=== PATIENT | female | born 1940 | race Caucasian/White ===

== ENCOUNTER 2023-05-01 18:32 | Emergency (ER) | payer MEDICARE, SELFPAY ==
--- NOTE | ~2023-05-01 | CT_ITS ---
EXAMINATION: CT ABDOMEN AND PELVIS WITHOUT CONTRAST CLINICAL INFORMATION: Abdominal fullness/nausea. COMPARISON: None available. TECHNIQUE: Multidetector volumetric imaging was performed from the superior aspect of the liver through the pubic symphysis. Sagittal and coronal reformatted images were obtained on the technologist's workstation. This CT examination was performed using dose optimization techniques as appropriate, variously including the following: *Automated exposure control *Adjustment of mA and/or kV according to patient size (this includes techniques or standardized protocols for targeted exams where dose is matched to indication/reason for exam; i.e. extremities or head) *Use of iterative reconstruction technique DLP: 813 mGy-cm FINDINGS: The lack of intravenous contrast limits evaluation of the solid visceral organs including the liver, spleen, pancreas, and kidneys. LUNG BASES: No focal consolidation or pleural effusion. LIVER, GALLBLADDER, AND BILIARY TREE: The liver is normal in size, shape, and attenuation. No focal hepatic lesion or biliary ductal dilatation is present. Cholecystectomy. PANCREAS: Limited noncontrast examination. Fatty infiltration predominantly in the region of the pancreatic head/uncinate process. Minimal fatty haziness around the proximal pancreas and celiac trunk. SPLEEN: Normal size. ADRENAL GLANDS: No adrenal mass. KIDNEYS AND URETERS: Right extrarenal pelvis. No nephrolithiasis. No hydronephrosis. No perinephric fat stranding. BLADDER: Unremarkable. GASTROINTESTINAL TRACT: The stomach and the small bowel are nondilated. Radiopaque material at the cecal base as well a scattered s in the ascending colon, likely related with ingested debris. Colonic diverticulosis without significant pericolonic fat stranding/free fluid. No evidence of bowel obstruction. ABDOMINAL WALL: Small fat-containing umbilical and infraumbilical abdominal wall hernias. LYMPH NODES: No lymphadenopathy. VASCULAR: Atherosclerotic disease. Abdominal aorta is normal in caliber. PELVIC VISCERA: Hysterectomy. OSSEOUS STRUCTURES: Pronounced thoracolumbar scoliosis with advanced degenerative changes in the spine. Complex postoperative changes in the lower lumbar spine with interdisc spacer and spinous process hardware at L4-L5. CT/CT abdomen pelvis wo IV con IMPRESSION: 1. Minimal fatty haziness around the proximal pancreas and celiac trunk. Correlate clinically for acute pancreatitis. 2. Colonic diverticulosis but no evidence of acute diverticulitis. 3. Small fat-containing umbilical and infraumbilical abdominal wall hernias. 4. Complex postoperative appearance of the lower lumbar spine within a background of advanced degenerative changes. If an acute spinal pathology or hardware complication is suspected, further evaluation with MRI and IV contrast is recommended.
--- NOTE | ~2023-05-01 | XR_ITS ---
EXAMINATION: XR CHEST CLINICAL INFORMATION: Chest pain COMPARISON: None available. TECHNIQUE: 2 views of the chest were obtained. FINDINGS: Coarsened interstitial lung markings. Biapical pleural parenchymal scarring. No pneumothorax. Trachea is midline. Cardiomediastinal silhouette is not enlarged. Aorta demonstrates tortuosity with atherosclerotic calcifications. No large pleural effusion. Degenerative changes of the thoracolumbar spine. Soft tissues are unremarkable. XR/XR chest 2V IMPRESSION: 1. Coarsened interstitial lung markings. 2. Biapical pleural parenchymal scarring.
--- NOTE | 2023-05-01 19:52 | ED.GENADULT ---
HPI - General Adult General Chief complaint: Weakness Stated complaint: dizziness,nausea Time Seen by Provider: 05/01/23 21:28 Source: patient Mode of arrival: ambulatory Limitations: no limitations History of Present Illness HPI narrative: Patient With history of arthritis and high cholesterol and hypertension been complaining of nausea and weakness for last 4 days did not eat much especiall for last 24 hours no urinary symptoms , no fever/ chills no new medication Related Data Previous Rx's Medication Instructions Recorded ondansetron 4 mg disintegrating 4 mg PO Q6-8H PRN nausea and 05/02/23 tablet vomiting #10 tabs Allergies Allergy/AdvReac Type Severity Reaction Status Date / Time celecoxib [From Celebrex] Allergy Mild PALPITATION Unverified 06/08/20 16:56 S levofloxacin [From Levaquin] Allergy Mild VOMITNG/GRACE Unverified 06/08/20 16:56 KELL zolpidem [From Ambien] Allergy Mild HIVES/RASH/ Unverified 06/08/20 16:56 ITCH acetaminophen [From Vicodin] Allergy Abdominal Verified 05/01/23 19:59 Pain adhesive tape Allergy Rash Verified 05/01/23 19:59 cholestyramine Allergy Unknown Verified 05/01/23 19:59 [From Questran] diclofenac [From Cataflam] Allergy Anaphylaxis Verified 05/01/23 19:59 gemfibrozil [From Lopid] Allergy Nausea Verified 05/01/23 19:59 hydrocodone [From Vicodin] Allergy Abdominal Verified 05/01/23 19:59 Pain indomethacin Allergy Nausea Verified 05/01/23 19:59 ketoprofen Allergy Chest Pain Verified 05/01/23 19:59 lisinopril Allergy Nausea Verified 05/01/23 19:59 lorazepam [From Ativan] Allergy Anxiety Verified 05/01/23 19:59 naproxen Allergy Abdominal Verified 05/01/23 19:59 Pain NSAIDS (Non-Steroidal Allergy Abdominal Verified 05/01/23 19:59 Anti-Inflamma Pain sucrose [From Questran] Allergy Unknown Verified 05/01/23 19:59 diazepam [From Valium] AdvReac Mild HYPERACTIVE Unverified 06/08/20 16:56 pravastatin [Pravastatin] AdvReac Mild MUSCLE AND Unverified 06/08/20 16:56 LEG PAIN zinc AdvReac Vomiting Verified 05/01/23 19:59 Review of Systems Review of Systems: Yes all other systems are reviewed and are negative [facility] Social History Social History Alcohol intake: former Smoked in Last 30 Days: No Use of substances other than those prescribed or required for medical reasons: No Advance Directives: No Advance Directives Information Provided: Yes Physical Exam ED Vital Signs: Vital Signs - 24 hr 05/01/23 19:59 05/01/23 22:20 Temperature 98.2 F Pulse Rate 88 81 Respiratory Rate 18 20 Blood Pressure 185/70 H 172/73 H Pulse Oximetry 100 99 Oxygen Delivery Method Room Air Room Air BMI result Body Mass Index 38.7 Appearance: Alert. Oriented X3. No acute distress. Eyes: PERRLA, No Nystagmus ENT: Pharynx normal. Oral Mucosa moist Neck: Normal inspection. Neck supple. CVS: Normal heart rate and rhythm. Pulses normal. Respiratory: No respiratory distress. Equal air entry bilateral, no wheezing/rales/rhonchi Abdomen: Soft and nontender. Bowel sounds are present, no mass palpable, no CVA tenderness Skin: Skin warm and dry. Normal skin color. Normal skin turgor. Extremities: No lower extremity edema. No calf tenderness Neuro: Oriented X 3. No motor deficit. No sensory deficit.No cerebellar signs , cranial nerves II-XII intact Course Course Course Narrative: This is an RME: Additional HPI, ROS, PE not included below will be deferred to primary provider. This is a [id number], with a past medical history of hypertension, HLD, GERD, psoriasis, psoriatic arthritis, osteoarthritis, hiatal hernia, spinal stenosis, scoliosis, spondylitis, tinnitus, versus leg syndrome chronic, neuroma your pain of toes intact feet, incontinence, colitis presenting to the ER with complaints of nausea x 4 days and weakness. wheezing x 10 days. Faint expiratory wheeze heard at right lower lung base. Patient mildly hypertensive at 185/70. Plan: Labs, EKG, chest x-ray, UA Medications Administered Discontinued Medications Generic Name Dose Route Start Last Admin Trade Name Freq PRN Reason Stop Dose Admin Sodium Chloride 1,000 mls @ 999 mls/hr 05/01/23 21:42 05/01/23 23:49 Ns IV 05/01/23 22:42 Infused .Q1H1M ONE Infusion Morphine Sulfate 4 mg 05/01/23 23:51 05/01/23 23:57 Morphine Sulfate 4 Mg/Ml Cartridge IVPUSH 05/01/23 23:52 4 mg ONCE ONE Administration Protocol Ondansetron HCl 4 mg 05/01/23 21:44 05/01/23 22:34 Ondansetron Hcl 4 Mg/2 Ml Vial IVPUSH 05/01/23 21:45 4 mg ONCE ONE Administration Medical Decision Making Medical Decision Making [facility] Narrative: Patient nonspecific weakness/nausea do not very clear labs are stable with abdominal CT scan to rule out any pathology CT scan of the abdomen showed slight inflammation around the pancreas patient's lipase was normal. Advised to follow with block stacker Differential Diagnosis Differential Diagnoses: The differential diagnosis associated with the presentation includes Gastritis/pancreatitis/pancreatic mass Lab Data [facility] Lab Attestation statement: I reviewed the patient's lab results. 05/01/23 20:31 05/01/23 20:31 Labs: Lab Results 05/01/23 05/01/23 05/01/23 Range/Units 20:31 20:31 20:31 WBC 6.4 (4.8-10.8) X10*3/uL RBC 4.31 (4.20-5.50) X10*6/uL Hgb 12.6 (12.0-16.0) g/dl Hct 37.5 (37.0-47.0) % MCV 87.0 (80.0-98.0) fL MCH 29.2 (27.0-33.0) pg MCHC 33.6 (31.0-35.0) g/dl RDW 12.3 (11.0-16.0) % Plt Count 310 (160-400) X10*3/uL MPV 9.7 (9.4-12.3) fL Immature Gran % (Auto) 0.5 H (0.0-0.4) % Neut % (Auto) 59.7 (45-73) % Lymph % (Auto) 29.5 (20-40) % Collier % (Auto) 8.1 (2-11) % Eos % (Auto) 1.4 (0-4) % Baso % (Auto) 0.8 (0-2) % Lymph # (Auto) 1.9 (1.2-4.9) X10*3/uL Collier # (Auto) 0.5 (0.1-1.2) X10*3/uL Eos # (Auto) 0.1 (0.0-0.4) X10*3/uL Baso # (Auto) 0.1 (0.0-0.2) X10*3/uL Abs Immat Gran (auto) 0.03 (0.00-0.03) X10*3/uL Absolute Neuts (auto) 3.8 (2.0-8.3) x10*3/uL Absolute Nucleated RBC 0.000 (0.0-0.012) X10*3/uL Nucleated RBC % (auto) 0.0 (0.0-0.2) /100WBC Sodium 134 L (135-145) mmol/L Potassium 4.1 (3.3-5.1) mmol/L Chloride 99 (96-108) mmol/L Carbon Dioxide 23 (22-29) mmol/L Anion Gap 16 (12-20) BUN 13 (9-16) mg/dL Creatinine 0.87 (0.5-1.4) mg/dL Estim Creat Clear Calc 48.0 Estimated GFR > 60 Random Glucose 108 (60-115) mg/dL Calcium 10.4 H (8.4-10.2) mg/dL Magnesium 2.1 (1.6-2.6) mg/dL Total Bilirubin 0.4 (0.0-1.0) mg/dL Direct Bilirubin 0.2 (0.0-0.5) mg/dL AST 22 (5-31) U/L ALT 14 (0-31) U/L Alkaline Phosphatase 69 (39-117) U/L Troponin I High Sens (<3.5-17.0) ng/L B-Natriuretic Peptide 103 H (<100) pg/mL Total Protein 7.4 (6.5-8.0) g/dL Albumin 4.2 (3.5-5.0) g/dL Lipase 16 (8-78) U/L Urine Color Urine Appearance Urine pH (5.0-9.0) Ur Specific Stan[place] (1.005-1.025) Urine Protein (Neg-Trace) mg/dL Urine Glucose (UA) (Negative) mg/dL Urine Ketones (Negative) mg/dL Urine Blood (Negative) Urine Nitrite (Negative) Ur Leukocyte Esterase (Negative) Urine RBC (0-2) /HPF Urine WBC (0-5) /HPF Ur Squamous Epith Cells (0-2) /HPF Urine Bacteria (None Seen) Hyaline Casts (0-2) /LPF Influenza Type A (PCR) (Negative) Influenza Type B (PCR) (Negative) RSV RNA Qual (PCR) (Negative) SARS-CoV-2 RNA (RT-PCR) (Negative) 05/01/23 05/01/23 05/01/23 Range/Units 20:31 20:32 20:33 WBC (4.8-10.8) X10*3/uL RBC (4.20-5.50) X10*6/uL Hgb (12.0-16.0) g/dl Hct (37.0-47.0) % MCV (80.0-98.0) fL MCH (27.0-33.0) pg MCHC (31.0-35.0) g/dl RDW (11.0-16.0) % Plt Count (160-400) X10*3/uL MPV (9.4-12.3) fL Immature Gran % (Auto) (0.0-0.4) % Neut % (Auto) (45-73) % Lymph % (Auto) (20-40) % Collier % (Auto) (2-11) % Eos % (Auto) (0-4) % Baso % (Auto) (0-2) % Lymph # (Auto) (1.2-4.9) X10*3/uL Collier # (Auto) (0.1-1.2) X10*3/uL Eos # (Auto) (0.0-0.4) X10*3/uL Baso # (Auto) (0.0-0.2) X10*3/uL Abs Immat Gran (auto) (0.00-0.03) X10*3/uL Absolute Neuts (auto) (2.0-8.3) x10*3/uL Absolute Nucleated RBC (0.0-0.012) X10*3/uL Nucleated RBC % (auto) (0.0-0.2) /100WBC Sodium (135-145) mmol/L Potassium (3.3-5.1) mmol/L Chloride (96-108) mmol/L Carbon Dioxide (22-29) mmol/L Anion Gap (12-20) BUN (9-16) mg/dL Creatinine (0.5-1.4) mg/dL Estim Creat Clear Calc Estimated GFR Random Glucose (60-115) mg/dL Calcium (8.4-10.2) mg/dL Magnesium (1.6-2.6) mg/dL Total Bilirubin (0.0-1.0) mg/dL Direct Bilirubin (0.0-0.5) mg/dL AST (5-31) U/L ALT (0-31) U/L Alkaline Phosphatase (39-117) U/L Troponin I High Sens 9.9 (<3.5-17.0) ng/L B-Natriuretic Peptide (<100) pg/mL Total Protein (6.5-8.0) g/dL Albumin (3.5-5.0) g/dL Lipase (8-78) U/L Urine Color Yellow Urine Appearance Clear Urine pH 7.5 (5.0-9.0) Ur Specific [place] 1.015 (1.005-1.025) Urine Protein Negative (Neg-Trace) mg/dL Urine Glucose (UA) Negative (Negative) mg/dL Urine Ketones Trace (Negative) mg/dL Urine Blood Negative (Negative) Urine Nitrite Negative (Negative) Ur Leukocyte Esterase Trace H (Negative) Urine RBC 0-2 (0-2) /HPF Urine WBC 0-5 (0-5) /HPF Ur Squamous Epith Cells 0-2 (0-2) /HPF Urine Bacteria Trace (None Seen) Hyaline Casts 0-2 (0-2) /LPF Influenza Type A (PCR) NEGATIVE (Negative) Influenza Type B (PCR) NEGATIVE (Negative) RSV RNA Qual (PCR) NEGATIVE (Negative) SARS-CoV-2 RNA (RT-PCR) NEGATIVE (Negative) Discharge Plan Discharge Clinical Impression: Acute inflammation of the pancreas Patient Disposition: Home, Self-Care Instructions: Pancreatitis (ED) Additional Instructions: Drink plenty of fluids Avoid fried food Continue pain and acid medication Zofran for nausea Report to the ER if increased epigastric pain Prescriptions: New ondansetron 4 mg tablet,disintegrating 4 mg PO Q6-8H PRN (Reason: nausea and vomiting) Qty: 10 0RF Interventions: ED Discharge Assessment Last Done: 05/02/23 01:15 Discharge Date/Time: 05/02/23 01:16
[2023-05-01 19:59] VITALS: BP 185/70; PULSE 88; RESP 18; TEMP 36.8; O2SAT 100; BMI 38.7
--- NOTE | 2023-05-01 20:05 | ECG_ITS ---
Test Reason : CP Blood Pressure : / mmHG Vent. Rate : 090 BPM Atrial Rate : 090 BPM P-R Int : 246 ms QRS Dur : 086 ms QT Int : 376 ms P-R-T Axes : 053 032 005 degrees QTc Int : 459 ms Sinus rhythm with 1st degree A-V block with Premature atrial complexes Nonspecific ST and T wave abnormality Abnormal ECG When compared to the previous EKG of First degree AV block present Referred By: Marnie Chavez Electronically Signed By:Baudilio Del Toro
--- NOTE | 2023-05-01 20:18 | MHC.EDTECH ---
pt called for EKG 2015. pt currently in bathroom. awaiting pt availability for EKG and labs
[2023-05-01 20:43] LABS: MANUAL DIFF FLAG NO
[2023-05-01 20:54] LABS: Basophils Absolute Auto 0.1 X10*3/uL (0.0-0.2); Basophils Percent Auto 0.8 % (0-2); Eosinophils Absolute Auto 0.1 X10*3/uL (0.0-0.4); Eosinophils Percent Auto 1.4 % (0-4); Hematocrit 37.5 % (37.0-47.0); Hemoglobin 12.6 g/dl (12.0-16.0); Imm Gran Abs Auto 0.03 X10*3/uL (0.00-0.03); Imm Gran Pct Auto 0.5 % (0.0-0.4); Lymphocytes Absolute Auto 1.9 X10*3/uL (1.2-4.9); Lymphocytes Percent Auto 29.5 % (20-40); Mean Corpuscular HGB Conc 33.6 g/dl (31.0-35.0); Mean Corpuscular Hemoglobin 29.2 pg (27.0-33.0); Mean Platelet Volume 9.7 fL (9.4-12.3); Monocytes Absolute Auto 0.5 X10*3/uL (0.1-1.2); Monocytes Percent Auto 8.1 % (2-11); Neutrophils Absolute Auto 3.8 x10*3/uL (2.0-8.3); Neutrophils Percent Auto 59.7 % (45-73); Platelet Count 310 X10*3/uL (160-400); Red Blood Count 4.31 X10*6/uL (4.20-5.50); Red Cell Distribution Width 12.3 % (11.0-16.0); White Blood Count 6.4 X10*3/uL (4.8-10.8)
[2023-05-01 20:55] LABS: Appearance Urine Clear; Color Urine Yellow; Glucose Urine UA Negative (Negative); Leukocyte Esterase Urine Trace (Negative); Nitrite Urine Negative (Negative); PH 7.5 (5.0-9.0); Specific Gravity - Urine 1.015 (1.005-1.025); UMIC TRIGGER UACC YES; Urine Blood Negative (Negative); Urine Ketones Trace mg/dL (Negative); Urine Protein Negative (Neg-Trace)
[2023-05-01 21:03] LABS: Alanine Aminotransferase 14 U/L (0-31); Albumin Level 4.2 g/dL (3.5-5.0); Alkaline Phosphatase 69 U/L (39-117); Anion Gap 16 (12-20); Aspartate Amino Transferase 22 U/L (5-31); Bilirubin Direct 0.2 mg/dL (0.0-0.5); Bilirubin Total 0.4 mg/dL (0.0-1.0); Blood Urea Nitrogen 13 mg/dL (9-16); Calcium 10.4 mg/dL (8.4-10.2); Carbon Dioxide 23 mmol/L (22-29); Chloride 99 mmol/L (96-108); Estimated Glomerular Filt Rate > 60; Glucose Random 108 mg/dL (60-115); Lipase 16 U/L (8-78); Magnesium 2.1 mg/dL (1.6-2.6); Potassium 4.1 mmol/L (3.3-5.1); Sodium 134 mmol/L (135-145); Total Protein 7.4 g/dL (6.5-8.0)
[2023-05-01 21:06] LABS: B Type Natriuretic Peptide 103 pg/mL (<100)
[2023-05-01 21:09] LABS: Troponin-I High Sensitivity 9.9 ng/L (<3.5-17.0)
--- OUTSIDE RECORDS SUMMARY | 2023-05-01 21:21 | XMS_ITS ---
Author Name EMERSON SURYA Address [address] [place], [place] [id number] Organization [facility] Address [address] [place], [place] [id number] Care Team Providers Care Nurse Supervisor Name Role Phone EMERSON SURYA Unavailable [phone] PROBLEMS Type Condition ICD9-CM Code SGF63-QG Code Onset Dates Condition Status SNOMED Code Problem Hyperlipidemia 272.4 Oct, Resolved Problem Osteoarthritis, site unspecified 715.00 Oct, Resolved Problem GERD 530.81 Oct, Resolved Problem Rash and other nonspecific skin eruption R21 14 Oct, 2017 Resolved Problem Essential hypertension, unspecified 401.9 Oct, Resolved Problem Hypertension, unspecified type I10 Active Problem Zoster without complications B02.9 Oct, Resolved Problem Postlaminectomy syndrome, not elsewhere classified M96.1 Active Problem 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 Active Problem URI 465.8 Sep, Resolved Problem Essential (primary) hypertension I10 Active Problem History of diverticulitis Z87.19 Active Problem Urge incontinence N39.41 Active Problem RLS (restless legs syndrome) G25.81 Active Problem History of cataract Z86.69 Active Problem Depression with anxiety F41.8 Active Problem Psoriatic arthritis L40.50 Active Problem Other chronic pain G89.29 Active Problem Severe scoliosis M41.9 Active Problem Chronic pain syndrome G89.4 Active Problem Lumbar facet arthropathy M47.816 Active Problem Sedative, 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, 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 Active Problem Spondylosis of lumba r region without myelopathy or radiculopathy M47.816 Active Problem Hyperlipidemia, unspecified hyperlipidemia type E78.5 Active Problem BMI 36.0-36.9,adult Z68.36 Active Problem Gastroesophageal reflux disease without esophagitis K21.9 Active Problem Paresthesia of skin R20.2 Active Problem Recurrent major depressive disorder, in partial remission F33.41 Active Problem BMI 35.0-35.9,adult Z68.35 Active Problem Spondylosis without myelopathy or radiculopathy, lumbar region M47.816 Active Problem Bilateral sacroiliitis M46.1 Active ALLERGIES Substance Reaction Event Type Date Status Duloxetine Unknown Drug Allergy Nov, Active Vicodin Unknown Drug Allergy Nov, Active NSAIDs Unknown Non Drug Allergy Nov, Active Ativan Unknown Drug Allergy Nov, Active Celebrex Unknown Drug Allergy Nov, Active Ambien CR Unknown Drug Allergy Nov, Active Lopid Unknown Drug Allergy Nov, Active Meloxicam Unknown Drug Allergy Nov, Active Lisinopril Unknown Drug Allergy Nov, Active Cataflam Unknown Drug Allergy Nov, Active Vytorin Unknown Drug Allergy Nov, Active Levaquin Unknown Drug Allergy Nov, Active Ketoprofen stomach upset Drug Allergy Nov, Active Valium Unknown Drug Allergy Nov, Active Indomethacin Unknown Drug Allergy Nov, Active Adhesive Unknown Drug Allergy Nov, Active Questran Unknown Drug Allergy Nov, Active Pravastatin Unknown Non Drug Allergy Nov, Activ e Naproxen stomach upset Drug Allergy Nov, Active Fragrance Unknown Drug Allergy Nov, Active ENCOUNTERS Encounter Location Date Diagnosis [facility] [address] [place], [place] [id number] Mar, Recurrent major depressive disorder, in partial remission F33.41 and Bilateral sacroiliitis M46.1 [facility] [address] [place], [place] [id number] Feb, Bilateral sacroiliitis M46.1 and Recurrent major depressive disorder, in partial remission F33.41 [facility] [address] [place], [place] [id number] 17 Jan, 2023 Bilateral sacroiliitis M46.1 [facility] [address] [place] [address], [place] [id number] 24 Dec, 2022 Bilateral sacroiliitis M46.1 [facility] [address] [place] [address], [place] [id number] 31 Nov, 2022 Recurrent major depressive disorder, in partial remission F33.41 [facility] [address] [facility] [id number] 29 Nov, 2022 Recurrent major depressive disorder, in partial remission F33.[address] [facility] [address] [place] [address] [facility] [place] [id number] 29 Nov, 2022 Essential (primary) hypertension I10 and BMI 36.0-36.9,adult Z68.36 [facility] [address] [place] [address], [place] [id number] 15 Nov, 2022 Essential (primary) hypertension I10 ; Bilateral sacroiliitis M46.1 and BMI 35.0-35.9,adult Z68.35 [facility] [address] [place] [id number] 10 Nov, 2022 [facility] [address] [place] [address], [place] [id number] 09 Nov, [address], [address] [place], [place] [id number] 07 Nov, 2022 Radiculopathy, lumbar region M54.16 [place] [address] [place] [address], [place] [id number] 23 Oct, [address] [address] [place] [address], [place] [id number] 23 Oct, 2022 Recurrent major depressive disorder, in partial remission F33.41 ; Sedative, hypnotic or anxiolytic abuse with withdrawal, 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 ; Hyperlipidemia, unspecified hyperlipidemia type E78.5 ; Essential (primary) hypertension I10 ; 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 ; Other prison (current) drug therapy Z79.899 ; Impaired fasting blood sugar R73.01 ; BMI 35.0-35.9,adult Z68.35 and Encounter for screening for other disorder Z13.89 [facility] [address], [facility] [address] [place], [place] [id number] 15 Oct, 2022 Radiculopathy, thoracic lashae on M54.14 ; Bilateral sacroiliitis M46.1 ; Neuralgia and neuritis, unspecified M79.2 ; Radiculopathy, lumbar region M54.16 ; Spondylosis without myelopathy or radiculopathy, lumbar region M47.816 and terminal makeup operator (current) use of opiate analgesic Z79.891 [facility] [address] [place] [address] 14 Oct, 2022 Essential (primary) hypertension I10 ; Hyperlipidemia, unspecified hyperlipidemia type E78.5 and Other prison (current) drug therapy Z79.899 [facility], [place], [place] [id number] Sep, Spondylosis of lumbar region without myelopathy or radiculopathy M47.816 [facility] [address] [place] [id number] Sep, Recurrent major depressive disorder, in partial remission F33.41 [facility] [address] [place] [id number] Sep, [facility] [address] [place] [id number] Aug, [facility], [place], [place] [id number] Aug, Bilateral sacroiliitis M46.1 ; Neuralgia and neuritis, unspecified M79.2 ; Radiculopathy, lumbar region M54.16 ; Spondylosis without myelopathy or radiculopathy, lumbar region M47.816 and snf (current) use of opiate analgesic Z79.891 [facility], [place], [place] [id number] Aug, Spondylosis of lumbar region without myelopathy or radiculopathy M47.816 [facility] [address] [place], [place] [id number] Aug, Recurrent major depressive disorder, in partial remission F33.41 [facility] [address] [facility], [address] [place] [id number] Jul, Spondylosis of lumbar region without myelopathy or radiculopathy M47.[address] [id number] Jun, Essential (primary) hypertension I10 ; Encounter for general adult medical examination with abnormal findings Z00.01 ; Hyperlipidemia, unspecified hyperlipidemia type E78.5 ; Gastroesophageal reflux disease without esophagitis K21.9 ; Psoriatic arthritis L40.50 ; Other prison (current) drug therapy Z79.899 ; Recurrent major depressive disorder, in partial remission F33.41 ; Vaccine counseling Z71.89 ; Influenza vaccine administered Z23 ; Encounter for immunization Z23 ; BMI 35.0-35.9,adult Z68.35 ; Sedative, hypnotic or anxiolytic abuse with withdrawal, 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 and 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 [id number] Jun, Essential (primary) hypertension I10 [facility] [address] [place] [address] 20 Jun, 2022 Hyperlipidemia, unspecified hyperlipidemia type E78.5 ; Annual visit for general adult medical examination with abnormal findings Z00.01 ; Depression with anxiety F41.8 and Essential (primary) hypertension I10 [facility] [address] [facility], [facility] [address] [place], [place] [id number] 17 Jun, 2022 Neuralgia and neuritis, unspecified M79.2 ; Bilateral sacroiliitis M46.1 ; Radiculopathy, lumbar region M54.16 ; Spondylosis without myelopathy or radiculopathy, lumbar region M47.816 and terminal makeup operator (current) use of opiate analgesic Z79.[address] [id number] May, [address] [id number] May, [address] [id number] Mar, [address] [id number] Feb, [facility] [address] [place] [id number] Feb, [facility] [address] [place] [id number] January, [facility] [address] [place] [id number] January, [facility] [address] [place] [id number] January, Encounter for screening for other disorder Z13.89 ; Bronchitis J40 and BMI 34.0-34.9,adult Z68.34 [facility] [address] [place] [id number] January, Bronchitis J40 and BMI 35.0-35.9,adult Z68.35 [facility] [address] [place] [address] 12 Jan, [address] [facility] [address] [place] [id number] January, Acute upper respiratory infection, unspecified J06.9 [facility] [address] [place] [id number] January, [facility] [address] [place] [address] January, 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 ; Lumbar facet arthropathy M47.816 ; Postlaminectomy syndrome, not elsewhere classified M96.1 and Chronic pain syndrome G89.[address] [address] [id number] Dec, Hyperlipidemia, unspecified hyperlipidemia type E78.5 ; Annual visit for general adult medical examination with abnormal findings Z00.01 ; Depression with anxiety F41.8 ; Essential (primary) hypertension I10 ; Encounter for screening for other disorder Z13.89 ; Encounter for general adult medical examination with abnormal findings Z00.01 ; Cervicalgia M54.2 ; Other chronic pain G89.29 ; Severe scoliosis M41.9 and BMI 36.0-36.9,adult Z68.36 [facility] [address] [place] [address] Nov, Hyperlipidemia, unspecified hyperlipidemia type E78.5 ; Psoriatic arthritis L40.50 ; Essential (primary) hypertension I10 ; Encounter for screening for other disorder Z13.89 ; Hypertension, unspecified type I10 and RLS (restless legs syndrome) G25.81 [facility] [address] [place] [id number] Nov, Rheumatoid arthritis, involving unspecified site, unspecified whether rheumatoid factor present M06.[address] [id number] Nov, [address] [id number] Nov, Encounter for screening for other disorder Z13.89 ; Hyperlipidemia, unspecified hyperlipidemia type E78.5 ; Hypertension, unspecified type I10 ; Encounter for screening mammogram for malignant neoplasm of breast Z12.31 ; Screen for colon cancer Z12.11 ; Anesthesia of skin R20.0 ; Paresthesia of skin R20.2 ; Depression with anxiety F41.8 ; Gastroesophageal reflux disease without esophagitis K21.9 ; History of diverticulitis Z87.19 ; History of cataract Z86.69 ; Urge incontinence N39.41 ; Neck pain M54.2 ; Other chronic pain G89.29 ; Low back pain, unspecified M54.50 ; History of tinnitus Z86.69 ; Psoriatic arthritis L40.50 ; RLS (restless legs syndrome) G25.81 and BMI 34.0-34.9,adult Z68.34 [facility] [address] [place], [place] [id number] 07 Nov, 2021 [facility] [address] [id number] May, [facility] [address] [place] [id number] Apr, [facility] [address] [place] [id number] 14 Oct, 2017 [facility] [address] [id number] 07 Sep, 2014 IMMUNIZATIONS Vaccine Route Administration Date Status Bupivacaine OTH Other/Miscellaneous November 26, 2022 Ad ministered Bupivacaine OTH Other/Miscellaneous Oct 08, 2022 Admi nistered Bupivacaine OTH Other/Miscellaneous Aug 27, 2022 Admi nistered Bupivacaine Unknown Jul 30, 2022 Administered Lidocaine OTH Other/Miscellaneous November 26, 2022 Ad ministered Lidocaine OTH Other/Miscellaneous Oct 08, 2022 Admi nistered Omnipaque OTH Other/Miscellaneous November 26, 2022 Ad ministered Lidocaine OTH Other/Miscellaneous Aug 27, 2022 Admi nistered FLUAD 2021 HIGH DOSE IM Intramuscular Jul 18, 2022 Adm inistered Lidocaine OTH Other/Miscellaneous Jul 30, 2022 Admi nistered KENALOG Unknown November 26, 2022 Administered SOCIAL HISTORY Qualifiers Date Smoker, current status unknown REASON FOR REFERRAL FUNCTIONAL STATUS PLAN OF CARE Activity Details VITAL SIGNS Temperature 98.7 degrees Fahrenheit Temperature 98 degrees Fahrenheit 2014-09-28 Heart Rate 78 /min 2022-12-18 Heart Rate 75 /min 2022-12-04 Heart Rate 80 /min 2022-11-26 Heart Rate 83 /min 2022-11-14 Heart Rate 77 /min 2022-11-06 Heart Rate 77 /min 2022-10-08 Heart Rate 78 /min 2022-09-09 Heart Rate 79 /min 2022-08-27 Heart Rate 73 /min 2022-07-30 Heart Rate 69 /min 2022-07-18 Heart Rate 94 /min 2022-07-08 Heart Rate 83 /min 2022-02-12 Heart Rate 80 /min 2022-02-05 Heart Rate 74 /min 2022-01-31 Heart Rate 96 /min 2022-01-23 Heart Rate 94 /min 2022-01-10 Heart Rate 84 /min 2021-12-11 Heart Rate 91 /min 2017-11-05 Heart Rate 87 /min 2014-09-28 Weight 197 lbs 2022-12-18 Weight 196 lbs 2022-12-04 Weight 197 lbs 2022-11-26 Weight 196.8 lbs 2022-11-14 Weight 203 lbs 2022-11-06 Weight 188 lbs 2022-09-09 Weight 188 lbs 2022-08-27 Weight 188 lbs 2022-07-30 Weight 193 lbs 2022-07-18 Weight 191 lbs 2022-07-08 Weight 191 lbs 2022-02-12 Weight 192 lbs 2022-02-05 Weight 196 lbs 2022-01-31 Weight 196.2 lbs 2022-01-23 Weight 197 lbs 2022-01-10 Weight 191 lbs 2021-12-11 Weight 193 lbs 2017-11-05 Weight 174 lbs 2014-09-28 BMI 36.03 kg/m2 2022-12-18 BMI 35.84 kg/m2 2022-12-04 BMI 36.03 kg/m2 2022-11-26 BMI 35.99 kg/m2 2022-11-14 BMI 37.13 kg/m2 2022-11-06 BMI 34.38 kg/m2 2022-09-09 BMI 34.38 kg/m2 2022-08-27 BMI 34.38 kg/m2 2022-07-30 BMI 35.3 kg/m2 2022-07-18 BMI 34.93 kg/m2 2022-07-08 BMI 34.93 kg/m2 2022-02-12 BMI 35.11 kg/m2 2022-02-05 BMI 35.84 kg/m2 2022-01-31 BMI 35.88 kg/m2 2022-01-23 BMI 36.03 kg/m2 2022-01-10 BMI 34.93 kg/m2 2021-12-11 Height 62 in 2022-12-18 Height 62 in 2022-12-04 Height 62 in 2022-11-26 Height 62 in 2022-11-14 Height 62 in 2022-11-06 Height 62 in 2022-10-08 Height 62 in 2022-09-09 Height 62 in 2022-08-27 Height 62 in 2022-07-30 Height 62 in 2022-07-18 Height 62 in 2022-07-08 Height 62 in 2022-02-12 Height 62 in 2022-02-05 Height 62 in 2022-01-31 Height 62 in 2022-01-23 Height 62 in 2022-01-10 Height 62 in 2021-12-11 Height 62 in 2017-11-05 Height 62 in 2014-09-28 Respiratory Rate 17 /min 2021-12-11 Oximetry 99 % 2022-12-18 Oximetry 100 % 2022-12-04 Oximetry 99 % 2022-11-26 Oximetry 99 % 2022-11-14 Oximetry 99 % 2022-11-06 Oximetry 99 % 2022-10-08 Oximetry 98 % 2022-09-09 Oximetry 98 % 2022-08-27 Oximetry 98 % 2022-07-30 Oximetry 97 % 2022-07-18 Oximetry 97 % 2022-07-08 Oximetry 97 % 2022-02-12 Oximetry 98 % 2022-02-05 Oximetry 98 % 2022-01-31 Oximetry 96 % 2022-01-23 Oximetry 98 % 2022-01-10 Oximetry 99 % 2021-12-11 Oximetry 98 % 2017-11-05 Oximetry 95 % 2014-09-28 Blood pressure systolic 148 mm Hg Blood pressure diastolic 70 mm Hg 2022-11 MEDICATIONS Medication Instructions Dosage Frequency Start Date End Date Duration Status Famotidine 20 MG TAKE 2 TABLETS BY MOUTH ONCE DAILY 90 Active Valsartan 320 MG Orally Once a day 1 tablet 24h 90 days Active hydroCHLOROthiazide 25 MG TAKE 1 TABLET BY MOUTH ONCE DAILY 90 Active Tazorac 0.1 % 1-2 daily as needed for psoriasis Sep, 30 Active Calcium Carbonate-Vitamin D 600-200 MG-UNIT Orally Three times a day 1 capsule 8h Active Systane 0.4-0.3 % Ophthalmic Once a day 1-2 drops in affected eye 24h Active Voltaren Gel * Apply QD PRN PAIN Sep, 30 Active Metamucil 28.3 % Orally Twice a day 1 packet with 8 ounces of liquid as needed 12h Active Super B-50 B Complex - as directed Active Nizatidine 150 mg 1-2 daily Sep, 30 Active Simvastatin 40 MG Oral Once a day 1 tab po qd 24h 90 days Active LORazepam 1 MG Oral Once a day 1 tab qd prn 24h Feb, 30 days Active traMADol HCl 50 MG Orally three times a day 1 tablet as needed for chronic back pain 8h Mar, 30 days Active PreviDent 5000 Booster Plus 1.1 % Apply small amount daily to toothbrush and brush thoroughly for 2 minutes, expectorate after use. Sep, 30 Active Vitamin C 1000 MG Orally Once a day 1 tablet 24h 30 day(s) Active Clobetasol Propionate 0.05 % Externally Twice a day as needed 1 application Active Glucosamine Chond MSM Formula - as directed Active Centrum Silver - as directed Active PROCEDURES Procedure Date Ordered Result Body Site ASSAY OF FERRITIN December 19, 2021 ASSAY OF VITAMIN D December 19, 2021 RVW MEDS BY RX/DR IN [facility] Nov 14, 2022 TOBACCO NON-USER December 11, 2021 RVW MEDS BY RX/DR IN [facility] January 31, 2022 INJ PARAVERT F JNT L/S 2 LEV Aug 27, 2022 INJ PARAVERT F JNT L/S 2 LEV Jul 30, 2022 RVW MEDS BY RX/DR IN [facility] Jul 18, 2022 FXNL STATUS ASSESSED December 18, 2022 FXNL STATUS ASSESSED February 12, 2022 RVW MEDS BY RX/DR IN [facility] January 23, 2022 DESTROY L/S FACET JNT ADDL Oct 08, 2022 BMI >=30 CALCUATE W/FOLLOWUP Jul 18, 2022 BMI >=30 CALCUATE W/FOLLOWUP January 10, 2022 ADVNC CARE PLAN TLK DOCD Nov 14, 2022 FXNL STATUS ASSESSED December 11, 2021 AMNT PAIN NOTED PAIN PRSNT January 10, 2022 BODY MASS INDEX DOCD Nov 14, 2022 FOOT EXAM PERFORMED December 11, 2021 VITAL SIGNS RECORDED December 11, 2021 COMPREHEN METABOLIC PANEL December 19, 2021 FLUAD 2021 HIGH DOSE Jul 18, 2022 COMPREHEN METABOLIC PANEL Jul 11, 2022 ASSAY THYROID STIM HORMONE Nov 05, 2022 LIPID PANEL December 19, 2021 LIPID PANEL Nov 05, 2022 LIPID PANEL Jul 11, 2022 FLUAD 2021 HIGH DOSE Jul 18, 2022 BMI >=30 CALCUATE W/FOLLOWUP Nov 14, 2022 ADVNC CARE PLAN TLK DOCD December 11, 2021 UNCLASSIFIED DRUGS November 26, 2022 BLOOD PRESSURE, MEASURED December 11, 2021 SYST BP = 140 MM HG6 IT Nov 14, 2022 DIAST BP = 90 MM HG Nov 14, 2022 AMNT PAIN NOTED NONE PRSNT December 11, 2021 ANNUAL ALCOHOL MISUSE SCREEN 15 MIN December 11, 2021 SYST BP LT 130 MM HG Jul 18, 2022 PRES/ABSN URINE INCON ASSESS Nov 14, 2022 DIAST BP 80-89 MM HG December 04, 2022 DIAST BP 80-89 MM HG February 12, 2022 VITAMIN B-12 December 19, 2021 VITAL SIGNS RECORDED February 12, 2022 VITAL SIGNS RECORDED December 18, 2022 BLOOD PRESSURE, MEASURED January 31, 2022 BLOOD PRESSURE, MEASURED January 10, 2022 ASSAY THYROID STIM HORMONE Jul 11, 2022 UNCLASSIFIED DRUGS Oct 08, 2022 VITAL SIGNS RECORDED December 04, 2022 VITAL SIGNS RECORDED February 05, 2022 COMPREHEN METABOLIC PANEL Nov 05, 2022 ASSAY THYROID STIM HORMONE December 19, 2021 ASSAY OF TRANSFERRIN December 19, 2021 DIAST BP 80-89 MM HG February 05, 2022 O2 SATURATION DOC REV Nov 14, 2022 THER/PROPH/DIAG INJ, IV PUSH November 26, 2022 ANNUAL DEPRESSION SCREENING 15 MIN December 11, 2021 DIAST BP < 80 MM HG Jul 18, 2022 SYST BP GE 130 - 139MM HG January 10, 2022 BMI >=30 CALCUATE W/FOLLOWUP February 12, 2022 BMI<30 AND >=22 CALC & DOCU December 04, 2022 FXNL STATUS ASSESSED December 04, 2022 FXNL STATUS ASSESSED February 05, 2022 FXNL STATUS ASSESSED January 10, 2022 INJ PARAVERT F JNT L/S 3 LEV Jul 30, 2022 INJ PARAVERT F JNT L/S 3 LEV Aug 27, 2022 FXNL STATUS ASSESSED Jul 18, 2022 FXNL STATUS ASSESSED January 23, 2022 INJ TRIAMCINOLONE ACETONIDE 10 MG November 26, 2022 FALL RISK ASSESSMENT DOCD Nov 14, 2022 FALL RISK ASSESSMENT DOCD December 11, 2021 BMI >=30 CALCUATE W/FOLLOWUP February 05, 2022 ANNUAL ALCOHOL MISUSE SCREEN 15 MIN Nov 14, 2022 AMNT PAIN NOTED PAIN PRSNT Jul 18, 2022 PAIN ASSESS DOC NEG NO F/U PLAN RQR December 11, 2021 BMI >=30 CALCUATE W/FOLLOWUP December 18, 2022 DIAST BP 80-89 MM HG January 10, 2022 O2 SATURATION DOC REV January 10, 2022 SYST BP = 140 MM HG6 IT December 18, 2022 O2 SATURATION DOC REV Jul 18, 2022 Lidocaine injection Aug 27, 2022 Lidocaine injection Jul 30, 2022 Lidocaine injection November 26, 2022 ASSAY OF IRON December 19, 2021 O2 SATURATION DOC REV December 04, 2022 O2 SATURATION DOC REV February 12, 2022 SYST BP LT 130 MM HG January 23, 2022 RVW MEDS BY RX/DR IN [facility] December 11, 2021 THER/PROPH/DIAG INJ, SC/IM November 26, 2022 O2 SATURATION DOC REV February 05, 2022 AMNT PAIN NOTED PAIN PRSNT Oct 08, 2022 FXNL STATUS ASSESSED Nov 14, 2022 O2 SATURATION DOC REV January 31, 2022 FALL RISK ASSESSMENT DOCD December 11, 2021 BODY MASS INDEX DOCD February 12, 2022 TOBACCO NON-USER Nov 14, 2022 BODY MASS INDEX DOCD February 05, 2022 IMMUNIZATION ADMIN Jul 18, 2022 DIAST BP < 80 MM HG January 23, 2022 IMMUNIZATION ADMIN Jul 18, [address] [facility] December 18, 2022 COMPLETE CBC W/AUTO DIFF WBC December 19, 2021 AMNT PAIN NOTED PAIN PRSNT Sep 09, 2022 COMPLETE CBC W/AUTO DIFF WBC Jul 11, 2022 AMNT PAIN NOTED PAIN PRSNT Jul 30, 2022 URINALYSIS, AUTO, W/O SCOPE Nov 05, 2022 AMNT PAIN NOTED PAIN PRSNT Aug 27, [address] IN RD February 05, [address] [facility] Jul 18, [address] [facility] January 10, [address] [facility] February 12, 2022 BLOOD FOLIC ACID SERUM December 19, 2021 VITAL SIGNS RECORDED Nov 14, 2022 SYST BP = 140 MM HG6 IT December 04, 2022 PRES/ABSN URINE INCON ASSESS December 11, 2021 AMNT PAIN NOTED NONE PRSNT February 05, 2022 BODY MASS INDEX DOCD January 10, 2022 BODY MASS INDEX DOCD Jul 18, 2022 DIAST BP < 80 MM HG December 18, 2022 Omnipaque November 26, 2022 COMPLETE CBC W/AUTO DIFF WBC Nov 05, 2022 VITAL SIGNS RECORDED Jul 18, 2022 URINALYSIS, AUTO, W/O SCOPE December 19, 2021 UNCLASSIFIED DRUGS Aug 27, 2022 UNCLASSIFIED DRUGS Jul 30, 2022 FOOT EXAM PERFORMED Nov 14, 2022 Lidocaine injection Oct 08, 2022 VITAL SIGNS RECORDED January 10, 2022 VITAL SIGNS RECORDED January 31, 2022 O2 SATURATION DOC REV December 18, 2022 SYST BP GE 130 - 139MM HG February 12, 2022 SYST BP GE 130 - 139MM HG February 05, 2022 AMNT PAIN NOTED NONE PRSNT December 18, 2022 PT FALLS ASSESS-DOC'D LE1/YR December 11, 2021 O2 SATURATION DOC REV December 11, 2021 FXNL STATUS ASSESSED December 11, 2021 RVW MEDS BY RX/DR IN [facility] February 05, 2022 RVW MEDS BY RX/DR IN [facility] December 04, 2022 INJ PARAVERT F JNT L/S 1 LEV Jul 30, 2022 INJ PARAVERT F JNT L/S 1 LEV Aug 27, [address] [facility] January 31, [address] [facility] December 11, 2021 RVW MEDS BY RX/DR IN [facility] December 18, 2022 RVW MEDS BY RX/DR IN [facility] February 12, 2022 BODY MASS INDEX DOCD December 11, 2021 BMI<30 AND >=22 CALC & DOCU December 11, 2021 DIAST BP < 80 MM HG December 11, 2021 LOCM 200-299MG/ML IODINE,1ML November 26, [address] [facility] Nov 14, 2022 MOST RECENT SYSTOLIC BP < 140MM HG December 11, 2021 TTE, W/DOPPLER, COMPLETE/TECHNICAL Jul 16, 2022 NJX INTERLAMINAR LMBR/SAC November 26, 20[address]D [address] [facility] December 04, 2022 TTE W/DOPPLER, COMPLETE, INTREPRETATION Jul 16, [address] [facility] January 23, 2022 AMNT PAIN NOTED PAIN PRSNT Jul 08, 2022 AMNT PAIN NOTED PAIN PRSNT January 23, 2022 RVW MEDS BY RX/DR IN [facility] January 10, 2022 DESTROY LUMB/SAC FACET JNT Oct 08, 2022 ANNUAL WELLNESS VST; PPS SUBSQT VST Jul 18, 2022 AMNT PAIN NOTED PAIN PRSNT December 04, 2022 CLIN DEPRESSION SCREEN DOC December 11, 2021 RESULTS Name Result Date Reference Range CMP (Comprehensive Metabolic panel) 11-05 A/G RATIO 1.4 1.0-2.5 ALBUMIN 4.0 3.5-5.5 ALK PHOSPHATASE 75 35-105 ALT 12 0-33 ANION GAP (Calc) 15 4-17 AST (SGOT) 18.0 0-32 BILIRUBIN, TOTAL 0.30 0.20-1.20 BUN/CREA RATIO 16 9-28 CALCIUM 9.7 8.6-10.4 CHLORIDE 99.7 98.0-110.0 CO2 31 20-31 CREATININE, JAFF 0.80 0.50-0.90 eGFR(Calc)AA 83 >60 eGFR(Calc)NON-AA 68 >60 GLOBULIN (Calc) 2.8 1.9-3.7 GLUCOSE 101 70-100 POTASSIUM 4.58 3.50-5.30 SODIUM 141 135-145 TOTAL PROTEIN 6.8 6.1-8.1 UREA NITROGEN 12.5 7.0-25.0 Urinalysis, Random w/Reflex to C & S 2022 BILIRUBIN Negative Negative Blood Negative Negative CLARITY Clear Clear COLOR Yellow Yellow GLUCOSE Negative Negative KETONES Negative Negative LEUKOCYTES Small Negative NITRITES Negative Negative Ph 7.5 5.0-7.5 PROTEIN Negative Negative SPECIFIC GRAVITY 1.015 1.005-1.029 UROBILINOGEN 0.2 0.2-1.0 CBC With Differential/Platelet 2022-11-05 HCT 35.9 34.0-46.6 HGB 11.9 11.1-15.9 LYMPHOCYTES # 1.90 0.50-5.00 LYMPHOCYTES % 36.2 MCH 29.2 25.0-35.0 MCHC 33.2 31.0-38.0 MCV 88.0 75.0-100.0 MONOCYTES # 0.50 0.10-1.50 MONOCYTES % 7.7 MPV 8.7 7.5-11.5 NEUTROPHILS # 3.0 1.20-8.00 NEUTROPHILS % 56.1 PLATELETS 324 140-400 RBC 4.08 3.80-5.40 RDWcv 12.7 11.0-16.0 WBC 5.40 3.80-10.80 Culture, Urine Comprehensive 2022-11-05 CULTURE, URINE, SPECIAL SEE NOTE Lipid Panel 2022-11-05 Chol, Total 185 <200 HDL, Cholesterol 75 >50 LDL,Chol Jeremy NIH 99 <100 Triglycerides 129 <150 VLDL, Chol Calc 26 0-40 TSH - Reflex to Free T4 2022-11-05 TSH Reflex FRT4 3.13 0.27-4.20 ECHO 2022-07-16 CMP (Comprehensive Metabolic panel) 07-11 A/G RATIO 1.6 1.0-2.5 ALBUMIN 4.1 3.5-5.5 ALK PHOSPHATASE 75 35-105 ALT 14 0-33 ANION GAP (Calc) 13 4-17 AST (SGOT) 20.0 0-32 BILIRUBIN, TOTAL 0.40 0.20-1.20 BUN/CREA RATIO 15 9-28 CALCIUM 9.4 8.6-10.4 CHLORIDE 104.7 98.0-110.0 CO2 28 20-31 CREATININE, JAFF 0.80 0.50-0.90 eGFR(Calc)AA 83 >60 eGFR(Calc)NON-AA 68 >60 GLOBULIN (Calc) 2.5 1.9-3.7 GLUCOSE 100 70-100 POTASSIUM 3.78 3.50-5.30 SODIUM 142 135-145 TOTAL PROTEIN 6.6 6.1-8.1 UREA NITROGEN 11.8 7.0-25.0 CBC With Differential/Platelet 2022-07-11 HCT 36.7 34.0-46.6 HGB 12.7 11.1-15.9 LYMPHOCYTES # 1.90 0.50-5.00 LYMPHOCYTES % 38.2 MCH 30.3 25.0-35.0 MCHC 34.6 31.0-38.0 MCV 87.4 75.0-100.0 MONOCYTES # 0.50 0.10-1.50 MONOCYTES % 7.7 MPV 8.9 7.5-11.5 NEUTROPHILS # 2.8 1.20-8.00 NEUTROPHILS % 54.1 PLATELETS 334 140-400 RBC 4.19 3.80-5.40 RDWcv 12.9 11.0-16.0 WBC 5.20 3.80-10.80 Lipid Panel 2022-07-11 Chol, Total 193 <200 HDL, Cholesterol 71 >50 LDL,Chol Jeremy NIH 110 <100 Triglycerides 161 <150 VLDL, Chol Calc 32 0-40 TSH - Reflex to Free T4 2022-07-11 TSH Reflex FRT4 1.20 0.27-4.20 SARS-CoV-2 RNA (COVID-19), Qualitative NAAT 2022-01-31 COVID-19 Negative Negative Procedural QC Valid Valid SARS-CoV Antigen 2022-01-31 Internal QC Present Present SARS-CoV Ag Negative Negative Influenza A and B Rapid molecular (RNA) 2 Influenza A Negative Negative Influenza B Negative Negative Procedural QC Valid Valid testcode 2021-12-27 CMP (Comprehensive Metabolic panel) 12-19 A/G RATIO 1.8 1.0-2.5 ALBUMIN 4.2 3.5-5.5 ALK PHOSPHATASE 74 35-105 ALT 14 0-33 ANION GAP (Calc) 17 4-17 AST (SGOT) 19.0 0-32 BILIRUBIN, TOTAL 0.40 0.20-1.20 BUN/CREA RATIO 24 9-28 CALCIUM 9.6 8.6-10.4 CHLORIDE 102.6 98.0-110.0 CO2 27 20-31 CREATININE, JAFF 0.70 0.50-0.90 eGFR(Calc)AA 97 >60 eGFR(Calc)NON-AA 80 >60 GLOBULIN (Calc) 2.4 1.9-3.7 GLUCOSE 95 70-100 POTASSIUM 4.42 3.50-5.30 SODIUM 142 135-145 TOTAL PROTEIN 6.6 6.1-8.1 UREA NITROGEN 17.1 7.0-25.0 Vitamin D (25-OH Vitamin D) 2021-12-19 VIT. D (25-OH) 48 >30 Anemia panel (Iron, Transfer rin, Vit B12, Folate, Ferritin) 2021-12-19 % SAT(Calc) 34.6 20-55 FERRITIN 90 13-150 Folate, Serum 20.0 4.8-37.3 IRON, SERUM 100 37-145 TIBC (Calc) 289 250-450 TRANSFERRIN 245 200-360 UIBC (Calc) 189 111-343 VITAMIN B-12 723 200-1,100 Urinalysis, Random w/Reflex to C & S 2021 BILIRUBIN Negative Negative Blood Negative Negative CLARITY Clear Clear COLOR Yellow Yellow GLUCOSE Negative Negative KETONES Negative Negative LEUKOCYTES Trace Negative NITRITES Negative Negative Ph 7.5 5.0-7.5 PROTEIN Negative Negative SPECIFIC GRAVITY 1.015 1.005-1.029 UROBILINOGEN 0.2 0.2-1.0 CBC With Differential/Platelet 2021-12-19 HCT 37.7 34.0-46.6 HGB 12.3 11.1-15.9 LYMPHOCYTES # 2.00 0.50-5.00 LYMPHOCYTES % 43.1 MCH 28.9 25.0-35.0 MCHC 32.5 31.0-38.0 MCV 88.7 75.0-100.0 MONOCYTES # 0.40 0.10-1.50 MONOCYTES % 7.7 MPV 9.1 7.5-11.5 NEUTROPHILS # 2.2 1.20-8.00 NEUTROPHILS % 49.2 PLATELETS 285 140-400 RBC 4.25 3.80-5.40 RDWcv 12.5 11.0-16.0 WBC 4.60 3.80-10.80 Vitamin B1 (Thiamine), Blood 2021-12-19 Vit. B1, Whole Blood 192.1 66.5-20 0.0 Lipid Panel 2021-12-19 Chol, Total 186 <200 HDL, Cholesterol 76 >50 LDL,Chol Jeremy NIH 99 <100 Triglycerides 132 <150 VLDL, Chol Calc 26 0-40 TSH - Reflex to Free T4 2021-12-19 TSH Reflex FRT4 1.68 0.27-4.20 MRI LUMBAR WO CONTRAST 2021-12-27 REASON FOR VISIT PER [facility] A[facility] APPT GIVEN, CONTROLLED, controlled, d jelly, Controlled Rx, injection, Controlled Rx, CONTROLLED, Patient is here for 2 week bp check follow up, Patient presents in the office for N.V. follow up (BP CHECK), Resend Rx, low back pain, Patient presents in the office for 4 month follow up on chronic condition, Low back pain, 10.27.22, low back pain, controlled, CXL-1ST ATTEMPT, covid positive discuss rx, DOXY [phone] discuss about medication pt is covid positive, REQUESTED ACALL BACK, Low back pain, low back pain, Controlled Rx, low back pain, Patient presents in office for annual wellness exam and 6 months follow up on chronic condition, ECHO, 4.21.22, Neck and Low Back Pain, PER [facility] PORTAL AWE IS GIVEN, Rx Refill, refill, RX REFILL, medication SE, MED NOT WORKING, Patient presents in the office for 1 week follow up, follow up, angela mercado bridget, shaky, fatigue, cough, dizzy - neg covid test, CONTROLLED RX, neck pain, awe/lab review/ekg and MRI cervical/spinefu, CONTROLLED, Patient is here to establish care, REQUEST TO MAIL NEW PT PAPERWORK, EMR-Reza, EMR-Reza, SHINGLES, PAIN, RASH, 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 [place] COUGH WHEEZING Insurance Providers Health Insurance Type Health Plan Insurance Address Health Plan Insurance Phone Health Plan Insurance Name Health Plan Coverage Dates Member ID Patient Relationship to Subscriber Patient Address Patient Phone Patient Name Patient Date of Subscriber ID Subscriber Name Subscriber Date of Group No [employer] Supplement al [address] [facility] [id number] [employer] Supplement al self [place] [id number] PLAN C MEDICARE [place] B [address] [address] [place] [address] MEDICARE PART B self [place] [id number] MEDICARE PART B [address] [address] [facility] [address] MEDICARE PART B self [place] [id number]
[2023-05-01 21:27] LABS: Influenza A PCR NEGATIVE (Negative); Influenza B PCR NEGATIVE (Negative); Resp Syncy Virus RNA Qual PCR NEGATIVE (Negative); SARS COV2 PCR INHOUSE NEGATIVE (Negative)
[2023-05-01 21:58] LABS: Bacteria Urine Trace (None Seen); Hyaline Casts Urine 0-2 /LPF (0-2); RBC Urine 0-2 /HPF (0-2); Squamous Epithelial Cell Urine 0-2 /HPF (0-2); WBC Urine 0-5 /HPF (0-5)
[2023-05-01 22:20] VITALS: BP 172/73; PULSE 81; RESP 20; O2SAT 99
[2023-05-01] MEDS: 0.9 % Sodium Chloride 1,000 ML 999 ML IV (22:33)
[2023-05-01] MEDS: ondansetron HCL 4 MG/2 ML VIAL IVPUSH (22:34)
--- NOTE | 2023-05-01 22:35 | PC.NURSE ---
Pt presents to ED for nausea x4 days, denies vomiting. Pt is A&Ox4, GCS 15, resting quietly in bed at this time. I placed a 22g IV in the left hand, medicated per NOV, and started fluids. Pt is complaining of 9/10 chronic pain in her backl. Will inform provider.
[2023-05-01] MEDS: Morphine Sulfate 4 MG/ML CARTRIDGE IVPUSH (23:57)
== END 2023-05-02 01:16 | disposition home or self-care (01) ==
PROVIDERS: Physician Assistant Medical; Emergency Provider Internal Medicine
DX: K85.90 Acute pancreatitis without necrosis or infection, unspecified (principal); R42 Dizziness and giddiness; I10 Essential (primary) hypertension; E78.00 Pure hypercholesterolemia, unspecified; R11.2 Nausea with vomiting, unspecified; R06.02 Shortness of breath; Z79.899 Other long term (current) drug therapy; Z20.822 Contact with and (suspected) exposure to COVID-19; Z20.828 Contact with and (suspected) exposure to other viral communicable diseases
CPT/HCPCS: 0241U; 36415; 71046; 74176; 80048; 80076; 81001; 81003; 83690; 83735; 83880; 84484; 85025; 93005; 96361; 96374; 96375; 99285; J2270; J2405

== ENCOUNTER → 2023-05-01 20:05 | Outpatient (BNV) | payer MEDICARE, SELFPAY | PROVIDERS: Emergency Provider Internal Medicine; Visit Provider Internal Medicine Cardiovascular Disease | DX: I44.0 Atrioventricular block, first degree (principal); R94.31 Abnormal electrocardiogram [ECG] [EKG] | CPT/HCPCS: 93010 ==

== ENCOUNTER 2023-09-11 09:53 | Outpatient (AMB) | payer MEDICARE, SELFPAY ==
--- NOTE | 2023-09-11 09:56 | A.OFFPC_ITS ---
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 Intake Note: Pt is here today as New Patient to est care/ c/o elevated b/p Allergies celecoxib [From Celebrex] Allergy (Mild, Unverified 09/11/23 10:23) PALPITATIONS levofloxacin [From Levaquin] Allergy (Mild, Unverified 09/11/23 10:23) VOMITNG/JITTERY zolpidem [From Ambien] Allergy (Mild, Unverified 09/11/23 10:23) HIVES/RASH/ITCH acetaminophen [From Vicodin] Allergy (Verified 09/11/23 10:23) Abdominal Pain adhesive tape Allergy (Verified 09/11/23 10:23) Rash cholestyramine [From Questran] Allergy (Verified 09/11/23 10:23) Unknown gemfibrozil [From Lopid] Allergy (Verified 09/11/23 10:23) Nausea hydrocodone [From Vicodin] Allergy (Verified 09/11/23 10:23) Abdominal Pain indomethacin Allergy (Verified 09/11/23 10:23) Nausea ketoprofen Allergy (Verified 09/11/23 10:23) Chest Pain lisinopril Allergy (Verified 09/11/23 10:23) Nausea naproxen Allergy (Verified 09/11/23 10:23) Abdominal Pain NSAIDS (Non-Steroidal Anti-Inflamma Allergy (Verified 09/11/23 10:23) Abdominal Pain sucrose [From Questran] Allergy (Verified 09/11/23 10:23) Unknown diazepam [From Valium] Adverse Reaction (Mild, Unverified 09/11/23 10:23) HYPERACTIVE pravastatin [Pravastatin] Adverse Reaction (Mild, Unverified 09/11/23 10:23) MUSCLE AND LEG PAIN zinc Adverse Reaction (Verified 09/11/23 10:23) Vomiting Medication List - Last Reconciled 09/11/23 by BUDDY Ventura acetaminophen (Tylenol) 325 mg PO QID PRN amoxicillin 500 mg PO BID ascorbic acid (vitamin C) 2 grams PO DAILY B-complex with vitamin C 1 cap PO DAILY calcium carbonate-vitamin D3 600 mg-20 mcg (800 unit) (Caltrate 600 plus D) 1 tab PO DAILY clobetasol 0.05% 1 appl topical BID diclofenac sodium 1% 2 grams topical QID fluoride (sodium) 1.1% 1 appl dental BEDTIME [id number] 500-500-66.7 mg (Bapkciweggj-Zukrwherpea-YLS (with antiox)) tabs PO hydrochlorothiazide 25 mg PO QAM lorazepam 1 mg PO DAILY PRN miconazole nitrate 2% 1 appl topical DAILY hcnlmhsx-lzk-vpup-FA-vit K-lut 8 mg iron-400 mcg-50 mcg (Centrum Silver Women) 1 tab PO DAILY ondansetron 4 mg PO Q6-8H PRN propylene glycol 0.6% (Systane Balance) 1 drp ophthalmic (eye) DAILY PRN psyllium husk (Metamucil) 0.4 grams PO QDAY simvastatin 40 mg PO DAILY tramadol 50 mg PO Q8H PRN valsartan 320 mg PO DAILY Tobacco use date assessed: 09/11/23 Fall risk assessment: No Falls in past year Last assessed Fall Risk: 09/11/23 Dental Screening Dental Screen Date: 09/11/23 Did you have a dental visit in the last 12 months?: No Was dental information given to patient?: Patient has dentist HPI HPI Comments History of Present Illness Details Patient is an 82-year-old female here to establish care. She recently moved to the area from [place]. She has a chief complaint of hypertension, however, she was started on volsartan by her provider in [place] before she moved and her blood pressure readings have been significantly improved since then. She denies any headache, dizziness, chest pain, shortness a breath, or edema. She has chronic lower back and bilateral foot pain. She has a significant history for her lower back which includes laminectomy. She has chronic bilateral foot pain due to osteoarthritis, she usually treats this with aqua therapy and is interested in pursuing that and also with meeting a director translation. She needs a refill on most of her medications. Needs to send information from past medical provider. [facility] Medical History (Updated 09/11/23 @ 14:50 by BUDDY Ventura) Psoriatic arthritis Hiatal hernia Osteoarthritis Psoriasis Hyperlipidemia Surgical History (Updated 09/09/23 @ 10:44 by BUDDY Ventura) Hx of cataract removal with insertion of prosthetic lens History of laminectomy History of colon surgery History of hysterectomy History of cholecystectomy Hx of cataract surgery History of knee replacement Family History Father Dementia Raynauds disease Substance use disorder Mother Rheumatoid arthritis Maternal Grandfather Type 2 diabetes mellitus Sister Mary Carmen's disease Breast cancer Brother Pancreatic cancer Myocardial infarction Sister Lung cancer Paternal Uncle Substance use disorder Paternal Uncle Substance use disorder Paternal Uncle Substance use disorder Son Mental health disorder Social History Housing: House Alcohol intake: former Patient Tobacco Use Status: Never used Tobacco e-Cigarette/Vaping Use: Never Used service: No Current occupational status: retired Cognitive needs: No Hearing needs: No Vision needs: Yes Questionnaire PHQ-9 Over the last 2 weeks, how often have you been bothered by any of the following problems? 1. Little interest or pleasure in doing things: several days 2. Feeling down, depressed, or hopeless: several days 3. Trouble falling or staying asleep, or sleeping too much: more than half the days 4. Feeling tired or having little energy: more than half the days 5. Poor appetite or overeating: not at all 6. Feeling bad about yourself - or that you are a failure or have let yourself or your family down: not at all 7. Trouble concentrating on things, such as reading the newspaper or watching television: not at all 8. Moving or speaking so slowly that other people could have noticed. Or the opposite - being so fidgety or restless that you have been moving around a lot more than usual: several days 9. Thoughts that you would be better off or of hurting yourself in some way: not at all Total score: 7 Depression Screening Interpretation: Negative Depression Screening Done: Yes 97794 - PHQ-9 Billing: Yes Source: Developed by Drs. Tc Ferrer, Ryann Sanchez, Berto Barron and colleagues, with an educational rosemarie from [employer] Thrive Questionnaire Date Thrive assessed: 09/11/23 I am a: Patient What is your living situation today?: I have a steady place to live Within the past 12 months, did the food you bought not last and you didn't have the money to get more?: Never true Within the past 12 months, did you worry whether your food would run out before you got money to buy more?: Never true Do you have trouble paying for medicines?: No Do you have trouble getting transportation to medical appointments?: No Do you have trouble paying your heating and electricity bill?: No Do you have trouble taking care of your child, family member or friend?: No Do you have trouble with day-to-day activities such as bathing, preparing meals, shopping, managing finances, etc.?: No Are you currently unemployed and looking for a job?: No Are you interested in more education?: No AUDIT C Alcohol Use Questionnaire (AUDIT-C) 1. How often do you have a drink containing alcohol?: Never Total Score: 0 CASI-7 AMB Questionnaire CASI-7 Date CASI - 7 assessed: 09/11/23 Feeling nervous, anxious, or on edge: 0 = Not at all Not being able to stop or control worryin = Not at all Worrying too much about different things: 1 = Several days Trouble relaxin = Several days Being so restless that it is hard to sit still: 1 = Several days Becoming easily annoyed or irritable: 0 = Not at all Feeling afraid as if something awful might happen: 0 = Not at all Total CASI-7 score (0-4 normal; 5-9 mild; 10-14 moderate; 15-21 severe): 3 Source: Developed by Drs. Tc Ferrer, Ryann Sanchez, Berto Barron and colleagues, with an educational rosemarie from [employer] CASI-7 Assessment Billing CASI-7 Assessment Tool: CASI-7 Assessment 88896 Review of Systems Const Details: Constitutional : No Weight loss, No Fever, No Chills, No Fatigue, No Malaise Cardiovascular : No Chest Pain, No SOB, No Dyspnea on Exertion, No Orthopnea, No Edema, No Palpitations Respiratory : No Cough, No Sputum, No Wheezing Gastrointestinal : No Nausea, No Vomiting, No Diarrhea, No Constipation, No abdominal Pain, No Hematochezia, No Melena Musculoskeletal : Admits lower back pain, rediculopathy down right side. Admits Bilateral foot pain. Neuro : No Weakness, No Numbness, No Dizziness, No Headache Psych : No Anxiety/Panic, No Depression All other systems reviewed and are negative Physical exam (Primary Care) Vital Signs: Last Vital Signs Pulse 80 09/11/23 09:57 BP 138/60 09/11/23 09:57 Pulse Ox 98 09/11/23 09:57 Oxygen Delivery Method Room Air 09/11/23 09:57 Care Plan Goal for BP management: Patient will take blood pressure measurements at home for the next 2 weeks. Will get back to the office with results Next steps: Will titrate medication based on blood pressure readings over the next 2 weeks. BMI result Body Mass Index 38.5 Tobacco/Smoking Status: Tobacco use Status Tobacco use date assessed 09/11/23 09/11/23 10:05 Patient Tobacco Use Status Never used Tobacco 09/11/23 10:05 e-Cigarette/Vaping Use Never Used 09/11/23 10:05 Depression Screening Interpretation: Negative Const Other: Appearance: Alert.? Oriented X3.? No acute distress.? CVS: Normal heart rate and rhythm.? Pulses normal.? Respiratory: No respiratory distress.? Breath sounds normal.? Abdomen: Soft and nontender.? Skin: Skin warm and dry.? Normal skin color.? Normal skin turgor.? Extremities: No lower extremity edema. No point tenderness. Back: Straight leg test positive on right side. no CVA tenderness bilaterally Neuro: Oriented X 3.? No motor deficit.? No sensory deficit. CN 2-12 intact Psych Thought process: Normal thought process present Thought content: Normal thought content present Insight: Good insight present (Psych) Judgement: Good judgement present (Psych) Assessment and Plan Assessment & Plan (1) Hypertension: Comment: Patient will take blood pressure measurements at home for the next 2 weeks and reports values back to the office. If values are elevated and patient is agreeable to adjust her medication Code(s): I10 - Essential (primary) hypertension Qualifiers: Hypertension type: primary hypertension Qualified Code(s): I10 - Essential (primary) hypertension (2) Chronic pain: Comment: Patient has chronic pain lower back. Will refer to the pain management center. Patient takes Tylenol as needed p.r.n. patient states in [place] she utilized tramadol for pain management, has not taken tramadol in several months. She should be re-evaluated by pain clinic. Code(s): G89.29 - Other chronic pain Qualifiers: Chronic pain type: other chronic pain Qualified Code(s): G89.29 - Other chronic pain (3) Osteoarthritis: Comment: Patient currently uses diclofenac topical gel as needed for osteoarthritis of bilateral feet. Will also refer to physical therapy and Podiatry. Code(s): M19.90 - Unspecified osteoarthritis, unspecified site Qualifiers: Osteoarthritis location: foot Osteoarthritis type: primary Laterality: bilateral Qualified Code(s): M19.071 - Primary osteoarthritis, right ankle and foot; M19.072 - Primary osteoarthritis, left ankle and foot Plan Take your medications as prescribed. If you were prescribed antibiotics today, it is important that you take your medication to their entirety, do not skip any doses, do not finish them early. Follow-up with your primary care provider this week. Return to the emergency department with new or worsening symptoms. Such as fevers, chills, chest pain, shortness of breath, nausea, vomiting, dizziness, headache, vision changes, lethargy In case of emergency call 911 Orders: Orders Comprehensive Met. Panel Today I10 - Essential (primary) hypertension Complete Blood Count Auto Diff Today Z13.0 - Encounter for screening for diseases of the blood and blood-forming organs and certain disorders involving the immune mechanism Lipid Panel Today Z13.220 - Encounter for screening for lipoid disorders Vitamin D 25-OH (D2 and D3) Today Z13.21 - Encounter for screening for nutritional disorder UA CC w/rflx Micro + Cult Today I10 - Essential (primary) hypertension PT Evaluation and Treatment Today M1.90 - Unspecified osteoarthritis, unspecified site Vitamin B6 Today Z13.21 - Encounter for screening for nutritional disorder Vitamin B12 Today Z13.21 - Encounter for screening for nutritional disorder TSH reflex Free T4 Today Z13.29 - Encounter for screening for other suspected endocrine disorder Rheumatoid Factor Today Z13.828 - Encounter for screening for other musculoskeletal disorder Referrals Pain Management Referral G89.29 - Other chronic pain Podiatry Referral - Unspecified osteoarthritis, unspecified site Coding Level of Care Code New Pt Level 4 (23342) Diagnoses Primary hypertension I10 Hypertension type: primary hypertension Other chronic pain G89.29 Chronic pain type: other chronic pain Primary osteoarthritis of both feet M19.071; M19.072 Osteoarthritis location: foot Osteoarthritis type: primary Laterality: bilateral Additional Codes CASI-7 Assessment Billing - CASI-7 Assessment Tool: CASI-7 Assessment 50703 ([id number]) Time Spent (min) 30
[2023-09-11 09:57] VITALS: BP 138/60; PULSE 80; O2SAT 98; BMI 38.5
== END 2023-09-11 11:07 | disposition home or self-care (01) ==
PROVIDERS: Visit Provider Nurse Practitioner Primary Care
DX: I10 Essential (primary) hypertension (principal); G89.29 Other chronic pain; M19.071 Primary osteoarthritis, right ankle and foot; M19.072 Primary osteoarthritis, left ankle and foot
CPT/HCPCS: 99204

== ENCOUNTER 2023-09-19 13:40 | Outpatient (AMB) | payer MEDICARE, SELFPAY ==
--- NOTE | 2023-09-19 13:47 | A.OFFVIS_ITS ---
Intake Vital Signs 3 09/19/23 13:48 Height 5 ft Weight 197 lb BMI 38.5 BP 160/78 H Blood Pressure Location Lt brachial Position Sitting Intake Visit Reasons: Other Chronic Pain/lvm Intake Note: pt is here as a new patient for overall body pain, she was on tramadol that gave her relief (from [facility]) now up in [place] pcp wanted her to come to pain management. [employer] [facility]yer Required: No Allergies celecoxib [From Celebrex] Allergy (Mild, Unverified 09/19/23 13:54) PALPITATIONS levofloxacin [From Levaquin] Allergy (Mild, Unverified 09/19/23 13:54) VOMITNG/JITTERY zolpidem [From Ambien] Allergy (Mild, Unverified 09/19/23 13:54) HIVES/RASH/ITCH acetaminophen [From Vicodin] Allergy (Verified 09/19/23 13:54) Abdominal Pain adhesive tape Allergy (Verified 09/19/23 13:54) Rash cholestyramine [From Questran] Allergy (Verified 09/19/23 13:54) Unknown gemfibrozil [From Lopid] Allergy (Verified 09/19/23 13:54) Nausea hydrocodone [From Vicodin] Allergy (Verified 09/19/23 13:54) Abdominal Pain indomethacin Allergy (Verified 09/19/23 13:54) Nausea ketoprofen Allergy (Verified 09/19/23 13:54) Chest Pain lisinopril Allergy (Verified 09/19/23 13:54) Nausea naproxen Allergy (Verified 09/19/23 13:54) Abdominal Pain NSAIDS (Non-Steroidal Anti-Inflamma Allergy (Verified 09/19/23 13:54) Abdominal Pain sucrose [From Questran] Allergy (Verified 09/19/23 13:54) Unknown diazepam [From Valium] Adverse Reaction (Mild, Unverified 09/19/23 13:54) HYPERACTIVE pravastatin [Pravastatin] Adverse Reaction (Mild, Unverified 09/19/23 13:54) MUSCLE AND LEG PAIN zinc Adverse Reaction (Verified 09/19/23 13:54) Vomiting HPI HPI Comments 2 History of Present Illness0 Details Fallon is a very pleasant 82 year old male who presented to the office today for evaluation and management of her chronic neck, back, bilateral leg and all over veronica. Patient recently moved here from [place] where she was under care of pain management and had undergone treatment for her lumbar spine including 2 sets of diagnostic medial branch blocks followed by lumbar radiofrequency ablation. She reports that her lower back pain has been under control since then. The RFA was completed September of 2022. Patient reports her mom main complaint today is her cervical neck pain. She states that she has tried physical therapy and Tylenol without relief. She applies topical diclofenac gel which is also not relieve her pain. Patient states that she was on chronic tramadol use while in [place] and that was the only thing that made her pain manageable. She recently established care with new PCP in the area, he would not refill her tramadol and referred her here for pain management strategies. In terms of muscle damage condition is described as aching, shooting, dull, hot, burning, tiring, exhausting, throbbing, tingling. Pain today is rated as a 7/10, pain is 10/10 at its worst. Pain is constant throughout the day, worse in the morning in the evenings. Pain is negatively impacting patient's enjoyment of life, general activity, mood, normal work, recreational activities, relationship, sleep and walking. Patient states ?it is ruining my life, I have no quality of life ?. [facility] Medical History (Updated 09/19/23 @ 14:42 by Courtney Ernst APRN, [employer]) Psoriatic arthritis Hiatal hernia Osteoarthritis Psoriasis Hyperlipidemia Surgical History (Updated 09/09/23 @ 10:44 by BUDDY Ventura) Hx of cataract removal with insertion of prosthetic lens History of laminectomy History of colon surgery History of hysterectomy History of cholecystectomy Hx of cataract surgery History of knee replacement Family History Father Dementia Raynauds disease Substance use disorder Mother Rheumatoid arthritis Maternal Grandfather Type 2 diabetes mellitus Sister Mary Carmen's disease Breast cancer Brother Pancreatic cancer Myocardial infarction Sister Lung cancer Paternal Uncle Substance use disorder Paternal Uncle Substance use disorder Paternal Uncle Substance use disorder Son Mental health disorder Social History Housing: House Alcohol intake: former Patient Tobacco Use Status: Never used Tobacco e-Cigarette/Vaping Use: Never Used service: No Current occupational status: retired Cognitive needs: No Hearing needs: No Vision needs: Yes Review of Systems Const All systems reviewed & are unremarkable except as noted in HPI and below Physical Exam Vital Signs: Last Vital Signs BP 160/78 H 09/19/23 13:48 BMI result Body Mass Index 38.5 General: awake, alert, oriented. Answers questions appropriately. Fully engaged in examination. Skin: warm, dry, intact HEENT: Normocephalic. Hearing intact. Cardiac: External chest normal in appearance. Respiratory: No cough, audible wheezing or stridor. Abdomen: without gross distension. MS: No obvious swelling or deformities. Tender to palpation over midline cervical vertebrae and paraspinal muscles ROM limited in all planes with notable pain increase with left lateral flexion and rotation Spurling positive Neurological: Oriented to person, place, time and situation. Thought process intact. Psychiatric: Appropriate mood and affect. Good judgment and insight. Results Reviewed Results Reviewed: 12/28/2021 Assessment & Plan Assessment & Plan (1) Psoriatic arthritis: Code(s): L40.50 - Arthropathic psoriasis, unspecified (2) Osteoarthritis: Comment: Patient currently uses diclofenac topical gel as needed for osteoarthritis of bilateral feet. Will also refer to physical therapy and Podiatry. Code(s): M19.90 - Unspecified osteoarthritis, unspecified site Qualifiers: Laterality: bilateral Osteoarthritis location: foot Osteoarthritis type: primary Qualified Code(s): M19.071 - Primary osteoarthritis, right ankle and foot; M19.072 - Primary osteoarthritis, left ankle and foot (3) Cervical spondylosis: Code(s): M47.812 - Spondylosis without myelopathy or radiculopathy, cervical region (4) Polyarthralgia: Code(s): M25.50 - Pain in unspecified joint Plan Patient presented to the office today for evaluation management of her chronic all of her pain. Referral placed to rheumatology, patient with polyarthralgia and psoriatic arthritis. Continue with Tylenol and topical diclofenac as needed. Patient was advised our chronic opioid program is currently closed. We do not prescribe chronic opiates, she was referred to her primary care doctor to discuss continuation of her previously tolerated and beneficial tramadol 50 mg p.o. t.i.d.. She is aware that this is up to the primary care doctor, he may not assume opioid prescribing for her either. Discussed options for treatment including diagnostic interventional testing, epidural steroid injections, peripheral nerve stimulation with Sprint, RFA and more permanent neuromodulation. Patient has exhausted conservative therapy including PT, nonsteroidal anti- inflammatory, muscle relaxers and zvrm-ahe-ugpilho medications without relief of her pain. Will schedule for bilateral diagnostic C4-C5 C6 medial branch blocks with local anesthetic. All questions and concerns have been answered and patient agrees with the plan. Follow up after injections and sooner if needed. Orders: Referrals 2 Rheumatology Referral L40.50 - Arthropathic psoriasis, unspecified, M25.50 - Pain in unspecified joint Coding Level of Care Code New Pt Level 4 (59347) Diagnoses Psoriatic arthritis L40.50 Primary osteoarthritis of both feet M19.071; M19.072 Laterality: bilateral Osteoarthritis location: foot Osteoarthritis type: primary Cervical spondylosis M47.812 Polyarthralgia M25.50
[2023-09-19 13:48] VITALS: BP 160/78; BMI 38.5
== END 2023-09-19 14:25 | disposition home or self-care (01) ==
PROVIDERS: PCP Nurse Practitioner Primary Care; Visit Provider Registered Nurse Emergency
DX: L40.50 Arthropathic psoriasis, unspecified (principal); M19.071 Primary osteoarthritis, right ankle and foot; M19.072 Primary osteoarthritis, left ankle and foot; M47.812 Spondylosis without myelopathy or radiculopathy, cervical region; M25.50 Pain in unspecified joint
CPT/HCPCS: 99204

== ENCOUNTER → 2023-09-19 13:40 | Outpatient (BNVA) | payer MEDICARE, SELFPAY | PROVIDERS: PCP Nurse Practitioner Primary Care; Visit Provider Registered Nurse Emergency | DX: M47.812 Spondylosis without myelopathy or radiculopathy, cervical region (principal); L40.50 Arthropathic psoriasis, unspecified; M19.071 Primary osteoarthritis, right ankle and foot; M19.072 Primary osteoarthritis, left ankle and foot; M25.50 Pain in unspecified joint | CPT/HCPCS: 99202 ==

== ENCOUNTER 2023-10-25 09:20 | Outpatient (REF) | payer MEDICARE, SELFPAY ==
[2023-10-25 11:54] LABS: MANUAL DIFF FLAG NO
[2023-10-25 11:56] LABS: Basophils Percent Auto 0.5 % (0-2); Eosinophils Absolute Auto 0.4 X10*3/uL (0.0-0.4); Eosinophils Percent Auto 7.1 % (0-4); Hematocrit 35.7 % (37.0-47.0); Hemoglobin 11.9 g/dl (12.0-16.0); Imm Gran Abs Auto 0.01 X10*3/uL (0.00-0.03); Imm Gran Pct Auto 0.2 % (0.0-0.4); Lymphocytes Absolute Auto 1.8 X10*3/uL (1.2-4.9); Lymphocytes Percent Auto 32.3 % (20-40); Mean Corpuscular HGB Conc 33.3 g/dl (31.0-35.0); Mean Corpuscular Hemoglobin 29.7 pg (27.0-33.0); Mean Platelet Volume 10.1 fL (9.4-12.3); Monocytes Absolute Auto 0.4 X10*3/uL (0.1-1.2); Monocytes Percent Auto 7.6 % (2-11); Neutrophils Percent Auto 52.3 % (45-73); Platelet Count 307 X10*3/uL (160-400); Red Blood Count 4.01 X10*6/uL (4.20-5.50); Red Cell Distribution Width 13.2 % (11.0-16.0); White Blood Count 5.7 X10*3/uL (4.8-10.8)
[2023-10-25 12:03] LABS: Appearance Urine Clear; Color Urine Yellow; Glucose Urine UA Negative (Negative); Leukocyte Esterase Urine Small (1+) (Negative); Nitrite Urine Negative (Negative); PH 7.5 (5.0-9.0); Specific Gravity - Urine 1.015 (1.005-1.025); UMIC TRIGGER UACC YES; Urine Blood Negative (Negative); Urine Ketones Negative (Negative); Urine Protein Negative (Neg-Trace)
[2023-10-25 12:16] LABS: Bacteria Urine None Seen (None Seen); Hyaline Casts Urine 0-2 /LPF (0-2); RBC Urine 0-2 /HPF (0-2); Squamous Epithelial Cell Urine 0-2 /HPF (0-2); UACC Culture Trigger YES; WBC Urine 0-5 /HPF (0-5)
[2023-10-25 12:27] LABS: Alanine Aminotransferase 13 U/L (0-31); Albumin Level 3.9 g/dL (3.5-5.0); Alkaline Phosphatase 64 U/L (39-117); Anion Gap 13 (12-20); Aspartate Amino Transferase 19 U/L (5-31); Bilirubin Total 0.3 mg/dL (0.0-1.0); Blood Urea Nitrogen 28 mg/dL (9-16); Calcium 9.6 mg/dL (8.4-10.2); Carbon Dioxide 27 mmol/L (22-29); Chloride 102 mmol/L (96-108); Cholesterol 194 mg/dL (<200); Estimated Glomerular Filt Rate 56; Glucose Random 94 mg/dL (60-115); HDL Cholesterol 79 mg/dL (>40); LDL Cholesterol Calculated 92 mg/dL (<100); Potassium 4.3 mmol/L (3.3-5.1); Sodium 138 mmol/L (135-145); Total Protein 6.9 g/dL (6.5-8.0); Triglycerides 116 mg/dL (<150)
[2023-10-25 12:29] LABS: Rheumatoid Factor < 13.0 IU/mL (<15.0)
[2023-10-25 12:44] LABS: TSH reflex Free T4 2.82 uIU/mL (0.32-4.0)
[2023-10-25 12:51] LABS: Vitamin B12 814 pg/mL (200-900)
[2023-10-29 12:29] LABS: Vitamin D 25-OH, D2 <4 ng/mL; Vitamin D 25-OH, D3 46 ng/mL; Vitamin D 25-OH, Total 46 ng/mL (30-100)
[2023-10-30 15:04] LABS: Vitamin B6 19.6 ng/mL (2.1-21.7)
== END 2023-10-25 09:21 | disposition home or self-care (01) ==
LOC: HO.HMGCLDS 09:20
PROVIDERS: PCP Nurse Practitioner Primary Care; Visit Provider Nurse Practitioner Primary Care
DX: I10 Essential (primary) hypertension (principal); Z13.21 Encounter for screening for nutritional disorder; Z13.29 Encounter for screening for other suspected endocrine disorder; Z13.220 Encounter for screening for lipoid disorders; Z13.0 Encounter for screening for diseases of the blood and blood-forming organs and certain disorders involving the immune mechanism; Z13.828 Encounter for screening for other musculoskeletal disorder
CPT/HCPCS: 36415; 80053; 80061; 81001; 81003; 82306; 82607; 84207; 84443; 85025; 86431; 87086

== ENCOUNTER 2023-10-31 10:48 | Outpatient (AMB) | payer MEDICARE, SELFPAY ==
--- NOTE | 2023-10-31 10:56 | MHC.PC.OV ---
Vital Signs 10/31/23 10:57 Height 5 ft Weight 201 lb 4 oz BMI 39.3 BP 140/68 H Blood Pressure Location Rt brachial Position Sitting Pulse 82 Pulse Source Pulse Oximeter Pulse Oximetry (%) 98 Oxygen Delivery Method Room Air Intake Visit Reasons: Annual PE Intake Note: Pt is here for her Annual PE Allergies celecoxib [From Celebrex] Allergy (Mild, Unverified 10/31/23 11:49) PALPITATIONS levofloxacin [From Levaquin] Allergy (Mild, Unverified 10/31/23 11:49) VOMITNG/JITTERY zolpidem [From Ambien] Allergy (Mild, Unverified 10/31/23 11:49) HIVES/RASH/ITCH acetaminophen [From Vicodin] Allergy (Verified 10/31/23 11:49) Abdominal Pain adhesive tape Allergy (Verified 10/31/23 11:49) Rash cholestyramine [From Questran] Allergy (Verified 10/31/23 11:49) Unknown gemfibrozil [From Lopid] Allergy (Verified 10/31/23 11:49) Nausea hydrocodone [From Vicodin] Allergy (Verified 10/31/23 11:49) Abdominal Pain indomethacin Allergy (Verified 10/31/23 11:49) Nausea ketoprofen Allergy (Verified 10/31/23 11:49) Chest Pain lisinopril Allergy (Verified 10/31/23 11:49) Nausea naproxen Allergy (Verified 10/31/23 11:49) Abdominal Pain NSAIDS (Non-Steroidal Anti-Inflamma Allergy (Verified 10/31/23 11:49) Abdominal Pain sucrose [From Questran] Allergy (Verified 10/31/23 11:49) Unknown diazepam [From Valium] Adverse Reaction (Mild, Unverified 10/31/23 11:49) HYPERACTIVE pravastatin [Pravastatin] Adverse Reaction (Mild, Unverified 10/31/23 11:49) MUSCLE AND LEG PAIN zinc Adverse Reaction (Verified 10/31/23 11:49) Vomiting Medication List - Last Reconciled 10/31/23 by BUDDY Ventura acetaminophen (Tylenol) 325 mg PO QID PRN amoxicillin-pot clavulanate 875-125 mg 1 tab PO Q12H ascorbic acid (vitamin C) 2 grams PO DAILY B-complex with vitamin C 1 cap PO DAILY benzonatate 100 mg PO BID-TID PRN calcium carbonate-vitamin D3 600 mg-20 mcg (800 unit) (Caltrate 600 plus D) 1 tab PO DAILY clobetasol 0.05% 1 appl topical BID diclofenac sodium 1% 2 grams topical QID fluoride (sodium) 1.1% 1 appl dental BEDTIME olcvwgci-zut-[id number] 500-500-66.7 mg (Iwkigizqatx-Rjowylbbhnv-CRG (with antiox)) tabs PO hydrochlorothiazide 25 mg PO QAM miconazole nitrate 2% 1 appl topical DAILY sbzigqnw-haw-hwah-FA-vit K-lut 8 mg iron-400 mcg-50 mcg (Centrum Silver Women) 1 tab PO DAILY ondansetron 4 mg PO Q6-8H PRN prednisone 20 mg (2 x 10 mg) PO DAILY propylene glycol 0.6% (Systane Balance) 1 drp ophthalmic (eye) DAILY PRN psyllium husk (Metamucil) 0.4 grams PO QDAY simvastatin 40 mg PO DAILY valsartan 320 mg PO DAILY Tobacco use date assessed: 10/31/23 Fall risk assessment: No Falls in past year Last assessed Fall Risk: 10/31/23 Dental Screening Dental Screen Date: 10/31/23 Did you have a dental visit in the last 12 months?: No Did you have a dental problem in the last 6 months where you did not have access to dental care?: No Was dental information given to patient?: No HPI HPI Comments History of Present Illness Details Patient is an 83-year-old female here today for follow-up on blood pressure. She is currently taking valsartan 320 mg p.o. daily and hydrochlorothiazide 25 mg. Patient states that blood pressures at home have been averaging 160/90. Her blood pressure in office today is 140/68. The patient denies any issues of dizziness, chest pain, numbness, headache. The patient's blood pressure was taken several times in office today, on both arms, readings were 170/88 on left arm, and 172/84 on right arm. Will add blood pressure medication amlodipine 5 mg p.o. at night. Patient will continue to take blood pressure measurements at home [facility] Medical History Psoriatic arthritis Hiatal hernia Osteoarthritis Psoriasis Hyperlipidemia Surgical History Hx of cataract removal with insertion of prosthetic lens History of laminectomy History of colon surgery History of hysterectomy History of cholecystectomy Hx of cataract surgery History of knee replacement Family History Father Dementia Raynauds disease Substance use disorder Mother Rheumatoid arthritis Maternal Grandfather Type 2 diabetes mellitus Sister Mary Carmen's disease Breast cancer Brother Pancreatic cancer Myocardial infarction Sister Lung cancer Paternal Uncle Substance use disorder Paternal Uncle Substance use disorder Paternal Uncle Substance use disorder Son Mental health disorder Social History Housing: House Alcohol intake: former Patient Tobacco Use Status: Never used Tobacco e-Cigarette/Vaping Use: Never Used service: No Current occupational status: retired Cognitive needs: No Hearing needs: No Vision needs: Yes Questionnaire Thrive Questionnaire Date Thrive assessed: 09/11/23 AUDIT C Alcohol Use Questionnaire (AUDIT-C) 1. How often do you have a drink containing alcohol?: Never Total Score: 0 CASI-7 AMB Questionnaire CASI-7 Date CASI - 7 assessed: 09/11/23 Source: Developed by Drs. Tc Ferrer, Ryann Sanchez, Berto Barron and colleagues, with an educational rosemarie from [employer]. Review of Systems Const Details: Constitutional : No Weight loss, No Fever, No Chills, No Fatigue, No Malaise ENT/Mouth : Admits sore throat, No Rhinorrhea, Admits ear fullness. Eyes: No Eye Pain, No Swelling, No Redness Cardiovascular : No Chest Pain, No SOB, No Dyspnea on Exertion, No Orthopnea, No Edema, No Palpitations Respiratory : No Cough, Admits green Sputum, Admits Wheezing Gastrointestinal : No Nausea, No Vomiting, No Diarrhea, No Constipation, No abdominal Pain, No Hematochezia, No Melena Genitourinary : No Dysuria, No Urinary Frequency, No Hematuria, Musculoskeletal : Admits pain all over. Admits pain to spine, legs, upper back, bilateral hips. Skin : No Skin Lesions, No rash Neuro : No Weakness, No Numbness, No Dizziness, No Headache Psych : No Anxiety/Panic, No Depression Heme/Lymph: No Bruising, No Bleeding,No Lymphadenopathy Endocrine : No Polyuria, No Polydipsia All other systems reviewed and are negative Physical exam (Primary Care) Care Plan Goal for BP management: Will prescribe amlodipine 5 mg. Patient will take blood pressure measurements at night. Patient states she understands signs of worsening symptoms and when to present to the ED. BMI result Body Mass Index 39.3 Tobacco/Smoking Status: Tobacco use Status Tobacco use date assessed 09/11/23 10/31/23 10:57 Patient Tobacco Use Status Never used Tobacco 10/31/23 10:57 e-Cigarette/Vaping Use Never Used 10/31/23 10:57 Thrive Assessment: Date of Thrive Assessment Date Thrive assessed 09/11/23 10/31/23 10:57 Const Other: Appearance: Alert.? Oriented X3.? No acute distress.? Head: Normocephalic, atraumatic, no step-offs or deformities Eyes: Pupils equal, round and reactive to light.? ENT: Pharynx cobblestoned. TM intact and pearly vizcaino. Neck: Normal inspection.? Neck supple.?Full ROM CVS: Normal heart rate and rhythm.? Pulses normal.? Respiratory: No respiratory distress.? Upper wheeze bilaterally. Skin: Skin warm and dry.? Normal skin color.? Normal skin turgor.? Extremities: No lower extremity edema.? No calf ttp. 5/5 strength to bilateral upper and lower extremities Back: Limited range of motion. Spondylosis. +cracking. Neuro: Oriented X 3.? No motor deficit.? No sensory deficit. CN 2-12 intact Assessment and Plan Assessment & Plan (1) Upper respiratory infection: Comment: Patient has wheeze of upper lobes bilaterally, has been expect a rating green phlegm, feels like she has the chills. Will prescribe prednisone, benzonatate, xoponex, and augmentin. Patient has been educated on signs of worsening symptoms and when to present back to the office or when to present to the ED. Code(s): J06.9 - Acute upper respiratory infection, unspecified Qualifiers: URI type: unspecified URI Qualified Code(s): J06.9 - Acute upper respiratory infection, unspecified Plan: Take your medications as prescribed. If you were prescribed antibiotics today, it is important that you take your medication to their entirety, do not skip any doses, do not finish them early. Follow-up with your primary care provider this week. Return to the emergency department with new or worsening symptoms. Such as fevers, chills, chest pain, shortness of breath, nausea, vomiting, dizziness, headache, vision changes, lethargy In case of emergency call 911 (2) Insomnia: Comment: Patient states that she has insomnia. States she sleeps only couple hours each night. States that her mind is racing, she feels worse due to her increased pain. Will have in office liaison contact patient to set up psychiatrist. Patient has history of using lorazepam at night for sleep, will prescribe small amount for patient to utilize since she has not been able to sleep much the past month. Code(s): G47.00 - Insomnia, unspecified Qualifiers: Insomnia type: unspecified Qualified Code(s): G47.00 - Insomnia, unspecified Plan: Establish care with a psychiatrist (3) Chronic pain: Comment: Patient has seen pain management. Long standing history of osteoarthritis, arthritis and spinal issues. Patient has appointment with rheumatology upcoming next week. Patient has history of tramadol use for pain management with good effect. Patient has been educated on side effects of these medications. Patient has been educated on signs of worsening symptoms and when to report to the emergency room. Code(s): G89.29 - Other chronic pain Qualifiers: Chronic pain type: other chronic pain Qualified Code(s): G89.29 - Other chronic pain Plan: Patient has follow-up physical in 1 month Medications: New benzonatate 100 mg PO BID-TID PRN 30 caps 0RF cough amoxicillin-pot clavulanate 875-125 mg 1 tab PO Q12H 14 tabs 0RF prednisone 20 mg (2 x 10 mg) PO DAILY 10 tabs 0RF Coding Level of Care Code Est Pt Level 3 (18549) Diagnoses Upper respiratory tract infection, unspecified type J06.9 URI type: unspecified URI Insomnia, unspecified type G47.00 Insomnia type: unspecified Other chronic pain G89.29 Chronic pain type: other chronic pain Time Spent (min) 30
[2023-10-31 10:57] VITALS: BP 140/68; PULSE 82; O2SAT 98; BMI 39.3
== END 2023-10-31 12:55 | disposition home or self-care (01) ==
PROVIDERS: PCP Nurse Practitioner Primary Care; Visit Provider Nurse Practitioner Primary Care
DX: J06.9 Acute upper respiratory infection, unspecified (principal); G47.00 Insomnia, unspecified; G89.29 Other chronic pain
CPT/HCPCS: 99214

== ENCOUNTER 2023-11-14 15:16 | Outpatient (AMB) | payer MEDICARE, SELFPAY ==
--- NOTE | 2023-11-14 15:34 | MHC.OFFVIS ---
Intake Vital Signs 11/14/23 15:36 Height 5 ft Weight 198 lb 3.129 oz BMI 38.7 BP 150/60 H Blood Pressure Location Rt brachial Position Sitting Pulse 64 Pulse Source Pulse Oximeter Temp 97 F Temp Source Skin Pulse Oximetry (%) 94 Oxygen Delivery Method Room Air Intake Visit Reasons: Joint Pain Intake Note: New patient presents today for consult, internally referred by pain mgmt. Patient c/o joint pain in multiple sites and has a history of PsA. She has tried PT, NSAIDS, muscle relaxers and zkwv-ofy-lupyqau medications without relief of her pain. Only thing that helped her pain was Tramadol. Patient was on tramadol when she used to live in [place]. PCP was unable to refill Tramadol, referred to pain mgmt. Pain mgmt unable to prescribe tramadol. Currently being filled by PCP. 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 Required: No Accompanied by: Self / Same As Patient Allergies celecoxib [From Celebrex] Allergy (Mild, Unverified 11/14/23 15:35) PALPITATIONS levofloxacin [From Levaquin] Allergy (Mild, Unverified 11/14/23 15:35) VOMITNG/JITTERY zolpidem [From Ambien] Allergy (Mild, Unverified 11/14/23 15:35) HIVES/RASH/ITCH acetaminophen [From Vicodin] Allergy (Verified 11/14/23 15:35) Abdominal Pain adhesive tape Allergy (Verified 11/14/23 15:35) Rash cholestyramine [From Questran] Allergy (Verified 11/14/23 15:35) Unknown gemfibrozil [From Lopid] Allergy (Verified 11/14/23 15:35) Nausea hydrocodone [From Vicodin] Allergy (Verified 11/14/23 15:35) Abdominal Pain indomethacin Allergy (Verified 11/14/23 15:35) Nausea ketoprofen Allergy (Verified 11/14/23 15:35) Chest Pain lisinopril Allergy (Verified 11/14/23 15:35) Nausea naproxen Allergy (Verified 11/14/23 15:35) Abdominal Pain NSAIDS (Non-Steroidal Anti-Inflamma Allergy (Verified 11/14/23 15:35) Abdominal Pain sucrose [From Questran] Allergy (Verified 11/14/23 15:35) Unknown diazepam [From Valium] Adverse Reaction (Mild, Unverified 11/14/23 15:35) HYPERACTIVE pravastatin [Pravastatin] Adverse Reaction (Mild, Unverified 11/14/23 15:35) MUSCLE AND LEG PAIN zinc Adverse Reaction (Verified 11/14/23 15:35) Vomiting HPI HPI Comments History of Present Illness Details Ms. Lehman 83-year-old female presents today for initial visit. The patient recently relocated from [place]. In [place] she was seeing pain management for lower back pain and generalized OA. She received corticosteroid injections to the back and tramadol for pain management. She also takes Tylenol. The patient reports that she has a hx of psoriasis and uses. This was monitored by her primary care physician in [place]. The patient has not been to a Sales Representative [employer]. The patient denies uveitis, plantar fasciitis, Achilles tendinitis. She reports her hands and feet do ache sometimes but are not swollen. 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 Spinal stenosis of cervical region with radiculopathy Bilateral hand pain Psoriatic arthritis Hiatal hernia Osteoarthritis Psoriasis Hyperlipidemia Surgical History Hx of cataract removal with insertion of prosthetic lens History of laminectomy History of colon surgery History of hysterectomy History of cholecystectomy Hx of cataract surgery History of knee replacement Family History Father Dementia Raynauds disease Substance use disorder Mother Rheumatoid arthritis Maternal Grandfather Type 2 diabetes mellitus Sister Mary Carmen's disease Breast cancer Brother Pancreatic cancer Myocardial infarction Sister Lung cancer Paternal Uncle Substance use disorder Paternal Uncle Substance use disorder Paternal Uncle Substance use disorder Son Mental health disorder Social History (Updated 11/14/23 @ 15:39 by MULU Varner) Household Members: Spouse Housing: House Alcohol intake: former Patient Tobacco Use Status: Never used Tobacco e-Cigarette/Vaping Use: Never Used service: No Current occupational status: retired Cognitive needs: No Hearing needs: No Vision needs: Yes Female Reproductive History Menstrual Total pregnancies: 3 Review of Systems Const All systems reviewed & are unremarkable except as noted in HPI and below Physical Exam Vital Signs: Last Vital Signs Temp 97 F 02/23/24 15:36 Pulse 64 11/14/23 15:36 BP 150/60 H 11/14/23 15:36 Pulse Ox 94 11/14/23 15:36 Oxygen Delivery Method Room Air 11/14/23 15:36 BMI result Body Mass Index 38.7 General: awake, alert, oriented. Answers questions appropriately. Fully engaged in examination. Skin: warm, dry, intact HEENT: Normocephalic. Hearing intact. Cardiac: External chest normal in appearance. Respiratory: No cough, audible wheezing or stridor. Abdomen: without gross distension. Neurological: Oriented to person, place, time and situation. Thought process intact. Psychiatric: Appropriate mood and affect. Good judgment and insight. MS: No obvious swelling or deformities. JOINT EXAM: Cervical Spine:.? Tender to palpation over midline cervical vertebrae and paraspinal muscles . ROM limited in all planes with notable pain increase with left lateral flexion and rotation; Spurling positive Thoracic Spine:.? No scoliosis.? Mild tenderness on palpation. Lumbar Spine:.? Alignment normal.?Limited range of motion with mild pain, some tenderness. Chest Wall:.? No tenderness, swelling, increased warmth or erythema. Hands:.? Normal pain-free range of motion with mild tenderness, but no swelling, increased warmth or erythema. Able to make a full fist and has a adequate sales advisor strength. Wrists:.? Normal pain-free range of motion without tenderness, swelling, increased warmth or erythema. Elbows:. Normal pain-free range of motion without tenderness, swelling, increased warmth or erythema. Shoulders:.?? limited range of motion with some discomfort. Mild tenderness at joint lines, but no weakness, swelling, increased warmth or erythema. Hip bursa:.? Mild tenderness. Knees:.?? Normal pain-free range of motion with mild tenderness but no swelling, increased warmth or erythema.? There is no effusion but mild crepitation Ankles:.? Normal pain-free range of motion without tenderness, swelling, increased warmth or erythema. Feet:.? Normal pain-free range of motion without tenderness, swelling, increased warmth or erythema. Tender points:? No tenderness to digital palpation at the occiput, trapezius, second rib, lateral epicondyle, knees, greater trochanter and gluteal area bilaterally. Results Reviewed Results Reviewed: 12/2021 MRI report: Severe spinal stenosis in cervical and lumbar spine; severe rotoscoliosis lumbar spine, moderate to severe DDD in cervical and lumbar spine Laboratory Tests 10/25/23 09:33 WBC 5.7 RBC 4.01 L Hgb 11.9 L Hct 35.7 L 25-Hydroxy Vitamin D3 46 Rheumatoid Factor < 13.0 Assessment & Plan Assessment & Plan (1) Bilateral hand pain: Code(s): M79.641 - Pain in right hand; M79.642 - Pain in left hand (2) Psoriasis: Code(s): L40.9 - Psoriasis, unspecified (3) Spinal stenosis of cervical region with radiculopathy: Code(s): M48.02 - Spinal stenosis, cervical region; M54.12 - Radiculopathy, cervical region (4) Spinal stenosis of lumbosacral region with radiculopathy: Code(s): M48.07 - Spinal stenosis, lumbosacral region; M54.17 - Radiculopathy, lumbosacral region (5) Generalized osteoarthritis of multiple sites: Code(s): M15.9 - Polyosteoarthritis, unspecified Plan #Spinal Stenosis/Hand Pain/Foot Pain: The patient presents for initial evaluation of lower back pain, cervical pain, and hand pain and foot pain. It appears this is longstanding for the patient. MRI shows spinal stenosis and severe DDD of both cervical and lumbar spine. While in [place] she has received corticosteroid injection, and more recently to her neck since relocating. Her pain is also managed with tramadol and Tylenol and Diclofenac 1% gel. I will obtain some rheumatologic labs and hand x-ray for further evaluation. I think that her pain is mechanical in nature, OA, and there is no underlying inflammatory conditions. Patient can continue with her current regimen, continue to follow with pain management and primary care. She has been referred for PT which I highly recommended that she follows through. If there are any results that I am concerned about, I will give the patient a call. #Psoriasis: No rash seen on PE. She uses clobetasol when patches erupt. Last occurrence was one month ago per patient. She has never seen DERM and was managed by PCP. She appears to have no problems with management. Follow-up in one month I spent 45 minutes reviewing chart, evaluating patient and documenting. Orders: Orders Creatine Kinase Total 11/14/23 G89.29 - Other chronic pain, M79.641 - Pain in right hand, M79.642 - Pain in left hand C Reactive Protein 11/14/23 G89.29 - Other chronic pain, M79.641 - Pain in right hand, M79.642 - Pain in left hand Erythrocyte Sedimentation Rate 11/14/23 G89.29 - Other chronic pain, M79.641 - Pain in right hand, M79.642 - Pain in left hand Immunoglobulins,IgG IgA IgM 11/14/23 G89.29 - Other chronic pain, M79.641 - Pain in right hand, M79.642 - Pain in left hand HLA B27 11/14/23 L40.9 - Psoriasis, unspecified, M79.641 - Pain in right hand, M79.642 - Pain in left hand XR hand LT min 3V 11/14/23 M79.641 - Pain in right hand, M79.642 - Pain in left hand XR hand RT min 3V 11/14/23 M79.641 - Pain in right hand, M79.642 - Pain in left hand Cyclic Citrullinated Peptide 11/14/23 G89.29 - Other chronic pain, M79.641 - Pain in right hand, M79.642 - Pain in left hand FAVIO Reflex Titer and Pattern 11/14/23 G89.29 - Other chronic pain, M79.641 - Pain in right hand, M79.642 - Pain in left hand Aldolase 11/14/23 G89.29 - Other chronic pain, M79.641 - Pain in right hand, M79.642 - Pain in left hand Uric Acid 11/14/23 G89.29 - Other chronic pain, M79.641 - Pain in right hand, M79.642 - Pain in left hand Protein Electrophoresis, Serum 11/14/23 G89.29 - Other chronic pain, M79.641 - Pain in right hand, M79.642 - Pain in left hand Coding Level of Care Code New Pt Level 4 (25891) Diagnoses Bilateral hand pain M79.641; M79.642 Psoriasis L40.9 Spinal stenosis of cervical region with radiculopathy M48.02; M54.12 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
[2023-11-14 15:36] VITALS: BP 150/60; PULSE 64; TEMP 36.1; O2SAT 94; BMI 38.7
== END 2023-11-14 16:24 | disposition home or self-care (01) ==
PROVIDERS: PCP Nurse Practitioner Primary Care; Visit Provider Nurse Practitioner Family
DX: M79.641 Pain in right hand (principal); M79.642 Pain in left hand; L40.9 Psoriasis, unspecified; M48.02 Spinal stenosis, cervical region; M54.12 Radiculopathy, cervical region; M48.07 Spinal stenosis, lumbosacral region; M54.17 Radiculopathy, lumbosacral region; M15.9 Polyosteoarthritis, unspecified
CPT/HCPCS: 99204; 99214

== ENCOUNTER → 2023-11-14 15:16 | Outpatient (BNVA) | payer MEDICARE, SELFPAY | PROVIDERS: PCP Nurse Practitioner Primary Care; Visit Provider Nurse Practitioner Family | DX: M79.641 Pain in right hand (principal); M79.642 Pain in left hand; M48.02 Spinal stenosis, cervical region; M48.07 Spinal stenosis, lumbosacral region; M54.12 Radiculopathy, cervical region; M54.17 Radiculopathy, lumbosacral region; M15.9 Polyosteoarthritis, unspecified; L40.9 Psoriasis, unspecified | CPT/HCPCS: 99202 ==

== ENCOUNTER 2023-11-19 11:27 | Outpatient (AMB) | payer MEDICARE, SELFPAY ==
--- NOTE | 2023-11-19 11:28 | A.OFFVIS_ITS ---
Intake Intake Visit Reasons: New Pt - Neck & Back Pain Intake Note: Fallon is a 83 year old female who presents to the office today for a new patient visit for neck and back pain that started years ago. She denies any injury to her neck or back. She states it is hard for her to move her neck left to right. She states she is getting a nerve block injection in her neck on December [address] Mcclellan. She denies any numbness or tingling in her neck but states she does have numbness and tingling in both of her hands. She states she has been using the diclofenac cream with some relief. Allergies lidocaine [From Aspercreme (lidocaine HCl)] Allergy (Intermediate, Verified 11/19/23 11:29) Rash celecoxib [From Celebrex] Allergy (Mild, Unverified 11/19/23 11:29) PALPITATIONS levofloxacin [From Levaquin] Allergy (Mild, Unverified 11/19/23 11:29) VOMITNG/JITTERY zolpidem [From Ambien] Allergy (Mild, Unverified 11/19/23 11:29) HIVES/RASH/ITCH acetaminophen [From Vicodin] Allergy (Verified 11/19/23 11:29) Abdominal Pain adhesive tape Allergy (Verified 11/19/23 11:29) Rash cholestyramine [From Questran] Allergy (Verified 11/19/23 11:29) Unknown gemfibrozil [From Lopid] Allergy (Verified 11/19/23 11:29) Nausea hydrocodone [From Vicodin] Allergy (Verified 11/19/23 11:29) Abdominal Pain indomethacin Allergy (Verified 11/19/23 11:29) Nausea ketoprofen Allergy (Verified 11/19/23 11:29) Chest Pain lisinopril Allergy (Verified 11/19/23 11:29) Nausea naproxen Allergy (Verified 11/19/23 11:29) Abdominal Pain NSAIDS (Non-Steroidal Anti-Inflamma Allergy (Verified 11/19/23 11:29) Abdominal Pain sucrose [From Questran] Allergy (Verified 11/19/23 11:29) Unknown diazepam [From Valium] Adverse Reaction (Mild, Unverified 11/19/23 11:29) HYPERACTIVE pravastatin [Pravastatin] Adverse Reaction (Mild, Unverified 11/19/23 11:29) MUSCLE AND LEG PAIN zinc Adverse Reaction (Verified 11/19/23 11:29) Vomiting Medication List - Last Reconciled 11/19/23 by Shauna Dickey MD acetaminophen (Tylenol) 325 mg PO QID PRN amlodipine 5 mg PO DAILY ascorbic acid (vitamin C) 2 grams PO DAILY B-complex with vitamin C 1 cap PO DAILY benzonatate 100 mg PO BID-TID PRN calcium carbonate-vitamin D3 600 mg-20 mcg (800 unit) (Caltrate 600 plus D) 1 tab PO DAILY clobetasol 0.05% 1 appl topical BID diclofenac sodium 1% 2 grams topical QID fluoride (sodium) 1.1% 1 appl dental BEDTIME ledscgih-mee-hohkz-ivk653-qzqu 500-500-66.7 mg (Owoiftirjfo-Qvyvyxchxrd-ADZ (with antiox)) tabs PO hydrochlorothiazide 25 mg PO QAM lorazepam 1 mg PO BEDTIME PRN miconazole nitrate 2% 1 appl topical DAILY kplrybqy-jgn-sgca-FA-vit K-lut 8 mg iron-400 mcg-50 mcg (Centrum Silver Women) 1 tab PO DAILY ondansetron 4 mg PO Q6-8H PRN propylene glycol 0.6% (Systane Balance) 1 drp ophthalmic (eye) DAILY PRN psyllium husk (Metamucil) 0.4 grams PO QDAY simvastatin 40 mg PO DAILY tramadol 50 mg PO DAILY PRN valsartan 320 mg PO DAILY HPI HPI Comments History of Present Illness Details Chronic pain history, coming from [place]. Already seen by pain management and Rheumatology. Referred by PCP. Planning for MBB cervical with Pain Management. Blood work ordered by Rheumatology, pending results. RF negative. Hand xrays ordered. Lives in a house, with who is healthy and helpful. Drives. Independent. Uses a cane outside, walker inside the house. Manages own medications. Sister and two daughters nearby, [place] and [place]. Been referred to PT, by Pain Management, started last week. Also going to commercial diver, referred by PCP for high arch soles. Seeing cardiology for HTN in December. History of lumbar surgery L4-5 10 years ago. RF S1 2 years ago. Which helped a lot, still working well. New PCP has her now down one tramadol per day, which so far has enough for her to be functional. Denies drinking alcohol and illicit drugs history. 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 Spinal stenosis of cervical region with radiculopathy Bilateral hand pain Psoriatic arthritis Hiatal hernia Osteoarthritis Psoriasis Hyperlipidemia Surgical History Hx of cataract removal with insertion of prosthetic lens History of laminectomy History of colon surgery History of hysterectomy History of cholecystectomy Hx of cataract surgery History of knee replacement Family History Father Dementia Raynauds disease Substance use disorder Mother Rheumatoid arthritis Maternal Grandfather Type 2 diabetes mellitus Sister Mary Carmen's disease Breast cancer Brother Pancreatic cancer Myocardial infarction Sister Lung cancer Paternal Uncle Substance use disorder Paternal Uncle Substance use disorder Paternal Uncle Substance use disorder Son Mental health disorder Social History Household Members: Spouse Housing: House Alcohol intake: former Patient Tobacco Use Status: Never used Tobacco e-Cigarette/Vaping Use: Never Used service: No Current occupational status: retired Cognitive needs: No Hearing needs: No Vision needs: Yes Review of Systems Const All systems reviewed & are unremarkable except as noted in HPI and below Physical Exam Constitutional: Patient appears to be in no acute distress, well nourished and well developed. Patient was appropriately conversant and oriented. Good historian. MSK: Inspection reveals appropriate head and neck positioning. Cervical ROM was full. Spurling's sign negative. Strength is 5/5 in all muscle groups tested. No increased tone noted. Neurological: Neurologic examination of the upper and lower extremities was nonfocal with intact sensation, muscle stretch reflexes and without focal motor deficits . Miles?s negative bilaterally. Babinski was down going bilaterally. Clonus was negative. Gait is non-antalgic, slow, without loss of balance. Results Reviewed Results Reviewed: Previous MRI of cervical spine and lumbar spine reviewed on EMR. I reviewed records from the following: Pain management Rheumatology Assessment & Plan Assessment & Plan (1) Chronic back pain: Code(s): M54.9 - Dorsalgia, unspecified; G89.29 - Other chronic pain Qualifiers: Back pain location: low back pain Back pain laterality: midline Sciatica presence: without sciatica Qualified Code(s): M54.50 - Low back pain, unspecified; G89.29 - Other chronic pain (2) Chronic neck pain: Code(s): M54.2 - Cervicalgia; G89.29 - Other chronic pain Plan 83-year-old with chronic neck and back pain. History of lumbar surgery. Lumbar RFA done in [place] has helped with the lower back pain. No previous procedures for neck pain. Seeing pain management with plans for MBB. Might consider RFA. Defer procedures to pain management. Rheumatology ordered several tests and patient will follow-up. PCP managing oral medications. Patient remains functional and independent despite chronic pain. Has started PT. Assessment and plan discussed with patient, and patient was agreeable. All questions were answered thoroughly. Follow-up as needed. Shauna Dickey MD, DOMO Board Certified, [place] [employer] and Rehabilitation (ABPMR) Board Certified, [place] [employer] Electrodiagnostic [employer] (ABEM) Coding Level of Care Code New Pt Level 3 (56652) Diagnoses Chronic midline low back pain without sciatica M54.50; G89.29 Back pain location: low back pain Back pain laterality: midline Sciatica presence: without sciatica Chronic neck pain M54.2; G89.29
== END 2023-11-19 11:56 | disposition home or self-care (01) ==
PROVIDERS: PCP Nurse Practitioner Primary Care; Visit Provider Physical Medicine & Rehabilitation
DX: M54.50 Low back pain, unspecified (principal); G89.29 Other chronic pain; M54.2 Cervicalgia
CPT/HCPCS: 99203

== ENCOUNTER → 2023-11-19 11:27 | Outpatient (BNVA) | payer MEDICARE, SELFPAY | PROVIDERS: PCP Nurse Practitioner Primary Care; Visit Provider Physical Medicine & Rehabilitation | DX: M54.50 Low back pain, unspecified (principal); M54.2 Cervicalgia; G89.29 Other chronic pain | CPT/HCPCS: 99202 ==

== ENCOUNTER 2023-11-24 14:05 | Outpatient (REF) | payer MEDICARE, SELFPAY ==
--- NOTE | ~2023-11-24 | XR_ITS ---
EXAM: X-RAYS BILATERAL HANDS CLINICAL INFORMATION: Pain in bilateral hands. COMPARISON: None. TECHNIQUE: 3 views of each hand. FINDINGS: RIGHT HAND: The bones are diffusely demineralized. Severe degenerative changes with subluxation at the first carpometacarpal joint. Advanced degenerative changes in the first metacarpophalangeal joint. Moderate degenerative changes in the scattered IP joints of the hand. LEFT HAND: The bones are diffusely demineralized. Severe degenerative changes with subluxation at the first carpometacarpal joint. Advanced degenerative changes in the first metacarpophalangeal joint. Moderate degenerative changes in the scattered IP joints of the hand. Faint calcification in the region of the triangular fibrocartilage. Ulceration along the radial distal aspect of the scaphoid. XR/XR hand RT min 3V IMPRESSION: 1. Severe degenerative changes with subluxation at the first carpometacarpal joints bilaterally. 2. Advanced degenerative changes in the first metacarpophalangeal joint bilaterally. 3. Moderate degenerative changes in the scattered IP joints of the hands bilaterally. 4. Possible faint chondrocalcinosis. 5. The bones are diffusely demineralized. No displaced fracture. Recommend follow up imaging in 10-14 days if fracture is suspected.
--- NOTE | ~2023-11-24 | XR_ITS ---
EXAM: X-RAYS BILATERAL HANDS CLINICAL INFORMATION: Pain in bilateral hands. COMPARISON: None. TECHNIQUE: 3 views of each hand. FINDINGS: RIGHT HAND: The bones are diffusely demineralized. Severe degenerative changes with subluxation at the first carpometacarpal joint. Advanced degenerative changes in the first metacarpophalangeal joint. Moderate degenerative changes in the scattered IP joints of the hand. LEFT HAND: The bones are diffusely demineralized. Severe degenerative changes with subluxation at the first carpometacarpal joint. Advanced degenerative changes in the first metacarpophalangeal joint. Moderate degenerative changes in the scattered IP joints of the hand. Faint calcification in the region of the triangular fibrocartilage. Ulceration along the radial distal aspect of the scaphoid. XR/XR hand LT min 3V IMPRESSION: 1. Severe degenerative changes with subluxation at the first carpometacarpal joints bilaterally. 2. Advanced degenerative changes in the first metacarpophalangeal joint bilaterally. 3. Moderate degenerative changes in the scattered IP joints of the hands bilaterally. 4. Possible faint chondrocalcinosis. 5. The bones are diffusely demineralized. No displaced fracture. Recommend follow up imaging in 10-14 days if fracture is suspected.
[2023-11-24 16:31] LABS: Uric Acid 7.3 mg/dL (2.4-5.7)
[2023-11-26 10:59] LABS: Cyclic Citrullinated Peptide <16 UNITS
[2023-11-27 19:03] LABS: IgA 215 mg/dL (70-320); IgG 978 mg/dL (600-1540); IgM 57 mg/dL (50-300)
[2023-11-28 01:23] LABS: HLA B27 Negative (Negative)
[2023-11-28 12:43] LABS: Prot Elec - Albumin 3.8 g/dL (3.8-4.8); Prot Elec - Alpha1 0.3 g/dL (0.2-0.3); Prot Elec - Alpha2 0.9 g/dL (0.5-0.9); Prot Elec - Beta 1 0.5 g/dL (0.4-0.6); Prot Elec - Beta 2 0.5 g/dL (0.2-0.5); Prot Elec - Gamma 0.9 g/dL (0.8-1.7); Prot Elec - Total Protein 6.9 g/dL (6.1-8.1)
[2023-11-28 14:58] LABS: ANA Pattern 2 Nuclear, Homogeneous; ANA Titer 2 1:40 titer; Anti Nuclear Antibody Pattern Nuclear, Centromere; Anti Nuclear Antibody Screen POSITIVE (NEGATIVE)
== END 2023-11-24 14:06 | disposition home or self-care (01) ==
LOC: HO.HMGCX 14:05
PROVIDERS: PCP Nurse Practitioner Primary Care; Visit Provider Nurse Practitioner Family
DX: M79.641 Pain in right hand (principal); M79.642 Pain in left hand; G89.29 Other chronic pain; L40.9 Psoriasis, unspecified
CPT/HCPCS: 36415; 73130; 82085; 82550; 82784; 84165; 84550; 86038; 86039; 86140; 86200; 86812

== ENCOUNTER 2023-11-26 10:42 | Outpatient (REF) | payer MEDICARE, SELFPAY ==
[2023-11-26 14:07] LABS: Erythrocyte Sedimentation Rate 25 MM/HR (0-20)
== END 2023-11-26 10:43 | disposition home or self-care (01) ==
LOC: HO.HMGCLDS 10:42
PROVIDERS: PCP Nurse Practitioner Primary Care; Visit Provider Nurse Practitioner Family
DX: M79.641 Pain in right hand (principal); M79.642 Pain in left hand; G89.29 Other chronic pain
CPT/HCPCS: 36415; 85652

== ENCOUNTER 2023-12-02 06:19 | Outpatient (REF) | payer MEDICARE, SELFPAY | END 2023-12-02 06:20 | disposition home or self-care (01) | LOC: CF 06:19 | PROVIDERS: Visit Provider Anesthesiology | DX: Z13.89 Encounter for screening for other disorder (principal) ==

== ENCOUNTER → 2023-12-15 12:46 | Outpatient (AMB) | payer MEDICARE, SELFPAY ==
[2023-12-15 12:55] VITALS: BP 166/62; PULSE 81; O2SAT 99; BMI 38.9
--- NOTE | 2023-12-15 12:55 | MHC.PC.OV ---
Vital Signs 12/15/23 12:55 Height 5 ft Weight 199 lb 4 oz BMI 38.9 BP 166/62 H Blood Pressure Location Lt brachial Position Sitting Pulse 81 Pulse Source Pulse Oximeter Pulse Oximetry (%) 99 Oxygen Delivery Method Room Air Intake Visit Reasons: Annual PE Intake Note: Pt is here today for an Annual Physical Bone Denisty and colonoscopy done years ago Mammogram was done at [facility] last year. Allergies lidocaine [From Aspercreme (lidocaine HCl)] Allergy (Intermediate, Verified 12/15/23 13:23) Rash celecoxib [From Celebrex] Allergy (Mild, Verified 12/15/23 13:23) PALPITATIONS levofloxacin [From Levaquin] Allergy (Mild, Verified 12/15/23 13:23) VOMITNG/JITTERY zolpidem [From Ambien] Allergy (Mild, Verified 12/15/23 13:23) HIVES/RASH/ITCH acetaminophen [From Vicodin] Allergy (Verified 12/15/23 13:23) Abdominal Pain adhesive tape Allergy (Verified 12/15/23 13:23) Rash cholestyramine [From Questran] Allergy (Verified 12/15/23 13:23) Unknown gemfibrozil [From Lopid] Allergy (Verified 12/15/23 13:23) Nausea hydrocodone [From Vicodin] Allergy (Verified 12/15/23 13:23) Abdominal Pain indomethacin Allergy (Verified 12/15/23 13:23) Nausea ketoprofen Allergy (Verified 12/15/23 13:23) Chest Pain lisinopril Allergy (Verified 12/15/23 13:23) Nausea naproxen Allergy (Verified 12/15/23 13:23) Abdominal Pain NSAIDS (Non-Steroidal Anti-Inflamma Allergy (Verified 12/15/23 13:23) Abdominal Pain sucrose [From Questran] Allergy (Verified 12/15/23 13:23) Unknown diazepam [From Valium] Adverse Reaction (Mild, Verified 12/15/23 13:23) HYPERACTIVE pravastatin [Pravastatin] Adverse Reaction (Mild, Verified 12/15/23 13:23) MUSCLE AND LEG PAIN zinc Adverse Reaction (Verified 12/15/23 13:23) Vomiting Tobacco use date assessed: 12/15/23 Fall risk assessment: No Falls in past year Last assessed Fall Risk: 12/15/23 Dental Screening Dental Screen Date: 12/15/23 Did you have a dental visit in the last 12 months?: No Did you have a dental problem in the last 6 months where you did not have access to dental care?: No Was dental information given to patient?: Patient has dentist HPI HPI Comments History of Present Illness Details Patient is an 83-year-old female in today for follow-up. Patient has a past medical history significant for cervical neck pain, lower back pain, bilateral knee pain, bilateral foot pain, GERD, insomnia, difficulty swallowing, restless leg syndrome, hypertension, hyperlipidemia. Patient has established providers with pain management, Rheumatology. Patient has primary concern of difficulty swallowing which has gotten worse over the past 6 months. She states she has to cut her pills in half in order to swallow them. She does have history of GERD, history of difficulty swallowing. Will refer to GI. This does not affect her ability to eat or drink at the moment. Will refer to GI. Patient also states she is having left TMJ pain. Patient has history of crepitus left TMJ, states that is gotten worse over the past several weeks. 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 Spinal stenosis of cervical region with radiculopathy Bilateral hand pain Psoriatic arthritis Hiatal hernia Osteoarthritis Psoriasis Hyperlipidemia Surgical History Hx of cataract removal with insertion of prosthetic lens History of laminectomy History of colon surgery History of hysterectomy History of cholecystectomy Hx of cataract surgery History of knee replacement Family History Father Dementia Raynauds disease Substance use disorder Mother Rheumatoid arthritis Maternal Grandfather Type 2 diabetes mellitus Sister Mary Carmen's disease Breast cancer Brother Pancreatic cancer Myocardial infarction Sister Lung cancer Paternal Uncle Substance use disorder Paternal Uncle Substance use disorder Paternal Uncle Substance use disorder Son Mental health disorder Social History Household Members: Spouse Housing: House Alcohol intake: former Patient Tobacco Use Status: Never used Tobacco e-Cigarette/Vaping Use: Never Used service: No Current occupational status: retired Cognitive needs: No Hearing needs: No Vision needs: Yes Questionnaire Thrive Questionnaire Date Thrive assessed: 09/11/23 AUDIT C Alcohol Use Questionnaire (AUDIT-C) 1. How often do you have a drink containing alcohol?: Never 3. How often do you have six or more drinks on one occasion?: Never Total Score: 0 Score Reviewed/Action Taken: Yes CASI-7 AMB Questionnaire CASI-7 Date CASI - 7 assessed: 09/11/23 Source: Developed by Drs. Tc Ferrer, Ryann Sanchez, Berto Barron and colleagues, with an educational rosemarie from [employer]. Review of Systems Const Details: Constitutional : No Weight loss, No Fever, No Chills, No Fatigue, No Malaise ENT/Mouth : No sore throat, No Rhinorrhea Eyes: No Eye Pain, No Swelling, No Redness Cardiovascular : No Chest Pain, No SOB, No Dyspnea on Exertion, No Orthopnea, No Edema, No Palpitations Respiratory : No Cough, No Sputum, No Wheezing Gastrointestinal : No Nausea, No Vomiting, No Diarrhea, No Constipation, No abdominal Pain, No Hematochezia, No Melena. + difficulty swallowing. Genitourinary : No Dysuria, No Urinary Frequency, No Hematuria, Musculoskeletal : Admits cervical neck pain, Lumbar pain, TMJ pain, Bilateral knee pain, and bilateral foot pain. Skin : No Skin Lesions, No rash Neuro : No Weakness, No Numbness, No Dizziness, No Headache. Admits insomnia. Psych : No Anxiety/Panic, No Depression Heme/Lymph: No Bruising, No Bleeding,No Lymphadenopathy Endocrine : No Polyuria, No Polydipsia All other systems reviewed and are negative Physical exam (Primary Care) Vital Signs: Last Vital Signs Pulse 81 12/15/23 12:55 BP 166/62 H 12/15/23 12:55 Pulse Ox 99 12/15/23 12:55 Oxygen Delivery Method Room Air 12/15/23 12:55 Care Plan Goal for BP management: Patient states she did not take her blood pressure medication today. States that her measurements at home are 130 over 70. Patient instructed to continue taking blood pressure measurements at home Next steps: Has upcoming cardiology appointment BMI result Body Mass Index 38.9 Tobacco/Smoking Status: Tobacco use Status Tobacco use date assessed 12/15/23 12/15/23 13:02 Patient Tobacco Use Status Never used Tobacco 12/15/23 13:02 e-Cigarette/Vaping Use Never Used 12/15/23 13:02 Thrive Assessment: Date of Thrive Assessment Date Thrive assessed 09/11/23 12/15/23 13:02 Const Other: Appearance: Alert.? Oriented X3.? No acute distress.? Head: Normocephalic, atraumatic, + TMJ crepitus. Eyes: Pupils equal, round and reactive to light.? ENT: Pharynx normal.?TM intact and pearly vizcaino. Neck: Normal inspection.? Neck supple.?Full ROM. CVS: Normal heart rate and rhythm.? Pulses normal.?+ systolic murmur. Respiratory: No respiratory distress.? Breath sounds normal.? Skin: Skin warm and dry.? Normal skin color.? Normal skin turgor.? Extremities: +small amount of lower extremity edema bialterally. .? No calf ttp. 4/5 strength to bilateral upper and lower extremities. Back: No midline tenderness, no C-spine tenderness, Limited range of motion, no CVA tenderness bilaterally Neuro: Oriented X 3.? No motor deficit.? No sensory deficit. CN 2-12 intact Results Reviewed Results Reviewed: Sodium 138 135-145 mmol/L Potassium 4.3 3.3-5.1 mmol/L CL 102 96-108 mmol/L CO2 27 22-29 mmol/L Gap 13 12-20 BUN 28 H 9-16 mg/dL Creat 0.95 0.5-1.4 mg/dL EGFR 56 NOTE: For -Danish individuals, multiply the result by 1.210. Chronic Kidney Disease: Estimated GFR < 60 mL/min/1.73m2 Severe Kidney Disease: Estimated GFR < 15 mL/min/1.73m2 Glucose, Random 94 60-115 mg/dL CA 9.6 # 8.4-10.2 mg/dL Total Bili 0.3 0.0-1.0 mg/dL AST (GOT) 19 5-31 U/L ALT (GPT) 13 0-31 U/L Protein, Total 6.9 6.5-8.0 g/dL Alb 3.9 3.5-5.0 g/dL Triglyceride 116 <150 mg/dL Desirable Triglyceride: less than 150 mg/dL Borderline High Triglyceride 150-199 mg/dL High Triglyceride: 200-499 mg/dL Very High Triglyceride: greater than or equal to 5OO mg/dL Cholesterol 194 <200 mg/dL Desirable Cholesterol: less than 200 mg/dL Borderline High Cholesterol: 200-239 mg/dL High Cholesterol: greater than 239 mg/dL LDL Calculated 92 <100 mg/dL Desirable LDL: less than 100 mg/dL Near Optimal/Above Optimal LDL: 110-129 mg/dL Borderline High LDL: 130-159 mg/dL High LDL: 160-189 mg/dL Very High LDL: greater than or equal to 190 mg/dL HDL 79 >40 mg/dL Desirable HDL: greater than 40 mg/dL Note: This HDL assay may give artificially low results in patients with liver disease. Alk Phos 64 39-117 U/L TSH 2.82 0.32-4.0 uIU/mL Assessment and Plan Assessment & Plan (1) Difficulty swallowing: Comment: Will refer patient to GI. Patient has history of chronic GERD. Code(s): R13.10 - Dysphagia, unspecified Qualifiers: Dysphagia type: unspecified Qualified Code(s): R13.10 - Dysphagia, unspecified (2) TMJ arthritis: Comment: Patient will find TMJ point massage for trigger therapy Code(s): M26.649 - Arthritis of unspecified temporomandibular joint Qualifiers: Laterality: left Qualified Code(s): M26.642 - Arthritis of left temporomandibular joint Plan: Take your medications as prescribed. If you were prescribed antibiotics today, it is important that you take your medication to their entirety, do not skip any doses, do not finish them early. Follow-up with your primary care provider this week. Return to the emergency department with new or worsening symptoms. Such as fevers, chills, chest pain, shortness of breath, nausea, vomiting, dizziness, headache, vision changes, lethargy In case of emergency call 911 Plan Follow-up in 4 months. Orders: Orders CA echo transthoracic complete 12/15/23 XR DEXA axial skeleton 12/15/23 Z13.820 - Encounter for screening for osteoporosis, Z78.0 - Asymptomatic menopausal state MM tomosynthesis screening BI 12/15/23 Z12.31 - Encounter for screening mammogram for malignant neoplasm of breast Referrals Gastroenterology Referral R13.10 - Dysphagia, unspecified Medications: New hydrochlorothiazide 25 mg PO QAM 90 tabs 0RF fluoride (sodium) 1.1% 1 appl dental BEDTIME 100 mL 0RF famotidine 20 mg PO DAILY 90 tabs 0RF Refilled valsartan 320 mg PO DAILY 90 tabs 0RF simvastatin 40 mg PO DAILY 90 tabs 0RF Coding Level of Care Code Est Pt Level 4 (01802) Diagnoses Dysphagia, unspecified type R13.10 Dysphagia type: unspecified Arthritis of left temporomandibular joint M26.642 Laterality: left Time Spent (min) 36
== END ==
PROVIDERS: PCP Nurse Practitioner Primary Care; Visit Provider Nurse Practitioner Primary Care
DX: R13.10 Dysphagia, unspecified (principal); M26.642 Arthritis of left temporomandibular joint
CPT/HCPCS: 99214

== ENCOUNTER 2023-12-16 14:26 | Outpatient (AMB) | payer MEDICARE, SELFPAY ==
--- NOTE | 2023-12-16 14:32 | MHC.OFFVIS ---
Intake Vital Signs 12/16/23 14:38 Height 5 ft Weight 200 lb BMI 39.1 BP 160/60 H Blood Pressure Location Rt brachial Position Sitting Pulse 80 Pulse Source Pulse Oximeter Pulse Oximetry (%) 99 Oxygen Delivery Method Room Air Intake Visit Reasons: Hand Pain/Psoriasis/Low back pain/CM Intake Note: Patient last seen 11/14/23 by Leonor, presents today for follow up and test results. Dry Wall Applicator Required: No Accompanied by: Self / Same As Patient Allergies lidocaine [From Aspercreme (lidocaine HCl)] Allergy (Intermediate, Verified 12/16/23 14:32) Rash celecoxib [From Celebrex] Allergy (Mild, Verified 12/16/23 14:32) PALPITATIONS levofloxacin [From Levaquin] Allergy (Mild, Verified 12/16/23 14:32) VOMITNG/JITTERY zolpidem [From Ambien] Allergy (Mild, Verified 12/16/23 14:32) HIVES/RASH/ITCH acetaminophen [From Vicodin] Allergy (Verified 12/16/23 14:32) Abdominal Pain adhesive tape Allergy (Verified 12/16/23 14:32) Rash cholestyramine [From Questran] Allergy (Verified 12/16/23 14:32) Unknown gemfibrozil [From Lopid] Allergy (Verified 12/16/23 14:32) Nausea hydrocodone [From Vicodin] Allergy (Verified 12/16/23 14:32) Abdominal Pain indomethacin Allergy (Verified 12/16/23 14:32) Nausea ketoprofen Allergy (Verified 12/16/23 14:32) Chest Pain lisinopril Allergy (Verified 12/16/23 14:32) Nausea naproxen Allergy (Verified 12/16/23 14:32) Abdominal Pain NSAIDS (Non-Steroidal Anti-Inflamma Allergy (Verified 12/16/23 14:32) Abdominal Pain sucrose [From Questran] Allergy (Verified 12/16/23 14:32) Unknown diazepam [From Valium] Adverse Reaction (Mild, Verified 12/16/23 14:32) HYPERACTIVE pravastatin [Pravastatin] Adverse Reaction (Mild, Verified 12/16/23 14:32) MUSCLE AND LEG PAIN zinc Adverse Reaction (Verified 12/16/23 14:32) Vomiting HPI HPI Comments History of Present Illness Details Ms. Fox returns today to review lab results and determine any necessary treatment course. Since last visit she has continued with pain management and takes her tramadol. Her dosage was increased to 2 per day. This is still less than 4 to 6 per day when she was in [place]. She is learning to manage on this amount. She tried Aspercreme with lidocaine and had a resulting rash that has since resolved with the help of Benadryl. She also had injection to C4-5 and 6 since last visit Initial history 11/14/2023 Ms. Lehman 83-year-old female presents today for initial visit. The patient recently relocated from [place]. In [place] she was seeing pain management for lower back pain and generalized OA. She received corticosteroid injections to the back and tramadol for pain management. She also takes Tylenol. The patient reports that she has a hx of psoriasis and uses. This was monitored by her primary care physician in [place]. 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 The patient denies uveitis, plantar fasciitis, Achilles tendinitis. She reports her hands and feet do ache sometimes but are not swollen. 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 Spinal stenosis of cervical region with radiculopathy Bilateral hand pain Psoriatic arthritis Hiatal hernia Osteoarthritis Psoriasis Hyperlipidemia Surgical History Hx of cataract removal with insertion of prosthetic lens History of laminectomy History of colon surgery History of hysterectomy History of cholecystectomy Hx of cataract surgery History of knee replacement Family History Father Dementia Raynauds disease Substance use disorder Mother Rheumatoid arthritis Maternal Grandfather Type 2 diabetes mellitus Sister Mary Carmen's disease Breast cancer Brother Pancreatic cancer Myocardial infarction Sister Lung cancer Paternal Uncle Substance use disorder Paternal Uncle Substance use disorder Paternal Uncle Substance use disorder Son Mental health disorder Social History Household Members: Spouse Housing: House Alcohol intake: former Patient Tobacco Use Status: Never used Tobacco e-Cigarette/Vaping Use: Never Used service: No Current occupational status: retired Cognitive needs: No Hearing needs: No Vision needs: Yes Review of Systems Const All systems reviewed & are unremarkable except as noted in HPI and below Physical Exam Vital Signs: Last Vital Signs Pulse 80 12/16/23 14:38 BP 160/60 H 12/16/23 14:38 Pulse Ox 99 12/16/23 14:38 Oxygen Delivery Method Room Air 12/16/23 14:38 BMI result Body Mass Index 39.1 Vital signs reviewed. Constitutional: Non-toxic appearing. No acute distress. Well-developed and well-nourished. HEENT: Normocephalic and atraumatic. External auditory canals without erythema or edema bilaterally. Cardio: Regular rate and rhythm. No murmurs, gallops, or rubs. No lower extremity edema. No JVD. Pulmonary: No respiratory distress. No accessory muscle usage. Musculoskeletal: Normal range of motion in joints throughout the body. Walks with a cane Neuro: Alert and oriented x4. Cranial nerves 2-12 grossly intact. No focal deficits appreciated. Results Reviewed Results Reviewed: Laboratory Tests 10/25/23 11/24/23 11/24/23 09:33 14:10 14:13 WBC 5.7 RBC 4.01 L Hgb 11.9 L Hct 35.7 L Eos % (Auto) 7.1 H ESR Uric Acid 7.3 H Total Creatine Kinase 55 C-Reactive Protein 0.10 IgG Total IgA Total IgM 57 Cycl Citrul Peptide IgG <16 FAVIO Titer FAVIO Titer 2 FAVIO Pattern HLA-B27 11/24/23 11/26/23 14:13 10:49 WBC RBC Hgb Hct Eos % (Auto) ESR 25 H Uric Acid Total Creatine Kinase C-Reactive Protein IgG Total 978 IgA Total 215 IgM Cycl Citrul Peptide IgG FAVIO Titer 1:320 H FAVIO Titer 2 1:40 H FAVIO Pattern Nuclear, Centromere A HLA-B27 Negative Assessment & Plan Assessment & Plan (1) Bilateral hand pain: Code(s): M79.641 - Pain in right hand; M79.642 - Pain in left hand (2) Psoriasis: Code(s): L40.9 - Psoriasis, unspecified (3) Spinal stenosis of cervical region with radiculopathy: Code(s): M48.02 - Spinal stenosis, cervical region; M54.12 - Radiculopathy, cervical region (4) 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 She does have an elevated uric acid level but seems asymptomatic for gout. She remembers a gout episode many many many years ago and can not attest to any recently. We discussed that if she encounters a gout flare then we would consider at that point potential treatment for hyperuricemia. #Spinal Stenosis/Hand Pain/Foot Pain: It appears this is longstanding for the patient. MRI shows spinal stenosis and severe DDD of both cervical and lumbar spine. While in [place] she has received corticosteroid injection, and more recently to her neck since relocating. Her pain is also managed with tramadol and Tylenol and Diclofenac 1% gel. This appears more mechanical in nature, OA, and there is no underlying inflammatory conditions. Patient can continue with her current regimen, continue to follow with pain management and primary care. She has been referred for PT which I highly recommended that she follows through. #Psoriasis: No rash seen on PE. She uses clobetasol when patches erupt. Last occurrence was one month ago per patient. She has never seen DERM and was managed by PCP. She appears to have no problems with management. Follow-up in 6 months I spent 20 minutes reviewing chart, discussing with and documenting. Orders: Orders Erythrocyte Sedimentation Rate 12/16/23 E79.0 - Hyperuricemia without signs of inflammatory arthritis and tophaceous disease Comprehensive Met. Panel 12/16/23 E79.0 - Hyperuricemia without signs of inflammatory arthritis and tophaceous disease Complete Blood Count Auto Diff 12/16/23 E79.0 - Hyperuricemia without signs of inflammatory arthritis and tophaceous disease C Reactive Protein 12/16/23 E79.0 - Hyperuricemia without signs of inflammatory arthritis and tophaceous disease Uric Acid 12/16/23 E79.0 - Hyperuricemia without signs of inflammatory arthritis and tophaceous disease Coding Level of Care Code Tele New Pt Level 3 (46682) Diagnoses Bilateral hand pain M79.641; M79.642 Psoriasis L40.9 Spinal stenosis of cervical region with radiculopathy M48.02; M54.12 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
[2023-12-16 14:38] VITALS: BP 160/60; PULSE 80; O2SAT 99; BMI 39.1
== END 2023-12-16 15:04 | disposition home or self-care (01) ==
PROVIDERS: PCP Nurse Practitioner Primary Care; Visit Provider Nurse Practitioner Family
DX: M79.641 Pain in right hand (principal); M79.642 Pain in left hand; L40.9 Psoriasis, unspecified; M48.02 Spinal stenosis, cervical region; M54.12 Radiculopathy, cervical region; M48.07 Spinal stenosis, lumbosacral region; M54.17 Radiculopathy, lumbosacral region; M15.9 Polyosteoarthritis, unspecified
CPT/HCPCS: 99213

== ENCOUNTER → 2023-12-16 14:26 | Outpatient (BNVA) | payer MEDICARE, SELFPAY | PROVIDERS: PCP Nurse Practitioner Primary Care; Visit Provider Nurse Practitioner Family | DX: M79.641 Pain in right hand (principal); M79.642 Pain in left hand; M48.02 Spinal stenosis, cervical region; M54.12 Radiculopathy, cervical region; M48.07 Spinal stenosis, lumbosacral region; M54.17 Radiculopathy, lumbosacral region; M15.9 Polyosteoarthritis, unspecified; L40.9 Psoriasis, unspecified | CPT/HCPCS: 99212 ==

== ENCOUNTER 2023-12-23 06:59 | Outpatient (REF) | payer MEDICARE, SELFPAY ==
--- NOTE | ~2023-12-23 | FL_ITS ---
EXAMINATION: XR FLUOROSCOPY WITH IMAGES CLINICAL INFORMATION: Spondylosis without myelopathy or radiculopathy, cervical region. COMPARISON: None available. TECHNIQUE: Fluoroscopy Supervised By: Dr. Courtney Ernst. Fluoroscopy Time: 0.8 minutes. Cumulative Dose: 4.23 mGy. DAP: 1.15 Gycm2. Images: 6. FINDINGS: Imaging demonstrates multiple needle positions in the cervical spine with contrast injections presumably in the epidural space around the foramen. Please see Dr. Courtney Ernst's procedure report for full details. FL/FL guidance in treatment room IMPRESSION: Fluoroscopy and spot films provided during cervical procedure.
== END 2023-12-23 07:00 | disposition home or self-care (01) ==
LOC: CF 06:59
PROVIDERS: Visit Provider Anesthesiology
DX: M47.812 Spondylosis without myelopathy or radiculopathy, cervical region (principal); M96.1 Postlaminectomy syndrome, not elsewhere classified; M19.071 Primary osteoarthritis, right ankle and foot; M19.072 Primary osteoarthritis, left ankle and foot; L40.50 Arthropathic psoriasis, unspecified
CPT/HCPCS: 64490; 64491; J2401; Q9967

== ENCOUNTER 2023-12-23 10:29 | Outpatient (AMB) | payer MEDICARE, SELFPAY ==
--- NOTE | 2023-12-23 13:12 | A.OFFVIS_ITS ---
Intake Vital Signs 12/23/23 13:13 12/23/23 13:14 Height 5 ft Weight 200 lb BMI 39.1 BP 160/82 H 138/74 Blood Pressure Location Lt brachial Lt brachial Position Sitting Sitting Respiration 18 Pulse 81 Pulse Source Pulse Oximeter Pulse Oximetry (%) 100 Oxygen Delivery Method Room Air Comment Pre-Op Intake Visit Reasons: BILATERAL DX C4,C5,C6 MBB/LIDOCAINE ALLERGY Allergies lidocaine [From Aspercreme (lidocaine HCl)] Allergy (Intermediate, Verified 12/16/23 14:32) Rash celecoxib [From Celebrex] Allergy (Mild, Verified 12/16/23 14:32) PALPITATIONS levofloxacin [From Levaquin] Allergy (Mild, Verified 12/16/23 14:32) VOMITNG/JITTERY zolpidem [From Ambien] Allergy (Mild, Verified 12/16/23 14:32) HIVES/RASH/ITCH acetaminophen [From Vicodin] Allergy (Verified 12/16/23 14:32) Abdominal Pain adhesive tape Allergy (Verified 12/16/23 14:32) Rash cholestyramine [From Questran] Allergy (Verified 12/16/23 14:32) Unknown gemfibrozil [From Lopid] Allergy (Verified 12/16/23 14:32) Nausea hydrocodone [From Vicodin] Allergy (Verified 12/16/23 14:32) Abdominal Pain indomethacin Allergy (Verified 12/16/23 14:32) Nausea ketoprofen Allergy (Verified 12/16/23 14:32) Chest Pain lisinopril Allergy (Verified 12/16/23 14:32) Nausea naproxen Allergy (Verified 12/16/23 14:32) Abdominal Pain NSAIDS (Non-Steroidal Anti-Inflamma Allergy (Verified 12/16/23 14:32) Abdominal Pain sucrose [From Questran] Allergy (Verified 12/16/23 14:32) Unknown diazepam [From Valium] Adverse Reaction (Mild, Verified 12/16/23 14:32) HYPERACTIVE pravastatin [Pravastatin] Adverse Reaction (Mild, Verified 12/16/23 14:32) MUSCLE AND LEG PAIN zinc Adverse Reaction (Verified 12/16/23 14:32) Vomiting [facility] Medical History (Updated 12/23/23 @ 14:55 by Tab Mcclellan MD) Elevated uric acid in blood 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 Spinal stenosis of cervical region with radiculopathy Bilateral hand pain Psoriatic arthritis Hiatal hernia Osteoarthritis Psoriasis Hyperlipidemia Surgical History Hx of cataract removal with insertion of prosthetic lens History of laminectomy History of colon surgery History of hysterectomy History of cholecystectomy Hx of cataract surgery History of knee replacement Family History Father Dementia Raynauds disease Substance use disorder Mother Rheumatoid arthritis Maternal Grandfather Type 2 diabetes mellitus Sister Mary Carmen's disease Breast cancer Brother Pancreatic cancer Myocardial infarction Sister Lung cancer Paternal Uncle Substance use disorder Paternal Uncle Substance use disorder Paternal Uncle Substance use disorder Son Mental health disorder Social History Household Members: Spouse Housing: House Alcohol intake: former Patient Tobacco Use Status: Never used Tobacco e-Cigarette/Vaping Use: Never Used service: No Current occupational status: retired Cognitive needs: No Hearing needs: No Vision needs: Yes Physical Exam Vital Signs: Last Vital Signs Pulse 81 12/23/23 13:13 Resp 18 12/23/23 13:13 BP 138/74 12/23/23 13:14 Pulse Ox 100 12/23/23 13:13 Oxygen Delivery Method Room Air 12/23/23 13:13 BMI result Body Mass Index 39.1 Assessment & Plan Assessment & Plan (1) Psoriatic arthritis: Code(s): L40.50 - Arthropathic psoriasis, unspecified (2) Osteoarthritis: Code(s): M19.90 - Unspecified osteoarthritis, unspecified site Qualifiers: Osteoarthritis location: foot Osteoarthritis type: primary Laterality: bilateral Qualified Code(s): M19.071 - Primary osteoarthritis, right ankle and foot; M19.072 - Primary osteoarthritis, left ankle and foot (3) Cervical spondylosis: Code(s): M47.812 - Spondylosis without myelopathy or radiculopathy, cervical region Plan: Bilateral C4-C4- C6 diagnostic medial branch block. ?Informed consent was explained to the patient. All questions were explained and answered.? The patient was taken inside the operating room where she was po sitioned prone on the operating table. Time-out was performed delineating correct site, side, the nature of the procedure, patient's allergy, preoperative antibiotic if needed.? All operating room staff was participating in OR time-out procedure. The back of the neck and upper back were prepped with ChloraPrep and draped with sterile towels.? Sterilely draped C-arm was brought over the operating field and sq picture of? C4-C5-C6 vertebrae were delineated on the screen.? Points of interest were delineated as lateral masses bilaterally of the vertebrae as above. The waste of each lateral mass was chosen as the target of the tip of the needles on AP view and lateral view was used as a safety view for the tips of the needles position.?? The projections of the point of interest to the skin we re injected with the small amount of local anesthetic chloroprocaine 2% 1-1.5 cc.? After that 22 gauge 3 and 1/2 inch? spinal needles were driven to the point of interest in tunnel vision fashion. After needles gently contacted the bone at the point of interests the needle was injected with small amount of the contrast. The injections did not demonstrate intravascular or intrathecal spread.. After that tetracaine 0.75 %-1cc. was injected into each location of the needles. Upon completion of the injections the needles were removed and sterile dressings were applied, the patient was a taken? outside of the operating room to recovery room where she recovered uneventfully. (4) Polyarthralgia: Code(s): M25.50 - Pain in unspecified joint Plan Patient presented to the office today for evaluation management of her chronic all of her pain. Referral placed to rheumatology, patient with polyarthralgia and psoriatic arthritis. Continue with Tylenol and topical diclofenac as needed. Patient was advised our chronic opioid program is currently closed. We do not prescribe chronic opiates, she was referred to her primary care doctor to discuss continuation of her previously tolerated and beneficial tramadol 50 mg p.o. t.i.d.. She is aware that this is up to the primary care doctor, he may not assume opioid prescribing for her either. Discussed options for treatment including diagnostic interventional testing, epidural steroid injections, peripheral nerve stimulation with Sprint, RFA and more permanent neuromodulation. Patient has exhausted conservative therapy including PT, nonsteroidal anti- inflammatory, muscle relaxers and beox-iqp-aveymzo medications without relief of her pain. Will schedule for bilateral diagnostic C4-C5 C6 medial branch blocks with local anesthetic. All questions and concerns have been answered and patient agrees with the plan. Follow up after injections and sooner if needed. Orders: Orders FL guidance in treatment room Today M47.812 - Spondylosis without myelopathy or radiculopathy, cervical region Coding Level of Care Code Procedure Only Diagnoses Psoriatic arthritis L40.50 Primary osteoarthritis of both feet M19.071; M19.072 Osteoarthritis location: foot Osteoarthritis type: primary Laterality: bilateral Cervical spondylosis M47.812 Polyarthralgia M25.50
[2023-12-23 13:13] VITALS: BP 160/82; PULSE 81; RESP 18; O2SAT 100; BMI 39.1
[2023-12-23 13:14] VITALS: BP 138/74
== END 2023-12-23 13:14 | disposition home or self-care (01) ==
LOC: HO.PMCPRC 10:29
PROVIDERS: PCP Nurse Practitioner Primary Care; Visit Provider Anesthesiology
DX: M47.812 Spondylosis without myelopathy or radiculopathy, cervical region (principal)
CPT/HCPCS: 64490; 64491

== ENCOUNTER 2023-12-29 10:34 | Outpatient (AMB) | payer MEDICARE, SELFPAY ==
--- NOTE | 2023-12-29 11:23 | A.OFFVIS_ITS ---
Intake Vital Signs 12/29/23 11:24 Height 5 ft Weight 197 lb 4 oz BMI 38.5 BP 130/82 Blood Pressure Location Lt brachial Position Sitting Respiration 14 Pulse 69 Pulse Source Pulse Oximeter Pulse Oximetry (%) 97 Oxygen Delivery Method Room Air Intake Visit Reasons: BILATERAL DIAGNOSTIC C4, C5, C6 MBB Intake Note: Patient comes in for post-op appointment. Reports pain 10/01. Allergies lidocaine [From Aspercreme (lidocaine HCl)] Allergy (Intermediate, Verified 12/16/23 14:32) Rash celecoxib [From Celebrex] Allergy (Mild, Verified 12/16/23 14:32) PALPITATIONS levofloxacin [From Levaquin] Allergy (Mild, Verified 12/16/23 14:32) VOMITNG/JITTERY zolpidem [From Ambien] Allergy (Mild, Verified 12/16/23 14:32) HIVES/RASH/ITCH acetaminophen [From Vicodin] Allergy (Verified 12/16/23 14:32) Abdominal Pain adhesive tape Allergy (Verified 12/16/23 14:32) Rash cholestyramine [From Questran] Allergy (Verified 12/16/23 14:32) Unknown gemfibrozil [From Lopid] Allergy (Verified 12/16/23 14:32) Nausea hydrocodone [From Vicodin] Allergy (Verified 12/16/23 14:32) Abdominal Pain indomethacin Allergy (Verified 12/16/23 14:32) Nausea ketoprofen Allergy (Verified 12/16/23 14:32) Chest Pain lisinopril Allergy (Verified 12/16/23 14:32) Nausea naproxen Allergy (Verified 12/16/23 14:32) Abdominal Pain NSAIDS (Non-Steroidal Anti-Inflamma Allergy (Verified 12/16/23 14:32) Abdominal Pain sucrose [From Questran] Allergy (Verified 12/16/23 14:32) Unknown diazepam [From Valium] Adverse Reaction (Mild, Verified 12/16/23 14:32) HYPERACTIVE pravastatin [Pravastatin] Adverse Reaction (Mild, Verified 12/16/23 14:32) MUSCLE AND LEG PAIN zinc Adverse Reaction (Verified 12/16/23 14:32) Vomiting HPI HPI Comments History of Present Illness Details Fallon is a very pleasant 82 year old female who is here in my office for evaluation of diagnostic C4-C5 C6 medial branch block which was performed on her on 12/23/2023. She reported immediately after the procedure pain relief about 60%. 3-4 hours after the procedure she reported pain relief 80%. She reported 90% pain relief at 06:00 hours after the procedure. She reports that she has no pain in her neck up until now 6 days after the procedure. Her pain is 1/10 today and only when she tries to perform most exuberant movements of her head and neck. I explained to the patient that I would like to do PNS sprint when her pain will come back. The nature of the procedure was explained to the patient. When she needs to perform the procedure she will give us a call and we will schedule her as soon as possible 4 1st sprint PNS on the right and following 14 days 2nd sprint PNS on the left. Prior: Patient recently moved here from [place] where she was under care of pain management and had undergone treatment for her lumbar spine including 2 sets of diagnostic medial branch blocks followed by lumbar radiofrequency ablation. She reports that her lower back pain has been under control since then. The RFA was completed September of 2022. Patient reports her mom main complaint today is her cervical neck pain. She states that she has tried physical therapy and Tylenol without relief. She applies topical diclofenac gel which is also not relieve her pain. Patient states that she was on chronic tramadol use while in [place] and that was the only thing that made her pain manageable. She recently established care with new PCP in the area, he would not refill her tramadol and referred her here for pain management strategies. [facility] Medical History (Updated 12/23/23 @ 14:55 by Tab Mcclellan MD) Elevated uric acid in blood 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 Spinal stenosis of cervical region with radiculopathy Bilateral hand pain Psoriatic arthritis Hiatal hernia Osteoarthritis Psoriasis Hyperlipidemia Surgical History Hx of cataract removal with insertion of prosthetic lens History of laminectomy History of colon surgery History of hysterectomy History of cholecystectomy Hx of cataract surgery History of knee replacement Family History Father Dementia Raynauds disease Substance use disorder Mother Rheumatoid arthritis Maternal Grandfather Type 2 diabetes mellitus Sister Mary Carmen's disease Breast cancer Brother Pancreatic cancer Myocardial infarction Sister Lung cancer Paternal Uncle Substance use disorder Paternal Uncle Substance use disorder Paternal Uncle Substance use disorder Son Mental health disorder Social History Household Members: Spouse Housing: House Alcohol intake: former Patient Tobacco Use Status: Never used Tobacco e-Cigarette/Vaping Use: Never Used service: No Current occupational status: retired Cognitive needs: No Hearing needs: No Vision needs: Yes Review of Systems Const All systems reviewed & are unremarkable except as noted in HPI and below Physical Exam Vital Signs: Last Vital Signs Pulse 69 12/29/23 11:24 Resp 14 12/29/23 11:24 BP 130/82 12/29/23 11:24 Pulse Ox 97 12/29/23 11:24 Oxygen Delivery Method Room Air 12/29/23 11:24 BMI result Body Mass Index 38.5 General: awake, alert, oriented. Answers questions appropriately. Fully engaged in examination. Skin: warm, dry, intact HEENT: Normocephalic. Hearing intact. Cardiac: External chest normal in appearance. Respiratory: No cough, audible wheezing or stridor. Abdomen: without gross distension. MS: No obvious swelling or deformities. Tender to palpation over midline cervical vertebrae and paraspinal muscles ROM limited in all planes with notable pain increase with left lateral flexion and rotation Spurling positive Neurological: Oriented to person, place, time and situation. Thought process intact. Psychiatric: Appropriate mood and affect. Good judgment and insight. Assessment & Plan Assessment & Plan (1) Chronic back pain: Code(s): M54.9 - Dorsalgia, unspecified; G89.29 - Other chronic pain Qualifiers: Back pain location: low back pain Back pain laterality: midline Sciatica presence: without sciatica Qualified Code(s): M54.50 - Low back pain, unspecified; G89.29 - Other chronic pain (2) Chronic neck pain: Code(s): M54.2 - Cervicalgia; G89.29 - Other chronic pain Plan 83-year-old with chronic neck and back pain. History of lumbar surgery. Lumbar RFA done in [place] has helped with the lower back pain. No previous procedures for neck pain. Diagnostic MBB C4-C5 C6 bilateral: Excellent pain relief for past 6 days, patient enjoys excellent activities of daily living and absence of pain. We agreed that when the pain will come back I will schedule h er for bilateral right 1st and left 2nd sprint PNS trial C5 possible C4 possible C6. She will give us a call to schedule a procedure when her pain will become slightly more severe than it is now. Patient Instructions: I here by testify that I spent 34 minutes in counseling this patient, explaining her nature of the procedure, evaluating her prior records, planning her care and organizing this note. Coding Level of Care Code Est Pt Level 4 (48526) Diagnoses Chronic midline low back pain without sciatica M54.50; G89.29 Back pain location: low back pain Back pain laterality: midline Sciatica presence: without sciatica Chronic neck pain M54.2; G89.29
[2023-12-29 11:24] VITALS: BP 130/82; PULSE 69; RESP 14; O2SAT 97; BMI 38.5
== END 2023-12-29 11:40 | disposition home or self-care (01) ==
PROVIDERS: PCP Nurse Practitioner Primary Care; Visit Provider Anesthesiology
DX: M54.50 Low back pain, unspecified (principal); G89.29 Other chronic pain; M54.2 Cervicalgia
CPT/HCPCS: 99214

== ENCOUNTER → 2023-12-29 10:34 | Outpatient (BNVA) | payer MEDICARE, SELFPAY | PROVIDERS: PCP Nurse Practitioner Primary Care; Visit Provider Anesthesiology | DX: M54.50 Low back pain, unspecified (principal); M54.2 Cervicalgia; G89.29 Other chronic pain | CPT/HCPCS: 99212 ==

== ENCOUNTER → 2024-01-12 14:38 | Outpatient (BNVA) | payer MEDICARE, SELFPAY | PROVIDERS: PCP Nurse Practitioner Primary Care; Visit Provider Internal Medicine Cardiovascular Disease | DX: I44.0 Atrioventricular block, first degree (principal); I10 Essential (primary) hypertension; I49.8 Other specified cardiac arrhythmias | CPT/HCPCS: 93005; 99202 ==

== ENCOUNTER 2024-01-12 14:39 | Outpatient (AMB) | payer MEDICARE, SELFPAY ==
[2024-01-12 14:59] VITALS: BP 150/64; PULSE 76; BMI 39.3
--- NOTE | 2024-01-12 14:59 | MHC.OFFVIS ---
Vital Signs 01/12/24 14:59 Height 5 ft Weight 201 lb 0.985 oz BMI 39.3 BP 150/64 H Blood Pressure Location Lt brachial Position Sitting Pulse 76 Intake Visit Reasons: [employer]/Jesus Brand/?hypertension [employer] Required: No Accompanied by: Significant Other Allergies lidocaine [From Aspercreme (lidocaine HCl)] Allergy (Intermediate, Verified 12/16/23 14:32) Rash celecoxib [From Celebrex] Allergy (Mild, Verified 12/16/23 14:32) PALPITATIONS levofloxacin [From Levaquin] Allergy (Mild, Verified 12/16/23 14:32) VOMITNG/JITTERY zolpidem [From Ambien] Allergy (Mild, Verified 12/16/23 14:32) HIVES/RASH/ITCH acetaminophen [From Vicodin] Allergy (Verified 12/16/23 14:32) Abdominal Pain adhesive tape Allergy (Verified 12/16/23 14:32) Rash cholestyramine [From Questran] Allergy (Verified 12/16/23 14:32) Unknown gemfibrozil [From Lopid] Allergy (Verified 12/16/23 14:32) Nausea hydrocodone [From Vicodin] Allergy (Verified 12/16/23 14:32) Abdominal Pain indomethacin Allergy (Verified 12/16/23 14:32) Nausea ketoprofen Allergy (Verified 12/16/23 14:32) Chest Pain lisinopril Allergy (Verified 12/16/23 14:32) Nausea naproxen Allergy (Verified 12/16/23 14:32) Abdominal Pain NSAIDS (Non-Steroidal Anti-Inflamma Allergy (Verified 12/16/23 14:32) Abdominal Pain sucrose [From Questran] Allergy (Verified 12/16/23 14:32) Unknown diazepam [From Valium] Adverse Reaction (Mild, Verified 12/16/23 14:32) HYPERACTIVE pravastatin [Pravastatin] Adverse Reaction (Mild, Verified 12/16/23 14:32) MUSCLE AND LEG PAIN zinc Adverse Reaction (Verified 12/16/23 14:32) Vomiting Medication List - Last Reconciled 01/12/24 by Antoine Gotti MD amlodipine 5 mg PO DAILY ascorbic acid (vitamin C) 2 grams PO DAILY B-complex with vitamin C 1 cap PO DAILY benzonatate 100 mg PO BID-TID PRN calcium carbonate-vitamin D3 600 mg-20 mcg (800 unit) (Caltrate 600 plus D) 1 tab PO DAILY clobetasol 0.05% 1 appl topical BID diclofenac sodium 1% 2 grams topical QID famotidine 20 mg PO DAILY fluoride (sodium) 1.1% 1 appl PO DAILY ahigzewe-wzi-guoet-ajw282-wjxi 500-500-66.7 mg (Qnmzvfgpczn-Tjuthvwvxii-KJK (with antiox)) tabs PO hydrochlorothiazide 25 mg PO QAM lorazepam 1 mg PO DAILY PRN miconazole nitrate 2% 1 appl topical DAILY mvmuevdz-bcj-kpak-FA-vit K-lut 8 mg iron-400 mcg-50 mcg (Centrum Silver Women) 1 tab PO DAILY ondansetron 4 mg PO Q6-8H PRN propylene glycol 0.6% (Systane Balance) 1 drp ophthalmic (eye) DAILY PRN psyllium husk (Metamucil) 0.4 grams PO QDAY simvastatin 40 mg PO DAILY tramadol 50 mg PO BID PRN valsartan 320 mg PO DAILY HPI Comments Details: Lowering was referred here for management of hypertension. She says she is longstanding history of hypertension which was managed with single agent hydrochlorothiazide for many years up to last year. She said in the last year blood pressures been not well controlled. She says she has significant chronic back pain including neck pain and lower back pain due to spine issues. She used to be on 6 tramadol and for about a year or more her tramadol has been reduced and she has been suffering from a lot of pain. She also has lot of sleep issues and was doing well on lorazepam therapy used to able to get 6-7 hours of sleep. But now she is on lorazepam therapy and she says she sleeps only couple of hours a night. Since then her blood pressure has been difficult control. She is bothered by her pain and recently saw pain specialty and had injection performed in her neck and said her neck pain is better but continues to have back pain. She was initially started on losartan with minimal response and subsequently switch to valsartan with improvement in her blood pressure control. Recently amlodipine was added to 5 mg daily. She comes in for follow-up and a blood pressures still elevated. She has no associated symptoms. Denies any exertional chest pain or shortness of breath. No orthopnea, PND, leg edema. She denies any lightheadedness, syncope. She is stopped measuring a blood pressures few weeks ago blood pressures to run 130 to 140 systolic. She denies any prolonged palpitation irregular heartbeat. Echocardiogram is pending [facility] Medical History Elevated uric acid in blood 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 Spinal stenosis of cervical region with radiculopathy Bilateral hand pain Psoriatic arthritis Hiatal hernia Osteoarthritis Psoriasis Hyperlipidemia Surgical History Hx of cataract removal with insertion of prosthetic lens History of laminectomy History of colon surgery History of hysterectomy History of cholecystectomy Hx of cataract surgery History of knee replacement Family History Father Dementia Raynauds disease Substance use disorder Mother Rheumatoid arthritis Maternal Grandfather Type 2 diabetes mellitus Sister Mary Carmen's disease Breast cancer Brother Pancreatic cancer Myocardial infarction Sister Lung cancer Paternal Uncle Substance use disorder Paternal Uncle Substance use disorder Paternal Uncle Substance use disorder Son Mental health disorder Social History Household Members: Spouse Housing: House Alcohol intake: former Patient Tobacco Use Status: Never used Tobacco e-Cigarette/Vaping Use: Never Used service: No Current occupational status: retired Cognitive needs: No Hearing needs: No Vision needs: Yes Review of Systems Const Denies chills, Denies fatigue, Denies fever(s), Denies frequent falls, Denies weakness, Denies weight gain and Denies weight loss ENT Denies dizziness Card Denies chest pain, Denies leg edema, Denies lightheadedness, Denies palpitations, Denies dyspnea, Denies dyspnea on exertion and Denies orthopnea Resp Denies cough, Denies dyspnea and Denies dyspnea on exertion GI Denies bloating and Denies change in bowel habits Musc Denies muscle weakness, Denies numbness and Denies tingling Neuro Denies dizziness, Denies frequent falls, Denies numbness, Denies tingling and Denies weakness Endo Denies fatigue and Denies palpitations Physical Exam Vital Signs: Last Vital Signs Pulse 76 01/12/24 14:59 BP 150/64 H 01/12/24 14:59 BMI result Body Mass Index 39.3 Const General: cooperative, comfortable, alert and awake Nutritional Appearance: obese Orientation/consciousness: patient oriented x3 Limitations: no limitations HEENT Head: Yes normocephalic and Yes atraumatic Neck Neck: Yes trachea midline, Yes supple and Yes no JVD Chest Chest palpation & inspection: abnormal inspection of the chest kyphotic and scoliotic Resp Effort & Inspection: normal respiratory effort Auscultation: clear to auscultation bilaterally Cardio Jugular venous distension: no JVD Palpation: normal PMI Rate: regular rate Rhythm: regular rhythm Heart sounds: S1 normal heart sound present, S2 normal heart sound present, no click, no gallops, no murmurs and no rubs GI Auscultation: normal bowel sounds Skin General skin exam: no rashes or lesions noted Neuro General: patient oriented x3 and no focal motor deficits Extrem General: Yes no clubbing, cyanosis or edema Psych Appearance: grossly normal Office Procedures EKG Details: EKG shows normal sinus rhythm with sinus arrhythmia with first-degree AV block [id number], Complete Assessment & Plan Assessment & Plan (1) Hypertension: Comment: Patient will take blood pressure measurements at home for the next 2 weeks and reports values back to the office. If values are elevated and patient is agreeable to adjust her medication Code(s): I10 - Essential (primary) hypertension Category: Medical Qualifiers: Hypertension type: primary hypertension Qualified Code(s): I10 - Essential (primary) hypertension Plan: Uncontrolled blood pressure in this elderly woman for the last year since she says her pain control for her back pain has been poor. She says due to back pain and now lack of sleep she is in constant distress. I think this could contribute significantly to her uncontrolled blood pressure. This needs to be addressed and treated. She is currently following with pain clinic. Also advise possible consideration of sleep aid to help her sleep more hours. All of these would lead to much better blood pressure control. For now advised low-salt diet. Have also taken the liberty to increase amlodipine to 10 mg daily. Advised to monitor blood pressure at home and maintain a log. Goal blood pressure less than systolic 130 if possible. If she continues to have difficult control blood pressure consider adding spironolactone to her regimen but I think secondary factors need to be addressed. Will follow through with echocardiogram. Due to interaction between amlodipine and simvastatin therapy will switch her to atorvastatin 10 mg daily. Will follow up in the clinic if need be. Medications: New atorvastatin 10 mg PO DAILY 30 tabs 5RF Changed From amlodipine 5 mg PO DAILY 90 tabs 1RF To amlodipine 10 mg (2 x 5 mg) PO DAILY 90 tabs 1RF Discontinued simvastatin Discontinued Reason: Doctor's Order 40 mg PO DAILY 90 tabs 0RF
== END 2024-01-12 15:39 | disposition home or self-care (01) ==
PROVIDERS: PCP Nurse Practitioner Primary Care; Visit Provider Internal Medicine Cardiovascular Disease
DX: I10 Essential (primary) hypertension (principal)
CPT/HCPCS: 93010; 99204

== ENCOUNTER 2024-01-16 14:00 | Outpatient (RCR) | payer MEDICARE, SELFPAY ==
--- NOTE | 2023-11-03 15:01 | MHC.PT.EP ---
[facility] [place] Office [place] [facility] [place] [facility] [address] Joey Welch [address] [phone] F: [phone] F: [phone] F: [phone] F: [phone] Physical Therapy Plan of Care Date of Evaluation: 11/03/23 Date of Surgery: none Diagnosis: OA R and L foot, ankle Assessment: Patient is a 83 year old R handed female who presents with s/s consistent with b/l ankle and foot OA, pain. She does not work and has become increasingly more sedentary as her pain has increased. Patient past medical history includes lumbar fusion, significant MRI pathology, and lumbar ablation. Current impairments include pain, posture, balance, safety, independence, ROM, strength, activity tolerance and functional mobility. 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 Patient is motivated with good rehab potential. Skilled PT will address impairments and functional limitations in order to achieve goals. 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 Manual therapy to restore motion and function. Therapeutic exercise to improve strength and flexibility. Neuromuscular re-education for posture and balance. Therapeutic activities to return to functional activities of daily living. Electronically signed by: Nestor Gomez, PT Please sign and return to therapist. Thank you for your referral.
--- NOTE | 2024-06-02 11:49 | MHC.PT.DC ---
[facility] [place] Office [place] Office [place] Office [address] Joey Welch [address] [phone] F: [phone] F: [phone] F: [phone] F: [phone] Physical Therapy Discharge Report Diagnosis: OA R and L foot, ankle Date of Surgery: none Date of Evaluation: 11/03/23 Date of Discharge: 01/25/24 Treatments to Date: 11 Cancellations to Date: No Shows to Date: Discharge Status: Independent with HEP Discharge Summary: 01/16/24: pt progressing well wtih skilled PT. balance improving as is strength and activity tolerance. pt will return to MD and call after about continuing. 01/13; Pt only reported fatigue with exs. Pt c/o L/S pain today with balance exs. Pt performing exs at home. Pt has 1 remaining vist 01/09/24: progressed to 4#. encouraged with progress. balance improving. more comfortable manuevering home setting per pt report. 01/06; Pt needed a few rest period due to fatigue. Pt marce exs well. 01/02/24: held progression due to fatigue but will continue next visit. 12/26/23: min pain and discomfort. min fatigue. progressed with weight today and stepper. no adverse reactins. 12/24/23: pt progressing with program. increased reps and resistance with less time needed for rest. 12/17/23: pt progressing with balance ex. reduced need for rest. improved performance on wobble board and airex. continue to progress as tolerated. 11/28/23: pt progressing well with skilled PT. improved activity tolerance and balance. more confidence with ambulating in community. 11/26/23: improved strength and balance. pt happy with progress thus far. we have been able to progress reps and weights without adverse reactions. 11/13/23: pt progressing well with skilled PT. limited in standing ex by back and neck pain. we will progress as tolerated while managing this. 11/07/23: changed interventions due to cramping episodes after eval. updated HEP. assess response. progress as tolerated. Patient is a 83 year old R handed female who presents with s/s consistent with b/l ankle and foot OA, pain. She does not work and has become increasingly more sedentary as her pain has increased. Patient past medical history includes lumbar fusion, significant MRI pathology, and lumbar ablation. Current impairments include pain, posture, balance, safety, independence, ROM, strength, activity tolerance and functional mobility. 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 Patient is motivated with good rehab potential. Skilled PT will address impairments and functional limitations in order to achieve goals. Electronically signed by: Nestor Gomez, PT Please sign and return to therapist. Thank you for your referral.
== END 2024-06-02 11:50 | disposition home or self-care (01) ==
LOC: HO.PTCHIC 14:00
PROVIDERS: PCP Nurse Practitioner Primary Care; Visit Provider Nurse Practitioner Primary Care
DX: M19.071 Primary osteoarthritis, right ankle and foot (principal); M19.072 Primary osteoarthritis, left ankle and foot
CPT/HCPCS: 97110; 97112; 97163

== ENCOUNTER → 2024-02-04 13:41 | Outpatient (REF) | payer MEDICARE, SELFPAY ==
--- NOTE | 2024-02-04 13:45 | CA_ITS ---
Transthoracic Echocardiogram Patient (Last, First, Middle): Fallon Gabriel, Gender: Female Date of : 1940 Age: 83 Procedure Date: 02/04/2024 Procedure Type: Transthoracic Echocardiogram Location: OP Height: 152.4 cm Weight: 88.45 kg BSA: 1.85 m2 Heart Rate: bpm BP: 160 / 66 mmHg Stunt Woman: TO Referring MD: Jesus GOODWIN Traffic Inspector: Antoine Gotti MD Symptoms: R01.1 - Cardiac murmur, unspecified Study Quality: Fair ECG Rhythm: Sinus Conclusions: - 1. Normal LV systolic function with LVEF of 65-70% with impaired relaxation filling pattern and elevated filling pressures 2. Mild early aortic stenosis 3. Normal RV systolic pressure 4. No gross pericardial effusion Findings Left Ventricle Normal left ventricular size, thickness, and systolic function. The visually estimated ejection fraction is between 65-70%. Spectral Doppler is indicative of an impaired relaxation filling pattern. Elevated filling pressures. E/E prime ratio is >15, consistent with elevated filling pressures. Peak GLS i -22.1%, within normal limits. Right Ventricle Normal right ventricular cavity size and systolic function. Atria The left atrium is mildly dilated. There is no evidence of interatrial shunt. The right atrium is likely dilated. Aortic Valve There is mild calcification of the aortic valve. There is no aortic valve stenosis. There is trace (trivial) aortic valve regurgitation. Mitral Valve There is mild anterior mitral leaflet thickening. There is mild mitral annular calcification. There is trace mitral valve regurgitation. There is no mitral valve stenosis. Pulmonic Valve The pulmonic valve is likely normal. Tricuspid Valve Normal tricuspid valve structure. There is mild tricuspid valve regurgitation. The right ventricular systolic pressure is normal. The right ventricular systolic pressure is 29 mmHg. Normal right atrial pressure. There is no evidence of pulmonary hypertension. Great Vessels The pulmonary artery was not well visualized. There is no dilatation of the ascending aorta measuring 3.10 cm. Small plaque is seen in the sino tubular ridge. Venous The inferior vena cava is normal in size and collapses greater than 50% with inspiration. Pericardium/Pleural There is no evidence of pericardial effusion. Prior Study Comparison No prior study available for comparison. Measurements 2D Linear Measurements IVSd: 0.97 0.6-0.9/0.6-1.0 cm LVIDd: 4.51 3.9-5.3/4.2-5.9 cm LVIDd Index: 2.44 2.4-3.2/2.2-3.1 cm/m2 LVIDs: 2.91 2.0-3.6 cm LVPWd: 0.79 0.7-1.1 cm LA Diam: 3.60 2.7-3.8/3.0-4.0 cm LAIDs Index: 1.95 1.5-2.3 cm/m2 LV Mass: 161.07 67-162/88-224 g LV Mass Index: 87.07 43-95/49-115 g/m2 LVOT Diam: 2.00 3.0+(-)1.3 cm 2D Systolic Function EF 4C: 68.20 >55% EF 2C: 66.90 >55% EF BiP: 67.90 >55% Mitral Valve MV VTI: 0.43 MV Pk Dave: 1.32 MV Mn Dave: 0.95 MV Pk Grad: 7.00 MV Mn Grad: 4.00 MV Pk E: 1.21 MV PK A: 1.19 MV Decel Time: 241.00 E/A: 1.00 E'Lateral: 7.72 E'Medial: 6.64 E/E' Med: 18.20 E/E' Lat: 15.70 PHT: 71.00 MVA PHT: 3.10 MVA Continuity: 2.05 Decel Mcdonough: 5.03 Aortic Valve AoV Pk Dave: 1.76 AoV Mn Dave: 1.23 AoV VTI: 0.42 AoV Pk Grad: 12.00 Aov Mn Grad: 7.00 TR Cont.VTI: 2.10 LVOT LVOT Pk Dave: 1.18 LVOT Mn Dave: 0.84 LVOT VTI: 0.28 LVOT Pk Grad: 6.00 LVOT Mn Grad: 3.00 LVOT Diam: 2.00 LVOT Area: 3.14 Diastolic Function MV Pk E: 1.21 MV Pk A: 1.19 E/A: 1.00 E'Medial: 6.64 E/E' Med: 18.20 E' Laterial: 7.72 E/E' Lat: 15.70 Right Ventricle TAPSE (mm): 21.30 TVS' Dave: 11.40 Tricuspid Valve TR Pk Dave: 2.55 TR Pk Grad: 26.00 RA Press: 3.00 RVSP: 29.00 Great Vessels Aorta Sinus of Valsalva: 3.22 2.0-3.5 cm Ao Asc: 3.10 2.1-3.4 cm Updated in Other Vendor System with Status of Final Antoine Gotti MD electronically signed on 02/05/2024 5:32:37 PM with status of Final
== END ==
LOC: HO.CARD 13:41
PROVIDERS: PCP Nurse Practitioner Primary Care; Visit Provider Nurse Practitioner Primary Care
DX: R01.1 Cardiac murmur, unspecified (principal)
CPT/HCPCS: 93306; 93356

== ENCOUNTER → 2024-02-04 13:45 | Outpatient (BNV) | payer MEDICARE, SELFPAY | PROVIDERS: PCP Nurse Practitioner Primary Care; Visit Provider Internal Medicine Cardiovascular Disease | DX: I35.0 Nonrheumatic aortic (valve) stenosis (principal); R93.1 Abnormal findings on diagnostic imaging of heart and coronary circulation | CPT/HCPCS: 93306; 93356 ==

== ENCOUNTER 2024-02-20 12:23 | Outpatient (REF) | payer MEDICARE, SELFPAY ==
--- NOTE | ~2024-02-20 | MM_ITS ---
EXAMINATION: BONE DENSITOMETRY CLINICAL INDICATION: Encounter for screening for osteoporosis. COMPARISON: This is the patient's baseline examination. TECHNIQUE: Using a [employer] DXA System (software version: 13.1) manufactured by [employer], dual-energy x-ray absorptiometry was performed of the lumbar spine, left hip and left forearm radius 33%. The images are of good technical quality. Summary results are attached. FINDINGS: LEFT FEMUR, NECK: BMD 0.809 g/cm2, Z-score 0.2, T-score -1.6, osteopenia. LEFT FEMUR, TOTAL: BMD 0.888 g/cm2, Z-score 0.8, T-score -0.9, normal. AP SPINE L1-L3 (excluding L4): The data of L1-L4 has been changed to exclude the L4 vertebral body, because metallic artifact at this level may cause overestimation of lumbar spine density. BMD 1.390 g/cm2, Z-score 2.9, T-score 1.8, normal. LEFT FOREARM RADIUS 33%: BMD 0.685 g/cm2, Z-score 1.0, T-score -2.2, osteopenia. IDENTIFIED RISK FACTORS: Early menopause, secondary osteoporosis, hysterectomy, bilateral oophorectomy, height loss, thiazide, secondary osteoporosis (intestinal or bowel disease, not IBS). HISTORY OF FRACTURE: None listed. MEDICATIONS: Calcium supplements or multivitamin, vitamin D. MM/XR DEXA axial skeleton IMPRESSION: 1. DIAGNOSIS: Osteopenia based on the lowest T-score value of -2.2 in the forearm radius 33% applying World Health Organization criteria. 2. 10-YEAR FRACTURE RISK PREDICTION, FRAX: Major osteoporotic fracture (clinical spine, forearm, hip or shoulder) 12.7%. Hip fracture 3.4%. 3. Treatment Recommendations: NOF guidelines recommend consideration for treatment in postmenopausal women and men age 50 and older presenting with the following: -A hip or vertebral (clinical or morphometric) fracture. -T-score less than or equal to -2.5 at the femoral neck or spine after appropriate evaluation to exclude secondary causes. -Low bone mass at the hip or spine and a 10-year fracture probability by FRAX of greater than or equal to 3% for hip fracture or greater than or equal to 20% for major osteoporotic fracture based on the [place] adapted WHO algorithm. 4. Other Recommendations: All treatment decisions require clinical judgment and consideration of individual patient factors, including patient preferences, comorbidities, previous drug use, risk factors not captured in the FRAX model (e.g. frailty, falls, vitamin D deficiency, increased bone turnover, interval significant decline in bone density) and possible under or overestimation of fracture risk by FRAX. Additional medical evaluation for secondary cause of low bone mineral density may be appropriate. FUTURE SCAN RECOMMENDATION: People with diagnosed cases of osteoporosis or at high risk for fracture should have regular bone mineral density tests. For patients eligible for Medicare, routine testing is allowed once every 2 years. The testing frequency can be increased to one year for patients who have rapidly progressing disease, those who are receiving or discontinuing medical therapy to restore bone mass, or have additional risk factors.
== END 2024-02-20 12:24 | disposition home or self-care (01) ==
LOC: HO.MAMMO 12:23
PROVIDERS: PCP Nurse Practitioner Primary Care; Visit Provider Nurse Practitioner Primary Care
DX: Z13.820 Encounter for screening for osteoporosis (principal); M85.839 Other specified disorders of bone density and structure, unspecified forearm; Z12.31 Encounter for screening mammogram for malignant neoplasm of breast; M15.9 Polyosteoarthritis, unspecified; Z78.0 Asymptomatic menopausal state
CPT/HCPCS: 77063; 77067; 77080

== ENCOUNTER → 2024-02-20 13:00 | Outpatient (BNV) | payer MEDICARE, SELFPAY | PROVIDERS: PCP Nurse Practitioner Primary Care; Visit Provider Radiology Diagnostic Radiology | DX: Z12.31 Encounter for screening mammogram for malignant neoplasm of breast (principal) | CPT/HCPCS: 77063; 77067 ==

== ENCOUNTER 2024-02-27 13:41 | Outpatient (AMB) | payer MEDICARE, SELFPAY ==
--- NOTE | 2024-02-27 13:43 | MHC.OFFVIS ---
Vital Signs 02/27/24 13:48 Height 5 ft Weight 194 lb 0.108 oz BMI 37.9 BP 167/58 H Blood Pressure Location Lt brachial Position Sitting Pulse 80 Intake Visit Reasons: Dysphagia Intake Note: Fallon presents in the office as a new patient for Dysphagia. CC: She states she has issues with taking her pills. She gets a lot of phlegm and her voice has changed she states. Desktop Publishing Operator Required: No Allergies lidocaine [From Aspercreme (lidocaine HCl)] Allergy (Intermediate, Verified 02/27/24 13:48) Rash celecoxib [From Celebrex] Allergy (Mild, Verified 02/27/24 13:48) PALPITATIONS levofloxacin [From Levaquin] Allergy (Mild, Verified 02/27/24 13:48) VOMITNG/JITTERY zolpidem [From Ambien] Allergy (Mild, Verified 02/27/24 13:48) HIVES/RASH/ITCH acetaminophen [From Vicodin] Allergy (Verified 02/27/24 13:48) Abdominal Pain adhesive tape Allergy (Verified 02/27/24 13:48) Rash cholestyramine [From Questran] Allergy (Verified 02/27/24 13:48) Unknown gemfibrozil [From Lopid] Allergy (Verified 02/27/24 13:48) Nausea hydrocodone [From Vicodin] Allergy (Verified 02/27/24 13:48) Abdominal Pain indomethacin Allergy (Verified 02/27/24 13:48) Nausea ketoprofen Allergy (Verified 02/27/24 13:48) Chest Pain lisinopril Allergy (Verified 02/27/24 13:48) Nausea naproxen Allergy (Verified 02/27/24 13:48) Abdominal Pain NSAIDS (Non-Steroidal Anti-Inflamma Allergy (Verified 02/27/24 13:48) Abdominal Pain sucrose [From Questran] Allergy (Verified 02/27/24 13:48) Unknown diazepam [From Valium] Adverse Reaction (Mild, Verified 02/27/24 13:48) HYPERACTIVE pravastatin [Pravastatin] Adverse Reaction (Mild, Verified 02/27/24 13:48) MUSCLE AND LEG PAIN zinc Adverse Reaction (Verified 02/27/24 13:48) Vomiting HPI HPI Dysphagia: Details: 83-year-old female here for initial evaluation of dysphagia. She is referred by Jesus Brand Hypertension High cholesterol Tinnitus Psoriasis Chronic neck and back pain/cervical and lumbar spinal stenosis TMJ Systolic cardiac murmur Generalized osteoarthritis of multiple sites Insomnia Psoriatic arthritis Chronic pain syndrome Restless legs syndrome GERD * SURGICAL HISTORY Cholecystectomy Hysterectomy Cataract surgery Bilateral total knee replacements Lumbar laminectomy Colon surgery - partial sigmoidectomy for TICS * ALLERGIES Lidocaine Celebrex Levaquin Zolpidem Tylenol Adhesive tape Cholestyramine Gemfibrozil Hydrocodone Indomethacin Ketoprofen Lisinopril Naproxen Sucrose Diazepam Pravastatin Zinc * [employer] LABS: none applicaable CT ABD AND PELVIS 05/01/23 FINDINGS: The lack of intravenous contrast limits evaluation of the solid visceral organs including the liver, spleen, pancreas, and kidneys. LUNG BASES: No focal consolidation or pleural effusion. LIVER, GALLBLADDER, AND BILIARY TREE: The liver is normal in size, shape, and attenuation. No focal hepatic lesion or biliary ductal dilatation is present. Cholecystectomy. PANCREAS: Limited noncontrast examination. Fatty infiltration predominantly in the region of the pancreatic head/uncinate process. Minimal fatty haziness around the proximal pancreas and celiac trunk. SPLEEN: Normal size. ADRENAL GLANDS: No adrenal mass. KIDNEYS AND URETERS: Right extrarenal pelvis. No nephrolithiasis. No hydronephrosis. No perinephric fat stranding. BLADDER: Unremarkable. GASTROINTESTINAL TRACT: The stomach and the small bowel are nondilated. Radiopaque material at the cecal base as well a scattered s in the ascending colon, likely related with ingested debris. Colonic diverticulosis without significant pericolonic fat stranding/free fluid. No evidence of bowel obstruction. ABDOMINAL WALL: Small fat-containing umbilical and infraumbilical abdominal wall hernias. LYMPH NODES: No lymphadenopathy. VASCULAR: Atherosclerotic disease. Abdominal aorta is normal in caliber. PELVIC VISCERA: Hysterectomy. OSSEOUS STRUCTURES: Pronounced thoracolumbar scoliosis with advanced degenerative changes in the spine. Complex postoperative changes in the lower lumbar spine with interdisc spacer and spinous process hardware at L4-L5. CT/CT abdomen pelvis wo IV con IMPRESSION: 1. Minimal fatty haziness around the proximal pancreas and celiac trunk. Correlate clinically for acute pancreatitis. 2. Colonic diverticulosis but no evidence of acute diverticulitis. 3. Small fat-containing umbilical and infraumbilical abdominal wall hernias. 4. Complex postoperative appearance of the lower lumbar spine within a background of advanced degenerative changes. If an acute spinal pathology or hardware complication is suspected, further evaluation with MRI and IV contrast is recommended. TODAY'S VISIT Onset 11 years ago she was in hospital for SBO and she had an NG tube. She has had problems with swallowing her larger pills and a voice change since this. She also has a lot of phlegm and bad GERD. She denies any trouble swallowing foods or liquids. Her sister of esophageal cancer. She has colitis a lot and diarrhea frequently. This has been since her early 30's. This has worsened this past year. She also had a partial sigmoidectomy and is s/p blossom. 1994. She has had some more frequent episodes of nausea. She had a CT and they saw something between the pancreas and the stomach. I look at it looks like there was some mild stranding that could have been early pancreatitis. Of note, she is on hydrochlorothiazide and she does not drink alcohol. ? allergy to Qestran, will try cholestyramine but if not progress to carafate. I am also going to move her to PPI coverage since it sure sounds like she has under controlled GERD that could be causing either esophageal spasm or stricture. We are going to get a modified barium swallow and an EGD. 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 Spinal stenosis of cervical region with radiculopathy Bilateral hand pain Psoriatic arthritis Hiatal hernia Psoriasis Hyperlipidemia Surgical History Hx of cataract removal with insertion of prosthetic lens History of laminectomy History of colon surgery History of hysterectomy History of cholecystectomy Hx of cataract surgery History of knee replacement Family History Father Dementia Raynauds disease Substance use disorder Mother Rheumatoid arthritis Maternal Grandfather Type 2 diabetes mellitus Sister Mary Carmen's disease Breast cancer Brother Pancreatic cancer Myocardial infarction Sister Lung cancer Paternal Uncle Substance use disorder Paternal Uncle Substance use disorder Paternal Uncle Substance use disorder Son Mental health disorder Social History Household Members: Spouse Housing: House Alcohol intake: former Patient Tobacco Use Status: Never used Tobacco e-Cigarette/Vaping Use: Never Used service: No Current occupational status: retired Cognitive needs: No Hearing needs: No Vision needs: Yes Review of Systems Const Denies fatigue, Denies fever(s), Denies night sweats, Denies poor appetite and Denies weight loss ENT Reports Normal hearing present, Denies dental pain, Reports dysphagia, Denies hearing loss, Denies mouth pain, Denies odynophagia, Denies throat swelling, Denies tongue swelling and Reports other (Dentition adequate) Card Reports no additional complaints Resp Reports no additional complaints GI Details: Denies abdominal pain, Denies melena, Denies bloating, Denies hematochezia, Denies constipation, Denies GI cramping, Reports dysphagia, Denies excessive flatus, Denies early satiety, Reports heartburn, Reports diarrhea, Reports nausea, Denies odynophagia, Denies vomiting and Denies hematemesis Skin/Breast Denies pruritus, Denies lesions, Denies rash and Denies jaundice Neuro Reports Normal hearing present and Denies Abnormal speech present Endo Denies fatigue Aller/Immun Denies throat swelling and Denies tongue swelling Physical Exam Const General: cooperative, no acute distress, well developed and well groomed Nutritional Appearance: well nourished and obese Orientation/consciousness: oriented to person, oriented to place and oriented to time Limitations: No language barrier and ambulation with cane HEENT Head: Yes normocephalic and Yes atraumatic Eyes General: appearance normal, both eyes and all related structures Pupils: Equal, round and reactive pupils present Neck Neck: Yes normal visual inspection and Yes no lymphadenopathy Thyroid: Thyroid normal Resp Effort & Inspection: normal respiratory effort and able to speak in complete sentences Auscultation: clear to auscultation bilaterally Cardio Rate: regular rate Rhythm: regular rhythm Heart sounds: Normal, physiologic split S2 sound present Peripheral pulses: radial pulses present and posterior tibial pulses present GI Inspection: No distended, Yes Abdominal panniculus present and Yes obesity Palpation (GI): Soft to palpation, nontender, no guarding, not rigid and No hepatosplenomegaly present Percussion: Yes normal to percussion Auscultation: normal bowel sounds Rectal Exam - Female: deferred Abdomen image: 1. surgical scars 2. Skin General skin exam: no rashes or lesions noted, turgor normal, skin not dry, no jaundice, No spider nevi and no striae Rashes: no rashes Nails: normal Neuro General: oriented to person, oriented to place and oriented to time Cranial nerves: Yes Equal, round and reactive pupils present and Yes Normal hearing present Speech: No Abnormal speech present Extrem General: Yes normal to inspection, No clubbing, No cyanosis, Yes edema (1+ bilateral to 2 above ankles) and Yes venous stasis dermatitis (mild) Psych Appearance: grossly normal and well kempt Mental Status: mental status grossly normal Speech and movement: Normal speech and movement present Affect: normal affect Attitude: cooperative Thought process: Normal thought process present and not confabulating Thought content: Normal thought content present Insight: Limited insight present (Psych) Judgement: Limited judgement present (Psych) Assessment & Plan Assessment & Plan (1) Oropharyngeal dysphagia: Code(s): R13.12 - Dysphagia, oropharyngeal phase Category: Medical (2) Diarrhea: Code(s): R19.7 - Diarrhea, unspecified Category: Medical (3) GERD (gastroesophageal reflux disease): Code(s): K21.9 - Gastro-esophageal reflux disease without esophagitis Category: Medical (4) Diarrhea: Code(s): R19.7 - Diarrhea, unspecified Category: Medical Plan Onset 11 years ago she was in hospital for SBO and she had an NG tube. She has had problems with swallowing her larger pills and a voice change since this. She also has a lot of phlegm and bad GERD. She denies any trouble swallowing foods or liquids. Her sister of esophageal cancer. She has colitis a lot and diarrhea frequently. This has been since her early 30's. This has worsened this past year. She also had a partial sigmoidectomy and is s/p blossom. 1994. She has had some more frequent episodes of nausea. She had a CT and they saw something between the pancreas and the stomach. I look at it looks like there was some mild stranding that could have been early pancreatitis. Of note, she is on hydrochlorothiazide and she does not drink alcohol. ? allergy to Qestran, will try cholestyramine but if not progress to carafate. I am also going to move her to PPI coverage since it sure sounds like she has under controlled GERD that could be causing either esophageal spasm or stricture. We are going to get a modified barium swallow and an EGD. Orders: Orders Comprehensive Met. Panel Today R13.12 - Dysphagia, oropharyngeal phase, R19.7 - Diarrhea, unspecified Complete Blood Count Auto Diff Today R13.12 - Dysphagia, oropharyngeal phase, R19.7 - Diarrhea, unspecified EGD with [facility] - GI Use Only Today R13.12 - Dysphagia, oropharyngeal phase, R19.7 - Diarrhea, unspecified H pylori Ag Stool Today R13.12 - Dysphagia, oropharyngeal phase, R19.7 - Diarrhea, unspecified Calprotectin, Fecal Today R13.12 - Dysphagia, oropharyngeal phase, R19.7 - Diarrhea, unspecified Transglutaminase IgA Today R13.12 - Dysphagia, oropharyngeal phase, R19.7 - Diarrhea, unspecified Amylase Today R13.12 - Dysphagia, oropharyngeal phase, R19.7 - Diarrhea, unspecified FL barium swallow modified Today R13.12 - Dysphagia, oropharyngeal phase C Reactive Protein Today R13.12 - Dysphagia, oropharyngeal phase, R19.7 - Diarrhea, unspecified Transglutaminase Ab IgG Today R13.12 - Dysphagia, oropharyngeal phase, R19.7 - Diarrhea, unspecified Rast Allergen Today R13.12 - Dysphagia, oropharyngeal phase, R19.7 - Diarrhea, unspecified Gliadin Ab Panel Today R13.12 - Dysphagia, oropharyngeal phase, R19.7 - Diarrhea, unspecified Lipase Today R13.12 - Dysphagia, oropharyngeal phase, R19.7 - Diarrhea, unspecified Medications: New pantoprazole (Protonix) 40 mg PO DAILY 30 days 30 tabs 3RF K21.9 - Gastro-esophageal reflux disease without esophagitis, R13.12 - Dysphagia, oropharyngeal phase cholestyramine (with sugar) 4 gram administer w/meal; avoid other meds within 1hr before or 4-6hr after dose 4 grams PO BID 60 ea 3RF R19.7 - Diarrhea, unspecified Coding Level of Care Code New Pt Level 3 (52261) Diagnoses Oropharyngeal dysphagia R13.12 Diarrhea R19.7 GERD (gastroesophageal reflux disease) K21.9
[2024-02-27 13:48] VITALS: BP 167/58; PULSE 80; BMI 37.9
== END 2024-02-27 14:20 | disposition home or self-care (01) ==
PROVIDERS: PCP Nurse Practitioner Primary Care; Referring Provider Nurse Practitioner Primary Care; Visit Provider Nurse Practitioner
DX: R13.12 Dysphagia, oropharyngeal phase (principal); R19.7 Diarrhea, unspecified; K21.9 Gastro-esophageal reflux disease without esophagitis
CPT/HCPCS: 99203; 99213

== ENCOUNTER → 2024-02-27 13:41 | Outpatient (BNVA) | payer MEDICARE, SELFPAY | PROVIDERS: PCP Nurse Practitioner Primary Care; Referring Provider Nurse Practitioner Primary Care; Visit Provider Nurse Practitioner | DX: R13.12 Dysphagia, oropharyngeal phase (principal); K21.9 Gastro-esophageal reflux disease without esophagitis; R19.7 Diarrhea, unspecified; Z90.49 Acquired absence of other specified parts of digestive tract | CPT/HCPCS: 99202 ==

== ENCOUNTER 2024-03-08 10:08 | Outpatient (REF) | payer MEDICARE, SELFPAY ==
[2024-03-08 13:19] LABS: MANUAL DIFF FLAG NO
[2024-03-08 13:42] LABS: Basophils Percent Auto 0.5 % (0-2); Eosinophils Absolute Auto 0.2 X10*3/uL (0.0-0.4); Eosinophils Percent Auto 3.3 % (0-4); Hematocrit 37.3 % (37.0-47.0); Hemoglobin 12.7 g/dl (12.0-16.0); Imm Gran Abs Auto 0.01 X10*3/uL (0.00-0.03); Imm Gran Pct Auto 0.2 % (0.0-0.4); Lymphocytes Absolute Auto 1.7 X10*3/uL (1.2-4.9); Lymphocytes Percent Auto 27.1 % (20-40); Mean Corpuscular Hemoglobin 30.2 pg (27.0-33.0); Mean Corpuscular Volume 88.6 fL (80.0-98.0); Mean Platelet Volume 10.8 fL (9.4-12.3); Monocytes Absolute Auto 0.5 X10*3/uL (0.1-1.2); Monocytes Percent Auto 8.1 % (2-11); Neutrophils Absolute Auto 3.9 x10*3/uL (2.0-8.3); Neutrophils Percent Auto 60.8 % (45-73); Platelet Count 302 X10*3/uL (160-400); Red Blood Count 4.21 X10*6/uL (4.20-5.50); Red Cell Distribution Width 12.4 % (11.0-16.0); White Blood Count 6.4 X10*3/uL (4.8-10.8)
[2024-03-08 14:04] LABS: Alanine Aminotransferase 13 U/L (0-31); Albumin Level 4.3 g/dL (3.5-5.0); Alkaline Phosphatase 73 U/L (39-117); Amylase 99 U/L (28-100); Anion Gap 14 (12-20); Aspartate Amino Transferase 20 U/L (5-31); Bilirubin Total 0.4 mg/dL (0.0-1.0); Blood Urea Nitrogen 22 mg/dL (9-16); C Reactive Protein < 0.10 mg/dL (< or = 0.50); Calcium 9.5 mg/dL (8.4-10.2); Carbon Dioxide 24 mmol/L (22-29); Chloride 104 mmol/L (96-108); Estimated Glomerular Filt Rate 58; Glucose Random 108 mg/dL (60-115); Lipase 32 U/L (8-78); Potassium 4.8 mmol/L (3.3-5.1); Sodium 137 mmol/L (135-145); Total Protein 7.7 g/dL (6.5-8.0)
[2024-03-11 23:08] LABS: Transglutaminase Ab IgG <1.0 U/mL; Transglutaminase IgA <1.0 U/mL
[2024-03-12 12:24] LABS: Gliadin Deamidated IgA Ab <1.0 U/mL; Gliadin Deamidated IgG Ab <1.0 U/mL
== END 2024-03-08 10:09 | disposition home or self-care (01) ==
LOC: HO.HMGCLDS 10:08
PROVIDERS: PCP Nurse Practitioner Primary Care; Visit Provider Nurse Practitioner
DX: R13.12 Dysphagia, oropharyngeal phase (principal); R19.7 Diarrhea, unspecified
CPT/HCPCS: 36415; 80053; 82150; 83690; 85025; 86140; 86258; 86364

== ENCOUNTER 2024-03-09 09:11 | Day surgery (SDC) | payer MEDICARE, SELFPAY ==
--- NOTE | 2024-03-08 10:50 | P.CONAN_ITS ---
Documented by User: Maribel Winkler NP 03/08/24 10:58 HPI - Anesthesia Eval Consult details Narrative: 83yo F for Upper Endoscopy *Multiple Med allergies* Recent new patient visit with [facility] [place] cardiology for HTN management. Meds adjusted and echo done. [facility] Active Problems Active Problems: All Active Problems Diarrhea (Acute) Oropharyngeal dysphagia (Acute) Systolic murmur (Acute) Elevated uric acid in blood (Acute) TMJ arthritis (Acute) Difficulty swallowing (Acute) Chronic neck pain (Acute) Chronic back pain (Acute) Generalized osteoarthritis of multiple sites (Acute) Spinal stenosis of lumbosacral region with radiculopathy (Acute) Spinal stenosis of cervical region with radiculopathy (Acute) Psoriasis (Acute) Bilateral hand pain (Acute) Insomnia (Acute) Osteoarthritis of feet, bilateral (Acute) Cervical spondylosis (Acute) Psoriatic arthritis (Acute) GERD (gastroesophageal reflux disease) (Acute) Tinnitus (Acute) Neuroma (Acute) Restless leg syndrome (Acute) Hypertension (Acute) Past Medical History Medical History Upper respiratory infection Polyarthralgia Osteoarthritis Chronic pain TMJ (dislocation of temporomandibular joint) Elevated uric acid in blood 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 Spinal stenosis of cervical region with radiculopathy Bilateral hand pain Psoriatic arthritis Hiatal hernia Psoriasis Hyperlipidemia Family History Family History Father Dementia Raynauds disease Substance use disorder Mother Rheumatoid arthritis Maternal Grandfather Type 2 diabetes mellitus Sister Mary Carmen's disease Breast cancer Brother Pancreatic cancer Myocardial infarction Sister Lung cancer Paternal Uncle Substance use disorder Paternal Uncle Substance use disorder Paternal Uncle Substance use disorder Son Mental health disorder Surgical History Surgical History Hx of cataract removal with insertion of prosthetic lens History of laminectomy History of colon surgery History of hysterectomy History of cholecystectomy Hx of cataract surgery History of knee replacement Social History Social History Household Members: Spouse Housing: House Alcohol intake: former Patient Tobacco Use Status: Never used Tobacco e-Cigarette/Vaping Use: Never Used service: No Current occupational status: retired Cognitive needs: No Hearing needs: No Vision needs: Yes Meds Allergies Allergy/AdvReac Type Severity Reaction Status Date / Time lidocaine Allergy Intermediate Rash Verified 03/09/24 10:04 [From Aspercreme (lidocaine HCl)] celecoxib [From Celebrex] Allergy Mild PALPITATION Verified 03/09/24 10:04 S levofloxacin [From Levaquin] Allergy Mild VOMITNG/GRACE Verified 03/09/24 10:04 KELL zolpidem [From Ambien] Allergy Mild HIVES/RASH/ Verified 03/09/24 10:04 ITCH acetaminophen [From Vicodin] Allergy Abdominal Verified 03/09/24 10:04 Pain adhesive tape Allergy Rash Verified 03/09/24 10:04 cholestyramine Allergy Unknown Verified 03/09/24 10:04 [From Questran] gemfibrozil [From Lopid] Allergy Nausea Verified 03/09/24 10:04 hydrocodone [From Vicodin] Allergy Abdominal Verified 03/09/24 10:04 Pain indomethacin Allergy Nausea Verified 03/09/24 10:04 ketoprofen Allergy Chest Pain Verified 03/09/24 10:04 lisinopril Allergy Nausea Verified 03/09/24 10:04 naproxen Allergy Abdominal Verified 03/09/24 10:04 Pain NSAIDS (Non-Steroidal Allergy Abdominal Verified 03/09/24 10:04 Anti-Inflamma Pain sucrose [From Questran] Allergy Unknown Verified 03/09/24 10:04 diazepam [From Valium] AdvReac Mild HYPERACTIVE Verified 03/09/24 10:04 pravastatin [Pravastatin] AdvReac Mild MUSCLE AND Verified 03/09/24 10:04 LEG PAIN gabapentin AdvReac Headache Verified 03/09/24 10:04 zinc AdvReac Vomiting Verified 03/09/24 10:04 Home Medications ?Medication ?Instructions ?Recorded ?Confirmed ?Last Taken ?Type B-complex with vitamin C 1 cap PO DAILY 09/11/23 03/09/24 Unknown History ascorbic acid (vitamin C) 1,000 mg 2 g PO DAILY 09/11/23 03/09/24 Unknown History tablet calcium carbonate 600 mg-vitamin 1 tab PO DAILY 09/11/23 03/09/24 Unknown History D3 20 mcg (800 unit) chewable tablet (Caltrate 600 plus D) clobetasol 0.05 % topical cream 1 appl topical BID 09/11/23 03/09/24 Unknown History diclofenac sodium 1 % topical gel 2 g topical QID 09/11/23 03/09/24 Unknown History bbuhkwtfjsm-ypq-gmzafgeek-hrb tab PO 09/11/23 01/12/24 Unknown History 149-hyalur 500 mg-500 mg-66.7 mg tablet (Mjmmobrfepm-Gtiiowxahqy-YAQ (with antiox)) miconazole nitrate 2 % topical 1 appl topical DAILY 09/11/23 03/09/24 Unknown History cream pttrucwv-nqlg-onbg 8 mg-folic 400 1 tab PO DAILY 09/11/23 03/09/24 Unknown History mcg-K 50 mcg-lutein 300 mcg tablet (Centrum Silver Women) propylene glycol 0.6 % eye drops 1 drp ophthalmic (eye) DAILY 09/11/23 03/09/24 Unknown History (Systane Balance) psyllium husk 0.4 gram capsule 0.4 g PO QDAY 09/11/23 03/09/24 Unknown History (Metamucil) simvastatin 40 mg tablet 40 mg PO BEDTIME 03/09/24 03/09/24 Unknown History Exam Pertinent Lab Results Pertinent Lab Results: Laboratory Tests 10/25/23 09:33 WBC 5.7 Hgb 11.9 L Hct 35.7 L Plt Count 307 Sodium 138 Potassium 4.3 Chloride 102 Carbon Dioxide 27 BUN 28 H Creatinine 0.95 Narrative Narrative: ECHO 02/2024 Conclusions: - 1. Normal LV systolic function with LVEF of 65-70% with impaired relaxation filling pattern and elevated filling pressures 2. Mild early aortic stenosis 3. Normal RV systolic pressure 4. No gross pericardial effusion Assessment and Plan Assessment Anesthesia Assessment: Chart Reviewed Documented by User: Darin Hein MD 03/09/24 10:33 [facility] Past Medical History Medical History Upper respiratory infection Polyarthralgia Osteoarthritis Chronic pain TMJ (dislocation of temporomandibular joint) Elevated uric acid in blood 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 Spinal stenosis of cervical region with radiculopathy Bilateral hand pain Psoriatic arthritis Hiatal hernia Psoriasis Hyperlipidemia Family History Family History Father Dementia Raynauds disease Substance use disorder Mother Rheumatoid arthritis Maternal Grandfather Type 2 diabetes mellitus Sister Mary Carmen's disease Breast cancer Brother Pancreatic cancer Myocardial infarction Sister Lung cancer Paternal Uncle Substance use disorder Paternal Uncle Substance use disorder Paternal Uncle Substance use disorder Son Mental health disorder Family history of problems with anesthesia: No Surgical History Surgical History Hx of cataract removal with insertion of prosthetic lens History of laminectomy History of colon surgery History of hysterectomy History of cholecystectomy Hx of cataract surgery History of knee replacement History of Problems with Anesthesia: No Social History Social History Household Members: Spouse Housing: House Alcohol intake: former Patient Tobacco Use Status: Never used Tobacco e-Cigarette/Vaping Use: Never Used service: No Current occupational status: retired Cognitive needs: No Hearing needs: No Vision needs: Yes Meds Allergies Allergy/AdvReac Type Severity Reaction Status Date / Time lidocaine Allergy Intermediate Rash Verified 03/09/24 10:04 [From Aspercreme (lidocaine HCl)] celecoxib [From Celebrex] Allergy Mild PALPITATION Verified 03/09/24 10:04 S levofloxacin [From Levaquin] Allergy Mild VOMITNG/GRACE Verified 03/09/24 10:04 KELL zolpidem [From Ambien] Allergy Mild HIVES/RASH/ Verified 03/09/24 10:04 ITCH acetaminophen [From Vicodin] Allergy Abdominal Verified 03/09/24 10:04 Pain adhesive tape Allergy Rash Verified 03/09/24 10:04 cholestyramine Allergy Unknown Verified 03/09/24 10:04 [From Questran] gemfibrozil [From Lopid] Allergy Nausea Verified 03/09/24 10:04 hydrocodone [From Vicodin] Allergy Abdominal Verified 03/09/24 10:04 Pain indomethacin Allergy Nausea Verified 03/09/24 10:04 ketoprofen Allergy Chest Pain Verified 03/09/24 10:04 lisinopril Allergy Nausea Verified 03/09/24 10:04 naproxen Allergy Abdominal Verified 03/09/24 10:04 Pain NSAIDS (Non-Steroidal Allergy Abdominal Verified 03/09/24 10:04 Anti-Inflamma Pain sucrose [From Questran] Allergy Unknown Verified 03/09/24 10:04 diazepam [From Valium] AdvReac Mild HYPERACTIVE Verified 03/09/24 10:04 pravastatin [Pravastatin] AdvReac Mild MUSCLE AND Verified 03/09/24 10:04 LEG PAIN gabapentin AdvReac Headache Verified 03/09/24 10:04 zinc AdvReac Vomiting Verified 03/09/24 10:04 Home Medications ?Medication ?Instructions ?Recorded ?Confirmed ?Last Taken ?Type B-complex with vitamin C 1 cap PO DAILY 09/11/23 03/09/24 Unknown History ascorbic acid (vitamin C) 1,000 mg 2 g PO DAILY 09/11/23 03/09/24 Unknown History tablet calcium carbonate 600 mg-vitamin 1 tab PO DAILY 09/11/23 03/09/24 Unknown History D3 20 mcg (800 unit) chewable tablet (Caltrate 600 plus D) clobetasol 0.05 % topical cream 1 appl topical BID 09/11/23 03/09/24 Unknown History diclofenac sodium 1 % topical gel 2 g topical QID 09/11/23 03/09/24 Unknown History ptbhptmrfoy-tvs-kmedpgzqa-hrb tab PO 09/11/23 01/12/24 Unknown History 149-hyalur 500 mg-500 mg-66.7 mg tablet (Eoatmaeyvlg-Xliskgloxrn-TRY (with antiox)) miconazole nitrate 2 % topical 1 appl topical DAILY 09/11/23 03/09/24 Unknown History cream rhwblfbk-hgxj-uixm 8 mg-folic 400 1 tab PO DAILY 09/11/23 03/09/24 Unknown History mcg-K 50 mcg-lutein 300 mcg tablet (Centrum Silver Women) propylene glycol 0.6 % eye drops 1 drp ophthalmic (eye) DAILY 09/11/23 03/09/24 Unknown History (Systane Balance) psyllium husk 0.4 gram capsule 0.4 g PO QDAY 09/11/23 03/09/24 Unknown History (Metamucil) simvastatin 40 mg tablet 40 mg PO BEDTIME 03/09/24 03/09/24 Unknown History Exam Airway Mallampati Class: II TM Dist: <=3cm Neck ROM: Full Loose/Missing/Broken Teeth: No Heart: ok Lungs: ok Assessment and Plan Assessment Anesthesia Assessment: Anesthesia Plan Discussed Final Anesthetic Review Family History of Problems with Anesthesia: No History of Problems with Anesthesia: No NPO: Yes ASA Class: III Final Preanesthetic Review: No Changes in Pt Med Stat, Meds/Allgs Chart Reviewed, Consent Obtained/Reviewed and Anes Risks/Benef Reviewed Patient Risk: Intermediate Procedure Risk: Intermediate Anesthetic Plan Anesthetic Plan: Agree w/ Assess. and Plan and TIVA Disposition: Standard PACU
--- NOTE | 2024-03-09 10:09 | MHC.SHP ---
Pre-Procedural Eval Section A - 24 Hr Update-Section A only Date of Service: 03/09/24 The patient is an INPATIENT: No Changes since office visit: Yes Patient answered all questions; No Cold of Flu in the past 2 weeks, No New Medical Problems and No Changes in Medication The patient has been examined within 24 hours of the surgical procedure. The History & Physical has been completed within 30 days and I have reviewed it.: Yes Section B - Complete if H&P > 30 days Chief Complaint: Dysphagia, oropharyngeal phase,gerd, Allergies: Allergies Allergy/AdvReac Type Severity Reaction Status Date / Time lidocaine Allergy Intermediate Rash Verified 03/09/24 10:04 [From Aspercreme (lidocaine HCl)] celecoxib [From Celebrex] Allergy Mild PALPITATION Verified 03/09/24 10:04 S levofloxacin [From Levaquin] Allergy Mild VOMITNG/GRACE Verified 03/09/24 10:04 KELL zolpidem [From Ambien] Allergy Mild HIVES/RASH/ Verified 03/09/24 10:04 ITCH acetaminophen [From Vicodin] Allergy Abdominal Verified 03/09/24 10:04 Pain adhesive tape Allergy Rash Verified 03/09/24 10:04 cholestyramine Allergy Unknown Verified 03/09/24 10:04 [From Questran] gemfibrozil [From Lopid] Allergy Nausea Verified 03/09/24 10:04 hydrocodone [From Vicodin] Allergy Abdominal Verified 03/09/24 10:04 Pain indomethacin Allergy Nausea Verified 03/09/24 10:04 ketoprofen Allergy Chest Pain Verified 03/09/24 10:04 lisinopril Allergy Nausea Verified 03/09/24 10:04 naproxen Allergy Abdominal Verified 03/09/24 10:04 Pain NSAIDS (Non-Steroidal Allergy Abdominal Verified 03/09/24 10:04 Anti-Inflamma Pain sucrose [From Questran] Allergy Unknown Verified 03/09/24 10:04 diazepam [From Valium] AdvReac Mild HYPERACTIVE Verified 03/09/24 10:04 pravastatin [Pravastatin] AdvReac Mild MUSCLE AND Verified 03/09/24 10:04 LEG PAIN gabapentin AdvReac Headache Verified 03/09/24 10:04 zinc AdvReac Vomiting Verified 03/09/24 10:04 Exam Surgical H&P Exam: Normal: Heart, Normal: Lungs, Normal: Extremities and Normal: Abdomen Plan Diagnosis/Plan: Unchanged I have reviewed the history and physical and performed a pertinent physical examination on my patient. No changes have occurred unless specified. Time Spent With Patient Time: Total time managing care of this patient today ____ minutes.
[2024-03-09 10:19] VITALS: BMI 37.7
[2024-03-09 10:24] VITALS: BP 150/62; PULSE 87; RESP 16; TEMP 36.9; O2SAT 99
[2024-03-09] MEDS: Lactated Ringers 1,000 ML 100 ML IVCONT (10:42)
--- NOTE | 2024-03-09 11:49 | W.PM.OPN ---
Operative Note Operative Note Date of Service: 03/09/24 Narrative: FLEXIBLE TRANSORAL UPPER GASTROINTESTINAL ENDOSCOPY WITH BIOPSIES AND ESOPHAGEAL BALLOON DILATION Pre-op diagnosis: GERD, Dysphagia (Pt complains of dysphagia to solids and large pills, sometimes she can cough up the pills she swallowed earlier) Post-op diagnosis: GERD, Dysphagia, Gastritis, gastric polyps Endoscopist:? Rachel Fernandez MD Anesthesia:?MAC UPPER ENDOSCOPY Consent: Indications for the procedure and potential complications of bleeding, perforation, reaction to medications and missed diagnosis were discussed with the patient and informed consent was obtained. Instrument: Olympus GIF H 190 mid size upper endoscope Monitoring: Vital signs and clinical assessment, continuous EKG monitoring, Pulse oximetry, Carbon Dioxide monitoring and blood pressure monitoring were done throughout the procedure. Procedure: The patient was placed in the left lateral decubitis position and pre-procedure medications were administered and a bite block was placed. The endoscope was inserted into the mouth and advanced under direct vision to the third part of duodenum. A careful inspection was made as the upper endoscope was withdrawn including a retroflexed examination of the proximal stomach; Findings and interventions are described below. Findings: Larynx: Normal Esophagus: GE junction at 35 cms. Mildly tortuous esophagus with increased tertiary contractions without stricture ring. Esophageal balloon dilation of the distal esophagus was performed with a 20 mm (60 F) CRE balloon x 60 seconds Esophageal balloon dilation of the proximal esophagus/cricopharyngeus was performed with an 18 mm (54 F) CRE balloon x 60 seconds After balloon dilation, biopsies were obtained from proximal esophagus to check for EOE. Two 1 cms tongues of suspected Aburto's at GE junction - biopsies obtained for histology and Tissue Cypher. No esophagitis, Stomach: A few 5-8 mm benign appearing polyps in the gastric body. Moderate diffuse gastric erythema - biopsies were obtained from the antrum. Grade 2 flap valve on retroflexed examination of the cardia. Duodenum: Normal bulb and descending duodenum Intervention: Biopsies as noted above Impression and Post Procedure Diagnosis: Endoscopy Findings: ESOPHAGUS: Mildly tortuous esophagus with increased tertiary contractions without stricture ring. Esophageal balloon dilation of the distal esophagus was performed with a 20 mm (60 F) CRE balloon x 60 seconds Esophageal balloon dilation of the proximal esophagus/cricopharyngeus was performed with an 18 mm (54 F) CRE balloon x 60 seconds After balloon dilation, biopsies were obtained from proximal esophagus to check for EOE. Two 1 cms tongues of suspected Aburto's at GE junction - biopsies obtained for histology and Tissue Cypher. 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 Advise further evaluation with a barium swallow if dysphagia persists post dilation. If biopsies confirm a diagnosis of Aburto's, repeat EGD in 1 year Above findings were reviewed with the patient and relevant handouts were given and the discharge area. BIOPSIES SHOWED: A. Stomach, antrum, biopsy: Gastric antral mucosa with mild reactive gastropathy; negative for Helicobacter pylori, intestinal metaplasia and dysplasia. B. Stomach, polyp, biopsy: Fundic gland polyp; negative for Helicobacter pylori, intestinal metaplasia and dysplasia. C. Gastroesophageal junction, biopsy: Squamocolumnar junctional mucosa with mild chronic inflammation and intestinal metaplasia consistent with Aburto's esophagus; negative for dysplasia (see comment). D. Esophagus, proximal, biopsy: Squamous mucosa within normal limits; negative for intraepithelial eosinophils, fungal organisms and intestinal metaplasia. 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 Clinical and endoscopic correlation is advised - TissueCypher Risk Class: Low - TissueCypher Risk Score: 2.0 - 5-Year Probability of Progression: 0.80%
[2024-03-09 11:52] VITALS: BP 128/62; PULSE 87; RESP 14; TEMP 36.6; O2SAT 99
[2024-03-09 12:12] VITALS: BP 145/60; PULSE 68; RESP 17; TEMP 36.2; O2SAT 100
== END 2024-03-09 12:34 | disposition home or self-care (01) ==
PROVIDERS: PCP Nurse Practitioner Primary Care; Visit Provider Internal Medicine Gastroenterology
PROC: 0DJ08ZZ Inspection of Upper Intestinal Tract, Via Natural or Artificial Opening Endoscopic (ICD-10-PCS; CPT 43235; principal; 2024-03-09 10:50)
DX: R13.12 Dysphagia, oropharyngeal phase (principal); K21.9 Gastro-esophageal reflux disease without esophagitis; K31.7 Polyp of stomach and duodenum; K29.70 Gastritis, unspecified, without bleeding; K22.89 Other specified disease of esophagus; R19.7 Diarrhea, unspecified; I10 Essential (primary) hypertension; R01.1 Cardiac murmur, unspecified; G89.4 Chronic pain syndrome; L40.50 Arthropathic psoriasis, unspecified; Z90.49 Acquired absence of other specified parts of digestive tract; E78.00 Pure hypercholesterolemia, unspecified; Z88.1 Allergy status to other antibiotic agents; Z88.8 Allergy status to other drugs, medicaments and biological substances; L23.1 Allergic contact dermatitis due to adhesives; Z88.5 Allergy status to narcotic agent; Z98.890 Other specified postprocedural states; Z79.899 Other long term (current) drug therapy
CPT/HCPCS: 43249; 43239; 88305; 88313; 88342; C1726; J1596; J2704

== ENCOUNTER → 2024-03-09 09:11 | Outpatient (BNV) | payer MEDICARE, SELFPAY | PROVIDERS: PCP Nurse Practitioner Primary Care; Visit Provider Internal Medicine Gastroenterology | DX: K21.9 Gastro-esophageal reflux disease without esophagitis (principal); R13.10 Dysphagia, unspecified; K29.70 Gastritis, unspecified, without bleeding; K31.7 Polyp of stomach and duodenum | CPT/HCPCS: 43239; 43249 ==

== ENCOUNTER 2024-03-10 07:30 | Outpatient (REF) | payer MEDICARE, SELFPAY ==
[2024-03-17 21:39] LABS: Calprotectin, Fecal 10 mcg/g
== END 2024-03-10 07:31 | disposition home or self-care (01) ==
LOC: HO.HMGCLNP 07:30
PROVIDERS: PCP Nurse Practitioner Primary Care; Visit Provider Nurse Practitioner
DX: R19.7 Diarrhea, unspecified (principal); R13.12 Dysphagia, oropharyngeal phase
CPT/HCPCS: 83993; 87338

== ENCOUNTER 2024-03-22 14:46 | Outpatient (AMB) | payer MEDICARE, SELFPAY ==
--- NOTE | 2024-03-22 15:00 | A.OFFPC_ITS ---
Vital Signs 03/22/24 15:03 Height 5 ft Weight 194 lb BMI 37.9 BP 130/68 Blood Pressure Location Rt brachial Position Sitting Pulse 79 Pulse Source Pulse Oximeter Pulse Oximetry (%) 99 Oxygen Delivery Method Room Air Intake Visit Reasons: Annual PE Intake Note: pt is here for her annual PE. Bone density 02/20/24 Allergies lidocaine [From Aspercreme (lidocaine HCl)] Allergy (Intermediate, Verified 03/22/24 15:08) Rash celecoxib [From Celebrex] Allergy (Mild, Verified 03/22/24 15:08) PALPITATIONS levofloxacin [From Levaquin] Allergy (Mild, Verified 03/22/24 15:08) VOMITNG/JITTERY zolpidem [From Ambien] Allergy (Mild, Verified 03/22/24 15:08) HIVES/RASH/ITCH acetaminophen [From Vicodin] Allergy (Verified 03/22/24 15:08) Abdominal Pain adhesive tape Allergy (Verified 03/22/24 15:08) Rash cholestyramine [From Questran] Allergy (Verified 03/22/24 15:08) Unknown gemfibrozil [From Lopid] Allergy (Verified 03/22/24 15:08) Nausea hydrocodone [From Vicodin] Allergy (Verified 03/22/24 15:08) Abdominal Pain indomethacin Allergy (Verified 03/22/24 15:08) Nausea ketoprofen Allergy (Verified 03/22/24 15:08) Chest Pain lisinopril Allergy (Verified 03/22/24 15:08) Nausea naproxen Allergy (Verified 03/22/24 15:08) Abdominal Pain NSAIDS (Non-Steroidal Anti-Inflamma Allergy (Verified 03/22/24 15:08) Abdominal Pain sucrose [From Questran] Allergy (Verified 03/22/24 15:08) Unknown diazepam [From Valium] Adverse Reaction (Mild, Verified 03/22/24 15:08) HYPERACTIVE pravastatin [Pravastatin] Adverse Reaction (Mild, Verified 03/22/24 15:08) MUSCLE AND LEG PAIN gabapentin Adverse Reaction (Verified 03/22/24 15:08) Headache zinc Adverse Reaction (Verified 03/22/24 15:08) Vomiting Medication List - Last Reconciled 03/22/24 by BUDDY Ventura amlodipine 10 mg PO DAILY ascorbic acid (vitamin C) 500 mg PO DAILY B-complex with vitamin C 1 cap PO DAILY calcium carbonate-vitamin D3 600 mg-20 mcg (800 unit) (Caltrate 600 plus D) 1 tab PO DAILY cholestyramine (with sugar) 4 gram 4 grams PO BID clobetasol 0.05% 1 appl topical BID diclofenac sodium 1% 2 grams topical QID famotidine 20 mg PO DAILY fluoride (sodium) 1.1% 1 appl PO DAILY sqfcjeyf-upm-zuxck-cyq696-cddw 500-500-66.7 mg (Zvxidpqweif-Dgoqxlmqtfr-BTH (with antiox)) tabs PO hydrochlorothiazide 25 mg PO QAM miconazole nitrate 2% 1 appl topical DAILY cuwbxpwf-dop-geio-FA-vit K-lut 8 mg iron-400 mcg-50 mcg (Centrum Silver Women) 1 tab PO DAILY ondansetron 4 mg PO Q6-8H PRN pantoprazole (Protonix) 40 mg PO DAILY 30 days propylene glycol 0.6% (Systane Balance) 1 drp ophthalmic (eye) DAILY psyllium husk (Metamucil) 0.4 grams PO QDAY simvastatin 40 mg PO BEDTIME tramadol 50 mg PO BID PRN valsartan 320 mg PO DAILY Tobacco use date assessed: 03/22/24 Fall risk assessment: No Falls in past year Dental Screening Dental Screen Date: 03/22/24 Did you have a dental visit in the last 12 months?: No Did you have a dental problem in the last 6 months where you did not have access to dental care?: No Was dental information given to patient?: Patient has dentist HPI HPI Comments History of Present Illness Details This is an 83-year-old female in today for physical exam. Patient is up-to-date with Tdap patient is up-to-date with the shingle vaccine. Patient is up-to-date with bone density and mammogram Patient has a past medical history significant for: Osteopenia-currently utilizing vitamin-D and calcium supplements. Values within normal limits Psoriasis-utilizing clobetasol. Also will give referral to Dermatology for skin checks. Hypertension-controlled with amlodipine 10 mg, hydrochlorothiazide 25 mg and valsartan 320 mg p.o. daily. Being followed by Cardiology. Dysphagia-patient getting workup with GI. Scheduled for a barium swallow. GERD-utilizing pantoprazole 40 mg p.o. daily, famotidine 20 mg p.r.n.. Zofran p.r.n.. Hyperlipidemia-patient has discontinued use of statins due to severe leg cramping. Patient does not want start any other medications at this time. Will redraw in 3 months Osteoarthritis of bilateral hands-patient is seeing Rheumatology. Patient also utilizing diclofenac sodium gel. Spinal stenosis of cervical lumbar spine-patient has seen Pain Management and physiatry. Patient has received medial branch block the cervical spine through pain management with good effect. Patient utilizing 50 mg tramadol p.o. b.i.d. p.r.n. for lumbar stenosis. With good effect Osteoarthritis and feet-patient recently completed course of physical therapy with good effect. 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 Spinal stenosis of cervical region with radiculopathy Bilateral hand pain Psoriatic arthritis Hiatal hernia Psoriasis Hyperlipidemia Surgical History Hx of cataract removal with insertion of prosthetic lens History of laminectomy History of colon surgery History of hysterectomy History of cholecystectomy Hx of cataract surgery History of knee replacement Family History Father Dementia Raynauds disease Substance use disorder Mother Rheumatoid arthritis Maternal Grandfather Type 2 diabetes mellitus Sister Mary Carmen's disease Breast cancer Brother Pancreatic cancer Myocardial infarction Sister Lung cancer Paternal Uncle Substance use disorder Paternal Uncle Substance use disorder Paternal Uncle Substance use disorder Son Mental health disorder Social History Household Members: Spouse Housing: House Alcohol intake: former Patient Tobacco Use Status: Never used Tobacco e-Cigarette/Vaping Use: Never Used service: No Current occupational status: retired Cognitive needs: No Hearing needs: No Vision needs: Yes Questionnaire Thrive Questionnaire Date Thrive assessed: 03/22/24 I am a: Patient What is your living situation today?: I have a steady place to live Within the past 12 months, did the food you bought not last and you didn't have the money to get more?: Never true Within the past 12 months, did you worry whether your food would run out before you got money to buy more?: Never true Do you have trouble paying for medicines?: No Do you have trouble getting transportation to medical appointments?: No Do you have trouble paying your heating and electricity bill?: No Do you have trouble taking care of your child, family member or friend?: No Do you have trouble with day-to-day activities such as bathing, preparing meals, shopping, managing finances, etc.?: No Are you currently unemployed and looking for a job?: No Are you interested in more education?: No Please select the resources that you would like help with: None Currently or been in a relationship where the following occur: No concerns reported THRIVE Score: 0 AUDIT C Alcohol Use Questionnaire (AUDIT-C) 1. How often do you have a drink containing alcohol?: Never 3. How often do you have six or more drinks on one occasion?: Never Total Score: 0 CASI-7 AMB Questionnaire CASI-7 Date CASI - 7 assessed: 03/22/24 Feeling nervous, anxious, or on edge: 0 = Not at all Not being able to stop or control worryin = Not at all Worrying too much about different things: 0 = Not at all Trouble relaxin = Not at all Being so restless that it is hard to sit still: 0 = Not at all Becoming easily annoyed or irritable: 0 = Not at all Feeling afraid as if something awful might happen: 0 = Not at all Total CASI-7 score (0-4 normal; 5-9 mild; 10-14 moderate; 15-21 severe): 0 Source: Developed by Drs. Tc Ferrer, Ryann Sanchez, Berto Barron and colleagues, with an educational rosemarie from [employer]. CASI-7 Assessment Billing CASI-7 Assessment Tool: CASI-7 Assessment 15138 Review of Systems Const All systems reviewed & are unremarkable except as noted in HPI and below Physical exam (Primary Care) Vital Signs: Last Vital Signs Pulse 79 03/22/24 15:03 BP 130/68 03/22/24 15:03 Pulse Ox 99 03/22/24 15:03 Oxygen Delivery Method Room Air 03/22/24 15:03 Care Plan Goal for BP management: Blood pressure is controlled. BMI result Body Mass Index 37.9 Tobacco/Smoking Status: Tobacco use Status Tobacco use date assessed 03/22/24 03/22/24 15:09 Patient Tobacco Use Status Never used Tobacco 03/22/24 15:00 e-Cigarette/Vaping Use Never Used 03/22/24 15:00 Thrive Assessment: Date of Thrive Assessment Date Thrive assessed 03/22/24 03/22/24 15:09 Currently or been in a relationship where the following occur: No concerns reported Advance Care Planning discussion: Exists, not on file Date of discussion: 03/22/24 Forms completed: Health Care Proxy and [facility] Time spent: 16-45 minutes Actual minutes spent: 17 Const Other: Appearance: Alert.? Oriented X3.? No acute distress.? Head: Normocephalic, atraumatic, no step-offs or deformities Eyes: Pupils equal, round and reactive to light.?Sclera and conjunctiva normal. ENT: Pharynx normal.?TM intact and pearly vizcaino, +TMJ crepitus. Neck: Normal inspection.? Neck supple.? CVS: Normal heart rate and rhythm.? Pulses normal.? Respiratory: No respiratory distress.? Breath sounds normal.? Abdomen: Soft and nontender.? Skin: Skin warm and dry.? Normal skin color.? Normal skin turgor.? Extremities: Scant lower extremity edema.? No calf ttp. 5/5 strength to bilateral upper and lower extremities Back: No midline tenderness, no C-spine tenderness, Limited range of motion to flexion/extension, no CVA tenderness bilaterally Neuro: Oriented X 3.? No motor deficit.? No sensory deficit. CN 2-12 intact Results Reviewed Results Reviewed: Sodium 137 135-145 mmol/L Potassium 4.8 3.3-5.1 mmol/L CL 104 96-108 mmol/L CO2 24 22-29 mmol/L Gap 14 12-20 BUN 22 H 9-16 mg/dL Creat 0.92 0.5-1.4 mg/dL EGFR 58 NOTE: For -[place] individuals, multiply the result by 1.210. Chronic Kidney Disease: Estimated GFR < 60 mL/min/1.73m2 Severe Kidney Disease: Estimated GFR < 15 mL/min/1.73m2 Glucose, Random 108 60-115 mg/dL CA 9.5 8.4-10.2 mg/dL Total Bili 0.4 0.0-1.0 mg/dL AST (GOT) 20 5-31 U/L ALT (GPT) 13 0-31 U/L CRP < 0.10 < or = 0.50 mg/dL Protein, Total 7.7 6.5-8.0 g/dL Alb 4.3 3.5-5.0 g/dL Alk Phos 73 39-117 U/L Mile 99 28-100 U/L Lipase 32 8-78 U/L . Assessment and Plan Assessment & Plan (1) Physical exam: Comment: Patient is up-to-date with Tdap patient is up-to-date with the shingle vaccine. Patient is up-to-date with bone density and mammogram Patient has a past medical history significant for: Osteopenia-currently utilizing vitamin-D and calcium supplements. Values within normal limits Psoriasis-utilizing clobetasol. Also will give referral to Dermatology for skin checks. Hypertension-controlled with amlodipine 10 mg, hydrochlorothiazide 25 mg and valsartan 320 mg p.o. daily. Being followed by Cardiology. Dysphagia-patient getting workup with GI. Scheduled for a barium swallow. GERD-utilizing pantoprazole 40 mg p.o. daily, famotidine 20 mg p.r.n.. Zofran p.r.n.. Hyperlipidemia-patient has discontinued use of statins due to severe leg cramping. Patient does not want start any other medications at this time. Will redraw in 3 months Osteoarthritis of bilateral hands-patient is seeing Rheumatology. Patient also utilizing diclofenac sodium gel. Spinal stenosis of cervical lumbar spine-patient has seen Pain Management and physiatry. Patient has received medial branch block the cervical spine through pain management with good effect. Patient utilizing 50 mg tramadol p.o. b.i.d. p.r.n. for lumbar stenosis. With good effect Osteoarthritis and feet-patient recently completed course of physical therapy with good effect. Code(s): Z00.00 - Encounter for general adult medical examination without abnormal findings (2) Psoriasis: Comment: Derm referral and Clobetasol. Code(s): L40.9 - Psoriasis, unspecified Plan: Will draw labs in 3 months. Orders: Orders Vitamin D 25-OH (D2 and D3) Today Z13.21 - Encounter for screening for nutritional disorder Vitamin B12 Today Z13.21 - Encounter for screening for nutritional disorder Comprehensive Met. Panel Today Z91.89 - Other specified personal risk factors, not elsewhere classified Lipid Panel Today Z13.220 - Encounter for screening for lipoid disorders Complete Blood Count Auto Diff Today Z13.0 - Encounter for screening for diseases of the blood and blood-forming organs and certain disorders involving the immune mechanism Referrals Dermatology Referral L40.9 - Psoriasis, unspecified Medications: Refilled valsartan 320 mg PO DAILY 90 tabs 3RF famotidine 20 mg PO DAILY 90 tabs 3RF ondansetron 4 mg PO Q6-8H PRN 10 tabs 0RF nausea and vomiting Coding Level of Care Code Est Pt Prev Care >65y(07756) Diagnoses Physical exam Z00.00 Psoriasis L40.9 Additional Codes CASI-7 Assessment Billing - CASI-7 Assessment Tool: CASI-7 Assessment 53966 ([id number]) Vital Signs *Quality* - Advance Care Planning discussion: Exists, not on file ([id number]) Vital Signs *Quality* - Time spent: 16-45 minutes ([id number]) Time Spent (min) 45
[2024-03-22 15:03] VITALS: BP 130/68; PULSE 79; O2SAT 99; BMI 37.9
== END 2024-03-22 15:59 | disposition home or self-care (01) ==
PROVIDERS: PCP Nurse Practitioner Primary Care; Visit Provider Nurse Practitioner Primary Care
DX: Z00.00 Encounter for general adult medical examination without abnormal findings (principal); L40.9 Psoriasis, unspecified
CPT/HCPCS: 1123F; 99397; 99497

== ENCOUNTER 2024-03-23 14:12 | Outpatient (REF) | payer MEDICARE, SELFPAY | END 2024-03-23 14:13 | disposition home or self-care (01) | LOC: HO.HMGCLDS 14:12 | PROVIDERS: PCP Nurse Practitioner Primary Care; Visit Provider Nurse Practitioner | DX: R19.7 Diarrhea, unspecified (principal); R13.12 Dysphagia, oropharyngeal phase | CPT/HCPCS: 36415; 86003 ==

== ENCOUNTER 2024-04-13 13:14 | Outpatient (AMB) | payer MEDICARE, SELFPAY ==
--- NOTE | 2024-04-13 13:17 | MHC.OFFVIS ---
Vital Signs 04/13/24 13:19 Height 5 ft Weight 195 lb 12.328 oz BMI 38.2 BP 147/65 H Blood Pressure Location Lt brachial Position Sitting Pulse 73 Intake Visit Reasons: s/p EGD Intake Note: Fallon presents to in office visit today in follow up s/p EGD. CC: Patient denies having any new GI concerns or symptoms today. Director Targeted Marketing Required: No Accompanied by: Self / Same As Patient Allergies lidocaine [From Aspercreme (lidocaine HCl)] Allergy (Intermediate, Verified 05/17/24 13:43) Rash celecoxib [From Celebrex] Allergy (Mild, Verified 05/17/24 13:43) PALPITATIONS levofloxacin [From Levaquin] Allergy (Mild, Verified 05/17/24 13:43) VOMITNG/JITTERY zolpidem [From Ambien] Allergy (Mild, Verified 05/17/24 13:43) HIVES/RASH/ITCH acetaminophen [From Vicodin] Allergy (Verified 05/17/24 13:43) Abdominal Pain adhesive tape Allergy (Verified 05/17/24 13:43) Rash cholestyramine [From Questran] Allergy (Verified 05/17/24 13:43) Unknown gemfibrozil [From Lopid] Allergy (Verified 05/17/24 13:43) Nausea hydrocodone [From Vicodin] Allergy (Verified 05/17/24 13:43) Abdominal Pain indomethacin Allergy (Verified 05/17/24 13:43) Nausea ketoprofen Allergy (Verified 05/17/24 13:43) Chest Pain lisinopril Allergy (Verified 05/17/24 13:43) Nausea naproxen Allergy (Verified 05/17/24 13:43) Abdominal Pain NSAIDS (Non-Steroidal Anti-Inflamma Allergy (Verified 05/17/24 13:43) Abdominal Pain sucrose [From Questran] Allergy (Verified 05/17/24 13:43) Unknown diazepam [From Valium] Adverse Reaction (Mild, Verified 05/17/24 13:43) HYPERACTIVE pravastatin [Pravastatin] Adverse Reaction (Mild, Verified 05/17/24 13:43) MUSCLE AND LEG PAIN gabapentin Adverse Reaction (Verified 05/17/24 13:43) Headache zinc Adverse Reaction (Verified 05/17/24 13:43) Vomiting HPI HPI s/p EGD: Details: Assessment & Plan (1) Oropharyngeal dysphagia: Code(s): R13.12 - Dysphagia, oropharyngeal phase Category: Medical (2) Diarrhea: Code(s): R19.7 - Diarrhea, unspecified Category: Medical (3) GERD (gastroesophageal reflux disease): Code(s): K21.9 - Gastro-esophageal reflux disease without esophagitis Category: Medical (4) Diarrhea: Code(s): R19.7 - Diarrhea, unspecified Category: Medical Plan Onset 11 years ago she was in hospital for SBO and she had an NG tube. She has had problems with swallowing her larger pills and a voice change since this. She also has a lot of phlegm and bad GERD. She denies any trouble swallowing foods or liquids. Her sister of esophageal cancer. She has colitis a lot and diarrhea frequently. This has been since her early 30's. This has worsened this past year. She also had a partial sigmoidectomy and is s/p blossom. 1994. She has had some more frequent episodes of nausea. She had a CT and they saw something between the pancreas and the stomach. I look at it looks like there was some mild stranding that could have been early pancreatitis. Of note, she is on hydrochlorothiazide and she does not drink alcohol. ? allergy to Qestran, will try cholestyramine but if not progress to carafate. I am also going to move her to PPI coverage since it sure sounds like she has under controlled GERD that could be causing either esophageal spasm or stricture. We are going to get a modified barium swallow and an EGD. Orders: Orders Comprehensive Met. Panel Today R13.12 - Dysphagia, oropharyngeal phase, R19.7 - Diarrhea, unspecified Complete Blood Count Auto Diff Today R13.12 - Dysphagia, oropharyngeal phase, R19.7 - Diarrhea, unspecified EGD with Byrd - GI Use Only Today R13.12 - Dysphagia, oropharyngeal phase, R19.7 - Diarrhea, unspecified H pylori Ag Stool Today R13.12 - Dysphagia, oropharyngeal phase, R19.7 - Diarrhea, unspecified Calprotectin, Fecal Today R13.12 - Dysphagia, oropharyngeal phase, R19.7 - Diarrhea, unspecified Transglutaminase IgA Today R13.12 - Dysphagia, oropharyngeal phase, R19.7 - Diarrhea, unspecified Amylase Today R13.12 - Dysphagia, oropharyngeal phase, R19.7 - Diarrhea, unspecified FL barium swallow modified Today R13.12 - Dysphagia, oropharyngeal phase C Reactive Protein Today R13.12 - Dysphagia, oropharyngeal phase, R19.7 - Diarrhea, unspecified Transglutaminase Ab IgG Today R13.12 - Dysphagia, oropharyngeal phase, R19.7 - Diarrhea, unspecified Rast Allergen Today R13.12 - Dysphagia, oropharyngeal phase, R19.7 - Diarrhea, unspecified Gliadin Ab Panel Today R13.12 - Dysphagia, oropharyngeal phase, R19.7 - Diarrhea, unspecified Lipase Today R13.12 - Dysphagia, oropharyngeal phase, R19.7 - Diarrhea, unspecified Medications: New pantoprazole (Protonix) 40 mg PO DAILY 30 days 30 tabs 3RF K21.9 - Gastro-esophageal reflux disease without esophagitis, R13.12 - Dysphagia, oropharyngeal phase cholestyramine (with sugar) 4 gram administer w/meal; avoid other meds within 1hr before or 4-6hr after dose 4 grams PO BID 60 ea 3RF R19.7 - Diarrhea, unspecified LABS: Laboratory Tests 10/25/23 03/08/24 03/10/24 09:33 10:13 07:30 WBC 5.7 6.4 RBC 4.01 L Hgb 11.9 L 12.7 Hct 35.7 L 37.3 MCV 89.0 MCH 29.7 Plt Count 307 302 Estimated GFR 58 C-Reactive Protein < 0.10 Amylase 99 Lipase 32 Stool Calprotectin 10 Stool H. pylori Ag neg Tiss Transglutamin IgG <1.0 Tiss Transglutamin IgA <1.0 Anti-Gliadin IgG Ab <1.0 Gliadin (Deamidat) IgA <1.0 RAST SHOWS NO SIGNIFICANT FOOD ALLERGIES BARIUM SWALLOW EGD 03/09/24 Findings: Larynx: Normal Esophagus: GE junction at 35 cms. Mildly tortuous esophagus with increased tertiary contractions without stricture ring. Esophageal balloon dilation of the distal esophagus was performed with a 20 mm (60 F) CRE balloon x 60 seconds Esophageal balloon dilation of the proximal esophagus/cricopharyngeus was performed with an 18 mm (54 F) CRE balloon x 60 seconds After balloon dilation, biopsies were obtained from proximal esophagus to check for EOE. Two 1 cms tongues of suspected Aburto's at GE junction - biopsies obtained for histology and Tissue Cypher. No esophagitis, Stomach: A few 5-8 mm benign appearing polyps in the gastric body. Moderate diffuse gastric erythema - biopsies were obtained from the antrum. Grade 2 flap valve on retroflexed examination of the cardia. Duodenum: Normal bulb and descending duodenum Intervention: Biopsies as noted above Impression and Post Procedure Diagnosis: Endoscopy Findings: ESOPHAGUS: Mildly tortuous esophagus with increased tertiary contractions without stricture ring. Esophageal balloon dilation of the distal esophagus was performed with a 20 mm (60 F) CRE balloon x 60 seconds Esophageal balloon dilation of the proximal esophagus/cricopharyngeus was performed with an 18 mm (54 F) CRE balloon x 60 seconds After balloon dilation, biopsies were obtained from proximal esophagus to check for EOE. Two 1 cms tongues of suspected Aburto's at GE junction - biopsies obtained for histology and Tissue Cypher. 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 Advise further evaluation with a barium swallow if dysphagia persists post dilation. If biopsies confirm a diagnosis of Aburto's, repeat EGD in 1 year Above findings were reviewed with the patient and relevant handouts were given and the discharge area. BIOPSIES SHOWED: A. Stomach, antrum, biopsy: Gastric antral mucosa with mild reactive gastropathy; negative for Helicobacter pylori, intestinal metaplasia and dysplasia. B. Stomach, polyp, biopsy: Fundic gland polyp; negative for Helicobacter pylori, intestinal metaplasia and dysplasia. C. Gastroesophageal junction, biopsy: Squamocolumnar junctional mucosa with mild chronic inflammation and intestinal metaplasia consistent with Aburto's esophagus; negative for dysplasia (see comment). D. Esophagus, proximal, biopsy: Squamous mucosa within normal limits; negative for intraepithelial eosinophils, fungal organisms and intestinal metaplasia. 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 Clinical and endoscopic correlation is advised BIOPSY Received: 03/09/24 Diagnosis A. Stomach, antrum, biopsy: Gastric antral mucosa with mild reactive gastropathy; negative for Helicobacter pylori, intestinal metaplasia and dysplasia. B. Stomach, polyp, biopsy: Fundic gland polyp; negative for Helicobacter pylori, intestinal metaplasia and dysplasia. C. Gastroesophageal junction, biopsy: Squamocolumnar junctional mucosa with mild chronic inflammation and intestinal metaplasia consistent with Aburto's esophagus; negative for dysplasia (see comment). D. Esophagus, proximal, biopsy: Squamous mucosa within normal limits; negative for intraepithelial eosinophils, fungal organisms and intestinal metaplasia. 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 Clinical and endoscopic correlation is advised TODAY'S VISIT She tolerated the procedure well. Unfortunately the dilation did not improve her swallowing. Pills still get stuck in the early phase of swallowing so the modified barium swallow is scheduled for May 06 that will be important for the next step of treatment. She is doing extremely well with cholestyramine in terms of controlling her diarrhea. She has only had 1 episode of breakthrough diarrhea. She did have some constipation but stopped for day and then resumed the medication with good results. The pantoprazole is doing extremely well in controlling her heartburn. 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 Of course we will can repeat the endoscopy in 2 years and she is also taking famotidine at bedtime. The only complaint she has now is a frequent nocturnal urination. I did offer to refer her to a urologist but at this time she declines as she has many other doctors visits and that is understandable. Return office visit after her barium swallow in April. [facility] Medical History (Updated 04/13/24 @ 13:22 by NOA Rothman) Physical exam Chronic back pain Chronic neck pain Difficulty swallowing Upper respiratory infection Polyarthralgia Osteoarthritis Chronic pain TMJ (dislocation of temporomandibular joint) Elevated uric acid in blood 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 Spinal stenosis of cervical region with radiculopathy Bilateral hand pain Psoriatic arthritis Hiatal hernia Psoriasis Hyperlipidemia Surgical History Hx of cataract removal with insertion of prosthetic lens History of laminectomy History of colon surgery History of hysterectomy History of cholecystectomy Hx of cataract surgery History of knee replacement Family History Father Dementia Raynauds disease Substance use disorder Mother Rheumatoid arthritis Maternal Grandfather Type 2 diabetes mellitus Sister Mary Acrmen's disease Breast cancer Brother Pancreatic cancer Myocardial infarction Sister Lung cancer Paternal Uncle Substance use disorder Paternal Uncle Substance use disorder Paternal Uncle Substance use disorder Son Mental health disorder Social History Household Members: Spouse Housing: House Alcohol intake: former Patient Tobacco Use Status: Never used Tobacco e-Cigarette/Vaping Use: Never Used service: No Current occupational status: retired Cognitive needs: No Hearing needs: No Vision needs: Yes Review of Systems Const Denies fatigue, Denies fever(s), Denies night sweats, Denies poor appetite and Denies weight loss ENT Reports Normal hearing present, Denies dental pain, Reports dysphagia, Denies hearing loss, Denies mouth pain, Denies odynophagia, Denies throat swelling, Denies tongue swelling and Reports other (Dentition adequate) Card Reports no additional complaints Resp Reports no additional complaints GI Details: Denies abdominal pain, Denies melena, Denies bloating, Denies hematochezia, Denies constipation, Denies GI cramping, Reports dysphagia, Denies excessive flatus, Denies early satiety, Reports heartburn, Denies diarrhea, Denies nausea, Denies odynophagia, Denies vomiting and Denies hematemesis Reports nocturia Skin/Breast Denies pruritus, Denies lesions, Denies rash and Denies jaundice Neuro Reports Normal hearing present and Denies Abnormal speech present Endo Denies fatigue Aller/Immun Denies throat swelling and Denies tongue swelling Physical Exam Vital Signs: Last Vital Signs Pulse 73 04/13/24 13:19 BP 147/65 H 04/13/24 13:19 BMI result Body Mass Index 38.2 Const General: cooperative, no acute distress, well developed and well groomed Nutritional Appearance: well nourished and obese Orientation/consciousness: oriented to person, oriented to place and oriented to time Limitations: No language barrier and ambulation with cane HEENT Head: Yes normocephalic and Yes atraumatic Eyes General: appearance normal, both eyes and all related structures Pupils: Equal, round and reactive pupils present Neck Neck: Yes normal visual inspection and Yes no lymphadenopathy Thyroid: Thyroid normal Resp Effort & Inspection: normal respiratory effort and able to speak in complete sentences Auscultation: clear to auscultation bilaterally Cardio Rate: regular rate Rhythm: regular rhythm Heart sounds: Normal, physiologic split S2 sound present Peripheral pulses: radial pulses present and posterior tibial pulses present GI Inspection: No distended, Yes Abdominal panniculus present and Yes obesity Palpation (GI): Soft to palpation, nontender, no guarding, not rigid and No hepatosplenomegaly present Percussion: Yes normal to percussion Auscultation: normal bowel sounds Rectal Exam - Female: deferred Skin General skin exam: no rashes or lesions noted, turgor normal, skin not dry, no jaundice, No spider nevi and no striae Rashes: no rashes Nails: normal Neuro General: oriented to person, oriented to place and oriented to time Cranial nerves: Yes Equal, round and reactive pupils present and Yes Normal hearing present Speech: No Abnormal speech present Extrem General: Yes normal to inspection, No clubbing, No cyanosis and No edema Psych Appearance: grossly normal and well kempt Mental Status: mental status grossly normal Speech and movement: Normal speech and movement present Affect: normal affect Attitude: cooperative Thought process: Normal thought process present and not confabulating Thought content: Normal thought content present Insight: Fair insight present (Psych) Judgement: Fair judgement present (Psych) Results Reviewed Results Reviewed: Laboratory Tests 10/25/23 03/08/24 03/10/24 09:33 10:13 07:30 WBC 5.7 6.4 RBC 4.01 L Hgb 11.9 L 12.7 Hct 35.7 L 37.3 MCV 89.0 MCH 29.7 Plt Count 307 302 Estimated GFR 58 C-Reactive Protein < 0.10 Amylase 99 Lipase 32 Stool Calprotectin 10 Stool H. pylori Ag neg Tiss Transglutamin IgG <1.0 Tiss Transglutamin IgA <1.0 Anti-Gliadin IgG Ab <1.0 Gliadin (Deamidat) IgA <1.0 RAST SHOWS NO SIGNIFICANT FOOD ALLERGIES BARIUM SWALLOW EGD 03/09/24 Findings: Larynx: Normal Esophagus: GE junction at 35 cms. Mildly tortuous esophagus with increased tertiary contractions without stricture ring. Esophageal balloon dilation of the distal esophagus was performed with a 20 mm (60 F) CRE balloon x 60 seconds Esophageal balloon dilation of the proximal esophagus/cricopharyngeus was performed with an 18 mm (54 F) CRE balloon x 60 seconds After balloon dilation, biopsies were obtained from proximal esophagus to check for EOE. Two 1 cms tongues of suspected Aburto's at GE junction - biopsies obtained for histology and Tissue Cypher. No esophagitis, Stomach: A few 5-8 mm benign appearing polyps in the gastric body. Moderate diffuse gastric erythema - biopsies were obtained from the antrum. Grade 2 flap valve on retroflexed examination of the cardia. Duodenum: Normal bulb and descending duodenum Intervention: Biopsies as noted above Impression and Post Procedure Diagnosis: Endoscopy Findings: ESOPHAGUS: Mildly tortuous esophagus with increased tertiary contractions without stricture ring. Esophageal balloon dilation of the distal esophagus was performed with a 20 mm (60 F) CRE balloon x 60 seconds Esophageal balloon dilation of the proximal esophagus/cricopharyngeus was performed with an 18 mm (54 F) CRE balloon x 60 seconds After balloon dilation, biopsies were obtained from proximal esophagus to check for EOE. Two 1 cms tongues of suspected Aburto's at GE junction - biopsies obtained for histology and Tissue Cypher. 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 Advise further evaluation with a barium swallow if dysphagia persists post dilation. If biopsies confirm a diagnosis of Aburto's, repeat EGD in 1 year Above findings were reviewed with the patient and relevant handouts were given and the discharge area. BIOPSIES SHOWED: A. Stomach, antrum, biopsy: Gastric antral mucosa with mild reactive gastropathy; negative for Helicobacter pylori, intestinal metaplasia and dysplasia. B. Stomach, polyp, biopsy: Fundic gland polyp; negative for Helicobacter pylori, intestinal metaplasia and dysplasia. C. Gastroesophageal junction, biopsy: Squamocolumnar junctional mucosa with mild chronic inflammation and intestinal metaplasia consistent with Aburto's esophagus; negative for dysplasia (see comment). D. Esophagus, proximal, biopsy: Squamous mucosa within normal limits; negative for intraepithelial eosinophils, fungal organisms and intestinal metaplasia. 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 Clinical and endoscopic correlation is advised BIOPSY Received: 03/09/24 Diagnosis A. Stomach, antrum, biopsy: Gastric antral mucosa with mild reactive gastropathy; negative for Helicobacter pylori, intestinal metaplasia and dysplasia. B. Stomach, polyp, biopsy: Fundic gland polyp; negative for Helicobacter pylori, intestinal metaplasia and dysplasia. C. Gastroesophageal junction, biopsy: Squamocolumnar junctional mucosa with mild chronic inflammation and intestinal metaplasia consistent with Aburto's esophagus; negative for dysplasia (see comment). D. Esophagus, proximal, biopsy: Squamous mucosa within normal limits; negative for intraepithelial eosinophils, fungal organisms and intestinal metaplasia. 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 Clinical and endoscopic correlation is advised Assessment & Plan Assessment & Plan (1) Diarrhea: Code(s): R19.7 - Diarrhea, unspecified Category: Medical (2) Oropharyngeal dysphagia: Code(s): R13.12 - Dysphagia, oropharyngeal phase Category: Medical (3) GERD (gastroesophageal reflux disease): Code(s): K21.9 - Gastro-esophageal reflux disease without esophagitis Category: Medical Plan She tolerated the procedure well. Unfortunately the dilation did not improve her swallowing. Pills still get stuck in the early phase of swallowing so the modified barium swallow is scheduled for May 06 that will be important for the next step of treatment. She is doing extremely well with cholestyramine in terms of controlling her diarrhea. She has only had 1 episode of breakthrough diarrhea. She did have some constipation but stopped for day and then resumed the medication with good results. The pantoprazole is doing extremely well in controlling her heartburn. 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 Of course we will can repeat the endoscopy in 2 years and she is also taking famotidine at bedtime. The only complaint she has now is a frequent nocturnal urination. I did offer to refer her to a urologist but at this time she declines as she has many other doctors visits and that is understandable. Return office visit after her barium swallow in April. BARIUM SWALLOW Coding Level of Care Code Est Pt Level 3 (05728) Diagnoses Diarrhea R19.7 Oropharyngeal dysphagia R13.12 GERD (gastroesophageal reflux disease) K21.9
[2024-04-13 13:19] VITALS: BP 147/65; PULSE 73; BMI 38.2
== END 2024-04-13 13:48 | disposition home or self-care (01) ==
PROVIDERS: PCP Nurse Practitioner Primary Care; Visit Provider Nurse Practitioner
DX: R19.7 Diarrhea, unspecified (principal); R13.12 Dysphagia, oropharyngeal phase; K21.9 Gastro-esophageal reflux disease without esophagitis
CPT/HCPCS: 99213

== ENCOUNTER → 2024-04-13 13:14 | Outpatient (BNVA) | payer MEDICARE, SELFPAY | PROVIDERS: PCP Nurse Practitioner Primary Care; Visit Provider Nurse Practitioner | DX: K21.9 Gastro-esophageal reflux disease without esophagitis (principal); R13.12 Dysphagia, oropharyngeal phase; R19.7 Diarrhea, unspecified | CPT/HCPCS: 99212 ==

== ENCOUNTER 2024-05-06 07:51 | Outpatient (REF) | payer MEDICARE, SELFPAY ==
--- NOTE | ~2024-05-06 | FL_ITS ---
EXAMINATION: XR FLUOROSCOPY UPPER GI WITH AIR CLINICAL INFORMATION: Dysphagia COMPARISON: None TECHNIQUE: Fluoroscopic air contrast upper GI examination was performed utilizing standard techniques with thin and thick barium and effervescent granules. Numerous spot images were obtained. FINDINGS: Lateral cine images of the oropharynx and hypopharynx demonstrate normal swallow mechanism with normal epiglottic inversion and soft palate elevation. There is trace laryngeal penetration with thick barium. No tracheal penetration, glottic or subglottic aspiration identified. No nasopharyngeal reflux present. Hypopharyngeal structures appear normal without evidence of mass or diverticulum. There is mild cricopharyngeal achalasia present. Dual and single contrast images of the esophagus demonstrate normal caliber, contour, and mucosal pattern. No evidence of stricture, mass, or ulcerations identified. There is to and fro motion of the barium column with nonpropulsive tertiary contractions noted throughout the esophagus. A small type I hiatal hernia is present. Gastroesophageal reflux is observed up to the midesophagus. Dual contrast and single contrast images of the stomach demonstrated a normal contour. Evaluation of the gastric mucosa is somewhat limited due to underdistention of the stomach from poor tolerance of the effervescent granules. The gastric rugal folds have a thickened appearance, which suggests gastritis, however, this may be also due to underdistention of the stomach. No masses are seen. Contrast freely passed into the gastric antrum and duodenal bulb without delay. Single and air-contrast images of the duodenal bulb demonstrate no abnormality. The duodenal sweep has a normal appearance, course, and mucosal fold appearance. The imaged proximal jejunum has a normal fold pattern and caliber. Spinal hardware is present at the level of L4-L5. FLUOROSCOPY TIME: 4 minutes 29 seconds Number of Spot Images: 7 Number of Cine: 15 DOSE AREA PRODUCT: 2496 uGy-m2 (microgray-meter squared) FL/FL barium swallow with air IMPRESSION: 1. Trace tracheal penetration with thick barium. 2. Mild cricopharyngeal achalasia. 3. Esophageal dysmotility. 4. Small type I hiatal hernia with moderate gastroesophageal reflux. 5. Limited evaluation of the gastric mucosa from underdistention of the stomach due to poor tolerance of the effervescent granules. The gastric rugal folds have a thickened appearance, which suggests gastritis, however, this may be also due to underdistention of the stomach. This procedure was performed by Oswald Saldaña PA-C, and supervised by Dr. Grijalva
== END 2024-05-06 07:52 | disposition home or self-care (01) ==
LOC: HO.XRAY 07:51
PROVIDERS: PCP Nurse Practitioner Primary Care; Visit Provider Nurse Practitioner
DX: R13.12 Dysphagia, oropharyngeal phase (principal); R19.7 Diarrhea, unspecified
CPT/HCPCS: 74221

== ENCOUNTER → 2024-05-06 07:55 | Outpatient (BNV) | payer MEDICARE, SELFPAY | PROVIDERS: PCP Nurse Practitioner Primary Care; Visit Provider Physician Assistant Surgical | DX: R13.10 Dysphagia, unspecified (principal) | CPT/HCPCS: 74246 ==

== ENCOUNTER 2024-05-12 16:14 | Outpatient (AMB) | payer MEDICARE, SELFPAY ==
[2024-05-12 16:16] VITALS: BP 147/65; PULSE 86; BMI 37.8
--- NOTE | 2024-05-12 16:16 | MHC.OFFVIS ---
Vital Signs 05/12/24 16:16 Height 5 ft Weight 193 lb 9.054 oz BMI 37.8 BP 147/65 H Blood Pressure Location Lt brachial Position Sitting Pulse 86 Intake Visit Reasons: barium swallow follow up Intake Note: Patient in office today in follow up of barium swallow. CC: Patient reports that she is having right hip pain and was not able to walk the first few day after barium swallow test. Per patient she believes she hurt something during the test while having to change different positions without assistance. Denies other GI symptoms today [employer] Account Assistant Required: No Accompanied by: Self / Same As Patient Allergies lidocaine [From Aspercreme (lidocaine HCl)] Allergy (Intermediate, Verified 05/12/24 16:21) Rash celecoxib [From Celebrex] Allergy (Mild, Verified 05/12/24 16:21) PALPITATIONS levofloxacin [From Levaquin] Allergy (Mild, Verified 05/12/24 16:21) VOMITNG/JITTERY zolpidem [From Ambien] Allergy (Mild, Verified 05/12/24 16:21) HIVES/RASH/ITCH acetaminophen [From Vicodin] Allergy (Verified 05/12/24 16:21) Abdominal Pain adhesive tape Allergy (Verified 05/12/24 16:21) Rash cholestyramine [From Questran] Allergy (Verified 05/12/24 16:21) Unknown gemfibrozil [From Lopid] Allergy (Verified 05/12/24 16:21) Nausea hydrocodone [From Vicodin] Allergy (Verified 05/12/24 16:21) Abdominal Pain indomethacin Allergy (Verified 05/12/24 16:21) Nausea ketoprofen Allergy (Verified 05/12/24 16:21) Chest Pain lisinopril Allergy (Verified 05/12/24 16:21) Nausea naproxen Allergy (Verified 05/12/24 16:21) Abdominal Pain NSAIDS (Non-Steroidal Anti-Inflamma Allergy (Verified 05/12/24 16:21) Abdominal Pain sucrose [From Questran] Allergy (Verified 05/12/24 16:21) Unknown diazepam [From Valium] Adverse Reaction (Mild, Verified 05/12/24 16:21) HYPERACTIVE pravastatin [Pravastatin] Adverse Reaction (Mild, Verified 05/12/24 16:21) MUSCLE AND LEG PAIN gabapentin Adverse Reaction (Verified 05/12/24 16:21) Headache zinc Adverse Reaction (Verified 05/12/24 16:21) Vomiting HPI HPI barium swallow follow up: Details: Assessment & Plan (1) Oropharyngeal dysphagia: Code(s): R13.12 - Dysphagia, oropharyngeal phase Category: Medical (2) Diarrhea: Code(s): R19.7 - Diarrhea, unspecified Category: Medical (3) GERD (gastroesophageal reflux disease): Code(s): K21.9 - Gastro-esophageal reflux disease without esophagitis Category: Medical (4) Diarrhea: Code(s): R19.7 - Diarrhea, unspecified Category: Medical Plan Onset 11 years ago she was in hospital for SBO and she had an NG tube. She has had problems with swallowing her larger pills and a voice change since this. She also has a lot of phlegm and bad GERD. She denies any trouble swallowing foods or liquids. Her sister of esophageal cancer. She has colitis a lot and diarrhea frequently. This has been since her early 30's. This has worsened this past year. She also had a partial sigmoidectomy and is s/p blossom. 1994. She has had some more frequent episodes of nausea. She had a CT and they saw something between the pancreas and the stomach. I look at it looks like there was some mild stranding that could have been early pancreatitis. Of note, she is on hydrochlorothiazide and she does not drink alcohol. ? allergy to Qestran, will try cholestyramine but if not progress to carafate. I am also going to move her to PPI coverage since it sure sounds like she has under controlled GERD that could be causing either esophageal spasm or stricture. We are going to get a modified barium swallow and an EGD. Orders: Orders Comprehensive Met. Panel Today R13.12 - Dysphagia, oropharyngeal phase, R19.7 - Diarrhea, unspecified Complete Blood Count Auto Diff Today R13.12 - Dysphagia, oropharyngeal phase, R19.7 - Diarrhea, unspecified EGD with [facility] - GI Use Only Today R13.12 - Dysphagia, oropharyngeal phase, R19.7 - Diarrhea, unspecified H pylori Ag Stool Today R13.12 - Dysphagia, oropharyngeal phase, R19.7 - Diarrhea, unspecified Calprotectin, Fecal Today R13.12 - Dysphagia, oropharyngeal phase, R19.7 - Diarrhea, unspecified Transglutaminase IgA Today R13.12 - Dysphagia, oropharyngeal phase, R19.7 - Diarrhea, unspecified Amylase Today R13.12 - Dysphagia, oropharyngeal phase, R19.7 - Diarrhea, unspecified FL barium swallow modified Today R13.12 - Dysphagia, oropharyngeal phase C Reactive Protein Today R13.12 - Dysphagia, oropharyngeal phase, R19.7 - Diarrhea, unspecified Transglutaminase Ab IgG Today R13.12 - Dysphagia, oropharyngeal phase, R19.7 - Diarrhea, unspecified Rast Allergen Today R13.12 - Dysphagia, oropharyngeal phase, R19.7 - Diarrhea, unspecified Gliadin Ab Panel Today R13.12 - Dysphagia, oropharyngeal phase, R19.7 - Diarrhea, unspecified Lipase Today R13.12 - Dysphagia, oropharyngeal phase, R19.7 - Diarrhea, unspecified Medications: New pantoprazole (Protonix) 40 mg PO DAILY 30 days 30 tabs 3RF K21.9 - Gastro-esophageal reflux disease without esophagitis, R13.12 - Dysphagia, oropharyngeal phase cholestyramine (with sugar) 4 gram administer w/meal; avoid other meds within 1hr before or 4-6hr after dose 4 grams PO BID 60 ea 3RF R19.7 - Diarrhea, unspecified LABS: Laboratory Tests 03/08/24 03/10/24 10:13 07:30 Stool Calprotectin 10 Stool H. pylori Ag negative Tiss Transglutamin IgG <1.0 Tiss Transglutamin IgA <1.0 Anti-Gliadin IgG Ab <1.0 Gliadin (Deamidat) IgA <1.0 RAST PANEL SHOWS NO SIGNIFICANT FOOD ALLERGIES BARIUM SWALLOW 05/07/24 FINDINGS: Lateral cine images of the oropharynx and hypopharynx demonstrate normal swallow mechanism with normal epiglottic inversion and soft palate elevation. There is trace laryngeal penetration with thick barium. No tracheal penetration, glottic or subglottic aspiration identified. No nasopharyngeal reflux present. Hypopharyngeal structures appear normal without evidence of mass or diverticulum. There is mild cricopharyngeal achalasia present. Dual and single contrast images of the esophagus demonstrate normal caliber, contour, and mucosal pattern. No evidence of stricture, mass, or ulcerations identified. There is to and fro motion of the barium column with nonpropulsive tertiary contractions noted throughout the esophagus. A small type I hiatal hernia is present. Gastroesophageal reflux is observed up to the midesophagus. Dual contrast and single contrast images of the stomach demonstrated a normal contour. Evaluation of the gastric mucosa is somewhat limited due to underdistention of the stomach from poor tolerance of the effervescent granules. The gastric rugal folds have a thickened appearance, which suggests gastritis, however, this may be also due to underdistention of the stomach. No masses are seen. Contrast freely passed into the gastric antrum and duodenal bulb without delay. Single and air-contrast images of the duodenal bulb demonstrate no abnormality. The duodenal sweep has a normal appearance, course, and mucosal fold appearance. The imaged proximal jejunum has a normal fold pattern and caliber. Spinal hardware is present at the level of L4-L5. FLUOROSCOPY TIME: 4 minutes 29 seconds Number of Spot Images: 7 Number of Cine: 15 DOSE AREA PRODUCT: 2496 uGy-m2 (microgray-meter squared) FL/FL barium swallow with air IMPRESSION: 1. Trace tracheal penetration with thick barium. 2. Mild cricopharyngeal achalasia. 3. Esophageal dysmotility. 4. Small type I hiatal hernia with moderate gastroesophageal reflux. 5. Limited evaluation of the gastric mucosa from underdistention of the stomach due to poor tolerance of the effervescent granules. The gastric rugal folds have a thickened appearance, which suggests gastritis, however, this may be also due to underdistention of the stomach. EGD 03/09/24 Findings: Larynx: Normal Esophagus: GE junction at 35 cms. Mildly tortuous esophagus with increased tertiary contractions without stricture ring. Esophageal balloon dilation of the distal esophagus was performed with a 20 mm (60 F) CRE balloon x 60 seconds Esophageal balloon dilation of the proximal esophagus/cricopharyngeus was performed with an 18 mm (54 F) CRE balloon x 60 seconds After balloon dilation, biopsies were obtained from proximal esophagus to check for EOE. Two 1 cms tongues of suspected Aburto's at GE junction - biopsies obtained for histology and Tissue Cypher. No esophagitis, Stomach: A few 5-8 mm benign appearing polyps in the gastric body. Moderate diffuse gastric erythema - biopsies were obtained from the antrum. Grade 2 flap valve on retroflexed examination of the cardia. Duodenum: Normal bulb and descending duodenum Intervention: Biopsies as noted above Impression and Post Procedure Diagnosis: Endoscopy Findings: ESOPHAGUS: Mildly tortuous esophagus with increased tertiary contractions without stricture ring. Esophageal balloon dilation of the distal esophagus was performed with a 20 mm (60 F) CRE balloon x 60 seconds Esophageal balloon dilation of the proximal esophagus/cricopharyngeus was performed with an 18 mm (54 F) CRE balloon x 60 seconds After balloon dilation, biopsies were obtained from proximal esophagus to check for EOE. Two 1 cms tongues of suspected Aburto's at GE junction - biopsies obtained for histology and Tissue Cypher. 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 Advise further evaluation with a barium swallow if dysphagia persists post dilation. If biopsies confirm a diagnosis of Aburto's, repeat EGD in 1 year Above findings were reviewed with the patient and relevant handouts were given and the discharge area. BIOPSIES SHOWED: A. Stomach, antrum, biopsy: Gastric antral mucosa with mild reactive gastropathy; negative for Helicobacter pylori, intestinal metaplasia and dysplasia. B. Stomach, polyp, biopsy: Fundic gland polyp; negative for Helicobacter pylori, intestinal metaplasia and dysplasia. C. Gastroesophageal junction, biopsy: Squamocolumnar junctional mucosa with mild chronic inflammation and intestinal metaplasia consistent with Aburto's esophagus; negative for dysplasia (see comment). D. Esophagus, proximal, biopsy: Squamous mucosa within normal limits; negative for intraepithelial eosinophils, fungal organisms and intestinal metaplasia. 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 Clinical and endoscopic correlation is advised BIOPSY Received: 03/09/24 Diagnosis A. Stomach, antrum, biopsy: Gastric antral mucosa with mild reactive gastropathy; negative for Helicobacter pylori, intestinal metaplasia and dysplasia. B. Stomach, polyp, biopsy: Fundic gland polyp; negative for Helicobacter pylori, intestinal metaplasia and dysplasia. C. Gastroesophageal junction, biopsy: Squamocolumnar junctional mucosa with mild chronic inflammation and intestinal metaplasia consistent with Aburto's esophagus; negative for dysplasia (see comment). D. Esophagus, proximal, biopsy: Squamous mucosa within normal limits; negative for intraepithelial eosinophils, fungal organisms and intestinal metaplasia. 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 Clinical and endoscopic correlation is advised TODAY'S VISIT She is quite a bit of hip pain because of the way she had to maneuver during the barium swallow. It was difficult for her to turn on the narrow radiology table and this caused a bit of strain in her hip joints. She understands the reason and she is not bad about it she has walking with a cane now just to be safe and the pain is beginning to dissipate. We review EGD and the barium swallow and I think that her continued trouble in the early pharyngeal phase of swallowing is from esophageal dysmotility. She compensates by taking a pill and tilting her head backwards and this seems to work. I encouraged her to be very careful to avoid choking since is somewhat difficult to treat. Apparently dilating in the proximal in the distal esophagus did not help much. Her diarrhea right now is well controlled on cholestyramine twice a day. She finds that her stools are not hard but more on the soft side and she now gets morning to when she needs to move her bowels so she does not have fecal urgency or. I told her that we can increase the dose by half a scoop during 1 of the days and titrate further if she desires in the future for now she wants to stay where she. She continues on pantoprazole which I escalated her to after the endoscopy since she had some continued mild esophagitis on her EGD. Prior to this she was only taking famotidine twice a day. She takes the pantoprazole in the morning and famotidine at night. She is aware that we will repeat her endoscopy in 2-3 years to survey her Barretts. 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 Spinal stenosis of cervical region with radiculopathy Bilateral hand pain Psoriatic arthritis Hiatal hernia Psoriasis Hyperlipidemia Surgical History Hx of cataract removal with insertion of prosthetic lens History of laminectomy History of colon surgery History of hysterectomy History of cholecystectomy Hx of cataract surgery History of knee replacement Family History Father Dementia Raynauds disease Substance use disorder Mother Rheumatoid arthritis Maternal Grandfather Type 2 diabetes mellitus Sister Mary Carmen's disease Breast cancer Brother Pancreatic cancer Myocardial infarction Sister Lung cancer Paternal Uncle Substance use disorder Paternal Uncle Substance use disorder Paternal Uncle Substance use disorder Son Mental health disorder Social History Household Members: Spouse Housing: House Alcohol intake: former Patient Tobacco Use Status: Never used Tobacco e-Cigarette/Vaping Use: Never Used service: No Current occupational status: retired Cognitive needs: No Hearing needs: No Vision needs: Yes Review of Systems Const Denies fatigue, Denies fever(s), Denies night sweats, Denies poor appetite and Denies weight loss ENT Reports Normal hearing present, Denies dental pain, Reports dysphagia, Denies hearing loss, Denies mouth pain, Denies odynophagia, Denies throat swelling, Denies tongue swelling and Reports other (Dentition adequate) Card Reports no additional complaints Resp Reports no additional complaints GI Details: Denies abdominal pain, Denies melena, Denies bloating, Denies hematochezia, Denies constipation, Denies GI cramping, Reports dysphagia, Denies excessive flatus, Denies early satiety, Reports heartburn, Reports diarrhea, Denies nausea, Denies odynophagia, Denies vomiting and Denies hematemesis Musc Reports abnormal gait and Reports arthralgias Skin/Breast Denies pruritus, Denies lesions, Denies rash and Denies jaundice Neuro Reports Normal hearing present, Denies Abnormal speech present and Reports abnormal gait Endo Denies fatigue Aller/Immun Denies throat swelling and Denies tongue swelling Physical Exam Vital Signs: Last Vital Signs BP 147/65 H 05/12/24 16:16 BMI result Body Mass Index 37.8 Const General: cooperative, no acute distress, well developed and well groomed Nutritional Appearance: well nourished and obese Orientation/consciousness: oriented to person, oriented to place and oriented to time Limitations: No language barrier and ambulation with cane HEENT Head: Yes normocephalic and Yes atraumatic Eyes General: appearance normal, both eyes and all related structures Pupils: Equal, round and reactive pupils present Neck Neck: Yes normal visual inspection and Yes no lymphadenopathy Thyroid: Thyroid normal Resp Effort & Inspection: normal respiratory effort and able to speak in complete sentences Auscultation: clear to auscultation bilaterally Cardio Rate: regular rate Rhythm: regular rhythm Heart sounds: Normal, physiologic split S2 sound present Peripheral pulses: radial pulses present and posterior tibial pulses present GI Inspection: No distended, Yes Abdominal panniculus present and Yes obesity Palpation (GI): Soft to palpation, nontender, no guarding, not rigid and No hepatosplenomegaly present Percussion: Yes normal to percussion Auscultation: normal bowel sounds Rectal Exam - Female: deferred Skin General skin exam: no rashes or lesions noted, turgor normal, skin not dry, no jaundice, No spider nevi and no striae Rashes: no rashes Nails: normal Neuro General: oriented to person, oriented to place and oriented to time Cranial nerves: Yes Equal, round and reactive pupils present and Yes Normal hearing present Speech: No Abnormal speech present Extrem General: Yes normal to inspection, No clubbing, No cyanosis and No edema Psych Appearance: grossly normal and well kempt Mental Status: mental status grossly normal Speech and movement: Normal speech and movement present Affect: normal affect Attitude: cooperative Thought process: Normal thought process present and not confabulating Thought content: Normal thought content present Insight: Fair insight present (Psych) Judgement: Fair judgement present (Psych) Results Reviewed Results Reviewed: Laboratory Tests 03/08/24 03/10/24 10:13 07:30 Stool Calprotectin 10 Stool H. pylori Ag negative Tiss Transglutamin IgG <1.0 Tiss Transglutamin IgA <1.0 Anti-Gliadin IgG Ab <1.0 Gliadin (Deamidat) IgA <1.0 RAST PANEL SHOWS NO SIGNIFICANT FOOD ALLERGIES BARIUM SWALLOW 05/07/24 FINDINGS: Lateral cine images of the oropharynx and hypopharynx demonstrate normal swallow mechanism with normal epiglottic inversion and soft palate elevation. There is trace laryngeal penetration with thick barium. No tracheal penetration, glottic or subglottic aspiration identified. No nasopharyngeal reflux present. Hypopharyngeal structures appear normal without evidence of mass or diverticulum. There is mild cricopharyngeal achalasia present. Dual and single contrast images of the esophagus demonstrate normal caliber, contour, and mucosal pattern. No evidence of stricture, mass, or ulcerations identified. There is to and fro motion of the barium column with nonpropulsive tertiary contractions noted throughout the esophagus. A small type I hiatal hernia is present. Gastroesophageal reflux is observed up to the midesophagus. Dual contrast and single contrast images of the stomach demonstrated a normal contour. Evaluation of the gastric mucosa is somewhat limited due to underdistention of the stomach from poor tolerance of the effervescent granules. The gastric rugal folds have a thickened appearance, which suggests gastritis, however, this may be also due to underdistention of the stomach. No masses are seen. Contrast freely passed into the gastric antrum and duodenal bulb without delay. Single and air-contrast images of the duodenal bulb demonstrate no abnormality. The duodenal sweep has a normal appearance, course, and mucosal fold appearance. The imaged proximal jejunum has a normal fold pattern and caliber. Spinal hardware is present at the level of L4-L5. FLUOROSCOPY TIME: 4 minutes 29 seconds Number of Spot Images: 7 Number of Cine: 15 DOSE AREA PRODUCT: 2496 uGy-m2 (microgray-meter squared) FL/FL barium swallow with air IMPRESSION: 1. Trace tracheal penetration with thick barium. 2. Mild cricopharyngeal achalasia. 3. Esophageal dysmotility. 4. Small type I hiatal hernia with moderate gastroesophageal reflux. 5. Limited evaluation of the gastric mucosa from underdistention of the stomach due to poor tolerance of the effervescent granules. The gastric rugal folds have a thickened appearance, which suggests gastritis, however, this may be also due to underdistention of the stomach. EGD 03/09/24 Findings: Larynx: Normal Esophagus: GE junction at 35 cms. Mildly tortuous esophagus with increased tertiary contractions without stricture ring. Esophageal balloon dilation of the distal esophagus was performed with a 20 mm (60 F) CRE balloon x 60 seconds Esophageal balloon dilation of the proximal esophagus/cricopharyngeus was performed with an 18 mm (54 F) CRE balloon x 60 seconds After balloon dilation, biopsies were obtained from proximal esophagus to check for EOE. Two 1 cms tongues of suspected Aburto's at GE junction - biopsies obtained for histology and Tissue Cypher. No esophagitis, Stomach: A few 5-8 mm benign appearing polyps in the gastric body. Moderate diffuse gastric erythema - biopsies were obtained from the antrum. Grade 2 flap valve on retroflexed examination of the cardia. Duodenum: Normal bulb and descending duodenum Intervention: Biopsies as noted above Impression and Post Procedure Diagnosis: Endoscopy Findings: ESOPHAGUS: Mildly tortuous esophagus with increased tertiary contractions without stricture ring. Esophageal balloon dilation of the distal esophagus was performed with a 20 mm (60 F) CRE balloon x 60 seconds Esophageal balloon dilation of the proximal esophagus/cricopharyngeus was performed with an 18 mm (54 F) CRE balloon x 60 seconds After balloon dilation, biopsies were obtained from proximal esophagus to check for EOE. Two 1 cms tongues of suspected Aburto's at GE junction - biopsies obtained for histology and Tissue Cypher. 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 Advise further evaluation with a barium swallow if dysphagia persists post dilation. If biopsies confirm a diagnosis of Aburto's, repeat EGD in 1 year Above findings were reviewed with the patient and relevant handouts were given and the discharge area. BIOPSIES SHOWED: A. Stomach, antrum, biopsy: Gastric antral mucosa with mild reactive gastropathy; negative for Helicobacter pylori, intestinal metaplasia and dysplasia. B. Stomach, polyp, biopsy: Fundic gland polyp; negative for Helicobacter pylori, intestinal metaplasia and dysplasia. C. Gastroesophageal junction, biopsy: Squamocolumnar junctional mucosa with mild chronic inflammation and intestinal metaplasia consistent with Aburto's esophagus; negative for dysplasia (see comment). D. Esophagus, proximal, biopsy: Squamous mucosa within normal limits; negative for intraepithelial eosinophils, fungal organisms and intestinal metaplasia. 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 Clinical and endoscopic correlation is advised BIOPSY Received: 03/09/24 Diagnosis A. Stomach, antrum, biopsy: Gastric antral mucosa with mild reactive gastropathy; negative for Helicobacter pylori, intestinal metaplasia and dysplasia. B. Stomach, polyp, biopsy: Fundic gland polyp; negative for Helicobacter pylori, intestinal metaplasia and dysplasia. C. Gastroesophageal junction, biopsy: Squamocolumnar junctional mucosa with mild chronic inflammation and intestinal metaplasia consistent with Aburto's esophagus; negative for dysplasia (see comment). D. Esophagus, proximal, biopsy: Squamous mucosa within normal limits; negative for intraepithelial eosinophils, fungal organisms and intestinal metaplasia. 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 Clinical and endoscopic correlation is advised Assessment & Plan Assessment & Plan (1) Oropharyngeal dysphagia: Code(s): R13.12 - Dysphagia, oropharyngeal phase Category: Medical (2) Diarrhea: Code(s): R19.7 - Diarrhea, unspecified Category: Medical (3) GERD (gastroesophageal reflux disease): Code(s): K21.9 - Gastro-esophageal reflux disease without esophagitis Category: Medical Plan She is quite a bit of hip pain because of the way she had to maneuver during the barium swallow. It was difficult for her to turn on the narrow radiology table and this caused a bit of strain in her hip joints. She understands the reason and she is not bad about it she has walking with a cane now just to be safe and the pain is beginning to dissipate. We review EGD and the barium swallow and I think that her continued trouble in the early pharyngeal phase of swallowing is from esophageal dysmotility. She compensates by taking a pill and tilting her head backwards and this seems to work. I encouraged her to be very careful to avoid choking since is somewhat difficult to treat. Apparently dilating in the proximal in the distal esophagus did not help much. Her diarrhea right now is well controlled on cholestyramine twice a day. She finds that her stools are not hard but more on the soft side and she now gets morning to when she needs to move her bowels so she does not have fecal urgency or. I told her that we can increase the dose by half a scoop during 1 of the days and titrate further if she desires in the future for now she wants to stay where she. She continues on pantoprazole which I escalated her to after the endoscopy since she had some continued mild esophagitis on her EGD. Prior to this she was only taking famotidine twice a day. She takes the pantoprazole in the morning and famotidine at night. She is aware that we will repeat her endoscopy in 2-3 years to survey her Barretts. Return office visit in 6 months Medications: Refilled pantoprazole (Protonix) 40 mg PO DAILY 30 days 30 tabs 6RF K21.9 - Gastro-esophageal reflux disease without esophagitis, R13.12 - Dysphagia, oropharyngeal phase Coding Level of Care Code Est Pt Level 4 (84649) Diagnoses Oropharyngeal dysphagia R13.12 Diarrhea R19.7 GERD (gastroesophageal reflux disease) K21.9 Time Spent (min) 32
== END 2024-05-12 16:53 | disposition home or self-care (01) ==
PROVIDERS: PCP Nurse Practitioner Primary Care; Visit Provider Nurse Practitioner
DX: R13.12 Dysphagia, oropharyngeal phase (principal); R19.7 Diarrhea, unspecified; K21.9 Gastro-esophageal reflux disease without esophagitis
CPT/HCPCS: 99214

== ENCOUNTER → 2024-05-12 16:14 | Outpatient (BNVA) | payer MEDICARE, SELFPAY | PROVIDERS: PCP Nurse Practitioner Primary Care; Visit Provider Nurse Practitioner | DX: R13.12 Dysphagia, oropharyngeal phase (principal); R19.7 Diarrhea, unspecified; K21.9 Gastro-esophageal reflux disease without esophagitis | CPT/HCPCS: 99212 ==

== ENCOUNTER 2024-05-17 13:26 | Outpatient (AMB) | payer MEDICARE, SELFPAY ==
--- NOTE | 2024-05-17 13:42 | AM.OFFWIN_ITS ---
Intake Vital Signs 05/17/24 13:43 Height 5 ft Weight 194 lb BMI 37.9 BP 138/66 Blood Pressure Location Lt brachial Position Sitting Pulse 66 Pulse Source Pulse Oximeter Temp 98.3 F Temp Source Oral Pulse Oximetry (%) 98 Oxygen Delivery Method Room Air Intake Visit Reasons: EP- RT hip pain Intake Note: pt c/o RT hip pain. Started 05/06. Pulled something Patient Tobacco Use Status: Never used Tobacco Allergies lidocaine [From Aspercreme (lidocaine HCl)] Allergy (Intermediate, Verified 05/17/24 13:43) Rash celecoxib [From Celebrex] Allergy (Mild, Verified 05/17/24 13:43) PALPITATIONS levofloxacin [From Levaquin] Allergy (Mild, Verified 05/17/24 13:43) VOMITNG/JITTERY zolpidem [From Ambien] Allergy (Mild, Verified 05/17/24 13:43) HIVES/RASH/ITCH acetaminophen [From Vicodin] Allergy (Verified 05/17/24 13:43) Abdominal Pain adhesive tape Allergy (Verified 05/17/24 13:43) Rash cholestyramine [From Questran] Allergy (Verified 05/17/24 13:43) Unknown gemfibrozil [From Lopid] Allergy (Verified 05/17/24 13:43) Nausea hydrocodone [From Vicodin] Allergy (Verified 05/17/24 13:43) Abdominal Pain indomethacin Allergy (Verified 05/17/24 13:43) Nausea ketoprofen Allergy (Verified 05/17/24 13:43) Chest Pain lisinopril Allergy (Verified 05/17/24 13:43) Nausea naproxen Allergy (Verified 05/17/24 13:43) Abdominal Pain NSAIDS (Non-Steroidal Anti-Inflamma Allergy (Verified 05/17/24 13:43) Abdominal Pain sucrose [From Questran] Allergy (Verified 05/17/24 13:43) Unknown diazepam [From Valium] Adverse Reaction (Mild, Verified 05/17/24 13:43) HYPERACTIVE pravastatin [Pravastatin] Adverse Reaction (Mild, Verified 05/17/24 13:43) MUSCLE AND LEG PAIN gabapentin Adverse Reaction (Verified 05/17/24 13:43) Headache zinc Adverse Reaction (Verified 05/17/24 13:43) Vomiting Do you need a note to return to daycare/school/sports/work: No HPI EP- RT hip pain HPI Details This note is constructed using voice recognition software. While every effort has been made to ensure accuracy, calender supervisor errors may have been included. The patient is a 83 year old female who presents to the clinic today with right hip pain for the past 11 days. She reports she had a barium swallow, which required her to turn several different times on a table and then climb off of it. She reports that the pain was initially point on the hip but has since radiated outward and down to the knee. She has been treated chronically on tramadol for back pain, and took an extra dose to help. She uses diclofenac topical for symptoms, as she is unable to tolerate oral NSAIDs. Tyelnol is ineffective. FORMERLY [facility], [facility]–1983 Medical History (Updated 04/13/24 @ 13:22 by NOA Rothman) Physical exam Chronic back pain Chronic neck pain Difficulty swallowing Upper respiratory infection Polyarthralgia Osteoarthritis Chronic pain TMJ (dislocation of temporomandibular joint) Elevated uric acid in blood 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 Spinal stenosis of cervical region with radiculopathy Bilateral hand pain Psoriatic arthritis Hiatal hernia Psoriasis Hyperlipidemia Surgical History Hx of cataract removal with insertion of prosthetic lens History of laminectomy History of colon surgery History of hysterectomy History of cholecystectomy Hx of cataract surgery History of knee replacement Family History Father Dementia Raynauds disease Substance use disorder Mother Rheumatoid arthritis Maternal Grandfather Type 2 diabetes mellitus Sister Mary Carmen's disease Breast cancer Brother Pancreatic cancer Myocardial infarction Sister Lung cancer Paternal Uncle Substance use disorder Paternal Uncle Substance use disorder Paternal Uncle Substance use disorder Son Mental health disorder Social History Household Members: Spouse Housing: House Alcohol intake: former Patient Tobacco Use Status: Never used Tobacco e-Cigarette/Vaping Use: Never Used service: No Current occupational status: retired Cognitive needs: No Hearing needs: No Vision needs: Yes Review of Systems Const All systems reviewed & are unremarkable except as noted in HPI and below Physical Exam Vital Signs: Last Vital Signs Temp 98.3 F 05/17/24 13:43 Pulse 66 05/17/24 13:43 BP 138/66 05/17/24 13:43 Pulse Ox 98 05/17/24 13:43 Oxygen Delivery Method Room Air 05/17/24 13:43 BMI result Body Mass Index 37.9 Const General: cooperative, healthy appearing, comfortable, no acute distress and alert Orientation/consciousness: patient oriented x3 Limitations: no limitations Skin General skin exam: no rashes or lesions noted, elasticity normal and turgor normal Neuro General: patient oriented x3 Extrem Other: Right hip tender down IT band. Reduced abduction and adduction due to pain. Flexion/extension reduced due to pain. Ambulates with antalgic gait using cane. No erythema, warmth, or edema. Intact distal neurovascular exam. General: Yes normal to inspection, Yes capillary refill normal and Yes normal exam except as noted Psych Appearance: grossly normal Mental Status: mental status grossly normal Speech and movement: Normal speech and movement present Affect: normal affect Assessment & Plan Assessment & Plan (1) IT band syndrome: Code(s): M76.30 - Iliotibial band syndrome, unspecified leg Qualifiers: Laterality: right Qualified Code(s): M76.31 - Iliotibial band syndrome, right leg Plan: Prednisone sent for anti-inflammatory effects. Advised rest, heat and gentle stretches. Advised follow up with pcp with failure to resolve or worsening symptoms. imaging not appropriate at this time due to nature of injury. Plan See above for full details and plan. Medications: New prednisone 40 mg (2 x 20 mg) PO DAILY 3 days 6 tabs 0RF Coding Level of Care Code Est Pt Level 3 (55060) Diagnoses Iliotibial band syndrome of right side M76.31 Laterality: right
[2024-05-17 13:43] VITALS: BP 138/66; PULSE 66; TEMP 36.8; O2SAT 98; BMI 37.9
== END 2024-05-17 14:28 | disposition home or self-care (01) ==
PROVIDERS: PCP Nurse Practitioner Primary Care; Visit Provider Registered Nurse
DX: M76.31 Iliotibial band syndrome, right leg (principal)
CPT/HCPCS: 99213

== ENCOUNTER 2024-06-14 14:31 | Outpatient (AMB) | payer MEDICARE, SELFPAY ==
--- NOTE | 2024-06-14 14:33 | AM.OFFWIN_ITS ---
Intake Vital Signs 06/14/24 14:36 Height 5 ft Weight 194 lb BMI 37.9 BP 138/66 Blood Pressure Location Lt brachial Position Sitting Pulse 85 Pulse Source Pulse Oximeter Temp 98.0 F Temp Source Oral Pulse Oximetry (%) 96 Oxygen Delivery Method Room Air Intake Visit Reasons: EP LT leg pain, Rt rib pain Intake Note: pt c/o LT hip/leg pain/RT rib pain. Started 3 weeks ago Patient Tobacco Use Status: Never used Tobacco Allergies lidocaine [From Aspercreme (lidocaine HCl)] Allergy (Intermediate, Verified 06/14/24 14:35) Rash celecoxib [From Celebrex] Allergy (Mild, Verified 06/14/24 14:35) PALPITATIONS levofloxacin [From Levaquin] Allergy (Mild, Verified 06/14/24 14:35) VOMITNG/JITTERY zolpidem [From Ambien] Allergy (Mild, Verified 06/14/24 14:35) HIVES/RASH/ITCH acetaminophen [From Vicodin] Allergy (Verified 06/14/24 14:35) Abdominal Pain adhesive tape Allergy (Verified 06/14/24 14:35) Rash cholestyramine [From Questran] Allergy (Verified 06/14/24 14:35) Unknown gemfibrozil [From Lopid] Allergy (Verified 06/14/24 14:35) Nausea hydrocodone [From Vicodin] Allergy (Verified 06/14/24 14:35) Abdominal Pain indomethacin Allergy (Verified 06/14/24 14:35) Nausea ketoprofen Allergy (Verified 06/14/24 14:35) Chest Pain lisinopril Allergy (Verified 06/14/24 14:35) Nausea naproxen Allergy (Verified 06/14/24 14:35) Abdominal Pain NSAIDS (Non-Steroidal Anti-Inflamma Allergy (Verified 06/14/24 14:35) Abdominal Pain sucrose [From Questran] Allergy (Verified 06/14/24 14:35) Unknown diazepam [From Valium] Adverse Reaction (Mild, Verified 06/14/24 14:35) HYPERACTIVE pravastatin [Pravastatin] Adverse Reaction (Mild, Verified 06/14/24 14:35) MUSCLE AND LEG PAIN gabapentin Adverse Reaction (Verified 06/14/24 14:35) Headache zinc Adverse Reaction (Verified 06/14/24 14:35) Vomiting Do you need a note to return to daycare/school/sports/work: No HPI HPI Comments History of Present Illness Details Patient is an 83-year-old female complaining of bilateral low back pain that shoots down the back of both of her legs. She also has pain on the sides of both of her hips as well as a pain in between the bottom of her right ribs and her right hip bone. She says if she pushes on the area actually feels better. She denies any changes in her bowel habits. She tells me she was evaluated at this clinic on May 17, diagnosed with ID band syndrome, told to stretch adn was given 3 days of prednisone which she took but did not help her pain. She states she is on tramadol chronically for back pain and NSAIDs make her stomach upset. She says she has been taking Tylenol with no relief [facility] Medical History (Updated 06/14/24 @ 15:40 by Charmaine Bush PA-C) Physical exam Chronic back pain Chronic neck pain Difficulty swallowing Upper respiratory infection Polyarthralgia Osteoarthritis Chronic pain TMJ (dislocation of temporomandibular joint) Elevated uric acid in blood 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 Spinal stenosis of cervical region with radiculopathy Bilateral hand pain Psoriatic arthritis Hiatal hernia Psoriasis Hyperlipidemia Surgical History Hx of cataract removal with insertion of prosthetic lens History of laminectomy History of colon surgery History of hysterectomy History of cholecystectomy Hx of cataract surgery History of knee replacement Family History Father Dementia Raynauds disease Substance use disorder Mother Rheumatoid arthritis Maternal Grandfather Type 2 diabetes mellitus Sister Mary Carmen's disease Breast cancer Brother Pancreatic cancer Myocardial infarction Sister Lung cancer Paternal Uncle Substance use disorder Paternal Uncle Substance use disorder Paternal Uncle Substance use disorder Son Mental health disorder Social History Household Members: Spouse Housing: House Alcohol intake: former Patient Tobacco Use Status: Never used Tobacco e-Cigarette/Vaping Use: Never Used service: No Current occupational status: retired Cognitive needs: No Hearing needs: No Vision needs: Yes Review of Systems Const All systems reviewed & are unremarkable except as noted in HPI and below Physical Exam Vital Signs: Last Vital Signs Temp 98.0 F 06/14/24 14:36 Pulse 85 06/14/24 14:36 BP 138/66 06/14/24 14:36 Pulse Ox 96 06/14/24 14:36 Oxygen Delivery Method Room Air 06/14/24 14:36 BMI result Body Mass Index 37.9 Const General: cooperative, healthy appearing and comfortable Orientation/consciousness: patient oriented x3 HEENT Head: Yes normal to inspection and Yes normocephalic General nose exam: Normal external nose present Face and sinus: Yes normal facial exam Eyes General: appearance normal, both eyes and all related structures Resp Effort & Inspection: normal respiratory effort and able to speak in complete sentences Back/Spine/Pelvis Other: TTP on left hip bursa, TTP on right hip bursa Cervical Spine: cervical ROM normal and No Cervical spine tenderness Thoracic/Lumbar Spine: thoracic and lumbar spine normal to inspection, No thoracic spinal tenderness and No lumbar spinal tenderness Neuro General: patient oriented x3 Assessment & Plan Assessment & Plan (1) Sciatica: Code(s): M54.30 - Sciatica, unspecified side Qualifiers: Laterality: bilateral Qualified Code(s): M54.31 - Sciatica, right side; M54.32 - Sciatica, left side Plan: Sent a 5 day burst of prednisone to her pharmacy, recommended she stop taking the Tylenol because it would be more beneficial if she could try Aleve around the clock for the next 3-4 days with the prednisone for its anti-inflammatory effects. Recommended she take it with food so it lessens her GI symptoms. She should also be icing the areas. As she has not seen Dr. Amado for a new PCP appointment yet, but used to see Jesus Mcgovern NP, I will send a message to see if she could have a follow up with Dr. Amado in a couple of weeks to see how she is doing in case she needs physical therapy or further imaging (2) Bilateral hip bursitis: Code(s): M70.71 - Other bursitis of hip, right hip; M70.72 - Other bursitis of hip, left hip Qualifiers: Hip bursitis location: trochanteric bursitis Qualified Code(s): M70.61 - Trochanteric bursitis, right hip; M70.62 - Trochanteric bursitis, left hip Plan: Physical exam revealed bilateral tenderness to the bursa on each hip, the plan above we will also address this issue. Recommended patient ice the bursa area for each hip as much as possible. Plan See above Medications: New prednisone 40 mg (2 x 20 mg) PO DAILY 10 tabs 0RF Coding Level of Care Code Est Pt Level 4 (07830) Diagnoses Bilateral sciatica M54.31; M54.32 Laterality: bilateral Trochanteric bursitis of both hips M70.61; M70.62 Hip bursitis location: trochanteric bursitis
[2024-06-14 14:36] VITALS: BP 138/66; PULSE 85; TEMP 36.7; O2SAT 96; BMI 37.9
== END 2024-06-14 15:39 | disposition home or self-care (01) ==
PROVIDERS: PCP Nurse Practitioner Primary Care; Visit Provider Physician Assistant
DX: M54.31 Sciatica, right side (principal); M54.32 Sciatica, left side; M70.61 Trochanteric bursitis, right hip; M70.62 Trochanteric bursitis, left hip

== ENCOUNTER → 2024-06-14 14:31 | Outpatient (BNVA) | payer MEDICARE, SELFPAY | PROVIDERS: PCP Nurse Practitioner Primary Care | DX: M54.31 Sciatica, right side (principal); M54.32 Sciatica, left side; M70.61 Trochanteric bursitis, right hip; M70.62 Trochanteric bursitis, left hip | CPT/HCPCS: 99212 ==

== ENCOUNTER 2024-06-22 09:02 | Outpatient (AMB) | payer MEDICARE, SELFPAY ==
[2024-06-22 09:07] VITALS: BP 132/60; PULSE 93; O2SAT 97; BMI 37.5
--- NOTE | 2024-06-22 09:07 | A.OFFPC_ITS ---
Vital Signs 06/22/24 09:07 Height 5 ft Weight 192 lb BMI 37.5 BP 132/60 Blood Pressure Location Lt brachial Position Sitting Pulse 93 Pulse Source Pulse Oximeter Pulse Oximetry (%) 97 Oxygen Delivery Method Room Air Intake Visit Reasons: horta from [facility] f/[facility] walkin request rx for tramadol Intake Note: Pt is here today transfer from [facility] from [place] and request a rx for tramadol Allergies lidocaine [From Aspercreme (lidocaine HCl)] Allergy (Intermediate, Verified 06/22/24 09:37) Rash celecoxib [From Celebrex] Allergy (Mild, Verified 06/22/24 09:37) PALPITATIONS levofloxacin [From Levaquin] Allergy (Mild, Verified 06/22/24 09:37) VOMITNG/JITTERY zolpidem [From Ambien] Allergy (Mild, Verified 06/22/24 09:37) HIVES/RASH/ITCH acetaminophen [From Vicodin] Allergy (Verified 06/22/24 09:37) Abdominal Pain adhesive tape Allergy (Verified 06/22/24 09:37) Rash cholestyramine [From Questran] Allergy (Verified 06/22/24 09:37) Unknown gemfibrozil [From Lopid] Allergy (Verified 06/22/24 09:37) Nausea hydrocodone [From Vicodin] Allergy (Verified 06/22/24 09:37) Abdominal Pain indomethacin Allergy (Verified 06/22/24 09:37) Nausea ketoprofen Allergy (Verified 06/22/24 09:37) Chest Pain lisinopril Allergy (Verified 06/22/24 09:37) Nausea naproxen Allergy (Verified 06/22/24 09:37) Abdominal Pain NSAIDS (Non-Steroidal Anti-Inflamma Allergy (Verified 06/22/24 09:37) Abdominal Pain sucrose [From Questran] Allergy (Verified 06/22/24 09:37) Unknown diazepam [From Valium] Adverse Reaction (Mild, Verified 06/22/24 09:37) HYPERACTIVE pravastatin [Pravastatin] Adverse Reaction (Mild, Verified 06/22/24 09:37) MUSCLE AND LEG PAIN gabapentin Adverse Reaction (Verified 06/22/24 09:37) Headache zinc Adverse Reaction (Verified 06/22/24 09:37) Vomiting Medication List - Last Reconciled 06/22/24 by Siena Amado MD amlodipine 10 mg PO DAILY ascorbic acid (vitamin C) 500 mg PO DAILY B-complex with vitamin C 1 cap PO DAILY calcium carbonate-vitamin D3 600 mg-20 mcg (800 unit) (Caltrate 600 plus D) 1 tab PO DAILY cholestyramine (with sugar) 4 gram 4 grams PO BID clobetasol 0.05% 1 appl topical BID diclofenac sodium 1% 2 grams topical QID famotidine 20 mg PO DAILY fluoride (sodium) 1.1% 1 appl PO DAILY qajfpqud-ucx-rjfyf-hem303-uuxu 500-500-66.7 mg (Nkzmgveekzg-Uysbzruadwf-YDU (with antiox)) tabs PO hydrochlorothiazide 25 mg PO QAM miconazole nitrate 2% 1 appl topical DAILY cqbakmac-kah-bonx-FA-vit K-lut 8 mg iron-400 mcg-50 mcg (Centrum Silver Women) 1 tab PO DAILY ondansetron 4 mg PO Q6-8H PRN pantoprazole (Protonix) 40 mg PO DAILY 30 days propylene glycol 0.6% (Systane Balance) 1 drp ophthalmic (eye) DAILY psyllium husk (Metamucil) 0.4 grams PO QDAY tramadol 50 mg PO BID PRN valsartan 320 mg PO DAILY Tobacco use date assessed: 06/22/24 Fall risk assessment: No Falls in past year Last assessed Fall Risk: 06/22/24 Dental Screening Dental Screen Date: 06/22/24 Did you have a dental visit in the last 12 months?: No Did you have a dental problem in the last 6 months where you did not have access to dental care?: No Was dental information given to patient?: No HPI horta from [facility] request rx for tramadol HPI Details 83-year-old lady, due to me establishing care with new PCP, here today complaining of pain in both hips,left more than right and chronic low back pain. She was recently seen at the walk-in clinic about a week ago complaining of bilateral low back pain that shoots down the back of both of her legs. She also has pain on the sides of both of her hips. She says if she pushes on the area actually feels better. She denies any changes in her bowel habits. She was given 5 days of 40 mg prednisone taken once a day which she states has not helped and made her very jittery. She states she is on tramadol chronically for back pain and NSAIDs make her stomach upset. She says she has been taking Tylenol with no relief Patient moved here from [place] where she was under care of pain management and had undergone treatment for her lumbar spine including 2 sets of diagnostic medial branch blocks followed by lumbar radiofrequency ablation. She reports that her lower back pain has been under control since then, with occasional flare-ups. The RFA was completed September of 2022. She is currently being seen by pain management for her cervical neck pain, which has not been relieved with physical therapy, topical diclofenac gel or Tylenol . She states that she was on chronic tramadol use while in [place] and that was the only thing that made her pain manageable. Was unable to tolerate NSAIDs due to gastric irritation . She was seen by Dr. Mcclellan for evaluation of diagnostic C4-C5 C6 medial branch block which was performed on her on 12/23/2023, with good results. [facility] Medical History Chronic low back pain Hip pain, chronic Physical exam Chronic back pain Chronic neck pain Difficulty swallowing Upper respiratory infection Polyarthralgia Osteoarthritis Chronic pain TMJ (dislocation of temporomandibular joint) Elevated uric acid in blood 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 Spinal stenosis of cervical region with radiculopathy Bilateral hand pain Psoriatic arthritis Hiatal hernia Psoriasis Hyperlipidemia Surgical History Hx of cataract removal with insertion of prosthetic lens History of laminectomy History of colon surgery History of hysterectomy History of cholecystectomy Hx of cataract surgery History of knee replacement Family History Father Dementia Raynauds disease Substance use disorder Mother Rheumatoid arthritis Maternal Grandfather Type 2 diabetes mellitus Sister Mary Carmen's disease Breast cancer Brother Pancreatic cancer Myocardial infarction Sister Lung cancer Paternal Uncle Substance use disorder Paternal Uncle Substance use disorder Paternal Uncle Substance use disorder Son Mental health disorder Social History Household Members: Spouse Housing: House Alcohol intake: former Patient Tobacco Use Status: Never used Tobacco e-Cigarette/Vaping Use: Never Used service: No Current occupational status: retired Cognitive needs: No Hearing needs: No Vision needs: Yes Questionnaire PHQ-9 Over the last 2 weeks, how often have you been bothered by any of the following problems? 1. Little interest or pleasure in doing things: several days 2. Feeling down, depressed, or hopeless: not at all 3. Trouble falling or staying asleep, or sleeping too much: more than half the days 4. Feeling tired or having little energy: several days 5. Poor appetite or overeating: not at all 6. Feeling bad about yourself - or that you are a failure or have let yourself or your family down: not at all 7. Trouble concentrating on things, such as reading the newspaper or watching television: not at all 8. Moving or speaking so slowly that other people could have noticed. Or the opposite - being so fidgety or restless that you have been moving around a lot more than usual: not at all 9. Thoughts that you would be better off or of hurting yourself in some way: not at all Total score: 4 Depression Screening Interpretation: Negative Depression Screening Done: Yes 67770 - PHQ-9 Billing: Yes Source: Developed by Drs. Tc Ferrer, Ryann Sanchez, Berto Barron and colleagues, with an educational rosemarie from [employer]. Thrive Questionnaire Date Thrive assessed: 06/22/24 I am a: Patient What is your living situation today?: I have a steady place to live Within the past 12 months, did the food you bought not last and you didn't have the money to get more?: Never true Within the past 12 months, did you worry whether your food would run out before you got money to buy more?: Never true Do you have trouble paying for medicines?: No Do you have trouble getting transportation to medical appointments?: No Do you have trouble paying your heating and electricity bill?: No Do you have trouble taking care of your child, family member or friend?: No Do you have trouble with day-to-day activities such as bathing, preparing meals, shopping, managing finances, etc.?: No Are you interested in more education?: No Please select the resources that you would like help with: None Currently or been in a relationship where the following occur: No concerns reported THRIVE Score: 0 AUDIT C Alcohol Use Questionnaire (AUDIT-C) 1. How often do you have a drink containing alcohol?: Never Total Score: 0 CASI-7 AMB Questionnaire CASI-7 Date CASI - 7 assessed: 06/22/24 Feeling nervous, anxious, or on edge: 0 = Not at all Not being able to stop or control worryin = Not at all Worrying too much about different things: 0 = Not at all Trouble relaxin = Not at all Being so restless that it is hard to sit still: 0 = Not at all Becoming easily annoyed or irritable: 0 = Not at all Feeling afraid as if something awful might happen: 0 = Not at all Total CASI-7 score (0-4 normal; 5-9 mild; 10-14 moderate; 15-21 severe): 0 Source: Developed by Drs. Tc Ferrer, Ryann Sanchez, Berto Barron and colleagues, with an educational rosemarie from [employer]. CASI-7 Assessment Billing CASI-7 Assessment Tool: CASI-7 Assessment 01424 Review of Systems Const All systems reviewed & are unremarkable except as noted in HPI and below Physical exam (Primary Care) Vital Signs: Last Vital Signs Pulse 93 06/22/24 09:07 BP 132/60 06/22/24 09:07 Pulse Ox 97 06/22/24 09:07 Oxygen Delivery Method Room Air 06/22/24 09:07 BMI result Body Mass Index 37.5 Tobacco/Smoking Status: Tobacco use Status Tobacco use date assessed 06/22/24 06/22/24 09:13 Patient Tobacco Use Status Never used Tobacco 06/22/24 09:13 e-Cigarette/Vaping Use Never Used 06/22/24 09:13 PHQ-9: PHQ-9 Score PHQ-9: Total score 4 06/24/24 15:18 Depression Screening Interpretation: Negative Thrive Assessment: Date of Thrive Assessment Date Thrive assessed 06/22/24 06/22/24 09:13 Currently or been in a relationship where the following occur: No concerns reported Const General: comfortable, no acute distress and Physically active Orientation/consciousness: patient oriented x3 Neck Neck: Yes full ROM, Yes no lymphadenopathy and Yes supple Resp Auscultation: clear to auscultation bilaterally Cardio Rate: regular rate Rhythm: regular rhythm Heart sounds: S1 normal heart sound present, S2 normal heart sound present and no murmurs GI Palpation (GI): Soft to palpation, nontender, no guarding and no masses Auscultation: normal bowel sounds Back/Spine/Pelvis Thoracic/Lumbar Spine: straight leg raise negative bilaterally and paraspinal muscle tenderness bilaterally in the lower lumbar Skin General skin exam: no rashes or lesions noted Neuro General: patient oriented x3, gait normal, moves all extremities and no focal motor deficits Gait exam (Neuro): Normal gait present Extrem General: Yes full ROM, Yes no joint enlargement, Yes no clubbing, cyanosis or edema and Yes normal gait Coding Level of Care Code Est Pt Level 4 (40445) Diagnoses Chronic midline low back pain without sciatica M54.50; G89.29 Back pain laterality: midline Sciatica presence: without sciatica Chronic left hip pain M25.552; G89.29 Laterality: left Trochanteric bursitis of both hips M70.61; M70.62 Hip bursitis location: trochanteric bursitis Additional Codes CASI-7 Assessment Billing - CASI-7 Assessment Tool: CASI-7 Assessment 87163 ([id number]) Assessment & Plan Assessment & Plan (1) Chronic low back pain: Code(s): M54.50 - Low back pain, unspecified; G89.29 - Other chronic pain Category: Medical Qualifiers: Back pain laterality: midline Sciatica presence: without sciatica Qualified Code(s): M54.50 - Low back pain, unspecified; G89.29 - Other chronic pain Plan: Prescription sent for tramadol 50 mg per tablet to take 1 tablet twice a day as needed only for severe pain, patient currently followed at [facility] pain clinic (2) Hip pain, chronic: Code(s): M25.559 - Pain in unspecified hip; G89.29 - Other chronic pain Category: Medical Qualifiers: Laterality: left Qualified Code(s): M25.552 - Pain in left hip; G89.29 - Other chronic pain Plan: Ordered x-ray of both hips, orthopedic referral ordered (3) Bilateral hip bursitis: Code(s): M70.71 - Other bursitis of hip, right hip; M70.72 - Other bursitis of hip, left hip Category: Medical Qualifiers: Hip bursitis location: trochanteric bursitis Qualified Code(s): M70.61 - Trochanteric bursitis, right hip; M70.62 - Trochanteric bursitis, left hip Plan: Bilateral hip x-ray ordered, referred to orthopedics for further evaluation and management, multi prescription for tramadol given 50 mg per tablet to take 1 tablet no more than twice a day as needed only for severe pain. Orders: Orders XR hip BI w PEL1V 06/22/24 M25.559 - Pain in unspecified hip, G89.29 - Other chronic pain, M54.50 - Low back pain, unspecified Referrals Orthopedics Referral M25.559 - Pain in unspecified hip, G89.29 - Other chronic pain, M70.61 - Trochanteric bursitis, right hip, M70.62 - Trochanteric bursitis, left hip Medications: Refilled tramadol 50 mg PO BID PRN 60 tabs 0RF pain
== END 2024-06-22 10:44 | disposition home or self-care (01) ==
PROVIDERS: PCP Nurse Practitioner Primary Care; Visit Provider Internal Medicine
DX: M54.50 Low back pain, unspecified (principal); G89.29 Other chronic pain; M25.552 Pain in left hip; M70.61 Trochanteric bursitis, right hip; M70.62 Trochanteric bursitis, left hip

== ENCOUNTER → 2024-06-22 09:02 | Outpatient (BNVA) | payer MEDICARE, SELFPAY | PROVIDERS: PCP Nurse Practitioner Primary Care; Visit Provider Internal Medicine ==

== ENCOUNTER 2024-06-22 09:33 | Outpatient (REF) | payer MEDICARE, SELFPAY ==
--- NOTE | ~2024-06-22 | XR_ITS ---
EXAMINATION: XR BILATERAL HIPS WITH AP PELVIS CLINICAL INFORMATION: Pain in the hip. COMPARISON: None available. TECHNIQUE: AP of the pelvis and AP and lateral views of each hip. FINDINGS: Right hip: Hip joint space is normal surrounding bone normal. Arterial calcification incidentally noted. Left hip: Joint space normal surrounding bone normal. Arterial calcification noted. Pelvis: Hips as above. Remaining bone and joints in the pelvis normal. Postsurgical changes in the pelvis with staple line noted. Postsurgical changes in the lower lumbosacral spine. XR/XR hip BI w PEL1V IMPRESSION: RIGHT HIP: Normal. LEFT HIP: Normal. PELVIS: Calcific atherosclerotic changes noted bilaterally. Postsurgical change. Electronically signed by: Jd Gonzales MD 06/28/2024 02:28 PM EDT RP
--- NOTE | ~2024-06-22 | XR_ITS ---
EXAMINATION: XR LUMBOSACRAL SPINE CLINICAL INFORMATION: M25.559 - Pain in unspecified hip . Back pain, History of fusion of L3-4 and L4-5. COMPARISON: None available. TECHNIQUE: AP, lateral, coned-down lateral, and both oblique views of the lumbosacral spine. FINDINGS: There is diffuse osteopenia. There is a moderate to severe levoconvex scoliosis of the lumbar spine, apex at L3-4. Estimated Mcgraw angle is 46 degrees. There is straightening of the normal lordosis, nonspecific. No compression deformities, acute fracture, or suspicious bone lesions. Severe disc degeneration with disc vacuum phenomenon is present throughout the lumbar spine including T12-L1. Associated sclerotic endplate changes are present at multiple levels. Hypertrophic severe facet disease noted throughout, most significant at L3-S1. There is been discectomy and fusion of L4-5 with disc graft and prosthesis present. There has been interspinous fusion with device at L5-S1. Both prostheses appear normally positioned as expected. No complications. There is a grade 1 anterolisthesis of L4 on L5. Alignment is otherwise grossly anatomic in the AP direction. No significant lateral subluxations. Oblique views are of limited value given degree of degenerative change and scoliosis. Grossly no pars defects seen. Soft tissues demonstrate diffuse vascular calcifications and cholecystectomy clips. There are anastomotic chain sutures in the central pelvis. XR/XR lumbar spine 4V min IMPRESSION: 1. Moderate to severe levoconvex scoliosis at 46 degrees, straightening of the normal lordosis, and multilevel moderate to severe spondylosis. 2. Fusion of L4-5 with disc graft without complication. 3. Fusion of L5-S1 with posterior interspinous fusion device. No complication seen. 4. Grade 1 anterolisthesis L4 on L5. Electronically signed by: Migue Grijalva MD 08/29/2024 04:21 PM [facility]
== END 2024-06-22 09:34 | disposition home or self-care (01) ==
LOC: HO.HMGCX 09:33
PROVIDERS: PCP Internal Medicine; Visit Provider Internal Medicine
DX: M54.50 Low back pain, unspecified (principal); G89.29 Other chronic pain; M25.551 Pain in right hip; M25.552 Pain in left hip; M70.61 Trochanteric bursitis, right hip; M70.62 Trochanteric bursitis, left hip
CPT/HCPCS: 72110; 73521; 96127; 99212

== ENCOUNTER → 2024-06-22 09:38 | Outpatient (BNV) | payer MEDICARE, SELFPAY | PROVIDERS: PCP Internal Medicine; Visit Provider Radiology Diagnostic Radiology | DX: M54.50 Low back pain, unspecified (principal) | CPT/HCPCS: 72110 ==

== ENCOUNTER 2024-07-19 10:44 | Outpatient (AMB) | payer MEDICARE, SELFPAY ==
--- NOTE | 2024-07-19 11:04 | A.OFFVIS_ITS ---
Vital Signs 07/19/24 11:05 Height 5 ft Weight 192 lb BMI 37.5 Intake Visit Reasons: TELEMETRY TECH- B/L Hip Trochanteric bursitis Intake Note: Fallon is an 83 year old female who presents today as a new patient with complaints of bilateral hip pain. Patient reports that she has had ongoing bilateral hip pain since about April. She reports that she has utilized ice and heat application for her symptoms which was only mildly helpful. She was seen at a walk in clinic for the right where she was told that she had IT Band Syndrome, as the right hip began to improve the left hip flaired up. She was told that she had bursitis and was placed on a Steroid pack which did help. Currently she has mild pain, mostly complaining of lower back pain that radiates to the buttocks and radiates down the legs. She has history of spine surgeries and has seen Pain mgmt, Allergies lidocaine [From Aspercreme (lidocaine HCl)] Allergy (Intermediate, Verified 07/19/24 11:09) Rash celecoxib [From Celebrex] Allergy (Mild, Verified 07/19/24 11:09) PALPITATIONS levofloxacin [From Levaquin] Allergy (Mild, Verified 07/19/24 11:09) VOMITNG/JITTERY zolpidem [From Ambien] Allergy (Mild, Verified 07/19/24 11:09) HIVES/RASH/ITCH acetaminophen [From Vicodin] Allergy (Verified 07/19/24 11:09) Abdominal Pain adhesive tape Allergy (Verified 07/19/24 11:09) Rash cholestyramine [From Questran] Allergy (Verified 07/19/24 11:09) Unknown gemfibrozil [From Lopid] Allergy (Verified 07/19/24 11:09) Nausea hydrocodone [From Vicodin] Allergy (Verified 07/19/24 11:09) Abdominal Pain indomethacin Allergy (Verified 07/19/24 11:09) Nausea ketoprofen Allergy (Verified 07/19/24 11:09) Chest Pain lisinopril Allergy (Verified 07/19/24 11:09) Nausea naproxen Allergy (Verified 07/19/24 11:09) Abdominal Pain NSAIDS (Non-Steroidal Anti-Inflamma Allergy (Verified 07/19/24 11:09) Abdominal Pain sucrose [From Questran] Allergy (Verified 07/19/24 11:09) Unknown diazepam [From Valium] Adverse Reaction (Mild, Verified 07/19/24 11:09) HYPERACTIVE pravastatin [Pravastatin] Adverse Reaction (Mild, Verified 07/19/24 11:09) MUSCLE AND LEG PAIN gabapentin Adverse Reaction (Verified 07/19/24 11:09) Headache zinc Adverse Reaction (Verified 07/19/24 11:09) Vomiting HPI HPI TELEMETRY TECH- B/L Hip Trochanteric bursitis: Details: Fallon is an 83 year old female who presents today as a new patient with complaints of bilateral hip pain. Patient reports that she has had ongoing deon ateral hip pain since about April. She reports that she has utilized ice and heat application for her symptoms which was only mildly helpful. She was seen at a walk in clinic for the right where she was told that she had IT Band Syndrome, as the right hip began to improve the left hip flaired up. She was told that she had bursitis and was placed on a Steroid pack which did help. Currently she has mild pain, mostly complaining of lower back pain that radiates to the buttocks and radiates down the legs. She has history of spine surgeries and has seen Pain mgmt, [facility] Medical History Chronic low back pain Hip pain, chronic Physical exam Chronic back pain Chronic neck pain Difficulty swallowing Upper respiratory infection Polyarthralgia Osteoarthritis Chronic pain TMJ (dislocation of temporomandibular joint) Elevated uric acid in blood 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 Spinal stenosis of cervical region with radiculopathy Bilateral hand pain Psoriatic arthritis Hiatal hernia Psoriasis Hyperlipidemia Surgical History Hx of cataract removal with insertion of prosthetic lens History of laminectomy History of colon surgery History of hysterectomy History of cholecystectomy Hx of cataract surgery History of knee replacement Family History Father Dementia Raynauds disease Substance use disorder Mother Rheumatoid arthritis Maternal Grandfather Type 2 diabetes mellitus Sister Mary Carmen's disease Breast cancer Brother Pancreatic cancer Myocardial infarction Sister Lung cancer Paternal Uncle Substance use disorder Paternal Uncle Substance use disorder Paternal Uncle Substance use disorder Son Mental health disorder Social History Household Members: Spouse Housing: House Alcohol intake: former Patient Tobacco Use Status: Never used Tobacco e-Cigarette/Vaping Use: Never Used service: No Current occupational status: retired Cognitive needs: No Hearing needs: No Vision needs: Yes Physical Exam Vital Signs: BMI result Body Mass Index 37.5 Extrem Other: Lateral hip tenderness to palpation bilaterally. This is mild. Results Reviewed Results Reviewed: Normal x-rays of the pelvis with no significant hip arthritis. Assessment & Plan Assessment & Plan (1) Sciatica: Code(s): M54.30 - Sciatica, unspecified side Category: Medical Qualifiers: Laterality: bilateral Qualified Code(s): M54.31 - Sciatica, right side; M54.32 - Sciatica, left side Plan: She has seen Dr. Jun mcdonald in the past and would like to see him again for her low back. (2) Bilateral hip bursitis: Code(s): M70.71 - Other bursitis of hip, right hip; M70.72 - Other bursitis of hip, left hip Category: Medical Qualifiers: Hip bursitis location: trochanteric bursitis Qualified Code(s): M70.61 - Trochanteric bursitis, right hip; M70.62 - Trochanteric bursitis, left hip Plan: Bilateral hip bursitis with no evidence of arthritis. Her primary complaint is her back. Her hips are improving Orders: Referrals Pain Management Referral M54.31 - Sciatica, right side, M54.32 - Sciatica, left side Coding Level of Care Code Est Pt Level 3 (93416) Complex EM visit Add On G2211 Diagnoses Bilateral sciatica M54.31; M54.32 Laterality: bilateral Trochanteric bursitis of both hips M70.61; M70.62 Hip bursitis location: trochanteric bursitis
[2024-07-19 11:05] VITALS: BMI 37.5
== END 2024-07-19 11:32 | disposition home or self-care (01) ==
PROVIDERS: PCP Internal Medicine; Visit Provider Orthopaedic Surgery
DX: M54.31 Sciatica, right side (principal); M54.32 Sciatica, left side; M70.61 Trochanteric bursitis, right hip; M70.62 Trochanteric bursitis, left hip
CPT/HCPCS: 99213; G2211

== ENCOUNTER → 2024-07-19 10:44 | Outpatient (BNVA) | payer MEDICARE, SELFPAY | PROVIDERS: PCP Internal Medicine; Visit Provider Orthopaedic Surgery | DX: M70.61 Trochanteric bursitis, right hip (principal); M70.62 Trochanteric bursitis, left hip; M54.32 Sciatica, left side; M54.31 Sciatica, right side | CPT/HCPCS: 99212 ==

== ENCOUNTER 2024-07-26 14:13 | Outpatient (AMB) | payer MEDICARE, SELFPAY ==
--- NOTE | 2024-07-26 14:15 | MHC.OFFVIS ---
Vital Signs 07/26/24 14:19 Height 5 ft Weight 192 lb 6 oz BMI 37.6 BP 138/70 Blood Pressure Location Lt brachial Position Sitting Respiration 16 Pulse 82 Pulse Source Pulse Oximeter Pulse Oximetry (%) 97 Oxygen Delivery Method Room Air Intake Visit Reasons: Bilateral Sciatica Intake Note: Patient comes in for follow up. Reports pain 4-5. Allergies lidocaine [From Aspercreme (lidocaine HCl)] Allergy (Intermediate, Verified 07/26/24 14:20) Rash celecoxib [From Celebrex] Allergy (Mild, Verified 07/26/24 14:20) PALPITATIONS levofloxacin [From Levaquin] Allergy (Mild, Verified 07/26/24 14:20) VOMITNG/JITTERY zolpidem [From Ambien] Allergy (Mild, Verified 07/26/24 14:20) HIVES/RASH/ITCH acetaminophen [From Vicodin] Allergy (Verified 07/26/24 14:20) Abdominal Pain adhesive tape Allergy (Verified 07/26/24 14:20) Rash cholestyramine [From Questran] Allergy (Verified 07/26/24 14:20) Unknown gemfibrozil [From Lopid] Allergy (Verified 07/26/24 14:20) Nausea hydrocodone [From Vicodin] Allergy (Verified 07/26/24 14:20) Abdominal Pain indomethacin Allergy (Verified 07/26/24 14:20) Nausea ketoprofen Allergy (Verified 07/26/24 14:20) Chest Pain lisinopril Allergy (Verified 07/26/24 14:20) Nausea naproxen Allergy (Verified 07/26/24 14:20) Abdominal Pain NSAIDS (Non-Steroidal Anti-Inflamma Allergy (Verified 07/26/24 14:20) Abdominal Pain sucrose [From Questran] Allergy (Verified 07/26/24 14:20) Unknown diazepam [From Valium] Adverse Reaction (Mild, Verified 07/26/24 14:20) HYPERACTIVE pravastatin [Pravastatin] Adverse Reaction (Mild, Verified 07/26/24 14:20) MUSCLE AND LEG PAIN gabapentin Adverse Reaction (Verified 07/26/24 14:20) Headache zinc Adverse Reaction (Verified 07/26/24 14:20) Vomiting HPI Comments Details: Fallon is back in my office with complains on sciatica. She reports pain in the base of her lower back with radiation into the bilateral lower extremities on the posterior surface of the thighs to the level of the knees. She denies pain getting below the level however admits aching sensation in the lower legs but not in the toes feet or ankles. On the physical exam I was left under impression that she has spondylosis. Past history see as below. I offered her diagnostic medial branch block L2-L3 L4 bilateral and after that I probably would proceed with sprint PNS. She had RFA in the past. However she has very severe tortuous lumbar spine and she has posterior L4-5 interspace device. Still admits good results of the diagnostic C2-C3 C4 medial branch block which was performed on 12/23/2023. Prior: Patient recently moved here from [place] where she was under care of pain management and had undergone treatment for her lumbar spine including 2 sets of diagnostic medial branch blocks followed by lumbar radiofrequency ablation. She reports that her lower back pain has been under control since then. The RFA was completed September of 2022. Patient reports her mom main complaint today is her cervical neck pain. She states that she has tried physical therapy and Tylenol without relief. She applies topical diclofenac gel which is also not relieve her pain. Patient states that she was on chronic tramadol use while in [place] and that was the only thing that made her pain manageable. She recently established care with new PCP in the area, he would not refill her tramadol and referred her here for pain management strategies. [facility] Medical History Chronic low back pain Hip pain, chronic Physical exam Chronic back pain Chronic neck pain Difficulty swallowing Upper respiratory infection Polyarthralgia Osteoarthritis Chronic pain TMJ (dislocation of temporomandibular joint) Elevated uric acid in blood 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 Spinal stenosis of cervical region with radiculopathy Bilateral hand pain Psoriatic arthritis Hiatal hernia Psoriasis Hyperlipidemia Surgical History Hx of cataract removal with insertion of prosthetic lens History of laminectomy History of colon surgery History of hysterectomy History of cholecystectomy Hx of cataract surgery History of knee replacement Family History Father Dementia Raynauds disease Substance use disorder Mother Rheumatoid arthritis Maternal Grandfather Type 2 diabetes mellitus Sister Mary Carmen's disease Breast cancer Brother Pancreatic cancer Myocardial infarction Sister Lung cancer Paternal Uncle Substance use disorder Paternal Uncle Substance use disorder Paternal Uncle Substance use disorder Son Mental health disorder Social History Household Members: Spouse Housing: House Alcohol intake: former Patient Tobacco Use Status: Never used Tobacco e-Cigarette/Vaping Use: Never Used service: No Current occupational status: retired Cognitive needs: No Hearing needs: No Vision needs: Yes Review of Systems Const All systems reviewed & are unremarkable except as noted in HPI and below Physical Exam Vital Signs: Last Vital Signs Pulse 82 07/26/24 14:19 Resp 16 07/26/24 14:19 BP 138/70 07/26/24 14:19 Pulse Ox 97 07/26/24 14:19 Oxygen Delivery Method Room Air 07/26/24 14:19 BMI result Body Mass Index 37.6 General: awake, alert, oriented. Answers questions appropriately. Fully engaged in examination. Skin: warm, dry, intact HEENT: Normocephalic. Hearing intact. Cardiac: External chest normal in appearance. Respiratory: No cough, audible wheezing or stridor. Abdomen: without gross distension. MS: No obvious swelling or deformities. Tender to palpation over midline cervical vertebrae and paraspinal muscles ROM limited in all planes with notable pain increase with left lateral flexion and rotation Spurling positive Neurological: Oriented to person, place, time and situation. Thought process intact. Psychiatric: Appropriate mood and affect. Good judgment and insight. Results Reviewed Results Reviewed: MRI lumbar spine 12/28/2021 Findings: Conus medullaris unremarkable. Vertebral body height maintained. Vertebral body alignment severely levocurvature. Osseous structures endplate Modic changes osteophytosis. Disc spaces severe disc space loss on the right along the concavity of the curvature partially spanning L1-L4 as well as L5-S1. There has been previous multilevel laminectomy L4-L5 intervertebral spacer T12-L1 disc protrusion T12-L1 disc protrusion causing mild spinal canal narrowing. Paraspinal soft tissues there is a linear scar in the posterior paraspinal soft tissues at the L4-5 level from prior surgery. Central canal and neural foramina: L1-L2 level: Mild spinal canal narrowing. Left symmetric disc bulge. Endplate osteophytes. Facet joint arthrosis. Mild bilateral neural foraminal narrowing left greater than right. L2-L3 level moderate spinal canal narrowing. Right asymmetric disc bulge. Right facet arthrosis. Osteophytosis. Moderate right and left neural foraminal narrowing. L3-L4: Moderate spinal canal narrowing. Right asymmetric disc bulge. Severe right facet arthrosis. Osteophytosis. Moderate right and mild left neural foraminal narrowing. L4-5 level: At least mild spinal canal narrowing. Left hemilaminectomy with cyst formation in the left laminectomy defect S symmetric disc bulge. Large endplate osteophytes. Severe hypertrophic changes in the facet joints. Severe right neural foraminal narrowing. [id number]-[id number] left neural foraminal narrowing. There is interspinous stabilization device. L5-S1: Disc protrusion. Left asymmetric disc bulge. Left laminectomy defect. Osteophytosis in the endplate and facet joints. No spinal canal narrowing. Moderate left neural foraminal narrowing. Assessment & Plan Assessment & Plan (1) Psoriatic arthritis: Code(s): L40.50 - Arthropathic psoriasis, unspecified Category: Medical (2) Osteoarthritis: Code(s): M19.90 - Unspecified osteoarthritis, unspecified site Category: Medical Qualifiers: Osteoarthritis location: foot Osteoarthritis type: primary Laterality: bilateral Qualified Code(s): M19.071 - Primary osteoarthritis, right ankle and foot; M19.072 - Primary osteoarthritis, left ankle and foot (3) Cervical spondylosis: Code(s): M47.812 - Spondylosis without myelopathy or radiculopathy, cervical region Category: Medical (4) Polyarthralgia: Code(s): M25.50 - Pain in unspecified joint Category: Medical (5) Spondylosis of lumbar region without myelopathy or radiculopathy: Code(s): M47.816 - Spondylosis without myelopathy or radiculopathy, lumbar region Category: Medical (6) Postlaminectomy syndrome, lumbar: Code(s): M96.1 - Postlaminectomy syndrome, not elsewhere classified Category: Medical Plan Patient presented to the office today for evaluation management of her chronic all of her pain. Still with results of diagnostic medial branch block which was performed in December on her cervical spine C4-C5 C6. Reports excellent mobility and no need for further evaluation or injections. Complains today on the pain in the lumbar spine with radiation into bilateral lower extremities at the level of the knees. Very advanced scoliosis lumbar spine on the imaging. We will attempt to perform bilateral L2-L3 L4 medial branch blocks to help her pain. If this will not be effective neuromodulation will be discussed. Coding Level of Care Code Est Pt Level 3 (68026) Diagnoses Psoriatic arthritis L40.50 Primary osteoarthritis of both feet M19.071; M19.072 Osteoarthritis location: foot Osteoarthritis type: primary Laterality: bilateral Cervical spondylosis M47.812 Polyarthralgia M25.50 Spondylosis of lumbar region without myelopathy or radiculopathy M47.816 Postlaminectomy syndrome, lumbar M96.1
[2024-07-26 14:19] VITALS: BP 138/70; PULSE 82; RESP 16; O2SAT 97; BMI 37.6
== END 2024-07-26 14:39 | disposition home or self-care (01) ==
LOC: HO.PMC 14:14
PROVIDERS: PCP Internal Medicine; Referring Provider Orthopaedic Surgery; Visit Provider Anesthesiology
DX: L40.50 Arthropathic psoriasis, unspecified (principal); M19.071 Primary osteoarthritis, right ankle and foot; M19.072 Primary osteoarthritis, left ankle and foot; M47.812 Spondylosis without myelopathy or radiculopathy, cervical region; M25.50 Pain in unspecified joint; M47.816 Spondylosis without myelopathy or radiculopathy, lumbar region; M96.1 Postlaminectomy syndrome, not elsewhere classified
CPT/HCPCS: 99213

== ENCOUNTER → 2024-07-26 14:13 | Outpatient (BNVA) | payer MEDICARE, SELFPAY | PROVIDERS: PCP Internal Medicine; Referring Provider Orthopaedic Surgery; Visit Provider Anesthesiology | DX: L40.50 Arthropathic psoriasis, unspecified (principal); M19.072 Primary osteoarthritis, left ankle and foot; M47.812 Spondylosis without myelopathy or radiculopathy, cervical region; M25.50 Pain in unspecified joint; M47.816 Spondylosis without myelopathy or radiculopathy, lumbar region; M96.1 Postlaminectomy syndrome, not elsewhere classified; M54.32 Sciatica, left side; M54.31 Sciatica, right side | CPT/HCPCS: 99212 ==

== ENCOUNTER 2024-08-30 08:55 | Outpatient (AMB) | payer MEDICARE, SELFPAY ==
--- NOTE | 2024-08-30 09:03 | A.OFFVIS_ITS ---
Vital Signs 08/30/24 09:04 Height 5 ft Weight 189 lb BMI 36.9 BP 177/75 H Blood Pressure Location Lt brachial Position Standing Pulse 85 Pulse Source Pulse Oximeter Pulse Oximetry (%) 98 Oxygen Delivery Method Room Air Intake Visit Reasons: follow up Intake Note: Pain today 03/01 Yarn Dry Room Worker Required: No Accompanied by: Self / Same As Patient Allergies lidocaine [From Aspercreme (lidocaine HCl)] Allergy (Intermediate, Verified 08/30/24 09:03) Rash celecoxib [From Celebrex] Allergy (Mild, Verified 08/30/24 09:03) PALPITATIONS levofloxacin [From Levaquin] Allergy (Mild, Verified 08/30/24 09:03) VOMITNG/JITTERY zolpidem [From Ambien] Allergy (Mild, Verified 08/30/24 09:03) HIVES/RASH/ITCH acetaminophen [From Vicodin] Allergy (Verified 08/30/24 09:03) Abdominal Pain adhesive tape Allergy (Verified 08/30/24 09:03) Rash cholestyramine [From Questran] Allergy (Verified 08/30/24 09:03) Unknown gemfibrozil [From Lopid] Allergy (Verified 08/30/24 09:03) Nausea hydrocodone [From Vicodin] Allergy (Verified 08/30/24 09:03) Abdominal Pain indomethacin Allergy (Verified 08/30/24 09:03) Nausea ketoprofen Allergy (Verified 08/30/24 09:03) Chest Pain lisinopril Allergy (Verified 08/30/24 09:03) Nausea naproxen Allergy (Verified 08/30/24 09:03) Abdominal Pain NSAIDS (Non-Steroidal Anti-Inflamma Allergy (Verified 08/30/24 09:03) Abdominal Pain sucrose [From Questran] Allergy (Verified 08/30/24 09:03) Unknown diazepam [From Valium] Adverse Reaction (Mild, Verified 08/30/24 09:03) HYPERACTIVE pravastatin [Pravastatin] Adverse Reaction (Mild, Verified 08/30/24 09:03) MUSCLE AND LEG PAIN gabapentin Adverse Reaction (Verified 08/30/24 09:03) Headache zinc Adverse Reaction (Verified 08/30/24 09:03) Vomiting HPI Comments Details: Fallon is back in my office with complains on widespread pain all over the body. She wants to become a member of chronic opioid program. She was given today 08/30/2024 opioid contract opioid consent and opioid information page. She needs to schedule appointment with me for 1 hour to do opioid addiction risk questionnaire, discuss risks and benefits of opioid therapy, and submit urine drug screen. As soon as urine drug screen will come back appropriate I will start her on tramadol. We were working on diagnostic medial branch block L2-L3 L4 bilateral, we risks admitted the request to the insurance company we are waiting for the response. I will schedule this patient for an appointment for bilateral medial branch block L2-L3- L4 as soon as the insurance approval will be issued. She also complains on pain in the neck. She had very successful C4-C5 C6 bilateral medial branch block on 12/23/2023. I offered her today sprint PNS to treat the upper cervical pain. The patient wants to go for lumbar injection 1st. She reports pain in the base of her lower back with radiation into the bilateral lower extremities on the posterior surface of the thighs to the level of the knees. She denies pain getting below the level however admits aching sensation in the lower legs but not in the toes feet or ankles. On the physical exam I was left under impression that she has spondylosis. Past history see as below. I offered her diagnostic medial branch block L2-L3 L4 bilateral and after that I probably would proceed with sprint PNS. She had RFA in the past. However she has very severe tortuous lumbar spine and she has posterior L4-5 interspace device. Prior: Patient recently moved here from [place] where she was under care of pain management and had undergone treatment for her lumbar spine including 2 sets of diagnostic medial branch blocks followed by lumbar radiofrequency ablation. She reports that her lower back pain has been under control since then. The RFA was completed September of 2022. Patient reports her mom main complaint today is her cervical neck pain. She states that she has tried physical therapy and Tylenol without relief. She applies topical diclofenac gel which is also not relieve her pain. Patient states that she was on chronic tramadol use while in [place] and that was the only thing that made her pain manageable. She recently established care with new PCP in the area, he would not refill her tramadol and referred her here for pain management strategies. [facility] Medical History Chronic low back pain Hip pain, chronic Physical exam Chronic back pain Chronic neck pain Difficulty swallowing Upper respiratory infection Polyarthralgia Osteoarthritis Chronic pain TMJ (dislocation of temporomandibular joint) Elevated uric acid in blood 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 Spinal stenosis of cervical region with radiculopathy Bilateral hand pain Psoriatic arthritis Hiatal hernia Psoriasis Hyperlipidemia Surgical History Hx of cataract removal with insertion of prosthetic lens History of laminectomy History of colon surgery History of hysterectomy History of cholecystectomy Hx of cataract surgery History of knee replacement Family History Father Dementia Raynauds disease Substance use disorder Mother Rheumatoid arthritis Maternal Grandfather Type 2 diabetes mellitus Sister Mary Carmen's disease Breast cancer Brother Pancreatic cancer Myocardial infarction Sister Lung cancer Paternal Uncle Substance use disorder Paternal Uncle Substance use disorder Paternal Uncle Substance use disorder Son Mental health disorder Social History Household Members: Spouse Housing: House Alcohol intake: former Patient Tobacco Use Status: Never used Tobacco e-Cigarette/Vaping Use: Never Used service: No Current occupational status: retired Cognitive needs: No Hearing needs: No Vision needs: Yes Review of Systems Const All systems reviewed & are unremarkable except as noted in HPI and below Physical Exam General: awake, alert, oriented. Answers questions appropriately. Fully engaged in examination. Skin: warm, dry, intact HEENT: Normocephalic. Hearing intact. Cardiac: External chest normal in appearance. Respiratory: No cough, audible wheezing or stridor. Abdomen: without gross distension. MS: No obvious swelling or deformities. Tender to palpation over midline cervical vertebrae and paraspinal muscles ROM limited in all planes with notable pain increase with left lateral flexion and rotation Spurling positive Neurological: Oriented to person, place, time and situation. Thought process intact. Psychiatric: Appropriate mood and affect. Good judgment and insight. Back/Spine/Pelvis Other: Tenderness on palpation in bilateral paraspinal regions as well as midline spinal region lumbar spine. Loading test is positive bilaterally. Results Reviewed Results Reviewed: MRI lumbar spine 12/28/2021 Findings: Conus medullaris unremarkable. Vertebral body height maintained. Vertebral body alignment severely levocurvature. Osseous structures endplate Modic changes osteophytosis. Disc spaces severe disc space loss on the right along the concavity of the curvature partially spanning L1-L4 as well as L5-S1. There has been previous multilevel laminectomy L4-L5 intervertebral spacer T12-L1 disc protrusion T12-L1 disc protrusion causing mild spinal canal narrowing. Paraspinal soft tissues there is a linear scar in the posterior paraspinal soft tissues at the L4-5 level from prior surgery. Central canal and neural foramina: L1-L2 level: Mild spinal canal narrowing. Left symmetric disc bulge. Endplate osteophytes. Facet joint arthrosis. Mild bilateral neural foraminal narrowing left greater than right. L2-L3 level moderate spinal canal narrowing. Right asymmetric disc bulge. Right facet arthrosis. Osteophytosis. Moderate right and left neural foraminal narrowing. L3-L4: Moderate spinal canal narrowing. Right asymmetric disc bulge. Severe right facet arthrosis. Osteophytosis. Moderate right and mild left neural foraminal narrowing. L4-5 level: At least mild spinal canal narrowing. Left hemilaminectomy with cyst formation in the left laminectomy defect S symmetric disc bulge. Large endplate osteophytes. Severe hypertrophic changes in the facet joints. Severe right neural foraminal narrowing. Vjrk-mr-brbbpysj left neural foraminal narrowing. There is interspinous stabilization device. L5-S1: Disc protrusion. Left asymmetric disc bulge. Left laminectomy defect. Osteophytosis in the endplate and facet joints. No spinal canal narrowing. Moderate left neural foraminal narrowing. Assessment & Plan Assessment & Plan (1) Psoriatic arthritis: Code(s): L40.50 - Arthropathic psoriasis, unspecified Category: Medical (2) Osteoarthritis: Code(s): M19.90 - Unspecified osteoarthritis, unspecified site Category: Medical Qualifiers: Laterality: bilateral Osteoarthritis location: foot Osteoarthritis type: primary Qualified Code(s): M19.071 - Primary osteoarthritis, right ankle and foot; M19.072 - Primary osteoarthritis, left ankle and foot (3) Cervical spondylosis: Code(s): M47.812 - Spondylosis without myelopathy or radiculopathy, cervical region Category: Medical (4) Polyarthralgia: Code(s): M25.50 - Pain in unspecified joint Category: Medical (5) Spondylosis of lumbar region without myelopathy or radiculopathy: Code(s): M47.816 - Spondylosis without myelopathy or radiculopathy, lumbar region Category: Medical (6) Postlaminectomy syndrome, lumbar: Code(s): M96.1 - Postlaminectomy syndrome, not elsewhere classified Category: Medical Plan Patient presented to the office today with a request to admit her to chronic opioid program. She wants to be on tramadol. I explained to the patient that I can start her on tramadol however I need to have 1 hour to make opioid risk assessment and performance of some tests including UDS to make sure that I will be able to prescribe her opioid medications. Medial branch block cervical spine C4-C5 C6 resulted in very pleural long good pain relief. I offered patient sprint PNS to treat this condition. Patient decided to think about it. We are waiting for approval from insurance company to perform L2-L3 L4 medial branch block for this patient. As soon as it will be approved she will be scheduled for the procedure. Patient Instructions: I here by testify that I spent 32 minutes in this patient as well as planning her care and organizing this note. Coding Level of Care Code Est Pt Level 4 (57211) Diagnoses Psoriatic arthritis L40.50 Primary osteoarthritis of both feet M19.071; M19.072 Laterality: bilateral Osteoarthritis location: foot Osteoarthritis type: primary Cervical spondylosis M47.812 Polyarthralgia M25.50 Spondylosis of lumbar region without myelopathy or radiculopathy M47.816 Postlaminectomy syndrome, lumbar M96.1
[2024-08-30 09:04] VITALS: BP 177/75; PULSE 85; O2SAT 98; BMI 36.9
--- OUTSIDE RECORDS SUMMARY | 2024-09-01 13:40 | XMS_ITS ---
Author Organization [facility] Address [address] [place] [address] Care Team Providers Care Habitat Management Coordinator Name Role Phone Jesus Brand Primary Care Provider Dominique Gallo Unavailable [phone] Allergies Allergen (clinical drug ingredient) Drug/Non Drug Allergy documented on EMR Reaction Allergy Type Onset Date Status Non-steroidal anti-inflammatory agent (FN) N-saids (uncoded) stomach upset Allergy Active ibuprofen Advil stomach upset Drug Allergy Act david zolpidem Ambien hives, rash, itchy Drug Allergy Active aspirin Aspirin stomach upset Drug Allergy Act david lorazepam Ativan anxiety and nervousness Drug Allergy Active diclofenac Cataflam ill Drug Allergy Active celecoxib CeleBREX heart palpitatio n, chest ache Drug Allergy Active ciprofloxacin Cipro nausea, stomach upset, diarrhea Drug Allergy Active gabapentin Gabapentin headache, flashes Drug Allergy Active indomethacin Indomethacin nausea, dizzines s, chilling Drug Allergy Active ketoprofen Ketoprofen stomach pain, heart palpitations, chest pain Drug Allergy Active Ketoprofen CR rash Drug Allergy Act david Levaquin nausea, stomach upset, diarrhea, headache Drug Allergy Active lisinopril Lisinopril drowsiness, nausea, itchy Drug Allergy Active gemfibrozil Lopid nausea, sleepiness Drug Allergy Active meloxicam Meloxicam nausea Drug Allergy Active naproxen Naproxen abdominal pain, edema Drug Allergy Active cholestyramine resin Questran gum problems Drug Allergy Active diazepam Valium hyperanixety Drug Allergy Acti ve Vicodin stomach pain, nausea Drug Allergy Active ezetimibe / simvastatin Vytorin muscle and skin pain Drug Allergy Active Zinc vomiting Drug Allergy Active lidocaine Aspercreme Lidocaine rash Drug Allergy Active Adhesive rash Allergy Active Fragrance redness and itchy Allergy Ac tive pravastatin Pravastatin leg and muscle pain Drug Allergy Active REASON FOR VISIT Pcp-09/13, pcp 11/15, Heel pain, Foot pain Medications Medication SIG (Take, Route, Frequency, Duration) Notes Start Date End Date Status hydrochlorothiazide 10/09/2023 Active Physical Therapy . . . 2-3x/week for 3- 4 weeks 12/09/2023 Not-Taking Amoxicillin 500 MG 1 tablet Orally Thre e times a day Not-Taking Atorvastatin Calcium Not-Taking Simvastatin 40 MG TAKE 1 TABLET BY ANTONIETA TH DAILY Oral for 60 Days Active Famotidine 20 MG 1 tablet at bedtime as needed Orally Once a day Active LORazepam 1 MG 1 tablet at bedtime as needed Orally Once a day Active Clobetasol Propionate Active traMADol HCl 50 MG 1 tablet as needed Orally Once a day Active Sodium Fluoride Acti ve Ondansetron 4 MG 1 tablet on the tong ue and allow to dissolve Orally Once a day Active Voltaren 1 % as directed Externally Active Metamucil Active Centrum Silver - as directed Orally Active Valsartan 320 MG 1 tablet Orally Once a day Active Caltrate 600+D Activ e Glucosamine Active Super B Complex Acti ve Vitamin C Active Systane 0.4-0.3 % as directed Ophthalmic Active Tylenol Active amLODIPine Besylate 10 MG 1 tablet Orall y Once a day Active Neosporin Active Bacitracin Active Social History Tobacco Use: Social History Observation Description Date Details (start date - stop date) Never Smoker NA - NA Tobacco Use/Smoking Question Answer Notes Are you a: nonsmoker Additional Findings: Tobacco Non-User Current no n-smoker Alcohol Screen Question Answer Notes Did you have a drink containing alcohol in the p ast year? No Points 0 Interpretation Negative Tobacco use other than smoking: Question Answer Notes Are you an other tobacco user? No Vital Signs Height 5 ft in 02/17/2024 Weight 197 lbs 02/17/2024 BMI 38.47 kg/m2 02/17/2024 Blood pressure systolic 155 mm Hg 02/17/20 24 Blood pressure diastolic 60 mm Hg 024 Encounters Encounter Location Date Provider Diagnosis [facility] [address] [address] 02/17/2024 Dominique Dalton Plantar fasciitis, bilateral M72.2 ; Metatarsalgia, right foot M77.41 ; Pain in right foot M79.671 ; Peripheral vascular disease I73.9 ; Pain in right ankle and joints of right foot M25.571 and Bursitis of intermetatarsal bursa of right foot M77.51 Assessments Encounter Date Diagnosis (ICD Code) Assessment Notes Treatment Notes Treatment Clinical Notes Section Notes 02/17/2024 Plantar fasciitis, bilateral (ICD-10 - M72.2) 02/17/2024 Metatarsalgia, right foot (ICD-10 - M77.41) 02/17/2024 Pain in right foot (ICD-10 - M79.671) 02/17/2024 Peripheral vascular disease (ICD-10 - I73.9) 02/17/2024 Pain in right ankle and joints of right foot (ICD-10 - M25.571) 02/17/2024 Bursitis of intermetatarsal bursa of right foot (ICD-10 - M77.51) Plan Of Treatment Pending Test Test Name Order Date X ray : Foot, right 3V 02/17/2024 Next Appt Details Follow Up: prn, Reason: Progress Notes * Fallon GABRIELDOB: (83 yo F)Acc No.[id number]:02/17/2024 Progress Note Patient:?Fallon Gabriel Provider:?Dominique Dalton DPM :1940???Age:83 Y???Sex:Female D ate:02/17/2024 Address:[facility] [place], [place] Pcp:Jesus Brand Subjective: * Chief Complaints: * ???Pcp-09/13Pcp eel pa inFoot pain * HPI: ???Heel pain:?Nature:?tenderness, sharp pain, stiffness.?Location:?Proximal plantar aspect of Heel , B/L.?Duration:?a year or more.?Course:?improved.?Aggrevated:?standing, walking, walking first thing in the morning/after rest.?Treatments:?rest/alter normal daily activity , change in shoes , pre- fabricated orthoses , physical therapy.?Foot Pain:?Location:?Bottom, Forefoot, RIGHT.?Duration:?several weeks.?Course:?worse.?Treatments:?rest/alter normal daily activity.? * ROS:?General/Constitutional:?Nausea?admits.?Vomiting?denies.?Hunger Thirst?denies.?Loss appetite?denies.?Chills?denies.?Fatigue?admits.?Fever?denies.?Night Sweats?denies.?Unexplained weight loss?denies.?Unexplained weight gain?admits.?HEENTM:?Dentures?denies.?Dizziness?denies.?Glasses/contacts?admits.?Retinopathy?de nies.?Blurred/double vision?admits.?TMJ?admits.?Discharge/drainage?denies.?Implants?denies.?Sore throat?denies.?Dental implants?denies.?Hard of hearing ?denies.?Difficulty chewing/swallowing/speaking?admits.?Nose bleeds?denies.?Sore mouth?denies.?Respiratory:?On Oxygen?denies.?Pneumonia/pleurisy?denies.?Bronchitis?admits.?Emphysema?denies.?C oughing?admits.?Cough blood?denies.?Shortness of breath?denies.?Wheezing?admits.?Cardiovascular:?Pacemaker?denies.?MVP?denies.?WPW?denies.?CHF?denies.?Heart attack?denies.?Septal defect?denies.?Rapid beat?denies.?Chest pain ?denies.?Atrial Fib.?denies.?Murmur/Palpitations?denies.?Gastrointestinal:?Hemorrhoids?denies.?Stomach/Abdominal pain?denies.?Dark blood stool?denies.?Irritable bowel ?admits.?Constipation?denies.?Diarrhea?denies.?Hematology:?Swelling?admits.?Clots?denies.?Varicose Veins?admits.?Bruising?denies.?Bleeding problem?denies.?Genitourinary:?Blood urine?denies.?Frequent/Painfu/urination/bladder control?admits.?Kidney stones?denies.?Infection (UTI)?denies.?Nephropathy?denies.?sex trans dis (STD)?denies.?Prostate?denies.?Musculoskeletal:?Hammertoes?denies.?Bunions?denies.?Back Pain?admits.?Muscle Cramps/ Resting?admits.?Muscle cramps / walking?admits.?Generalized aches and pains?admits.?Weakness?admits.?Integ.:?Davis?denies.?Scars?admits.?Corns/calluses?denies.?Ingrown nails?denies.?Painful nails?denies.?Open Sores?denies.?Rashes?denies.?Neurologic:?Difficulty sleeping?admits.?Brain disorder?denies.?Numbness?denies.?Balance trouble?denies.?Confusion?denies.?Fainting/blackouts?denies.?Tingling?denies.?Tr emors?denies.? * Medical History:? * Surgical History:?breast bio psy 8vein ligation (both legs) 1971vein ligation (right leg) 1973hysterectomy 1974sigmoid colon removed (diverticulitis) 1987breast biopsy + lumpectomy 1969Gall bladder removal 1994cellulitis 1993total knee replacement 01/2009laser surgery injections - sclerotheraphy cataract surgery Pre cancerous lesion removal (L-arm, R - calf) 09/2013pre cancerous lesion removed (wrist) 01/2015spinal surgery - laminectomy 10/10/2015pre cancerous lesion removed ( R yazdanism) 11/2016rest of lesion removed 11/2017L thigh excision precancerous lesion 01/26/2019L thigh excision precancerous lesion removed 02/09/2019 * Hospitalization/Major Diagno stic Procedure:?10 Day Hospitalization (Adhesions - Small Intestine) 06/2013[facility]- nausea 05/14 * Family History:?Mother: dece ased, heart attack, gall bladder disease, thyroid, , osteoarthritis, rheumatoid arthritis, diagnosed with Other specified conditions influencing health status, Unspecified heart disease.?Father: , gout, alcoholism, dementia, Raynauds, diagnosed with Other specified conditions influencing health status.?Daughter(s): gall bladder disease, gout, fibromyalgia, rheumatoid arthritis, osteoarthritis, psoriatic arthritis, diagnosed with Unspecified heart disease, Other specified conditions influencing health status.?Son(s): gall bladder disease, gout, fibromyalgia, rheumatoid arthritis, osteoarthritis, psoriatic arthritis, diagnosed with Unspecified heart disease, Other specified conditions influencing health status.?Paternal Grand Mother: alcoholism, diagnosed with Other specified conditions influencing health status.?Maternal Grand Father: gall bladder disease, diabetes.?Paternal uncle: alzheimer's dementia.?Siblings: , cancer, heart attack, diabetes, thyroid, stroke, SIADH, , fibromyalgia, rheumatoid arthritis, osteoarthritis, gall bladder disease, dementia, diagnosed with Diabetic - NIDDM, Unspecified heart disease, Other malignant neoplasm of unspecified site, Other specified conditions influencing health status.?3 brother(s) , 5 sister(s) . .? Niece - Rheumatoid Arthritis Nephew - Diabetes. * Social History:?Tobacco Use:?Tobacco Use/Smoking?Are you a:?nonsmoker ?Additional Findings: Tobacco Non-User?Current non-smoker ?Tobacco use other than smoking?Are you an other tobacco user??No ???Drugs/Alcohol:?Drugs?Have you used drugs other than those for medical reasons in the past 12 months??No ?Alcohol Screen?Did you have a drink containing alcohol in the past year??No ?Points?0 ?Interpretation?Negative ???Miscellaneous:?Caffeine: yes, 1-2 cups per day. ?Children: yes, 3. ?Exercise: yes, house work. ?Marital status: . 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 * Medications:?TakingamLODIPin e Besylate 10 MG Tablet 1 tablet Orally Once a dayTylenol Bacitracin Neosporin Systane 0.4-0.3 % Solution as directed Ophthalmic Vitamin C Super B Complex Glucosamine Caltrate 600+D Centrum Silver - Tablet as directed Orally Metamucil Voltaren 1 % Gel as directed Externally Ondansetron 4 MG Tablet Disintegrating 1 tablet on the tongue and allow to dissolve Orally Once a dayValsartan 320 MG Tablet 1 tablet Orally Once a daySodium Fluoride traMADol HCl 50 MG Tablet 1 tablet as needed Orally Once a dayClobetasol Propionate LORazepam 1 MG Tablet 1 tablet at bedtime as needed Orally Once a dayFamotidine 20 MG Tablet 1 tablet at bedtime as needed Orally Once a dayhydrochlorothiazide Simvastatin 40 MG Tablet TAKE 1 TABLET BY MOUTH DAILY Oral Taking amLODIPine Besylate 10 MG Tablet 1 tablet Orally Once a dayTaking Tylenol Taking Bacitracin Taking Neosporin Taking Systane 0.4-0.3 % Solution as directed Ophthalmic Taking Vitamin C Taking Super B Complex Taking Glucosamine Taking Caltrate 600+D Taking Centrum Silver - Tablet as directed Orally Taking Metamucil Taking Voltaren 1 % Gel as directed Externally Taking Ondansetron 4 MG Tablet Disintegrating 1 tablet on the tongue and allow to dissolve Orally Once a dayTaking Valsartan 320 MG Tablet 1 tablet Orally Once a dayTaking Sodium Fluoride Taking traMADol HCl 50 MG Tablet 1 tablet as needed Orally Once a dayTaking Clobetasol Propionate Taking LORazepam 1 MG Tablet 1 tablet at bedtime as needed Orally Once a dayTaking Famotidine 20 MG Tablet 1 tablet at bedtime as needed Orally Once a dayTaking hydrochlorothiazide Taking Simvastatin 40 MG Tablet TAKE 1 TABLET BY MOUTH DAILY Oral Not-Taking/PRNAtorvastatin Calcium Amoxicillin 500 MG Tablet 1 tablet Orally Three times a dayPhysical Therapy . . . . 2-3x/weekMedication List reviewed and reconciled with the patientNot-Taking/PRN Atorvastatin Calcium Not-Taking/PRN Amoxicillin 500 MG Tablet 1 tablet Orally Three times a dayNot-Taking/PRN Physical Therapy . . . . 2-3x/weekMedication List reviewed and reconciled with the patient * Allergies:?Cipro: nausea, st omach upset, diarrheaAspirin: stomach upsetAdvil: stomach upsetAdhesive: rashAmbien: hives, rash, itchyLevaquin: nausea, stomach upset, diarrhea, headacheValium: hyperanixetyCeleBREX: heart palpitation, chest acheKetoprofen: stomach pain, heart palpitations, chest painKetoprofen CR: rashNaproxen: abdominal pain, edemaIndomethacin: nausea, dizziness, chillingMeloxicam: nauseaN-saids: stomach upsetPravastatin: leg and muscle painVytorin: muscle and skin painFragrance: redness and itchyLopid: nausea, sleepinessQuestran: gum problemsCataflam: illAtivan: anxiety and nervousnessVicodin: stomach pain, nauseaLisinopril: drowsiness, nausea, itchyGabapentin: headache, flashesZinc: vomitingAspercreme Lidocaine: rash - Allergyyes[Allergies Verified] Objective: * Vitals:?Ht: 5 ft, Wt: 197, B VA: 38.47, Shoe size: 8-8.5, BP: 155/60 mm Hg, Ht- cm: 152.4 cm, Wt-k.36 kg. * Examination: ???General Examination: ?GENERAL APPEARANCE:?Reveals a pleasant, alert, well-nourished, well- developed, well hydrated individual, who demonstrates proper attention to hygiene/body habitus, and is in no acute distress, Pt serves as own?historian for office visit today.?ORIENTED:?person, place, and time.?Neurological: ?SENSORY:?Neurological exam reveals intact sensorium, pain sensation normal, vibration sensation intact, pinprick sensation is normal in the lower extremities, Pt denies, anesthesia, burning, paresthesia, tingling, B/L.?TINEL'S COMPRESSION:?Negative tarsal tunnel, park pedis, and medial calcaneal nerves , Negative tarsal tunnel, park pedis, and medial calcaneal nerves, Right.?DEEP TENDON REFLEXES:?Achilles, 2/4, B/L.?Vascular: ?DP PULSES:?3/4, B/L.?PT PULSES:?3, B/L.?CAPILLARY FILL TIME:?immediate, all digits, B/L.?SKIN TEMPERTURE GRADIENT OF THE LOWER EXTERMITIES:?warm to cool, proximal to distal, B/L.?HAIR GROWTH/TEXTURE/ELASTICITY/TURGOR:?normal, B/L.?PIGMENTATION:?mottled, B/L.?EDEMA:?absent, B/L.?Dermatologic: ?SKIN FINDINGS:?Skin exam reveals normal texture, elasticity, and turgor. There are no masses. The interspaces are clear.?Orthopedic: ?MUSCLE STRENGTH:?5/5 all groups in a symmetrical fashion , B/L.?FOOT MORPHOLOGY:?Rigid medial/plantar protrusion of Midfoot at area of Navicular tuberosity , B/L.?MPJ PATHOLOGY:? Pain, swelling, and inflammation to plantar MPJ(s), 1, 2?RIGHT, No MPJ pain with ROM, [ - ] Ecchymosis.?Heel Pain: ?INSPECTION REVEALS:?NO Pain on Palpation to Plantar Fascia med. and central bands, intrinsic musc., infra-calcaneal bursa, and med calc tubercle, B/L, No pain: posterior/superior heel, achilles bursa/tendon, sinus tarsi, peroneals, or with lateral heel compression; no limited STJ ROM, calor, or ecchymosis.?X-Rays - IMAGING REPORT: ?Clinical Indication(s):? Evaluate for Fracture, Evaluate Biomechanical Deformity , Evaluate for Fracture.?Views:??3 views of Foot, AP, LAT, LO, RIGHT.?Findings:?normal bone and soft tissue density consistent for patients age and sex, navicular/cuneiform plantar subluxation with anterior cyma line, positive infra-calcaneal exostosis, no coalitions identified , dorsal degenerative changes of the tarsal joints , calcified vessels are visible.?Fracture:?Negative fractures identified.?Neuroma Pain: ?PALPATION:?No interspace pain noted on palpation.? Assessment: * Assessment: 1.?Metatarsalgia, right foot - M77.41 (Primary)?2.?Plantar fasciitis, bilateral - M72.2?3.?Pain in right foot - M79.671?4.?Peripheral vascular disease - I73.9?5.?Pain in right ankle and joints of right foot - M25.571?6.?Bursitis of intermetatarsal bursa of right foot - M77.51? Plan: * Treatment: * Procedure Codes:?91117 X-RAY EXAM OF RIGHT FOOT 3V, Modifiers: 26 , RT * Preventive Medicine:? ??Counseling:?Discussion:?-13: Office or other outpatient visit for the evaluation and management of an established patient, which required a medically appropriate history and/or examination and LOW level of DECISION MAKING for: 1 STABLE ACUTE UNCOMPLICATED PROBLEM, 2 OR MORE MINOR PROBLEMS, OR 1 STABLE CHRONIC PROBLEM, THAT POSE(S) A LOW RISK FOR MORBIDITY/MORTALITY. The visit on the day of the encounter encompassed interpreting the data and educating the patient as to the nature of their condition, treatment options available according to their individual PMH, meds, allergies, and overall health/living conditions, as well as any potential risks or complications that may occur from a failure to adhere to, and participate in, the recommended course of therapy. The discussion included a complete verbal, and/or written explanation of the examination results, any x-rays taken, the proposed diagnosis, and outline of the treatment plan. A schedule for future care needs was also explained. The patient verbalized an understanding of the instructions at this time and agreed to be an active participant in their treatment. If the patient should think of any questions or concerns after the visit, I have encouraged the patient to call the office.?Heel pain:?Discussed other tx options for the patients condition, Given recent successful results to treatment, the patient wishes to continue with the present plan for their condition.?Metatarsalgea:?I explained to the patient the possible etiologies of their Metatarsalgea Foot pain, including foot type/shoegear/activity level/exercise routine and the risks/benefits of all the different treatment options for pain including: No treatment at all, Rest, Ice, NSAIDs(only if well tolerated after meals), New/supportive Shoegear, Strappings and Tapings, Foot/Ankle AFO Bracing, Stretching exercises, Deep Tissue Massage, Arch support/shoe inserts, Custom orthoses, Topical analgesics including Aspercream/Voltaren gel, Physical Therapy, Cortisone injection therapy, EPAT/ESWT. Advantages and disadvantages of each option were discussed and the patients questions re: shoegear, custom vs prefabricated inserts, activity level, PO vs Topical medications (and their respective potential complications/drug interactions/side effects), and consistency in home treatment regimens for optimal success were answered to their verbally confirmed satisfaction.?P.R.I.C.E.:?The patient was counseled on the use of P.R.I.C.E. and NSAIDS (if well tolerated) to aid in the recovery from their painful condition, The patient was counseled on the use of P.R.I.C.E. and NSAIDS (if well tolerated) to aid in the recovery from their painful condition.?Shoe Gear Counseling:?The patient and I reviewed the types of shoes they should be wearing. My recommendation included obtaining a well-fitted shoe with a good supportive, non-foldable nor twistable sole, plenty of toe/room for the forefoot, and proper arch support. Based on todays examination, I recommended the patient look for new shoes, by having their feet professionally measured. We discussed that generally the best time of the day for a shoe fitting is the afternoon. Different shoes types and brands to best match the patients occupation and vocation were discussed. Specific brand selection will be up to the patient, their individual foot condition/deformities, and fit. The patient and I reviewed the standard new shoe break in period by wearing them for a few hours a day while checking for redness or sores as wear time is increased. The patient verbally confirmed to understanding the information discussed, The patient and I reviewed the types of shoes they should be wearing. My recommendation included obtaining a well-fitted shoe with a good supportive, non-foldable nor twistable sole, plenty of toe/room for the forefoot, and proper arch support. Based on todays examination, I recommended the patient look for new shoes, by having their feet professionally measured. We discussed that generally the best time of the day for a shoe fitting is the afternoon. Different shoes types and brands to best match the patients occupation and vocation were discussed. Specific brand selection will be up to the patient, their individual foot condition/deformities, and fit. The patient and I reviewed the standard new shoe break in period by wearing them for a few hours a day while checking for redness or sores as wear time is increased. The patient verbally confirmed to understanding the information discussed.?Stretching Exercises:?Stretching and deep tissue massage exercises for the patients injury/diagnosis were discussed and demonstrated, handouts were dispensed.?X-rays:?Discussed and reviewed the X-rays with the patient. We discussed how the findings relate to the patients symptoms/complaints. Answered any and all questions..? * Follow Up:?prn * Images: * Sign off status: Completed true * Provider:?Dominique Dalton DPM Date:? Generated for Amadeo bernard/Haim/Lana on:?09/01/2024 01:39 PM EST History and Physical Notes * HPI (History of Present Illness) Category Sub-Category Detail Notes Category Not es Heel pain Duration: a year or more Nature: tenderness, sharp pa in, stiffness Location: Proximal plantar asp ect of Heel , B/L Aggravated: standing, walking, w alking first thing in the morning/after rest Course: improved Treatments: rest/alter normal da reinaldo activity , change in shoes , pre-fabricated orthoses , physical therapy Foot Pain Location: Bottom, Forefoot, RIGHT Duration: several weeks Course: worse Treatments: rest/alter normal da reinaldo activity Examination Category Sub-Category Detail Notes Category Not es Neuroma Pain PALPATION: No interspace pain noted on palpation Heel Pain INSPECTION REVEALS: NO Pain on P alpation to Plantar Fascia med. and central bands, intrinsic musc., infra-calcaneal bursa, and med calc tubercle, B/L, No pain: posterior/superior heel, achilles bursa/tendon, sinus tarsi, peroneals, or with lateral heel compression; no limited STJ ROM, calor, or ecchymosis Neurological SENSORY: Neurological exa m reveals intact sensorium, pain sensation normal, vibration sensation intact, pinprick sensation is normal in the lower extremities, Pt denies, anesthesia, burning, paresthesia, tingling, B/L TINEL'S COMPRESSION: Negative tarsal isabel sean, park pedis, and medial calcaneal nerves , Negative tarsal tunnel, park pedis, and medial calcaneal nerves, Right DEEP TENDON REFLEXES: Achilles, 2/4, B/L Dermatologic SKIN FINDINGS: Skin exam reveal s normal texture, elasticity, and turgor. There are no masses. The interspaces are clear Orthopedic FOOT MORPHOLOGY: Rigid medial/pl candace protrusion of Midfoot at area of Navicular tuberosity , B/L MPJ PATHOLOGY: Pain, swelling, and inflammation to plantar MPJ(s), 1, 2 RIGHT, No MPJ pain with ROM, [ - ] Ecchymosis MUSCLE STRENGTH: 5/5 all groups in a symmetrical fashion , B/L General Examination GENERAL APPEARANCE: Reveals a pleasant, alert, well- nourished, well-developed, well hydrated individual, who demonstrates proper attention to hygiene/body habitus, and is in no acute distress, Pt serves as own historian for office visit today ORIENTED: person, place, and t mark Vascular DP PULSES(B): 3/4, B/L PT PULSES(B): 3/4, B/L CAPILLARY FILL TIME: immediate, all digi ts, B/L TEMPERTURE GRADIENT(C): warm to cool, pr oximal to distal, B/L TROPHIC CONDITION-TEXTURE/ELASTICITY/TURGOR/HAIR GROWTH(B): normal, B/L EDEMA(C): absent, B/L PIGMENTATION: mottled, B/L X-Rays - IMAGING REPORT Findings: normal b one and soft tissue density consistent for patients age and sex, navicular/cuneiform plantar subluxation with anterior cyma line, positive infra-calcaneal exostosis, no coalitions identified , dorsal degenerative changes of the tarsal joints , calcified vessels are visible Fracture: Negative fractures i dentified Views: 3 views of Foot, AP, LAT, LO, RIGHT Clinical Indication(s): Evaluate for Fra cture, Evaluate Biomechanical Deformity , Evaluate for Fracture
--- OUTSIDE RECORDS SUMMARY | 2024-09-01 13:40 | XMS_ITS ---
Author Organization [facility] Address [address] [facility] [place] [address] Care Team Providers Care Cloth Shrinking Machine Operator Name Role Phone Jesus Brand Primary Care Provider Dominique Gallo [phone] REASON FOR VISIT ebony Kang #[phone] Encounters Encounter Location Date Provider Diagnosis [facility] [address] [place] [address] 12/09/2023 Dominique Dalton Plan Of Treatment No Information Progress Notes * Fallon GABRIELDOB: (83 yo F)Acc No.[id number]:12/09/2023 Patient:?Fallon Gabriel :1940???Age:83 Y???Sex:Female Address:[facility] [place] [address] * Addendum: * ? true * Date:? Generated for Printi marco antonio/Naimag/eTransmitting on:?09/01/2024 01:39 PM EST
--- OUTSIDE RECORDS SUMMARY | 2024-09-01 13:40 | XMS_ITS | Patient Health Record ---
[facility] Address [address] [place] [address] Care Team Providers Care Dry Wall Installer Name Role Phone Jesus Brand Primary Care Provider Dominique Gallo Unavailable [phone] Allergies Allergen (clinical drug ingredient) Drug/Non Drug [...] leg and muscle pain Drug Allergy Active Reason For Referral No Information Medications Medication SIG (Take, Route, Frequency, Duration) Notes Start Date End Date Status Caltrate 600+D Activ e hydrochlorothiazide 10/09/2023 Active Glucosamine Active Famotidine 20 MG 1 tablet at bedtime as needed Orally Once a day Active Super B Complex Acti ve LORazepam 1 MG 1 tablet at bedtime as needed Orally Once a day Active Clobetasol Propionate Active Tylenol Active Ondansetron 4 MG 1 tablet on the tong ue and allow to dissolve Orally Once a day Active Physical Therapy . . . 2-3x/week for 3- 4 weeks 12/09/2023 Not-Taking amLODIPine Besylate 10 MG 1 tablet Orall y Once a day Active Voltaren 1 % as directed Externally Active Amoxicillin 500 MG 1 tablet Orally Thre e times a day Not-Taking Metamucil Active Atorvastatin Calcium Not-Taking Centrum Silver - as directed Orally Active Simvastatin 40 MG TAKE 1 TABLET BY ANTONIETA TH DAILY Oral for 60 Days Active Vitamin C Active Systane 0.4-0.3 % as directed Ophthalmic Active traMADol HCl 50 MG 1 tablet as needed Orally Once a day Active Neosporin Active Sodium Fluoride Acti ve Bacitracin Active Valsartan 320 MG 1 tablet Orally Once a day Active Social History Tobacco Use: Social History [...] Are you an other tobacco user? No Problems Problem Type SNOMED Code ICD Code Onset Dates Problem Status W/U Status Risk Notes Problem [id number] Peripheral vascular disease (I73.9) Active confirmed Vital Signs Blood pressure diastolic 60 mm Hg 02/17/2024 Height 5 ft in 02/17/2024 Blood pressure systolic 155 mm Hg 02/17/2024 Weight 197 lbs 02/17/2024 BMI 38.47 kg/m2 02/17/2024 Encounters Encounter Location Date Provider Diagnosis [address] [address] 12/09/2023 Dominique Dalton Pain in right foot M79.671 ; Plantar fasciitis, bilateral M72.2 ; Other myositis of right foot M60.871 ; Bursitis of right foot M77.51 ; Pain in left foot M79.672 ; Other myositis of left foot M60.872 ; Bursitis of left foot M77.52 and Peripheral vascular disease I73.[address] [address] 02/17/2024 Dominique Dalton Plantar fasciitis, bilateral M72.2 ; Metatarsalgia, right foot M77.41 ; Pain in right foot M79.671 ; Peripheral vascular disease I73.9 ; Pain in right ankle and joints of right foot M25.571 and Bursitis of intermetatarsal bursa of right foot M77.[address] [address] 10/09/2023 Dominique Dalton [address] [address] 12/09/2023 Dominique Dalton Assessments Encounter Date Diagnosis (ICD Code) Assessment Notes Treatment Notes Treatment Clinical Notes Section Notes 12/09/2023 Pain in right foot (ICD-10 - M79.671) 02/17/2024 Metatarsalgia, right foot (ICD-10 - M77.41) 02/17/2024 Plantar fasciitis, bilateral (ICD-10 - M72.2) 12/09/2023 Plantar fasciitis, bilateral (ICD-10 - M72.2) Patient Educated with: HEEL CORD STRETCHES.pdf (HEEL CORD STRETCHES.pdf ) Patient Educated with: RICE THERAPY.pdf (RICE THERAPY.pdf) 02/17/2024 Pain in right foot (ICD-10 - M79.671) 12/09/2023 Other myositis of right foot (ICD-10 - M60.871) 12/09/2023 Bursitis of right foot (ICD-10 - M77.51) 02/17/2024 Peripheral vascular disease (ICD-10 - I73.9) 12/09/2023 Pain in left foot (ICD-10 - M79.672) 02/17/2024 Pain in right ankle and joints of right foot (ICD-10 - M25.571) 02/17/2024 Bursitis of intermetatarsal bursa of right foot (ICD-10 - M77.51) 12/09/2023 Other myositis of left foot (ICD-10 - M60.872) 12/09/2023 Bursitis of left foot (ICD-10 - M77.52) 12/09/2023 Peripheral vascular disease (ICD-10 - I73.9) Plan Of Treatment Pending Test Test Name Order Date X ray : Foot, left 3V 12/09/2023 X ray : Foot, right 3V 12/09/2023 X ray : Foot, right 3V 02/17/2024 Insurance Providers Payer Name Payer Address Payer Phone Subscriber Number Group Number Insured Name Patient Relationship to Insured Coverage Start Date Coverage End Date Medicare National [employer] [address] [place] [address] [id number] Fallon Gabriel Self - patient is the insured A[employer] Secondary to Medicare [address] [place] [address] [id number] Fallon Gabriel Self - patient is the insured Medical (General) History Medical History History ICD Code Arthritis Back,Hip,and Knee pain CAD (Cholesterol) Cataracts Diverticulosis Gall bladder problems Headaches/Migraines Hiatal hernia High blood pressure Osteoporosis Psoriasis/eczema Reflux ( GERD) Measles Chicken pox Joint implants/screws Transfusions Spinal stenosis Scoliosis Spondylosis Varicose veins Tinnitus Numbness restless leg syndrome chronic pain Colitis Incontinence nausea neuroma Surgical History Surgery Date(Month/Year) breast biopsy 1957 vein ligation (both legs) 1970 vein ligation (right leg) 1972 hysterectomy 1973 sigmoid colon removed (diverticulitis) 1 988 breast biopsy + lumpectomy 1970 Gall bladder removal 1994 cellulitis 1993 total knee replacement 01/2009 laser surgery injections - sclerotheraph y [id number] cataract surgery 2014 2 Pre cancerous lesion removal (L-arm, 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
--- OUTSIDE RECORDS SUMMARY | 2024-09-01 13:40 | XMS_ITS ---
Author Organization [facility] Address [address] [place] [address] Care Team Providers Care Graphic Production Artist Name Role Phone Jesus Brand Primary Care Provider Dominique Gallo Unavailable [phone] Allergies Allergen (clinical drug ingredient) Drug/Non Drug [...] pain Drug Allergy Active REASON FOR VISIT pcp 11/15, Heel pain Medications Medication SIG (Take, Route, Frequency, Duration) Notes Start Date End Date Status Amoxicillin 500 MG 1 tablet Orally Thre e times a day Active LORazepam 1 MG 1 tablet at bedtime as needed Orally Once a day Active traMADol HCl 50 MG 1 tablet as needed O rally Once a day Active Clobetasol Propionate Active Famotidine 20 MG 1 tablet at bedtime as needed Orally Once a day Active Ondansetron 4 MG 1 tablet on the tong ue and allow to dissolve Orally Once a day Active Valsartan 320 MG 1 tablet Orally Once a day Active Sodium Fluoride Acti ve Metamucil Active Voltaren 1 % as directed Externally Active Super B Complex Acti ve Glucosamine Active Vitamin C Active Caltrate 600+D Activ e Centrum Silver - as directed Orally Active Neosporin Active Tylenol Active Bacitracin Active Systane 0.4-0.3 % as directed Ophthalmic Active amLODIPine Besylate 5 MG 1 tablet Orally Once a day Active Simvastatin 40 MG TAKE 1 TABLET BY ANTONIETA TH DAILY Oral for 60 Days Active Physical Therapy . . . 2-3x/week for 3-4 weeks Active hydrochlorothiazide 10/09/2023 Active Social History Tobacco Use: Social History [...] Problem Status W/U Status Risk Notes Problem [id number] Peripheral vascular disease (I73.9) Active confirmed Vital Signs Height 5 ft in 12/09/2023 Weight 190 lbs 12/09/2023 BMI 37.1 kg/m2 12/09/2023 Blood pressure systolic 136 mm Hg 12/09/19 24 Blood pressure diastolic 66 mm Hg 024 Encounters Encounter Location Date Provider Diagnosis [facility] [address] [place] [address] 12/09/2023 Dominique Dalton Pain in right foot M79.671 ; Plantar fasciitis, bilateral M72.2 ; Other myositis of right foot M60.871 ; Bursitis of right foot M77.51 ; Pain in left foot M79.672 ; Other myositis of left foot M60.872 ; Bursitis of left foot M77.52 and Peripheral vascular disease I73.9 Assessments Encounter Date Diagnosis (ICD Code) Assessment Notes Treatment Notes Treatment Clinical Notes Section Notes 12/09/2023 Pain in right foot (ICD-10 - M79.671) 12/09/2023 Plantar fasciitis, bilateral (ICD-10 - M72.2) Patient Educated with: HEEL CORD STRETCHES.pdf (HEEL CORD STRETCHES.pdf) Patient Educated with: RICE THERAPY.pdf (RICE THERAPY.pdf) 12/09/2023 Other myositis of right foot (ICD-10 - M60.871) 12/09/2023 Bursitis of right foot (ICD-10 - M77.51) 12/09/2023 Pain in left foot (ICD-10 - M79.672) 12/09/2023 Other myositis of left foot (ICD-10 - M60.872) 12/09/2023 Bursitis of left foot (ICD-10 - M77.52) 12/09/2023 Peripheral vascular disease (ICD-10 - I73.9) Plan Of Treatment Medication Medication Name Sig Start Date Stop Date Notes Physical Therapy . . . 2-3x/week for 3-4 weeks 12/09/2023 Treatment Notes Assessment Notes Plantar fasciitis, bilateral Patient Edu cated with: HEEL CORD STRETCHES.pdf (HEEL CORD STRETCHES.pdf) Patient Educated with: RICE THERAPY.pdf (RICE THERAPY.pdf) Pending Test Test Name Order Date X ray : Foot, left 3V 12/09/2023 X ray : Foot, right 3V 12/09/2023 Next Appt Details Follow Up: 2 Months, Reason: Progress Notes * Fallon GABRIELDOB: (83 yo F)Acc No.[id number]:12/09/2023 Progress Notes Patient:?Fallon Gabriel Provider:?Dominique Daltno DPM :1940???Age:83 Y???Sex:Female D ate:12/09/2023 Address:[id number] Pcp:Jesus Brand Subjective: * Chief Complaints: * ???Pcp 02/24Heel pain * HPI: ???Heel pain:?Nature:?tenderness, sharp pain, stiffness.?Location:?Proximal plantar aspect of Heel , B/L.?Duration:?a year or more.?Course:?worse.?Aggrevated:?standing, walking, walking first thing in the morning/after rest.?Treatments:?rest/alter normal daily activity.? * ROS:?General/Constitutional:?Nausea?admits.?Vomiting?denies.?Hunger Thirst?denies.?Loss appetite?denies.?Chills?denies.?Fatigue?admits.?Fever?denies.?Night Sweats?denies.?Unexplained weight loss?denies.?Unexplained weight gain?admits.?HEENTM:?Dentures?denies.?Dizziness?denies.?Glasses/contacts?admits.?Retinopathy?de nies.?Blurred/double vision?admits.?TMJ?admits.?Discharge/drainage?denies.?Implants?denies.?Sore throat?denies.?Dental implants?denies.?Hard of hearing ?denies.?Difficulty chewing/swallowing/speaking?admits.?Nose bleeds?denies.?Sore mouth?denies.?Respiratory:?On Oxygen?denies.?Pneumonia/pleurisy?denies.?Bronchitis?admits.?Emphysema?denies.?C oughing?admits.?Cough blood?denies.?Shortness of breath?denies.?Wheezing?admits.?Cardiovascular:?Pacemaker?denies.?MVP?denies.?WPW?denies.?CHF?denies.?Heart attack?denies.?Septal defect?denies.?Rapid beat?denies.?Chest pain ?denies.?Atrial Fib.?denies.?Murmur/Palpitations?denies.?Gastrointestinal:?Hemorrhoids?denies.?Stomach/Abdominal pain?denies.?Dark blood stool?denies.?Irritable bowel ?admits.?Constipation?denies.?Diarrhea?denies.?Hematology:?Swelling?denies.?Clots?denies.?Varicose Veins?admits.?Bruising?denies.?Bleeding problem?denies.?Genitourinary:?Blood urine?denies.?Frequent/Painfu/urination/bladder control?admits.?Kidney stones?denies.?Infection (UTI)?denies.?Nephropathy?denies.?sex trans dis (STD)?denies.?Prostate?denies.?Musculoskeletal:?Hammertoes?denies.?Bunions?denies.?Back Pain?admits.?Muscle Cramps/ Resting?admits.?Muscle cramps / walking?admits.?Generalized aches and pains?admits.?Weakness?admits.?Integ.:?Davis?denies.?Scars?admits.?Corns/calluses?denies.?Ingrown nails?denies.?Painful nails?denies.?Open Sores?denies.?Rashes?denies.?Neurologic:?Difficulty sleeping?admits.?Brain disorder?denies.?Numbness?admits.?Balance trouble?denies.?Confusion?denies.?Fainting/blackouts?denies.?Tingling?admits.?Tr emors?denies.? * Medical History:? * Surgical History:?breast bio psy 1958vein ligation (both legs) 1971vein ligation (right leg) 1973hysterectomy 1974sigmoid colon removed (diverticulitis) 1987breast biopsy + lumpectomy 1969Gall bladder removal 1994cellulitis 1993total knee replacement 01/2009laser surgery injections - sclerotheraphy 2008-2009cataract surgery Pre cancerous lesion removal (L-arm, R - calf) 09/2013pre cancerous lesion removed (wrist) 01/2015spinal surgery - laminectomy 10/10/2015pre cancerous lesion removed ( R nondenominational) 11/2016rest of lesion removed 11/2017L thigh excision precancerous lesion 01/26/2019L thigh excision precancerous lesion removed 02/09/2019 * Hospitalization/Major Diagno stic Procedure:?10 Day Hospitalization (Adhesions - Small Intestine) 06/2013[facility]- nausea 05/14 * Family History:?Mother: dece ased, heart attack, gall bladder disease, thyroid, , osteoarthritis, rheumatoid arthritis, diagnosed with Unspecified heart disease, Other specified conditions influencing health status.?Father: , gout, alcoholism, dementia, Raynauds, diagnosed with [...] ?Exercise: yes, house work. ?Marital status: . * Medications:?TakingamLODIPin e Besylate 5 MG Tablet 1 tablet Orally Once a [...] as needed Orally Once a dayClobetasol Propionate Amoxicillin 500 MG Tablet 1 tablet Orally Three times a dayLORazepam 1 MG Tablet 1 tablet at bedtime as needed Orally Once a dayFamotidine 20 MG Tablet 1 tablet at bedtime as needed Orally Once a dayhydrochlorothiazide Simvastatin 40 MG Tablet TAKE 1 TABLET BY MOUTH DAILY Oral Medication List reviewed and reconciled with the patientTaking amLODIPine Besylate 5 MG Tablet 1 tablet Orally Once a [...] Orally Once a dayTaking Clobetasol Propionate Taking Amoxicillin 500 MG Tablet 1 tablet Orally Three times a dayTaking LORazepam 1 MG Tablet 1 tablet at bedtime as needed Orally Once a dayTaking Famotidine 20 MG Tablet 1 tablet at bedtime as needed Orally Once a dayTaking hydrochlorothiazide Taking Simvastatin 40 MG Tablet TAKE 1 TABLET BY MOUTH DAILY Oral Medication List reviewed and reconciled with the patient [...] Verified] Objective: * Vitals:?Ht: 5 ft, Wt: 190, B SD: 37.1, Shoe size: 8-8.5, BP: 136/66 mm Hg, Ht-cm: 152.4 cm, Wt-k.18 kg. * Examination: ???General Examination: ?GENERAL APPEARANCE:?Reveals [...] tarsal tunnel, park pedis, and medial calcaneal nerves.?DEEP TENDON REFLEXES:?Achilles, 2/4, B/L.?Vascular: ?DP PULSES:?3/4, B/L.?PT PULSES:?3/4, B/L.?CAPILLARY FILL TIME:?immediate, all digits, B/L.?SKIN TEMPERTURE GRADIENT OF THE LOWER EXTERMITIES:?warm to cool, proximal to distal, B/L.?HAIR GROWTH/TEXTURE/ELASTICITY/TURGOR:?normal, B/L.?PIGMENTATION:?mottled, B/L.?EDEMA:?absent, B/L.?Dermatologic: ?SKIN FINDINGS:?Skin exam reveals normal texture, elasticity, and turgor. There are no masses. The interspaces are clear.?Orthopedic: ?MUSCLE STRENGTH:?5/5 all groups in a symmetrical fashion , B/L.?FOOT MORPHOLOGY:?Rigid medial/plantar protrusion of Midfoot at area of Navicular tuberosity , B/L.?Heel Pain: ?INSPECTION REVEALS:?Pain on Palpation to Plantar Fascia med. and central bands, intrinsic musc., infra-calcaneal bursa, and med calc tubercle, B/L, No pain: posterior/superior heel, achilles bursa/tendon, sinus tarsi, peroneals, or with lateral heel compression; no limited STJ ROM, calor, or ecchymosis.?X-Rays - IMAGING REPORT: ?Clinical Indication(s):? Evaluate for Fracture, Evaluate Biomechanical Deformity.?Views:?3 views of Foot, LAT, LO, MO , B/L.?Findings:?normal bone and soft tissue density consistent for patients age and sex, navicular/cuneiform plantar subluxation with anterior cyma line, positive infra-calcaneal exostosis, no coalitions identified , dorsal degenerative changes of the tarsal joints , calcified vessels are visible.?Fracture:?Negative fractures identified.? Assessment: * Assessment: 1.?Pain in right foot - M79. 671?2.?Other myositis of right foot - M60.871?3.?Plantar fasciitis, bilateral - M72.2 (Primary), Acute problem, Complicated w/ Multiple Tx Options(4),Dx New problem, Prognosis Uncertain (4)?4.?Bursitis of right foot - M77.51?5.?Pain in left foot - M79.672?6.?Other myositis of left foot - M60.872?7.?Bursitis of left foot - M77.52?8.?Peripheral vascular disease - I73.9? Plan: * Treatment: 2.?Pain in right foot?Imaging: X ray : Foot, right 3V 3.?Pain in left foot?Imaging: X ray : Foot, left 3V * Procedure Codes:?66499 X-RAY EXAM OF RIGHT FOOT 3V, Modifiers: 26 , [id number] X- RAY EXAM OF LEFT FOOT 3V, Modifiers: 26 , LT * Preventive Medicine:? ??Counseling:?Discussion:?-04: Office or other outpatient visit for the evaluation and management of a new patient, which required a medically appropriate history and/or examination and MODERATE level of DECISION MAKING for: 1 OR MORE CHRONIC PROBLEM(S) THATS WORSENING, 2 STABLE CHRONIC PROBLEMS, A NEWLY DIAGNOSED PROBLEM WITH UNCERTAIN PROGNOSIS, AN ACUTE COMPLICATED INJURY WITH MULTIPLE TREATMENT OPTIONS, OR AN ACUTE PROBLEM WITH ACCOMPANYING SYSTEMIC SYMPTOMS, THAT POSE(S) A MODERATE RISK OF MORBIDITY. THIS CONDITION MAY ALSO INCLUDE RX DRUG MANAGEMENT, OR A DECISON FOR MINOR SURGERY. The visit on the day of the [...] have encouraged the patient to call the office.?Cramps:?CRAMPS: Discussed with the Patient the causes of foot/toe cramps including -Too tight shoes, dehydration, overexertion, certain medications, and mineral deficiencies. Most causes of foot cramps are harmless and temporary. Often you can take care of the pain yourself. Treatment may include, whereas if you are sitting or lying down, to stand and put gentle weight on your cramping foot. Activity stretch your foot and toes, to pull them up toward your nose. You may also massage your muscle gently as you stretch. If your foot cramps do not resolve relatively quickly, further testing may be required. The patient verbally confirmed a full understanding of the above information, recommended a vascular consult to evaluate circulation given calcified vessels on Xray and foot cramping at night, pt declines.?Heel pain:?FASCIITIS: I explained to the patient the possible etiologies of Plantar Fasciitis including foot type/shoegear/activity level/exercise routine and the risks/benefits of all the different treatment options for heel pain including: No treatment at all, Rest, Ice, NSAIDs(only if well tolerated after meals), New/supportive Shoegear, Strappings and Tapings, Stretching exercises, Deep Tissue Massage, Heel cups/cushions, Arch support/shoe inserts, Custom orthoses, Topical analgesics including Aspercream/Voltaren gel, Night splint AFO for am stiffness, Cortisone injection therapy, Cast boot with crutches/cane/or walker for assisted ambulation, Physical Therapy, EPAT/ESWT, Interfil injection therapy, as well as surgical [place]/Endoscopic Fasciitomy surgical procedures if needed. Recommendations were made to limit barefoot walking, eliminate wearing nonsupportive shoegear (i.e. flip-flops or sandals, or a shoe with an easily bendable, foldable, or twistable sole) and wear shoegear with a good solid sole, a supportive arch, and plenty of room for an insert/orthotic if necessary. If wearing sandals was required by the patient, we recommended orthopedic sandals such as Orthoheel or Birkenstock even while in the home. If the patient wore heels in the past, we recommended they continue, but eliminate the use of flats. The advantages and disadvantages of each option were discussed and the patients questions re: types of shoegear, custom vs prefabricated inserts, activity level, PO vs Topical medications (and their respective potential complications/drug interactions/side effects), and consistency in home treatment regimens for optimal success were answered to their satisfaction. Literature detailing plantar fasciitis and the various treatment options were dispensed and reviewed.?Orthotics:?I explained to the patient the benefits of OT use. I explained that orthoses are medically necessary to decrease the foot pain through proper mechanical control, support of their foot , decrease stretch/strain on the plantar fascia.?P.R.I.C.E.:?The patient was counseled on the use of P.R.I.C.E. and NSAIDS (if well tolerated) to aid in the recovery from their painful condition.?Physical Therapy:?Discussed the potential short and mcc benefits of physical therapy including pain relief, improved function for activity of daily life, return to exercise, increased quality of life. We discussed the usual/customary PT treatment schedule of 2-3 times per week for 4 weeks to as much as 12 weeks depending on insurance approval/coverage. We discussed various PT treatment modalities including, but not limited to, gate training, muscular stabilization, stretching, deep tissue therapeutic massage, ultrasound, TENS, iontophoresis, fluidotherapy, laser therapy, hydrotherapy, contrast ice/heat bath, and passive as well as active ROM exercises. Questions re: PT including visit amounts, rates of success, and goals were answered to the patient's satisfaction. The patient verbally confirmed the medical necessity and use of PT therapy treatment for their MSK condition.?Shoe Gear Counseling:?The patient and I reviewed [...] Answered any and all questions..? * Follow Up:?2 Months * Images: * Sign off status: Completed true * Provider:?Dominique Dalton DPM Date:? Generated for Amadeo bernard/Haim/Chapisitting on:?09/01/2024 01:39 PM EST History and Physical Notes * HPI (History of Present Illness) Category Sub-Category Detail Notes Category Not es Heel pain Duration: a year or more Nature: tenderness, sharp pa in, stiffness Location: Proximal plantar asp ect of Heel , B/L Aggravated: standing, walking, w alking first thing in the morning/after rest Course: worse Treatments: rest/alter normal da reinaldo activity Examination Category Sub-Category Detail Notes Category Not es Heel Pain INSPECTION REVEALS: Pain on Palp ation to Plantar Fascia med. and central bands, [...] sean, park pedis, and medial calcaneal nerves DEEP TENDON REFLEXES: Achilles, 2/4, B/L Dermatologic SKIN FINDINGS: Skin exam reveal s normal texture, elasticity, and turgor. There are no masses. The interspaces are clear Orthopedic FOOT MORPHOLOGY: Rigid medial/pl candace protrusion of Midfoot at area of Navicular tuberosity , B/L MUSCLE STRENGTH: 5/5 all groups in a [...] i dentified Views: 3 views of Foot, LAT , LO, MO , B/L Clinical Indication(s): Evaluate for Fra cture, Evaluate Biomechanical Deformity
== END 2024-08-30 09:21 | disposition home or self-care (01) ==
PROVIDERS: PCP Internal Medicine; Visit Provider Anesthesiology
DX: L40.50 Arthropathic psoriasis, unspecified (principal); M19.071 Primary osteoarthritis, right ankle and foot; M19.072 Primary osteoarthritis, left ankle and foot; M47.812 Spondylosis without myelopathy or radiculopathy, cervical region; M25.50 Pain in unspecified joint; M47.816 Spondylosis without myelopathy or radiculopathy, lumbar region; M96.1 Postlaminectomy syndrome, not elsewhere classified
CPT/HCPCS: 99214

== ENCOUNTER → 2024-08-30 08:55 | Outpatient (BNVA) | payer MEDICARE, SELFPAY | PROVIDERS: PCP Internal Medicine; Visit Provider Anesthesiology | DX: M47.812 Spondylosis without myelopathy or radiculopathy, cervical region (principal); M47.816 Spondylosis without myelopathy or radiculopathy, lumbar region; M96.1 Postlaminectomy syndrome, not elsewhere classified; M19.071 Primary osteoarthritis, right ankle and foot; M19.072 Primary osteoarthritis, left ankle and foot; M25.50 Pain in unspecified joint; L40.50 Arthropathic psoriasis, unspecified; L40.9 Psoriasis, unspecified | CPT/HCPCS: 99212 ==

== ENCOUNTER 2024-10-01 09:03 | Outpatient (REF) | payer MEDICARE, SELFPAY ==
--- OUTSIDE RECORDS SUMMARY | 2024-10-01 09:06 | XMS_ITS ---
Author Organization [facility] Address [address] [place] [address] Care Team Providers Care Ballistics Tester Name Role Phone Jesus Brand Primary Care Provider Dominique Gallo Unavailable [phone] Allergies Allergen (clinical drug ingredient) Drug/Non Drug [...] 024 Encounters Encounter Location Date Provider Diagnosis [facility] [address] [address] 02/17/2024 Dominique Dalton Plantar fasciitis, bilateral M72.2 [...] Notes * Fallon GABRIELDOB: (83 yo F)Acc No.[id number]:02/17/2024 Progress Note Patient:?Fallon Gabriel Provider:?Dominique Dalton DPM :1940???Age:83 Y???Sex:Female D ate:02/17/2024 Address:[facility] [place], [place] Pcp:Jesus Brand Subjective: * Chief Complaints: * [...] laminectomy 10/10/2015pre cancerous lesion removed ( R taoism) 11/2016rest of lesion removed 11/2017L thigh excision [...] * Vitals:?Ht: 5 ft, Wt: 197, B AR: 38.47, Shoe size: 8-8.5, BP: 155/60 mm [...] - M77.51? Plan: * Treatment: * Procedure Codes:?78936 X-RAY EXAM OF RIGHT FOOT 3V, Modifiers: [...] Dalton DPM Date:? Generated for Amadeo bernard/Haim/Lana on:?10/01/2024 09:06 AM EST History and Physical Notes * HPI [...] person, place, and t mark Vascular DP PULSES (B): 3/4, B/L PT PULSES (B): 3/4, B/L CAPILLARY FILL TIME: immediate, all digi ts, B/L TEMPERTURE GRADIENT (C): warm to cool, p roximal to distal, B/L TROPHIC CONDITION-TEXTURE/ELASTICITY/TURGOR/HAIR GROWTH (B): normal, B/L EDEMA (C): absent, B/L PIGMENTATION: mottled, B/L X-Rays - [...]
--- OUTSIDE RECORDS SUMMARY | 2024-10-01 09:07 | XMS_ITS | Patient Health Record ---
Author Organization [facility] Address [address] [place] [address] Care Team Providers Care Locks Inspector Name Role Phone Jesus Brand Primary Care Provider Dominique Gallo Unavailable [phone] Allergies Allergen (clinical drug ingredient) Drug/Non Drug [...] Problem Status W/U Status Risk Notes Problem [id number] Peripheral vascular disease (I73.9) Active confirmed Vital Signs Blood pressure diastolic 60 mm Hg 02/17/2024 Height 5 ft in 02/17/2024 Blood pressure systolic 155 mm Hg 02/17/2024 Weight 197 lbs 02/17/2024 BMI 38.47 kg/m2 02/17/2024 Encounters Encounter Location Date Provider Diagnosis [address] [address] 12/09/2023 Dominique Dalton Pain in right foot M79.671 ; Plantar fasciitis, bilateral M72.2 ; Other myositis of right foot M60.871 ; Bursitis of right foot M77.51 ; Pain in left foot M79.672 ; Other myositis of left foot M60.872 ; Bursitis of left foot M77.52 and Peripheral vascular disease I73.[address] [address] 02/17/2024 Dominique Dalton Plantar fasciitis, bilateral M72.2 ; Metatarsalgia, right foot M77.41 ; Pain in right foot M79.671 ; Peripheral vascular disease I73.9 ; Pain in right ankle and joints of right foot M25.571 and Bursitis of intermetatarsal bursa of right foot M77.[address] [address] 10/09/2023 Dominique Dalton [address] [address] 12/09/2023 Dominique Dalton Assessments Encounter Date Diagnosis [...] [employer] [address] [place] [address] [id number] Fallon Gabriel Self - patient is the insured AARP Secondary to Medicare [address] [place] [id number] Fallon Gabriel Self - patient is the [...] 01/2009 laser surgery injections - sclerotheraph y [id number] cataract surgery 2014 2 Pre cancerous lesion removal (L-arm, R - calf) 09/2013 pre cancerous lesion removed (wrist) 2014 spinal surgery - laminectomy 10/10/2015 pre cancerous lesion removed ( R jehovah's witness) 11/2016 rest of lesion removed 11/2017 L thigh excision precancerous lesion 03/2019 L thigh excision precancerous lesion rem aniceto 02/09/2019 Hospitalization History Reason Date(Month/Year) 10 Day Hospitalization (Adhesions - Smal l Intestine) 06/2013 [facility]- nausea 05/14
--- OUTSIDE RECORDS SUMMARY | 2024-10-01 09:07 | XMS_ITS ---
Author Organization [facility] Address [address] [facility] [address] Care Team Providers Care Director Instrumentation Name Role Phone Jesus Brand Primary Care Provider Dominique Gallo [phone] REASON FOR VISIT ebony Kang #[phone] Encounters Encounter Location Date Provider Diagnosis [facility] [address] [place] [address] 12/09/2023 Dominique Dalton Plan Of Treatment No Information Progress Notes * Fallon GABRIELDOB: (83 yo F)Acc No.[id number]:12/09/2023 Patient:?Fallon Gabriel :1940???Age:83 Y???Sex:Female Address:[facility] [place] [facility] [place] [address] * Addendum: * ? true * Date:? Generated for Printi marco antonio/Haim/eTransmitting on:?10/01/2024 09:06 AM EST
--- OUTSIDE RECORDS SUMMARY | 2024-10-01 09:07 | XMS_ITS ---
Author Organization [facility] Address [address] [place] [address] Care Team Providers Care Industrial Illuminating Engineer Name Role Phone Jesus Brand Primary Care Provider Dominique Gallo Unavailable [phone] Allergies Allergen (clinical drug ingredient) Drug/Non Drug [...] Problem Status W/U Status Risk Notes Problem [id number] Peripheral vascular disease (I73.9) Active confirmed Vital Signs Height 5 ft in 12/09/2023 Weight 190 lbs 12/09/2023 BMI 37.1 kg/m2 12/09/2023 Blood pressure systolic 136 mm Hg 12/09/19 24 Blood pressure diastolic 66 mm Hg 024 Encounters Encounter Location Date Provider Diagnosis [facility] [place] [address] [place] [address] 12/09/2023 Dominique Dalton Pain in right foot [...] Notes * Fallon GABRIELDOB: (83 yo F)Acc No.[id number]:12/09/2023 Progress Notes Patient:?Fallon Gabriel Provider:?Dominique Dalton DPM :1940???Age:83 Y???Sex:Female D ate:12/09/2023 Address:[id number] Pcp:Jesus Brand Subjective: * Chief Complaints: * [...] laminectomy 10/10/2015pre cancerous lesion removed ( R gnosticism) 11/2016rest of lesion removed 11/2017L thigh excision [...] * Vitals:?Ht: 5 ft, Wt: 190, B NV: 37.1, Shoe size: 8-8.5, BP: 136/66 mm [...] ray : Foot, left 3V * Procedure Codes:?79652 X-RAY EXAM OF RIGHT FOOT 3V, Modifiers: 26 , [id number] X- RAY EXAM OF LEFT FOOT 3V, [...] Interfil injection therapy, as well as surgical Rutledge/Endoscopic Fasciitomy surgical procedures if needed. Recommendations were [...] painful condition.?Physical Therapy:?Discussed the potential short and snf benefits of physical therapy including pain relief, [...] Dalton DPM Date:? Generated for Amadeo bernard/Haim/Chapisitting on:?10/01/2024 09:07 AM EST History and Physical Notes * [...]
[2024-10-01 10:11] LABS: MANUAL DIFF FLAG NO
[2024-10-01 10:15] LABS: Basophils Absolute Auto 0.1 X10*3/uL (0.0-0.2); Basophils Percent Auto 0.8 % (0-2); Eosinophils Absolute Auto 0.2 X10*3/uL (0.0-0.4); Eosinophils Percent Auto 3.2 % (0-4); Hematocrit 35.8 % (37.0-47.0); Hemoglobin 11.9 g/dl (12.0-16.0); Imm Gran Abs Auto 0.02 X10*3/uL (0.00-0.03); Imm Gran Pct Auto 0.3 % (0.0-0.4); Lymphocytes Absolute Auto 2.5 X10*3/uL (1.2-4.9); Lymphocytes Percent Auto 41.8 % (20-40); Mean Corpuscular HGB Conc 33.2 g/dl (31.0-35.0); Mean Corpuscular Hemoglobin 29.8 pg (27.0-33.0); Mean Corpuscular Volume 89.7 fL (80.0-98.0); Mean Platelet Volume 9.7 fL (9.4-12.3); Monocytes Absolute Auto 0.5 X10*3/uL (0.1-1.2); Monocytes Percent Auto 8.4 % (2-11); Neutrophils Absolute Auto 2.7 x10*3/uL (2.0-8.3); Neutrophils Percent Auto 45.5 % (45-73); Platelet Count 356 X10*3/uL (160-400); Red Blood Count 3.99 X10*6/uL (4.20-5.50); Red Cell Distribution Width 13.6 % (11.0-16.0)
[2024-10-01 11:42] LABS: Vitamin B12 579 pg/mL (200-900)
[2024-10-01 11:44] LABS: Alanine Aminotransferase 17 U/L (0-31); Alkaline Phosphatase 94 U/L (39-117); Anion Gap 10 (12-20); Aspartate Amino Transferase 22 U/L (5-31); Bilirubin Total 0.4 mg/dL (0.0-1.0); Blood Urea Nitrogen 19 mg/dL (9-16); Calcium 9.8 mg/dL (8.4-10.2); Carbon Dioxide 31 mmol/L (22-29); Chloride 107 mmol/L (96-108); Cholesterol 266 mg/dL (<200); Estimated Glomerular Filt Rate 49; Glucose Fasting 107 mg/dL (60-99); HDL Cholesterol 89 mg/dL (>40); LDL Cholesterol Calculated 157 mg/dL (<100); Potassium 4.7 mmol/L (3.3-5.1); Sodium 143 mmol/L (135-145); Total Protein 7.1 g/dL (6.5-8.0); Triglycerides 101 mg/dL (<150)
[2024-10-01 12:02] LABS: Vitamin D 25-OH Total 55.7 ng/mL (>30)
== END 2024-10-01 09:04 | disposition home or self-care (01) ==
LOC: HO.HMGCLDS 09:03
PROVIDERS: PCP Internal Medicine; Visit Provider Internal Medicine
DX: Z13.220 Encounter for screening for lipoid disorders (principal); I10 Essential (primary) hypertension; Z13.21 Encounter for screening for nutritional disorder
CPT/HCPCS: 36415; 80053; 80061; 82306; 82607; 85025

== ENCOUNTER 2024-10-05 11:47 | Outpatient (AMB) | payer MEDICARE, SELFPAY ==
[2024-10-05 12:29] VITALS: BP 134/70; PULSE 81; O2SAT 98; BMI 39.1
--- NOTE | 2024-10-05 12:29 | MHC.PC.OV ---
Vital Signs 10/05/24 12:29 Height 5 ft Weight 200 lb BMI 39.1 BP 134/70 Blood Pressure Location Lt brachial Position Sitting Pulse 81 Pulse Source Pulse Oximeter Pulse Oximetry (%) 98 Oxygen Delivery Method Room Air Intake Visit Reasons: 4m follow up Intake Note: Pt is here today for her 4mo. f/u Allergies lidocaine [From Aspercreme (lidocaine HCl)] Allergy (Intermediate, Verified 10/05/24 12:56) Rash celecoxib [From Celebrex] Allergy (Mild, Verified 10/05/24 12:56) PALPITATIONS levofloxacin [From Levaquin] Allergy (Mild, Verified 10/05/24 12:56) VOMITNG/JITTERY zolpidem [From Ambien] Allergy (Mild, Verified 10/05/24 12:56) HIVES/RASH/ITCH acetaminophen [From Vicodin] Allergy (Verified 10/05/24 12:56) Abdominal Pain adhesive tape Allergy (Verified 10/05/24 12:56) Rash cholestyramine [From Questran] Allergy (Verified 10/05/24 12:56) Unknown gemfibrozil [From Lopid] Allergy (Verified 10/05/24 12:56) Nausea hydrocodone [From Vicodin] Allergy (Verified 10/05/24 12:56) Abdominal Pain indomethacin Allergy (Verified 10/05/24 12:56) Nausea ketoprofen Allergy (Verified 10/05/24 12:56) Chest Pain lisinopril Allergy (Verified 10/05/24 12:56) Nausea naproxen Allergy (Verified 10/05/24 12:56) Abdominal Pain NSAIDS (Non-Steroidal Anti-Inflamma Allergy (Verified 10/05/24 12:56) Abdominal Pain sucrose [From Questran] Allergy (Verified 10/05/24 12:56) Unknown diazepam [From Valium] Adverse Reaction (Mild, Verified 10/05/24 12:56) HYPERACTIVE pravastatin [Pravastatin] Adverse Reaction (Mild, Verified 10/05/24 12:56) MUSCLE AND LEG PAIN gabapentin Adverse Reaction (Verified 10/05/24 12:56) Headache zinc Adverse Reaction (Verified 10/05/24 12:56) Vomiting Medication List - Last Reconciled 10/05/24 by Siena Amado MD amlodipine 10 mg PO DAILY ascorbic acid (vitamin C) 500 mg PO DAILY B-complex with vitamin C 1 cap PO DAILY calcium carbonate-vitamin D3 600 mg-20 mcg (800 unit) (Caltrate plus D) 1 tab PO DAILY cholestyramine (with sugar) 4 gram 4 grams PO BID clobetasol 0.05% 1 appl topical BID diclofenac sodium 1% 2 grams topical QID famotidine 20 mg PO DAILY fluoride (sodium) 1.1% 1 appl PO DAILY xorlsmbr-vhm-yejfe-uzs243-wuyz 500-500-66.7 mg (Traujvplnlz-Axcbzkclslb-NVW (with antiox)) tabs PO hydrochlorothiazide 25 mg PO QAM miconazole nitrate 2% 1 appl topical DAILY pfdrygth-tzb-hqsk-FA-vit K-lut 8 mg iron-400 mcg-50 mcg (Centrum Silver Women) 1 tab PO DAILY ondansetron 4 mg PO Q6-8H PRN pantoprazole 40 mg PO DAILY propylene glycol 0.6% (Systane Balance) 1 drp ophthalmic (eye) DAILY psyllium husk (Metamucil) 0.4 grams PO QDAY valsartan 320 mg PO DAILY Tobacco use date assessed: 10/05/24 Fall risk assessment: No Falls in past year Last assessed Fall Risk: 10/05/24 Dental Screening Dental Screen Date: 10/05/24 Did you have a dental visit in the last 12 months?: No Did you have a dental problem in the last 6 months where you did not have access to dental care?: No Was dental information given to patient?: Patient declined HPI 4m follow up HPI Details 84-year-old lady with history of hypertension, hyperlipidemia , lumbar degenerative disc disease with arthritis status post laminectomy done in [place], here today for follow-up. She has been taking her medications as instructed but admits to keeping on forgetting to take her cholesterol medicine. And has not been fully compliant with diet. Has been having more lower back pain unrelieved with taking glucosamine chondroitin, and taking ruck-meo-xtxdlqc NSAIDs and Tylenol. Would like to see if she can get a prescription refill for tramadol to take only as needed for severe pain. [facility] Medical History (Updated 10/10/24 @ 16:49 by Siena Amado MD) Dyslipidemia Chronic low back pain Hip pain, chronic Physical exam Chronic back pain Chronic neck pain Difficulty swallowing Upper respiratory infection Polyarthralgia Osteoarthritis Chronic pain TMJ (dislocation of temporomandibular joint) Elevated uric acid in blood 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 Spinal stenosis of cervical region with radiculopathy Bilateral hand pain Psoriatic arthritis Hiatal hernia Psoriasis Hyperlipidemia Surgical History Hx of cataract removal with insertion of prosthetic lens History of laminectomy History of colon surgery History of hysterectomy History of cholecystectomy Hx of cataract surgery History of knee replacement Family History Father Dementia Raynauds disease Substance use disorder Mother Rheumatoid arthritis Maternal Grandfather Type 2 diabetes mellitus Sister Mary Carmen's disease Breast cancer Brother Pancreatic cancer Myocardial infarction Sister Lung cancer Paternal Uncle Substance use disorder Paternal Uncle Substance use disorder Paternal Uncle Substance use disorder Son Mental health disorder Social History Household Members: Spouse Housing: House Alcohol intake: former Patient Tobacco Use Status: Never used Tobacco e-Cigarette/Vaping Use: Never Used service: No Current occupational status: retired Cognitive needs: No Hearing needs: No Vision needs: Yes Questionnaire PHQ-9 Over the last 2 weeks, how often have you been bothered by any of the following problems? 1. Little interest or pleasure in doing things: not at all 2. Feeling down, depressed, or hopeless: not at all 3. Trouble falling or staying asleep, or sleeping too much: more than half the days 4. Feeling tired or having little energy: more than half the days 5. Poor appetite or overeating: not at all 6. Feeling bad about yourself - or that you are a failure or have let yourself or your family down: not at all 7. Trouble concentrating on things, such as reading the newspaper or watching television: not at all 8. Moving or speaking so slowly that other people could have noticed. Or the opposite - being so fidgety or restless that you have been moving around a lot more than usual: not at all 9. Thoughts that you would be better off or of hurting yourself in some way: not at all Total score: 4 Depression Screening Interpretation: Negative Depression Screening Done: Yes 26592 - PHQ-9 Billing: Yes Source: Developed by Drs. Tc Ferrer, Ryann Sanchez, Berto Barron and colleagues, with an educational rosemarie from [employer]. Thrive Questionnaire Date Thrive assessed: 10/05/24 I am a: Patient What is your living situation today?: I have a steady place to live Within the past 12 months, did the food you bought not last and you didn't have the money to get more?: Never true Within the past 12 months, did you worry whether your food would run out before you got money to buy more?: Never true Do you have trouble paying for medicines?: No Do you have trouble getting transportation to medical appointments?: No Do you have trouble paying your heating and electricity bill?: No Do you have trouble taking care of your child, family member or friend?: No Do you have trouble with day-to-day activities such as bathing, preparing meals, shopping, managing finances, etc.?: No Are you currently unemployed and looking for a job?: No Are you interested in more education?: No Please select the resources that you would like help with: None Currently or been in a relationship where the following occur: No concerns reported THRIVE Score: 0 AUDIT C Alcohol Use Questionnaire (AUDIT-C) 1. How often do you have a drink containing alcohol?: Monthly or less 2. How many drinks containing alcohol do you have on a typical day when you are drinking?: 1 or 2 3. How often do you have six or more drinks on one occasion?: Never Total Score: 1 CASI-7 AMB Questionnaire CASI-7 Date CASI - 7 assessed: 10/05/24 Feeling nervous, anxious, or on edge: 0 = Not at all Not being able to stop or control worryin = Not at all Worrying too much about different things: 1 = Several days Trouble relaxin = Not at all Being so restless that it is hard to sit still: 1 = Several days Becoming easily annoyed or irritable: 0 = Not at all Feeling afraid as if something awful might happen: 0 = Not at all Total CASI-7 score (0-4 normal; 5-9 mild; 10-14 moderate; 15-21 severe): 2 Source: Developed by Gutierrez Ballesteroset B.W. Daniel, Berto Barron and colleagues, with an educational rosemarie from [employer]. CASI-7 Assessment Billing CASI-7 Assessment Tool: CASI-7 Assessment 23116 Review of Systems Const All systems reviewed & are unremarkable except as noted in HPI and below Physical exam (Primary Care) Vital Signs: Last Vital Signs Pulse 81 10/05/24 12:29 BP 134/70 10/05/24 12:29 Pulse Ox 98 10/05/24 12:29 Oxygen Delivery Method Room Air 10/05/24 12:29 BMI result Body Mass Index 39.1 Tobacco/Smoking Status: Tobacco use Status Tobacco use date assessed 10/05/24 10/05/24 12:41 Patient Tobacco Use Status Never used Tobacco 10/05/24 12:41 e-Cigarette/Vaping Use Never Used 10/05/24 12:41 PHQ-9: PHQ-9 Score PHQ-9: Total score 6 10/05/24 13:20 Depression Screening Interpretation: Negative Thrive Assessment: Date of Thrive Assessment Date Thrive assessed 10/05/24 10/05/24 12:41 Currently or been in a relationship where the following occur: No concerns reported Const General: no acute distress and Physically active Orientation/consciousness: patient oriented x3 Neck Neck: Yes full ROM, Yes no lymphadenopathy and Yes supple Resp Auscultation: clear to auscultation bilaterally Cardio Rate: regular rate Rhythm: regular rhythm Heart sounds: S1 normal heart sound present, S2 normal heart sound present and no murmurs GI Palpation (GI): Soft to palpation, nontender, no guarding and no masses Auscultation: normal bowel sounds Back/Spine/Pelvis Thoracic/Lumbar Spine: straight leg raise negative bilaterally and paraspinal muscle tenderness bilaterally in the lower lumbar Skin General skin exam: no rashes or lesions noted Neuro General: patient oriented x3, gait normal, moves all extremities and no focal motor deficits Gait exam (Neuro): Normal gait present Extrem General: Yes full ROM, Yes no joint enlargement, Yes no clubbing, cyanosis or edema and Yes normal gait Results Reviewed Results Reviewed: Name: Fallon Gabriel Age/Sex: 83/F : 1940 Unit#: [id number] Attend Dr: Siena Amado MD Re10/01/24 Status: DEP REF Location: [facility] Disch: SPEC : [id number] BRITNEY: 10/01/24 STATUS: COMP REQ : [id number] RECD: 10/01/24-[address]: Siena Amado MD COMP: 10/01/24-1202 ENTERED: 10/01/[address]: ORDERED: CMP Fast, Lipid Panel, Vitamin D 25-OH Test Result Flag Reference Sodium 143 135-145 mmol/L Potassium 4.7 3.3-5.1 mmol/L CL 107 96-108 mmol/L CO2 31 H 22-29 mmol/L Gap 10 L 12-20 BUN 19 H 9-16 mg/dL Creat 1.06 0.5-1.4 mg/dL eGFR 49 Chronic Kidney Disease: Estimated GFR < 60 mL/min/1.73m2 Severe Kidney Disease: Estimated GFR < 15 mL/min/1.73m2 FBS 107 H 60-99 mg/dL A fasting glucose from 100-125 mg/dl is considered impaired (pre-diabetes). CA 9.8 8.4-10.2 mg/dL Total Bili 0.4 0.0-1.0 mg/dL AST (GOT) 22 5-31 U/L ALT (GPT) 17 0-31 U/L Protein, Total 7.1 6.5-8.0 g/dL Alb 4.0 3.5-5.0 g/dL Triglyceride 101 <150 mg/dL Desirable Triglyceride: less than 150 mg/dL Borderline High Triglyceride 150-199 mg/dL High Triglyceride: 200-499 mg/dL Very High Triglyceride: greater than or equal to 5OO mg/dL Cholesterol 266 H <200 mg/dL Desirable Cholesterol: less than 200 mg/dL Borderline High Cholesterol: 200-239 mg/dL High Cholesterol: greater than 239 mg/dL LDL Calculated 157 H <100 mg/dL Desirable LDL: less than 100 mg/dL Near Optimal/Above Optimal LDL: 110-129 mg/dL Borderline High LDL: 130-159 mg/dL High LDL: 160-189 mg/dL Very High LDL: greater than or equal to 190 mg/dL HDL 89 >40 mg/dL Desirable HDL: greater than 40 mg/dL Note: This HDL assay may give artificially low results in patients with liver disease. Alk Phos 94 39-117 U/L Vit D 25-OH Tot 55.7 >30 ng/mL Health Based Reference Values* < 20 ng/mL Deficient 20-30 ng/mL Insufficient > 30 ng/mL Sufficient XR/XR lumbar spine 4V min IMPRESSION: 1. Moderate to severe levoconvex scoliosis at 46 degrees, straightening of the normal lordosis, and multilevel moderate to severe spondylosis. 2. Fusion of L4-5 with disc graft without complication. 3. Fusion of L5-S1 with posterior interspinous fusion device. No complication seen. 4. Grade 1 anterolisthesis L4 on L5. Electronically signed by: Migue Grijalva MD 08/29/2024 04:21 PM EST Coding Level of Care Code Est Pt Level 4 (12110) Complex EM visit Add On G2211 Diagnoses Dyslipidemia E78.5 Spondylosis of lumbar region without myelopathy or radiculopathy M47.816 Primary hypertension I10 Hypertension type: primary hypertension Additional Codes PHQ-9 - 04931 - PHQ-9 Billing: Yes ([id number]) CASI-7 Assessment Billing - CASI-7 Assessment Tool: CASI-7 Assessment 82643 ([id number]) Assessment & Plan Assessment & Plan (1) Dyslipidemia: Code(s): E78.5 - Hyperlipidemia, unspecified Category: Medical Plan: Reviewed recent fasting lab results with patient, stressed importance of taking medicines as directed and adhere to recommended diet. Continued on rosuvastatin 5 mg taken 1 tablet 1 tablet every other day (2) Spondylosis of lumbar region without myelopathy or radiculopathy: Code(s): M47.816 - Spondylosis without myelopathy or radiculopathy, lumbar region Category: Medical Plan: She has been seen by Dr. Mcclellan recently who explained to the patient that she can started on tramadol, however she needs to have to make opioid risk assessment and performance of some tests including UDS to make sure that she will be able to prescribe her opioid medications. Medial branch block cervical spine C4-C5 C6 resulted in very pleural long good pain relief. She was offered patient sprint PNS to treat this condition. Patient decided to think about it. Currently waiting for approval from insurance company to perform L2-L3 L4 medial branch block for this patient. As soon as it will be approved she will be scheduled for the procedure. Short course of tramadol was given to the patient on this visit, advised to follow-up with Dr. Mcclellan regarding above recommendations (3) Hypertension: Code(s): I10 - Essential (primary) hypertension Category: Medical Qualifiers: Hypertension type: primary hypertension Qualified Code(s): I10 - Essential (primary) hypertension Plan: Continue with current medication. Reinforced importance of following a low sodium diet, getting regular exercise, and lowering stress levels. Repeat basic metabolic panel liver enzymes and lipid checks in 12/2024 prior to next visit Orders: Orders Basic Metabolic Panel Fasting 12/21/24 E78.5 - Hyperlipidemia, unspecified, I10 - Essential (primary) hypertension Alanine Aminotransferase 12/21/24 E78.5 - Hyperlipidemia, unspecified, I10 - Essential (primary) hypertension Aspartate Amino Transferase 12/21/24 E78.5 - Hyperlipidemia, unspecified, I10 - Essential (primary) hypertension Lipid Panel 12/21/24 E78.5 - Hyperlipidemia, unspecified, I10 - Essential (primary) hypertension Medications: New tramadol 50 mg PO DAILY 30 tabs 0RF pain G89.29 - Other chronic pain, M47.816 - Spondylosis without myelopathy or radiculopathy, lumbar region, M54.50 - Low back pain, unspecified rosuvastatin 5 mg PO Q2D 3 months 45 tabs 1RF E78.5 - Hyperlipidemia, unspecified
--- OUTSIDE RECORDS SUMMARY | 2024-10-05 13:59 | XMS_ITS ---
Author Organization [facility] Address [address] [place] [address] Care Team Providers Care Inspector Balance Wheel Motion Name Role Phone Jesus Brand Primary Care Provider Dominique Gallo Unavailable [phone] Allergies Allergen (clinical drug ingredient) Drug/Non Drug [...] an other tobacco user? No Vital Signs Blood pressure systolic 155 mm Hg 02/17/20 24 Blood pressure diastolic 60 mm Hg 024 Height 5 ft in 02/17/2024 Weight 197 lbs 02/17/2024 BMI 38.47 kg/m2 02/17/2024 Encounters Encounter Location Date Provider Diagnosis [facility] [address] [place] [address] 02/17/2024 Dominique Dalton Plantar fasciitis, bilateral M72.2 [...] Notes * Fallon GABRIELDOB: (83 yo F)Acc No.[id number]:02/17/2024 Progress Note Patient:?Fallon Gabriel Provider:?Dominique Dalton DPM :1940???Age:83 Y???Sex:Female D ate:02/17/2024 Address:[facility] [place] Pcp:Jesus Brand Subjective: * Chief Complaints: * [...] laminectomy 10/10/2015pre cancerous lesion removed ( R confucianist) 11/2016rest of lesion removed 11/2017L thigh excision [...] * Vitals:?Ht: 5 ft, Wt: 197, B NH: 38.47, Shoe size: 8-8.5, BP: 155/60 mm [...] - M77.51? Plan: * Treatment: * Procedure Codes:?32957 X-RAY EXAM OF RIGHT FOOT 3V, Modifiers: [...] Dalton DPM Date:? Generated for Amadeo bernard/Haim/Lana on:?2024 01:58 PM EST History and Physical Notes * [...]
--- OUTSIDE RECORDS SUMMARY | 2024-10-05 13:59 | XMS_ITS | Patient Health Record ---
[facility] Organization [facility] Address [address] [place] [address] Care Team Providers Care River Rat Name Role Phone Jesus Brand Primary Care Provider Dominique Gallo Unavailable [phone] Allergies Allergen (clinical drug ingredient) Drug/Non Drug [...] Problem Status W/U Status Risk Notes Problem 760197217 Peripheral vascular disease (I73.9) Active confirmed Vital Signs Blood pressure diastolic 60 mm Hg 02/17/2024 Height 5 ft in 02/17/2024 Blood pressure systolic 155 mm Hg 02/17/2024 Weight 197 lbs 02/17/2024 BMI 38.47 kg/m2 02/17/2024 Encounters Encounter Location Date Provider Diagnosis [address] [address] 12/09/2023 Dominique Dalton Pain in right foot M79.671 ; Plantar fasciitis, bilateral M72.2 ; Other myositis of right foot M60.871 ; Bursitis of right foot M77.51 ; Pain in left foot M79.672 ; Other myositis of left foot M60.872 ; Bursitis of left foot M77.52 and Peripheral vascular disease I73.[address] [address] 02/17/2024 Dominique Dalton Plantar fasciitis, bilateral M72.2 ; Metatarsalgia, right foot M77.41 ; Pain in right foot M79.671 ; Peripheral vascular disease I73.9 ; Pain in right ankle and joints of right foot M25.571 and Bursitis of intermetatarsal bursa of right foot M77.[address] [address] 10/09/2023 Dominique Dalton [address] [address] 12/09/2023 Dominique Dalton Assessments Encounter Date Diagnosis [...] [employer] [address] [place] [address] [id number] Fallon Gabriel Self - patient is the insured AARP Secondary to Medicare [address] [place] [id number] Fallon Gabriel Self - patient is the [...] 01/2009 laser surgery injections - sclerotheraph y [id number] cataract surgery 2014 2 Pre cancerous lesion removal (L-arm, 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
--- OUTSIDE RECORDS SUMMARY | 2024-10-05 13:59 | XMS_ITS ---
Author Organization [facility] Address [address] [facility] [place] [address] Care Team Providers Care Stone Processing Machine Operator Name Role Phone Jesus Brand Primary Care Provider Dominique Gallo [phone] REASON FOR VISIT ebony Kang #39 Encounters Encounter Location Date Provider Diagnosis [facility] [address] [place] [address] 12/09/2023 Dominique Dalton Plan Of Treatment No Information Progress Notes * Fallon GABRIELDOB: (83 yo F)Acc No.[id number]:12/09/2023 Patient:?Fallon Gabriel :1940???Age:83 Y???Sex:Female Address:[facility] [place] [facility] [place] [address] * Addendum: * ? true * Date:? Generated for Printi marco antonio/Haim/eTransmitting on:?2024 01:58 PM EST
--- OUTSIDE RECORDS SUMMARY | 2024-10-05 13:59 | XMS_ITS ---
Author Organization [facility] Address [address] [place] [address] Care Team Providers Care Curriculum And Assessment Director Name Role Phone Jesus Brand Primary Care Provider Dominique Gallo Unavailable [phone] Allergies Allergen (clinical drug ingredient) Drug/Non Drug [...] Problem Status W/U Status Risk Notes Problem 185400983 Peripheral vascular disease (I73.9) Active confirmed Vital Signs Height 5 ft in 12/09/2023 Weight 190 lbs 12/09/2023 BMI 37.1 kg/m2 12/09/2023 Blood pressure systolic 136 mm Hg 12/09/19 24 Blood pressure diastolic 66 mm Hg 024 Encounters Encounter Location Date Provider Diagnosis [facility] [address] [place] [address] 12/09/2023 Dominique Dalton Pain in right foot [...] Notes * Fallon GABRIELDOB: (83 yo F)Acc No.[id number]:12/09/2023 Progress Notes Patient:?Fallon Gabriel Provider:?Dominique Dalton DPM :1940???Age:83 Y???Sex:Female D ate:12/09/2023 Address:[id number] Pcp:Jesus Brand Subjective: * Chief Complaints: * [...] laminectomy 10/10/2015pre cancerous lesion removed ( R episcopal) 11/2016rest of lesion removed 11/2017L thigh excision [...] * Vitals:?Ht: 5 ft, Wt: 190, B ND: 37.1, Shoe size: 8-8.5, BP: 136/66 mm [...] ray : Foot, left 3V * Procedure Codes:?04585 X-RAY EXAM OF RIGHT FOOT 3V, Modifiers: 26 , [id number] X- RAY EXAM OF LEFT FOOT 3V, [...] Interfil injection therapy, as well as surgical Prentiss/Endoscopic Fasciitomy surgical procedures if needed. Recommendations were [...] painful condition.?Physical Therapy:?Discussed the potential short and prison benefits of physical therapy including pain relief, [...] Dalton DPM Date:? Generated for Amadeo bernard/Haim/Chapisitting on:?2024 01:58 PM EST History and Physical [...]
== END 2024-10-05 13:24 | disposition home or self-care (01) ==
PROVIDERS: PCP Internal Medicine; Visit Provider Internal Medicine
DX: E78.5 Hyperlipidemia, unspecified (principal); M47.816 Spondylosis without myelopathy or radiculopathy, lumbar region; I10 Essential (primary) hypertension

== ENCOUNTER → 2024-10-05 11:47 | Outpatient (BNVA) | payer MEDICARE, SELFPAY | PROVIDERS: PCP Nurse Practitioner Primary Care; Visit Provider Internal Medicine | DX: I10 Essential (primary) hypertension (principal); E78.5 Hyperlipidemia, unspecified; M47.816 Spondylosis without myelopathy or radiculopathy, lumbar region; G89.29 Other chronic pain | CPT/HCPCS: 96127; 99212 ==

== ENCOUNTER 2024-12-30 08:44 | Outpatient (REF) | payer MEDICARE, SELFPAY ==
--- OUTSIDE RECORDS SUMMARY | 2024-12-30 09:06 | XMS_ITS ---
Author Organization [facility] Address [address] [place], [place] [address] Care Team Providers Care Branch Office Administrator Name Role Phone CHAR STEWART Primary Care Provider [phone] SURYA NORMAN Unavailable [phone] REASON FOR VISIT Left practice Encounters Encounter Location Date Provider Diagnosis [facility] [address] [place], [place] [address] 08/18/2023 CHAR STEWART Plan Of Treatment No Information Progress Notes * DEVEN MAYENDOB: (84 yo F)Acc No.[id number]:08/18/2023 Patient:?DEVEN MAYEN :1940???Age:82 Y???Sex:Female Address:[address] [place], [address] * * Date:?
--- OUTSIDE RECORDS SUMMARY | 2024-12-30 09:06 | XMS_ITS | Patient Health Record ---
Author Organization [facility] Address [address] [place], [place] [address] Care Team Providers Care Cook Boat Name Role Phone PATCHAR Primary Care Provider SURYA NORMAN Unavailable [phone] Allergies Allergen (clinical drug ingredient) Drug/Non Drug Allergy documented on EMR Reaction Allergy Type Onset Date Status Non-steroidal anti-inflammatory agent (FN) NSAIDs (uncoded) Unknown Allergy Active pravastatin Pravastatin (uncoded) Unknown Allergy Active zolpidem Ambien CR Unknown Drug Allergy Active lorazepam Ativan Unknown Drug Allergy Active diclofenac Cataflam Unknown Drug Allergy Active celecoxib Celebrex Unknown Drug Allergy Active indomethacin Indomethacin Unknown Drug Allergy A ctive Levaquin Unknown Drug Allergy Active gemfibrozil Lopid Unknown Drug Allergy Activ e meloxicam Meloxicam Unknown Drug Allergy Active cholestyramine resin Questran Unknown Drug Allergy Active diazepam Valium Unknown Drug Allergy Active Vicodin Unknown Drug Allergy Active ezetimibe / simvastatin Vytorin Unknown Drug Allergy Active Adhesive Unknown Allergy Active duloxetine Duloxetine Unknown Drug Allergy Activ e Fragrance Unknown Allergy Active ketoprofen Ketoprofen stomach upset Drug Allergy A ctive lisinopril Lisinopril Unknown Drug Allergy Activ e naproxen Naproxen stomach upset Drug Allergy Act david Reason For Referral No Information Medications Medication SIG (Take, Route, Frequency, Duration) Notes Start Date End Date Status Calcium Carbonate-Vitamin D 600-200 MG-UNIT 1 capsule Orally Three times a day Active Glucosamine Chond MSM Formul a - as directed Orally Active Sodium Fluoride 5000 PPM 1.1 % APPLY SMA LL AMOUNT DAILY TO TOOTHBRUSH AND BRUSH THOROUGHLY FOR 2 MINUTES, EXPECTORATE AFTER USE for 30 Active LORazepam 1 MG 1 tab qd prn Oral On ce a day for 90 days 06/26/2023 Active traMADol HCl 50 MG 1 tablet as needed f or chronic back pain Orally Once a day for 90 days 05/14/2023 Active Famotidine 20 MG TAKE 2 TABLETS BY MOUTH ONCE DAILY for 90 Active hydroCHLOROthiazide 25 MG TAKE 1 TABLET BY MOUTH ONCE DAILY for 90 days Active Valsartan 320 MG 1 tablet Orally Once a day for 90 days Active Super B-50 B Complex - as directed Orally Active Systane 0.4-0.3 % 1-2 drops in affecte d eye Ophthalmic Once a day Active Vitamin C 1000 MG 1 tablet Orally Once a day for 30 day(s) Active Simvastatin 40 MG 1 tab po qd Oral Onc e a day for 90 days Active Voltaren Gel * Apply QD PRN PAIN fo r 09/28/2014 Active Tazorac 0.1 % 1-2 daily as needed for psoriasis External for 09/28/2014 Active Nizatidine 150 mg 1-2 daily Oral for 09/28/2014 Active Clobetasol Propionate 0.05 % 1 applicati on Externally Twice a day as needed Active Metamucil 28.3 % 1 packet with 8 ounc es of liquid as needed Orally Twice a day Active Centrum Silver - as directed Orally Active Immunizations Vaccine Route Administration Date Status Comme nts FLUAD HIGH DOSE IM Intramuscular 07/18/2022 Administered Social History Tobacco Use: Social History Observation Description Date Details (start date - stop date) Smoker, current status unknown NA - NA Tobacco Use/Smoking Question Answer Notes Are you a nonsmoker Alcohol Screen (Audit-C) Question Answer Notes Did you have a drink contain ing alcohol in the past year? Yes How often did you have 6 or more drinks on one occasion in the past year? Never (0 point) How many drinks did you have on a typical day when you were drinking in the past year? 1 or 2 drinks (0 point) How often did you have a dri nk containing alcohol in the past year? Never (0 point) Points 0 Interpretation Negative Smoking Question Answer Notes Additional Findings: Tobacco Non-User Current no n-smoker Problems Problem Type SNOMED Code ICD Code Onset Dates Problem Status W/U Status Risk Notes Problem Lumbosacral spondylosis without myelopathy (52569691) Spondylosis of lumbar region without myelopathy or radiculopathy (M47.816) Active confirmed Problem 229295346 BMI 35.0-35.9,adult (Z68.35) Active confirmed Problem 866198844 BMI 36.0-36.9,adult (Z68.36) Active confirmed Problem 92115240 Other chronic pa in (G89.29) Active confirmed Problem 469493927 Severe scoliosis (M41.9) Active confirmed Problem Hyperlipidemia (97968884) Hyperlipidemia (272.4) 018 Problem resolved confirmed Rzea-71 7505- Problem URI (0929053657) URI (465.8) 015 Problem resolved confirmed Reza-71 7505- Problem Gastroesophageal reflux disease (725934998) GERD (530.81) 018 Problem resolved confirmed Reza-71 7505- Problem Generalized osteoarthritis (615897171) Osteoarthritis, site unspecified (715.00) 018 Problem resolved confirmed Reza-71 7505- Problem Essential hypertension (45627107) Essential hypertension, unspecified (401.9) 018 Problem resolved confirmed Reza-71 7505- Problem Eruption of skin (530964692) Rash and other nonspecific skin eruption (R21) 018 Problem resolved confirmed Reza-71 7505- Problem Herpes zoster without complication (102111387) Zoster without complications (B02.9) 018 Problem resolved confirmed Reza-71 7505- Problem 85191313 Sedative, 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, 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) Active confirmed Problem Arthropathy of lumbar facet joint (459443433) Lumbar facet arthropathy (M47.816) Active confirmed Problem 282347311591927 History of diverticulitis (Z87.19) Active confirmed Problem 869516591 History of cataract (Z86.69) Active confirmed Problem 58188889 RLS (restless le gs syndrome) (G25.81) Active confirmed Problem 37488376961447683 Bilateral sacroiliitis (M46.1) Active confirmed Problem 512212352 Depression with anxiety (F41.8) Active confirmed Problem Lumbosacral spondylosis without myelopathy (01134988) Spondylosis of lumbosacral region without myelopathy or radiculopathy (M47.817) Active confirmed Problem 128516299 Psoriatic arthritis (L40.50) Active confirmed Problem 71027383 Hypertension, unspecified type (I10) Active confirmed Problem 00991796 Recurrent major depressive disorder, in partial remission (F33.41) Active confirmed Problem 064443919 Gastroesophageal reflux disease without esophagitis (K21.9) Active confirmed Problem 85695417 Hyperlipidemia, unspecified hyperlipidemia type (E78.5) Active confirmed Problem 28853967 Paresthesia of skin (R20.2) Active confirmed Problem 07901706 Urge incontinenc e (N39.41) Active confirmed Problem 08631040 Postlaminectomy syndrome, not elsewhere classified (M96.1) Active confirmed Problem 289060076 Spondylosis without myelopathy or radiculopathy, lumbar region (M47.816) Active confirmed Problem Essential hypertension (41432774) Essential (primary) hypertension (I10) Active confirmed Problem 311116624 Chronic pain syndrome (G89.4) Active confirmed Plan Of Treatment Pending Test Test Name Order Date 6-Acetylmorphine, Urine 07/08/2022 Comprehensive Drug Analysis,Ur 2 PDF Report 07/08/2022 Future Test Test Name Order Date Urinalysis, Complete With Microscopic Ex amination 12/11/2021 Occult Blood, Fecal, IA 12/11/2021 MG Digital Screening Bilateral with MARKUS with CAD 12/11/2021 MRI Neck w/ Contrast 12/11/2021 Medial Branch Block single 01/23/2022 SARS-CoV Antigen 01/31/2022 SARS CoV2 (COVID19) AND INFLUENZA A AND B, NAAT 01/31/2022 TSH and Free T4 11/14/2022 CMP (Comprehensive Metabolic panel) 10/24 Hemoglobin A1c 11/14/2022 Urinalysis, Random w/Reflex to C & S CBC With Differential/Platelet Lipid Panel 11/14/2022 Insurance Providers Payer Name Payer Address Payer Phone Subscriber Number Group Number Insured Name Patient Relationship to Insured Coverage Start Date Coverage End Date MEDICARE PART B [address] [address] [place] [id number] DEVEN MAYEN Self - patient is the insured 4 [facility] Supplement al [address] [place], [place] [id number] PLAN C DEVEN MAYEN Self - patient is the insured 5 Medications Administered Medication Instructions Date of Administration Dosage Notes Bupivacaine 07/30/2022 4 mL Bupivacaine 08/27/2022 4 mL Bupivacaine 10/08/2022 4 mL Bupivacaine 11/26/2022 5 mL KENALOG 11/26/2022 2 mL Lidocaine 200mg/20mL 07/30/2022 4 mL Lidocaine 200mg/20mL 08/27/2022 4 mL Lidocaine 200mg/20mL 10/08/2022 4 mL Lidocaine 200mg/20mL 11/26/2022 3 mL Omnipaque 11/26/2022 3 mL Medical (General) History Medical History History ICD Code HTN HLD Surgical History Surgery Date(Month/Year) (L) Breast Biopsy 1957 (L) Breast Biopsy & Lumpectomy 1969 Vein Ligation both legs 1970 & 1972 Hysterectomy & Oopherectomy (Fibroid Bridger or & Endometriosis) 1973 Sigmoid colon removed (Diverticulitus) 1 988 Cholecstectomy 1994 Total knee replacement (L) 03/2004 Total knee replacement (R) 01/2009 Bilateral cataract surgery 11/06 & 12/04 Spinal surgery- Lamnectomy L4-L5 spinal fusion 10/10/2015
--- OUTSIDE RECORDS SUMMARY | 2024-12-30 09:07 | XMS_ITS ---
Author Organization [facility] Address [address] [place], [place] [address] Care Team Providers Care Plastic Machine Operator Name Role Phone CHAR STEWART Primary Care Provider SURYA NORMAN Unavailable [phone] REASON FOR VISIT AWE appt Encounters Encounter Location Date Provider Diagnosis [facility] [address] [place], [place] [id number] 09/24/2023 CHAR STEWART Plan Of Treatment No Information Progress Notes * DEVEN MAYENDOB: (84 yo F)Acc No.[id number]:09/24/2023 Patient:?DEVEN MAYEN :1940???Age:82 Y???Sex:Female Address:[address] [place], [address] * * Date:?
--- OUTSIDE RECORDS SUMMARY | 2024-12-30 09:07 | XMS_ITS | Patient Health Record ---
Author [facility] Address [address] [place] [address] Care Team Providers Care Parts Room Clerk Name Role Phone Jesus Brand Primary Care Provider Dominique Gallo Unavailable [phone] Allergies Allergen (clinical drug ingredient) Drug/Non Drug [...] Problem Status W/U Status Risk Notes Problem 000427373 Peripheral vascular disease (I73.9) Active confirmed Vital Signs Blood pressure diastolic 60 mm Hg 02/17/2024 Height 5 ft in 02/17/2024 Blood pressure systolic 155 mm Hg 02/17/2024 Weight 197 lbs 02/17/2024 BMI 38.47 kg/m2 02/17/2024 Encounters Encounter Location Date [facility] [address] [place] [address] 02/17/2024 Dominique Dalton Plantar fasciitis, bilateral M72.2 ; Metatarsalgia, right foot M77.41 ; Pain in right foot M79.671 ; Peripheral vascular disease I73.9 ; Pain in right ankle and joints of right foot M25.571 and Bursitis of intermetatarsal bursa of right foot M77.51 Assessments Encounter Date Diagnosis (ICD Code) Assessment Notes Treatment Notes Treatment Clinical Notes Section Notes 02/17/2024 Metatarsalgia, right foot (ICD-10 - M77.41) 02/17/2024 Plantar fasciitis, bilateral (ICD-10 - M72.2) 02/17/2024 Pain in right foot (ICD-10 - [...] Medicare National [employer]t [employer] [address] [place] [address] [id number] Fallon Gabriel Self - patient is the insured AARP Secondary to Medicare [address] [place] [id number] Fallon Gabriel Self - patient is the [...] (diverticulitis) 1 988 breast biopsy + lumpectomy 1969 Gall bladder removal 1994 cellulitis 1993 total knee replacement 01/2009 laser surgery injections - sclerotheraph y [id number] cataract surgery 2014 2 Pre cancerous lesion removal (L-arm, 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
--- OUTSIDE RECORDS SUMMARY | 2024-12-30 09:07 | XMS_ITS ---
Author Organization [facility] Address [address] [place] [id number] Care Team Providers Care Reverse Logistics Analyst Name Role Phone CHAR STEWART Primary Care Provider [phone] SURYA NROMAN Unavailable [phone] REASON FOR VISIT PER RRM [place] AWE APPT GIVEN Encounters Encounter Location Date Provider Diagnosis [facility] [address] [place] [id number] 07/21/2023 CHAR STEWART Plan Of Treatment No Information Progress Notes * DEVEN MAYENDOB: (84 yo F)Acc No.[id number]:07/21/2023 Progress Notes Patient:?MAUDEDEVEN BHAKTA Provider:?CHAR STEWART MD :1940???Age:82 Y???Sex:Female D ate:07/21/2023 Address:[facility] [place] [facility] Subjective: * Chief Complaints: * ???1. PER RRM [place] AWE NAS T GIVEN. * Medical History:? Objective: * Vitals:? Assessment: Plan: * Treatment: * Billing Information: * Visit Code:? * Procedure Codes:? * Electronic signature of KIM STEWART MD on 12/30/2024 at 09:07 AM EDT Sign off status: Pending * Provider:?CHAR STEWART MD Date:? 023 Generated for Ezei marco antonio/Haim/eTransmitting on:?12/30/2024 09:07 AM EDT
--- OUTSIDE RECORDS SUMMARY | 2024-12-30 09:08 | XMS_ITS ---
Author Organization [facility] Address [address] [place] [address] Care Team Providers Care Paralegal Legal Secretary Name Role Phone Jesus Brand Primary Care Provider Dominique Gallo Unavailable [phone] Allergies Allergen (clinical drug ingredient) Drug/Non Drug Allergy documented on EMR Reaction Allergy Type Onset Date Status Non-steroidal anti-inflammatory agent (FN) N-saids (uncoded) stomach upset Allergy Active ibuprofen Advil stomach upset Drug Allergy Act david zolpidem Ambien hives, rash, itchy Drug Allergy Active aspirin Aspirin stomach upset Drug Allergy Act dvaid lorazepam Ativan anxiety and nervousness Drug Allergy [...] 024 Encounters Encounter Location Date Provider Diagnosis [facility] [address] [address] 02/17/2024 Dominique Dalton Plantar fasciitis, bilateral M72.2 [...] Notes * Fallon GABRIELDOB: (83 yo F)Acc No.[id number]:02/17/2024 Progress Note Patient:?Fallon Gabriel Provider:?Dominique Dalton DPM :1940???Age:83 Y???Sex:Female D ate:02/17/2024 Address:[facility] [place], [place] Pcp:Jesus Brand Subjective: * Chief Complaints: * [...] laminectomy 10/10/2015pre cancerous lesion removed ( R anglican) 11/2016rest of lesion removed 11/2017L thigh excision [...] * Vitals:?Ht: 5 ft, Wt: 197, B UT: 38.47, Shoe size: 8-8.5, BP: 155/60 mm [...] - M77.51? Plan: * Treatment: * Procedure Codes:?17173 X-RAY EXAM OF RIGHT FOOT 3V, Modifiers: [...] Dalton DPM Date:? Generated for Amadeo bernard/Haim/Lana on:?12/30/2024 09:07 AM EDT History and Physical Notes * HPI (History [...]
--- OUTSIDE RECORDS SUMMARY | 2024-12-30 09:08 | XMS_ITS ---
Author Organization [facility] Address [address] [place] [address] Care Team Providers Care Childcare Attendant Name Role Phone Jesus Brand Primary Care Provider Dominique Gallo [phone] REASON FOR VISIT ebony Kang #39 Encounters Encounter Location Date Provider Diagnosis [facility] [address] [facility] [place] [address] 12/09/2023 Dominique Dalton Plan Of Treatment No Information Progress Notes * Fallon GABRIELDOB: (83 yo F)Acc No.[id number]:12/09/2023 Patient:?Fallon Gabriel :1940???Age:83 Y???Sex:Female Address:[facility] [place] [facility] [place] [address] * Addendum: * ? true * Date:? Generated for Printi ng/Fajonathong/eTransmitting on:?12/30/2024 09:07 AM EDT
--- OUTSIDE RECORDS SUMMARY | 2024-12-30 09:08 | XMS_ITS ---
Author Organization [facility] Address [address] [place] [address] Care Team Providers Care Fruit And Vegetable Parer Name Role Phone Jesus Brand Primary Care Provider Dominique Gallo Unavailable [phone] Allergies Allergen (clinical drug ingredient) Drug/Non Drug [...] Problem Status W/U Status Risk Notes Problem 935328395 Peripheral vascular disease (I73.9) Active confirmed Vital Signs Height 5 ft in 12/09/2023 Weight 190 lbs 12/09/2023 BMI 37.1 kg/m2 12/09/2023 Blood pressure systolic 136 mm Hg 12/09/19 24 Blood pressure diastolic 66 mm Hg 024 Encounters Encounter Location Date Provider Diagnosis [facility] [address] [place] [address] 12/09/2023 Dominique Dalton Pain in right foot [...] Notes * Fallon GABRIELDOB: (83 yo F)Acc No.[id number]:12/09/2023 Progress Notes Patient:?Fallon Gabriel Provider:?Dominique Dalton DPM :1940???Age:83 Y???Sex:Female D ate:12/09/2023 Address:[place] Pcp:Jesus Brand Subjective: * Chief Complaints: * [...] laminectomy 10/10/2015pre cancerous lesion removed ( R latter day) 11/2016rest of lesion removed 11/2017L thigh excision [...] * Vitals:?Ht: 5 ft, Wt: 190, B [place]: 37.1, Shoe size: 8-8.5, BP: 136/66 mm [...] ray : Foot, left 3V * Procedure Codes:?18237 X-RAY EXAM OF RIGHT FOOT 3V, Modifiers: 26 , NL93903 X- RAY EXAM OF LEFT FOOT 3V, [...] Interfil injection therapy, as well as surgical Luana/Endoscopic Fasciitomy surgical procedures if needed. Recommendations were [...] painful condition.?Physical Therapy:?Discussed the potential short and [facility] benefits of physical therapy including pain relief, [...] Dalton DPM Date:? Generated for Amadeo bernard/Haim/Chapisitting on:?12/30/2024 09:07 AM EDT History and Physical [...]
[2024-12-30 10:39] LABS: Alanine Aminotransferase 15 U/L (0-31); Anion Gap 13 (12-20); Aspartate Amino Transferase 23 U/L (5-31); Blood Urea Nitrogen 23 mg/dL (9-16); Calcium 9.6 mg/dL (8.4-10.2); Carbon Dioxide 28 mmol/L (22-29); Chloride 106 mmol/L (96-108); Cholesterol 212 mg/dL (<200); Estimated Glomerular Filt Rate 59; Glucose Fasting 98 mg/dL (60-99); HDL Cholesterol 77 mg/dL (>40); LDL Cholesterol Calculated 105 mg/dL (<100); Potassium 4.2 mmol/L (3.3-5.1); Sodium 143 mmol/L (135-145); Triglycerides 151 mg/dL (<150)
== END 2024-12-30 08:45 | disposition home or self-care (01) ==
LOC: HO.HMGCLDS 08:44
PROVIDERS: PCP Internal Medicine; Visit Provider Internal Medicine
DX: E78.5 Hyperlipidemia, unspecified (principal); I10 Essential (primary) hypertension
CPT/HCPCS: 36415; 80048; 80061; 84450; 84460

== ENCOUNTER 2025-01-04 11:51 | Outpatient (AMB) | payer MEDICARE, SELFPAY ==
--- NOTE | 2025-01-04 12:56 | A.OFFPC_ITS ---
Vital Signs 01/04/25 12:57 Height 5 ft Weight 197 lb BMI 38.5 BP 142/70 H Blood Pressure Location Rt brachial Position Sitting Respiration 15 Pulse 86 Pulse Source Pulse Oximeter Temp 97.9 F Temp Source Oral Pulse Oximetry (%) 99 Oxygen Delivery Method Room Air Intake Visit Reasons: 3m follow up Intake Note: Pt is here today for her 3mo. f/u Allergies lidocaine [From Aspercreme (lidocaine HCl)] Allergy (Intermediate, Verified 01/16/25 20:19) Rash celecoxib [From Celebrex] Allergy (Mild, Verified 01/16/25 20:19) PALPITATIONS levofloxacin [From Levaquin] Allergy (Mild, Verified 01/16/25 20:19) VOMITNG/JITTERY zolpidem [From Ambien] Allergy (Mild, Verified 01/16/25 20:19) HIVES/RASH/ITCH acetaminophen [From Vicodin] Allergy (Verified 01/16/25 20:19) Abdominal Pain adhesive tape Allergy (Verified 01/16/25 20:19) Rash cholestyramine [From Questran] Allergy (Verified 01/16/25 20:19) Unknown gemfibrozil [From Lopid] Allergy (Verified 01/16/25 20:19) Nausea hydrocodone [From Vicodin] Allergy (Verified 01/16/25 20:19) Abdominal Pain indomethacin Allergy (Verified 01/16/25 20:19) Nausea ketoprofen Allergy (Verified 01/16/25 20:19) Chest Pain lisinopril Allergy (Verified 01/16/25 20:19) Nausea naproxen Allergy (Verified 01/16/25 20:19) Abdominal Pain NSAIDS (Non-Steroidal Anti-Inflamma Allergy (Verified 01/16/25 20:19) Abdominal Pain sucrose [From Questran] Allergy (Verified 01/16/25 20:19) Unknown diazepam [From Valium] Adverse Reaction (Mild, Verified 01/16/25 20:19) HYPERACTIVE pravastatin [Pravastatin] Adverse Reaction (Mild, Verified 01/16/25 20:19) MUSCLE AND LEG PAIN gabapentin Adverse Reaction (Verified 01/16/25 20:19) Headache zinc Adverse Reaction (Verified 01/16/25 20:19) Vomiting Medication List - Last Reconciled 01/04/25 by Siena Amado MD amlodipine 10 mg PO DAILY ascorbic acid (vitamin C) 500 mg PO DAILY B-complex with vitamin C 1 cap PO DAILY calcium carbonate-vitamin D3 600 mg-20 mcg (800 unit) (Caltrate plus D) 1 tab PO DAILY cholestyramine (with sugar) 4 gram 4 grams PO BID clobetasol 0.05% 1 appl topical BID diclofenac sodium 1% 2 grams topical QID famotidine 20 mg PO DAILY fluoride (sodium) 1.1% 1 appl PO DAILY htthobjh-pxs-hoffx-vho884-oepk 500-500-66.7 mg (Nqioaruucrm-Ldjeugdsinc-SVZ (with antiox)) tabs PO hydrochlorothiazide 25 mg PO QAM miconazole nitrate 2% 1 appl topical DAILY vrvwnemz-ufe-axhw-FA-vit K-lut 8 mg iron-400 mcg-50 mcg (Centrum Silver Women) 1 tab PO DAILY ondansetron 4 mg PO Q6-8H PRN pantoprazole 40 mg PO DAILY propylene glycol 0.6% (Systane Balance) 1 drp ophthalmic (eye) DAILY psyllium husk (Metamucil) 0.4 grams PO QDAY rosuvastatin 5 mg PO Q2D 3 months valsartan 320 mg PO DAILY Tobacco use date assessed: 01/04/25 Fall risk assessment: No Falls in past year Last assessed Fall Risk: 01/04/25 Dental Screening Dental Screen Date: 01/04/25 Did you have a dental visit in the last 12 months?: No Did you have a dental problem in the last 6 months where you did not have access to dental care?: No Was dental information given to patient?: Patient has dentist HPI 3m follow up HPI Details 84-year-old lady with history of hyperte nsion, hyperlipidemia , lumbar degenerative disc disease with arthritis status post laminectomy done in [place], here today for follow-up. Blood pressure is slightly elevated, likely due to her constant low back pain. She has been compliant with taking her medi cations. Currently being seen by Dr. Mcclellan who recommended PNS treatment, awaiting approval from insurance company to perform L2-L3 L4 medial branch block for this patient. [facility] Medical History Gait instability Dyslipidemia Chronic low back pain Hip pain, chronic Physical exam Chronic back pain Chronic neck pain Difficulty swallowing Upper respiratory infection Polyarthralgia Osteoarthritis Chronic pain TMJ (dislocation of temporomandibular joint) Elevated uric acid in blood 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 Spinal stenosis of cervical region with radiculopathy Bilateral hand pain Psoriatic arthritis Hiatal hernia Psoriasis Hyperlipidemia Surgical History Hx of cataract removal with insertion of prosthetic lens History of laminectomy History of colon surgery History of hysterectomy History of cholecystectomy Hx of cataract surgery History of knee replacement Family History Father Dementia Raynauds disease Substance use disorder Mother Rheumatoid arthritis Maternal Grandfather Type 2 diabetes mellitus Sister Mary Carmen's disease Breast cancer Brother Pancreatic cancer Myocardial infarction Sister Lung cancer Paternal Uncle Substance use disorder Paternal Uncle Substance use disorder Paternal Uncle Substance use disorder Son Mental health disorder Social History Household Members: Spouse Housing: House Alcohol intake: former Patient Tobacco Use Status: Never used Tobacco e-Cigarette/Vaping Use: Never Used service: No Current occupational status: retired Cognitive needs: No Hearing needs: No Vision needs: Yes Questionnaire Thrive Questionnaire Date Thrive assessed: 10/05/24 CASI-7 AMB Questionnaire CASI-7 Date CASI - 7 assessed: 10/05/24 Source: Developed by Drs. Tc Ferrer, Ryann Sanchez, Berto Barron and colleagues, with an educational rosemarie from [employer]. Review of Systems Const Denies fever(s) and Denies poor appetite ENT Reports no additional complaints and Denies Normal hearing present Card Reports no additional complaints Resp Reports no additional complaints GI Details: Reports no additional complaints Musc Reports back pain and Reports myalgias Skin/Breast Denies rash Neuro Denies Normal hearing present and Denies Abnormal speech present Endo Reports no additional complaints Linden/Lymph Reports no additional complaints Physical exam (Primary Care) Vital Signs: Last Vital Signs Temp 97.9 F 01/04/25 12:57 Pulse 86 01/04/25 12:57 Resp 15 01/04/25 12:57 BP 142/70 H 01/04/25 12:57 Pulse Ox 99 01/04/25 12:57 Oxygen Delivery Method Room Air 01/04/25 12:57 BMI result Body Mass Index 38.5 Tobacco/Smoking Status: Tobacco use Status Tobacco use date assessed 01/04/25 01/04/25 13:05 Patient Tobacco Use Status Never used Tobacco 01/04/25 12:58 e-Cigarette/Vaping Use Never Used 01/04/25 12:58 Thrive Assessment: Date of Thrive Assessment Date Thrive assessed 10/05/24 01/04/25 12:58 Const General: no acute distress and Physically active Orientation/consciousness: patient oriented x3 Neck Neck: Yes full ROM, Yes no lymphadenopathy and Yes supple Resp Auscultation: clear to auscultation bilaterally Cardio Rate: regular rate Rhythm: regular rhythm Heart sounds: S1 normal heart sound present and S2 normal heart sound present GI Palpation (GI): Soft to palpation, nontender, no guarding and no masses Auscultation: normal bowel sounds Back/Spine/Pelvis Thoracic/Lumbar Spine: straight leg raise negative bilaterally and paraspinal muscle tenderness bilaterally in the lower lumbar Skin General skin exam: no rashes or lesions noted Neuro General: patient oriented x3, gait normal, moves all extremities and no focal motor deficits Cranial nerves: No Normal hearing present Speech: No Abnormal speech present Gait exam (Neuro): Normal gait present Extrem General: Yes full ROM, Yes no joint enlargement, Yes no clubbing, cyanosis or edema and Yes normal gait Results Reviewed Results Reviewed: RUN: 01/04/25 1310 PAGE 1 [facility] [address] [place] [id number] Compressor Mechanic Bus: Jason Venegas M.D. Specimen Inquiry Name: Fallon Gabriel Age/Sex: 84/F : 1940 Unit#: [id number] Attend Dr: Siena Amado MD Re12/30/24 Status: DEP REF Location: [facility] Disch: SPEC : [id number] BRITNEY: 12/30/24 STATUS: COMP REQ : [id number] RECD: 12/30/[address]: Siena Amado MD COMP: 12/30/24 ENTERED: 12/30/[address]: ORDERED: Met Prof Fast, AST, ALT, Lipid Panel Test Result Flag Reference Sodium 143 135-145 mmol/L Potassium 4.2 3.3-5.1 mmol/L CL 106 96-108 mmol/L CO2 28 22-29 mmol/L Gap 13 12-20 BUN 23 H 9-16 mg/dL Creat 0.91 0.5-1.4 mg/dL eGFR 59 Chronic Kidney Disease: Estimated GFR < 60 mL/min/1.73m2 Severe Kidney Disease: Estimated GFR < 15 mL/min/1.73m2 FBS 98 60-99 mg/dL CA 9.6 8.4-10.2 mg/dL AST (GOT) 23 5-31 U/L ALT (GPT) 15 0-31 U/L Triglyceride 151 H <150 mg/dL Desirable Triglyceride: less than 150 mg/dL Borderline High Triglyceride 150-199 mg/dL High Triglyceride: 200-499 mg/dL Very High Triglyceride: greater than or equal to 5OO mg/dL Cholesterol 212 H <200 mg/dL Desirable Cholesterol: less than 200 mg/dL Borderline High Cholesterol: 200-239 mg/dL High Cholesterol: greater than 239 mg/dL LDL Calculated 105 H <100 mg/dL Desirable LDL: less than 100 mg/dL Near Optimal/Above Optimal LDL: 110-129 mg/dL Borderline High LDL: 130-159 mg/dL High LDL: 160-189 mg/dL Very High LDL: greater than or equal to 190 mg/dL HDL 77 >40 mg/dL Desirable HDL: greater than 40 mg/dL Note: This HDL assay may give artificially low results in patients with liver disease. Coding Level of Care Code Est Pt Level 4 (88856) Complex EM visit Add On G2211 Diagnoses Chronic midline low back pain without sciatica M54.50; G89.29 Back pain laterality: midline Sciatica presence: without sciatica Primary hypertension I10 Hypertension type: primary hypertension Dyslipidemia E78.5 Insomnia, unspecified type G47.00 Insomnia type: unspecified Assessment & Plan Assessment & Plan (1) Chronic low back pain: Code(s): M54.50 - Low back pain, unspecified; G89.29 - Other chronic pain Category: Medical Qualifiers: Back pain laterality: midline Sciatica presence: without sciatica Qualified Code(s): M54.50 - Low back pain, unspecified; G89.29 - Other chronic pain Plan: Referred for physical therapy, currently awaiting approval for insurance regarding proposed treatment by Dr. Mcclellan for treatment of her pain (2) Hypertension: Code(s): I10 - Essential (primary) hypertension Category: Medical Qualifiers: Hypertension type: primary hypertension Qualified Code(s): I10 - Essential (primary) hypertension Plan: Continue with valsartan, hydrochlorothiazide and amlodipine at same dose (3) Dyslipidemia: Code(s): E78.5 - Hyperlipidemia, unspecified Category: Medical Plan: Reviewed recent fasting lipid profile with patient with levels within normal limits . Continue rosuvastatin 5 mg 1 tablet every other day , in addition to adherence to low-cholesterol diet and regular exercise, at least 30 minutes 3 to 4 times a week. Advised patient to make healthy food choices, eat more fruits, vegetables, whole grains, wild caught fish and low-fat dairy. Limit amount of meat and fried or fatty food products, as well as processed foods and fast foods. Repeat fasting lipids in 4 months (4) Insomnia: Code(s): G47.00 - Insomnia, unspecified Category: Medical Qualifiers: Insomnia type: unspecified Qualified Code(s): G47.00 - Insomnia, unspecified Plan: Prescription sent for doxepin 6 mg to take 1 tablet at bedtime as needed. Orders: Orders Lipid Panel 04/22/25 I10 - Essential (primary) hypertension, E78.5 - Hyperlipidemia, unspecified Aspartate Amino Transferase 04/22/25 I10 - Essential (primary) hypertension, E78.5 - Hyperlipidemia, unspecified Basic Metabolic Panel Fasting 04/22/25 I10 - Essential (primary) hypertension, E78.5 - Hyperlipidemia, unspecified PT Evaluation and Treatment 01/04/25 M54.50 - Low back pain, unspecified, G89.29 - Other chronic pain, R26.81 - Unsteadiness on feet Alanine Aminotransferase 04/22/25 I10 - Essential (primary) hypertension, E78.5 - Hyperlipidemia, unspecified Medications: New doxepin 6 mg PO BEDTIME PRN 30 tabs 0RF sleep
[2025-01-04 12:57] VITALS: BP 142/70; PULSE 86; RESP 15; TEMP 36.6; O2SAT 99; BMI 38.5
--- OUTSIDE RECORDS SUMMARY | 2025-01-04 14:40 | XMS_ITS ---
Author Organization [facility] Address [address] [place], [place] [id number] Care Team Providers Care Cider Press Operator Name Role Phone CHAR STEWART Primary Care Provider SURYA NORMAN Unavailable [phone] REASON FOR VISIT Left practice Encounters Encounter Location Date Provider Diagnosis [facility] [address] [place], [place] [id number] 08/18/2023 CHAR STEWART Plan Of Treatment No Information Progress Notes * DEVEN MAYENDOB: (84 yo F)Acc No.[id number]:08/18/2023 Patient:?DEVEN MAYEN :1940???Age:82 Y???Sex:Female Address:[address] [place], [address] * * Date:?
--- OUTSIDE RECORDS SUMMARY | 2025-01-04 14:40 | XMS_ITS | Patient Health Record ---
Author Organization [facility] Address [address] [place], [place] [id number] Care Team Providers Care Raw Shellfish Preparer Name Role Phone PATCHAR Primary Care Provider SURYA NORMAN Unavailable [phone] Allergies Allergen (clinical drug ingredient) Drug/Non Drug [...] Problem Status W/U Status Risk Notes Problem 08848115 Other chronic pa in (G89.29) Active confirmed Problem 367655191 Chronic pain syndrome (G89.4) Active confirmed Problem Essential hypertension (94588894) Essential (primary) hypertension (I10) Active confirmed Problem 210767865 Spondylosis without myelopathy or radiculopathy, lumbar region (M47.816) Active confirmed Problem 27825776 Postlaminectomy syndrome, not elsewhere classified (M96.1) Active confirmed Problem 07116410 Urge incontinenc e (N39.41) Active confirmed Problem 23422066 Paresthesia of skin (R20.2) Active confirmed Problem 23250819 Hyperlipidemia, unspecified hyperlipidemia type (E78.5) Active confirmed Problem 086290555 Gastroesophageal reflux disease without esophagitis (K21.9) Active confirmed Problem 24913973 Recurrent major depressive disorder, in partial remission (F33.41) Active confirmed Problem 24114029 Hypertension, unspecified type (I10) Active confirmed Problem 144366772 BMI 36.0-36.9,adult (Z68.36) Active confirmed Problem 737401806 BMI 35.0-35.9,adult (Z68.35) Active confirmed Problem 427049420 Psoriatic arthritis (L40.50) Active confirmed Problem Lumbosacral spondylosis without myelopathy (78347716) Spondylosis of lumbar region without myelopathy or radiculopathy (M47.816) Active confirmed Problem Lumbosacral spondylosis without myelopathy (64525120) Spondylosis of lumbosacral region without myelopathy or radiculopathy (M47.817) Active confirmed Problem 144315615 Depression with anxiety (F41.8) Active confirmed Problem 15548206687460452 Bilateral sacroiliitis (M46.1) Active confirmed Problem 89391427 RLS (restless le gs syndrome) (G25.81) Active confirmed Problem 300745532 History of cataract (Z86.69) Active confirmed Problem 552305167128434 History of diverticulitis (Z87.19) Active confirmed Problem Arthropathy of lumbar facet joint (535914612) Lumbar facet arthropathy (M47.816) Active confirmed Problem 85335738 Sedative, 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, 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) Active confirmed Problem 448408163 Severe scoliosis (M41.9) Active confirmed Problem Herpes zoster without complication (707653376) Zoster without complications (B02.9) 018 Problem resolved confirmed Reza-71 7505- Problem Eruption of skin (724810249) Rash and other nonspecific skin eruption (R21) 018 Problem resolved confirmed Reza-71 7505- Problem Essential hypertension (94550846) Essential hypertension, unspecified (401.9) 018 Problem resolved confirmed Reza-71 7505- Problem Generalized osteoarthritis (148186968) Osteoarthritis, site unspecified (715.00) 018 Problem resolved confirmed Reza-71 7505- Problem Gastroesophageal reflux disease (216474803) GERD (530.81) 018 Problem resolved confirmed Reza-71 7505- Problem URI (8812987359) URI (465.8) 015 Problem resolved confirmed Reza-71 7505- Problem Hyperlipidemia (23479131) Hyperlipidemia (272.4) 018 Problem resolved confirmed Reza-71 7505- Plan Of Treatment Pending Test Test Name Order Date 6-Acetylmorphine, Urine 07/08/2022 Comprehensive Drug Analysis,Ur PDF Report 07/08/2022 Future Test Test Name [...] End Date MEDICARE PART B [address] [address] [place] [address] [id number] DEVEN MAYEN Self - patient is the insured 4 [facility] Supplement al [address] [place], [place] [phone] [id number] PLAN C DEVEN MAYEN Self - patient [...]
--- OUTSIDE RECORDS SUMMARY | 2025-01-04 14:41 | XMS_ITS ---
Author Organization [facility] Address [address] [place] [id number] Care Team Providers Care Fish Peddler Name Role Phone CHAR STEWART Primary Care Provider [phone] SURYA NORMAN Unavailable [phone] REASON FOR VISIT PER RRM PORTAL AWE APPT GIVEN Encounters Encounter Location Date Provider Diagnosis [facility] [address] [place] [id number] 07/21/2023 CHAR STEWART Plan Of Treatment No Information Progress Notes * DEVEN MAYENDOB: (84 yo F)Acc No.[id number]:07/21/2023 Progress Notes Patient:?MAUDEDEVEN BHAKTA Provider:?CHAR STEWART MD :1940???Age:82 Y???Sex:Female D ate:07/21/2023 Address:[facility] Subjective: * Chief Complaints: * ???1. PER RRM PORTAL AWE NAS T GIVEN. * Medical History:? Objective: * Vitals:? Assessment: Plan: * Treatment: * Billing Information: * Visit Code:? * Procedure Codes:? * Electronic signature of KIM STEWART MD on 01/04/2025 at 02:40 PM EDT Sign off status: Pending * Provider:?CHAR STEWART MD Date:? 023 Generated for Ezei marco antonio/Haim/eTransmitting on:?01/04/2025 02:40 PM EDT
--- OUTSIDE RECORDS SUMMARY | 2025-01-04 14:41 | XMS_ITS | Patient Health Record ---
Author [facility] Address [address] [place] [address] Care Team Providers Care Computer Patternmaker Name Role Phone Jesus Brand Primary Care Provider Dominique Gallo Unavailable [phone] Allergies Allergen (clinical drug ingredient) Drug/Non Drug [...] stomach upset, diarrhea, headache Drug Allergy Active Lisinopril drowsiness, nausea, itchy Drug Allergy Active [...] Problem Status W/U Status Risk Notes Problem 045836927 Peripheral vascular disease (I73.9) Active confirmed Vital Signs Blood pressure diastolic 60 mm Hg 02/17/2024 Height 5 ft in 02/17/2024 Blood pressure systolic 155 mm Hg 02/17/2024 Weight 197 lbs 02/17/2024 BMI 38.47 kg/m2 02/17/2024 Encounters Encounter Location Date Provider Diagnosis [facility] [place] [address] [place] [address] 02/17/2024 Dominique Dalton Plantar fasciitis, bilateral M72.2 [...] Medicare National [employer] [address] [place] [phone] [id number] Fallon Gabriel Self - patient is the insured A[employer] Secondary to Medicare [address] [place] [address] [phone] [id number] Fallon Gabriel Self - patient is the [...] 01/2009 laser surgery injections - sclerotheraph y [phone] cataract surgery 2014 2 Pre cancerous lesion removal (L-arm, 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
--- OUTSIDE RECORDS SUMMARY | 2025-01-04 14:41 | XMS_ITS ---
Author Organization [facility] Address [address] [place], [place] [id number] Care Team Providers Care Car Oiler Name Role Phone CHAR STEWART Primary Care Provider SURYA NORMAN Unavailable [phone] REASON FOR VISIT AWE appt Encounters Encounter Location Date Provider Diagnosis [facility] [address] [place], [place] [id number] 09/24/2023 CHAR STEWART Plan Of Treatment No Information Progress Notes * DEVEN MAYENDOB: (84 yo F)Acc No.[id number]:09/24/2023 Patient:?DEVEN MAYEN :1940???Age:82 Y???Sex:Female Address:[address] [place], [address] * * Date:?
--- OUTSIDE RECORDS SUMMARY | 2025-01-04 14:41 | XMS_ITS ---
Author Organization [facility] Address [address] [facility] [place] [address] Care Team Providers Care Sprinkler Driver Name Role Phone Jesus Brand Primary Care Provider Dominique Gallo [phone] REASON FOR VISIT ebony Kang #39 Encounters Encounter Location Date Provider Diagnosis [facility] [address] [facility] [address] 12/09/2023 Dominique Dalton Plan Of Treatment No Information Progress Notes * Fallon GABRIELDOB: (83 yo F)Acc No.[id number]:12/09/2023 Patient:?Fallon Gabriel :1940???Age:83 Y???Sex:Female Address:[facility] [place] [facility] [place] [address] * Addendum: * ? true * Date:? Generated for Printi ng/Fajonathong/eTransmitting on:?01/04/2025 02:41 PM EDT
--- OUTSIDE RECORDS SUMMARY | 2025-01-04 14:41 | XMS_ITS ---
Author Organization [facility] Address [address] [place] [address] Care Team Providers Care Weatherization Administrator Name Role Phone Jesus Brand Primary Care Provider Dominiuqe Gallo Unavailable [phone] Allergies Allergen (clinical drug ingredient) Drug/Non Drug [...] Problem Status W/U Status Risk Notes Problem 636413209 Peripheral vascular disease (I73.9) Active confirmed Vital Signs Height 5 ft in 12/09/2023 Weight 190 lbs 12/09/2023 BMI 37.1 kg/m2 12/09/2023 Blood pressure systolic 136 mm Hg 12/09/19 24 Blood pressure diastolic 66 mm Hg 024 Encounters Encounter Location Date Provider Diagnosis [facility] [place] [address] [place] [address] 12/09/2023 Dominique Dalton Pain in right foot [...] 2 Months, Reason: Progress Notes * Fallon GABRIEL: (83 yo F)Acc No.[id number]:12/09/2023 Progress Notes Patient:?Fallon Gabriel Number:[id number] Provider:?Dominique Dalton DPM :1940???Age:83 Y???Sex:Female D ate:12/09/2023 Address:[phone] Pcp:Jesus Brand Subjective: * Chief Complaints: * [...] laminectomy 10/10/2015pre cancerous lesion removed ( R hoahaoism) 11/2016rest of lesion removed 11/2017L thigh excision [...] * Vitals:?Ht: 5 ft, Wt: 190, B NC: 37.1, Shoe size: 8-8.5, BP: 136/66 mm [...] ray : Foot, left 3V * Procedure Codes:?94404 X-RAY EXAM OF RIGHT FOOT 3V, Modifiers: 26 , [id number] X- RAY EXAM OF LEFT FOOT 3V, [...] Interfil injection therapy, as well as surgical [place]/Endoscopic Fasciitomy surgical procedures if needed. Recommendations were [...] painful condition.?Physical Therapy:?Discussed the potential short and skilled nursing benefits of physical therapy including pain relief, [...] Dalton DPM Date:? Generated for Amadeo bernard/Haim/Lana on:?01/04/2025 02:41 PM EDT History and Physical Notes * HPI [...]
--- OUTSIDE RECORDS SUMMARY | 2025-01-04 14:42 | XMS_ITS ---
Author Organization [facility] Address [address] [place] [address] Care Team Providers Care Filter Press Pumper Name Role Phone Jesus Brand Primary Care Provider Dominique Gallo Unavailable [phone] Allergies Allergen (clinical drug ingredient) Drug/Non Drug [...] 024 Encounters Encounter Location Date Provider Diagnosis [facility] [place] [address] [place] [address] 02/17/2024 Dominique Dalton Plantar fasciitis, bilateral M72.2 [...] Notes * Fallon GABRIELDOB: (83 yo F)Acc No.[id number]:02/17/2024 Progress Note Patient:?Fallon Gabriel Provider:?Dominique Dalton DPM :1940???Age:83 Y???Sex:Female D ate:02/17/2024 Address:[address] [place] [address] [facility] [place] Pcp:Jesus Brand Subjective: * Chief Complaints: * [...] colon removed (diverticulitis) 1987breast biopsy + lumpectomy 1970Gall bladder removal 1994cellulitis 1994total knee replacement 01/2009laser surgery injections - sclerotheraphy cataract surgery Pre cancerous lesion removal (L-arm, R - calf) 09/2013pre cancerous lesion removed (wrist) 01/2015spinal surgery - laminectomy 10/10/2015pre cancerous lesion removed ( R advent) 11/2016rest of lesion removed 11/2017L thigh excision [...] * Vitals:?Ht: 5 ft, Wt: 197, B [place]: 38.47, Shoe size: 8-8.5, BP: 155/60 mm [...] TENDON REFLEXES:?Achilles, 2/4, B/L.?Vascular: ?DP PULSES:?3/4, B/L.?PT PULSES:?11/23, B/L.?CAPILLARY FILL TIME:?immediate, all digits, B/L.?SKIN TEMPERTURE [...] - M77.51? Plan: * Treatment: * Procedure Codes:?28382 X-RAY EXAM OF RIGHT FOOT 3V, Modifiers: [...]
== END 2025-01-04 13:28 | disposition home or self-care (01) ==
LOC: HO.HMCC 11:51
PROVIDERS: PCP Internal Medicine; Visit Provider Internal Medicine
DX: M54.50 Low back pain, unspecified (principal); G89.29 Other chronic pain; I10 Essential (primary) hypertension; E78.5 Hyperlipidemia, unspecified; G47.00 Insomnia, unspecified

== ENCOUNTER → 2025-01-04 11:51 | Outpatient (BNVA) | payer MEDICARE, SELFPAY | PROVIDERS: PCP Internal Medicine; Visit Provider Internal Medicine | DX: E78.5 Hyperlipidemia, unspecified (principal); M47.816 Spondylosis without myelopathy or radiculopathy, lumbar region; M54.50 Low back pain, unspecified; G89.29 Other chronic pain; I10 Essential (primary) hypertension; G47.00 Insomnia, unspecified | CPT/HCPCS: 99212 ==

== ENCOUNTER 2025-01-13 13:29 | Outpatient (AMB) | payer MEDICARE, SELFPAY ==
[2025-01-13 13:34] VITALS: BP 146/88; PULSE 74; O2SAT 96; BMI 38.1
--- NOTE | 2025-01-13 13:34 | A.OFFVIS_ITS ---
Vital Signs 01/13/25 13:34 Height 5 ft Weight 195 lb BMI 38.1 BP 146/88 H Blood Pressure Location Rt brachial Position Sitting Pulse 74 Pulse Source Pulse Oximeter Pulse Oximetry (%) 96 Oxygen Delivery Method Room Air Intake Visit Reasons: 6 months follow up Intake Note: ESTABLISHED PATIENT for mgmt of fecal abn and esophageal dysmotility. Chief Complaint; Pt reports her medications are working well, no sx or concerns at this time. Pt does want to discuss the cholestyramine as she stopped taking it on account of taking CBD gummies. Pt reports that the CBD has been quite helpful in controlling multiple sx or conditions. Oven Technician Required: No Accompanied by: Self / Same As Patient Allergies lidocaine [From Aspercreme (lidocaine HCl)] Allergy (Intermediate, Verified 01/13/25 13:43) Rash celecoxib [From Celebrex] Allergy (Mild, Verified 01/13/25 13:43) PALPITATIONS levofloxacin [From Levaquin] Allergy (Mild, Verified 01/13/25 13:43) VOMITNG/JITTERY zolpidem [From Ambien] Allergy (Mild, Verified 01/13/25 13:43) HIVES/RASH/ITCH acetaminophen [From Vicodin] Allergy (Verified 01/13/25 13:43) Abdominal Pain adhesive tape Allergy (Verified 01/13/25 13:43) Rash cholestyramine [From Questran] Allergy (Verified 01/13/25 13:43) Unknown gemfibrozil [From Lopid] Allergy (Verified 01/13/25 13:43) Nausea hydrocodone [From Vicodin] Allergy (Verified 01/13/25 13:43) Abdominal Pain indomethacin Allergy (Verified 01/13/25 13:43) Nausea ketoprofen Allergy (Verified 01/13/25 13:43) Chest Pain lisinopril Allergy (Verified 01/13/25 13:43) Nausea naproxen Allergy (Verified 01/13/25 13:43) Abdominal Pain NSAIDS (Non-Steroidal Anti-Inflamma Allergy (Verified 01/13/25 13:43) Abdominal Pain sucrose [From Questran] Allergy (Verified 01/13/25 13:43) Unknown diazepam [From Valium] Adverse Reaction (Mild, Verified 01/13/25 13:43) HYPERACTIVE pravastatin [Pravastatin] Adverse Reaction (Mild, Verified 01/13/25 13:43) MUSCLE AND LEG PAIN gabapentin Adverse Reaction (Verified 01/13/25 13:43) Headache zinc Adverse Reaction (Verified 01/13/25 13:43) Vomiting HPI HPI 6 months follow up: Details: Assessment & Plan (1) Oropharyngeal dysphagia: Code(s): R13.12 - Dysphagia, oropharyngeal phase Category: Medical (2) Diarrhea: Code(s): R19.7 - Diarrhea, unspecified Category: Medical (3) GERD (gastroesophageal reflux disease): Code(s): K21.9 - Gastro-esophageal reflux disease without esophagitis Category: Medical Plan She is quite a bit of hip pain because of the way she had to maneuver during the barium swallow. It was difficult for her to turn on the narrow radiology table and this caused a bit of strain in her hip joints. She understands the reason and she is not bad about it she has walking with a cane now just to be safe and the pain is beginning to dissipate. We review EGD and the barium swallow and I think that her continued trouble in the early pharyngeal phase of swallowing is from esophageal dysmotility. She compensates by taking a pill and tilting her head backwards and this seems to work. I encouraged her to be very careful to avoid choking since is somewhat difficult to treat. Apparently dilating in the proximal in the distal esophagus did not help much. Her diarrhea right now is well controlled on cholestyramine twice a day. She finds that her stools are not hard but more on the soft side and she now gets morning to when she needs to move her bowels so she does not have fecal urgency or. I told her that we can increase the dose by half a scoop during 1 of the days and titrate further if she desires in the future for now she wants to stay where she. She continues on pantoprazole which I escalated her to after the endoscopy since she had some continued mild esophagitis on her EGD. Prior to this she was only taking famotidine twice a day. She takes the pantoprazole in the morning and famotidine at night. She is aware that we will repeat her endoscopy in 2-3 years to survey her Barretts. Return office visit in 6 months Medications: Refilled pantoprazole (Protonix) 40 mg PO DAILY 30 days 30 tabs 6RF K21.9 - Gastro- esophageal reflux disease without esophagitis, R13.12 - Dysphagia, oropharyngeal phase TODAY'S VISIT She is no longer taking the cholestyramine, because she found a round about solution to her IBS via her pain mgmt providers. They wanted her to stop her Tramadol, and she went on CBD gummies for her pain, and this also solved her IBS. She is now having formed BM's once a day, at times mild CIC but nothing concerning. She continues on her pantoparzole. She continues with the hoarseness, however she stopped her BP medications for a time to try to see what is causing the hoarseness, and withing 5 days it improved and she could sing. She had to restart the medications because her blood pressure was then uncontrolled. Unfortunately, because she stopped all 3 once we are not sure which is the culprit. I did elder counselor her to do a brief trial of stopping them wanted to time to see if we can narrow down which medici ne is the offending agent. Once we do there are still other blood pressure modalities that can be considered to put into her regimen to control her pressure without her having to deal with this side effect that really has limited her life. She is agreeable to this. Return office visit in 6 months [facility] Medical History Gait instability Dyslipidemia Chronic low back pain Hip pain, chronic Physical exam Chronic back pain Chronic neck pain Difficulty swallowing Upper respiratory infection Polyarthralgia Osteoarthritis Chronic pain TMJ (dislocation of temporomandibular joint) Elevated uric acid in blood 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 Spinal stenosis of cervical region with radiculopathy Bilateral hand pain Psoriatic arthritis Hiatal hernia Psoriasis Hyperlipidemia Surgical History Hx of cataract removal with insertion of prosthetic lens History of laminectomy History of colon surgery History of hysterectomy History of cholecystectomy Hx of cataract surgery History of knee replacement Family History Father Dementia Raynauds disease Substance use disorder Mother Rheumatoid arthritis Maternal Grandfather Type 2 diabetes mellitus Sister Mary Carmen's disease Breast cancer Brother Pancreatic cancer Myocardial infarction Sister Lung cancer Paternal Uncle Substance use disorder Paternal Uncle Substance use disorder Paternal Uncle Substance use disorder Son Mental health disorder Social History Household Members: Spouse Housing: House Alcohol intake: former Patient Tobacco Use Status: Never used Tobacco e-Cigarette/Vaping Use: Never Used service: No Current occupational status: retired Cognitive needs: No Hearing needs: No Vision needs: Yes Review of Systems Const Denies fatigue, Denies fever(s), Denies night sweats, Denies poor appetite and Denies weight loss ENT Reports Normal hearing present, Denies dental pain, Denies dysphagia, Denies hearing loss, Denies mouth pain, Denies odynophagia, Denies throat swelling, Denies tongue swelling and Reports other (Dentition adequate) Card Reports no additional complaints Resp Reports no additional complaints GI Details: Denies abdominal pain, Denies melena, Denies bloating, Denies hematochezia, Denies constipation, Denies GI cramping, Denies dysphagia, Denies excessive flatus, Denies early satiety, Reports heartburn, Denies diarrhea, Reports loose stools, Denies nausea, Denies odynophagia, Denies vomiting and Denies hematemesis Musc Reports back pain and Reports myalgias Skin/Breast Denies pruritus, Denies lesions, Denies rash and Denies jaundice Neuro Reports Normal hearing present and Denies Abnormal speech present Endo Denies fatigue Aller/Immun Denies throat swelling and Denies tongue swelling Physical Exam Vital Signs: Last Vital Signs Pulse 74 01/13/25 13:34 BP 146/88 H 01/13/25 13:34 Pulse Ox 96 01/13/25 13:34 Oxygen Delivery Method Room Air 01/13/25 13:34 BMI result Body Mass Index 38.1 Const General: cooperative, no acute distress, well developed and well groomed Nutritional Appearance: well nourished and obese morbidly obese Orientation/consciousness: oriented to person, oriented to place and oriented to time Limitations: No language barrier HEENT Head: Yes normocephalic and Yes atraumatic Eyes General: appearance normal, both eyes and all related structures Pupils: Equal, round and reactive pupils present Neck Neck: Yes normal visual inspection and Yes no lymphadenopathy Thyroid: Thyroid normal Resp Effort & Inspection: normal respiratory effort and able to speak in complete sentences Auscultation: clear to auscultation bilaterally Cardio Rate: regular rate Rhythm: regular rhythm Heart sounds: Normal, physiologic split S2 sound present Peripheral pulses: radial pulses present and posterior tibial pulses present GI Inspection: No distended, Yes Abdominal panniculus present and Yes obesity Palpation (GI): Soft to palpation, nontender, no guarding, not rigid and No hepatosplenomegaly present Percussion: Yes normal to percussion Auscultation: normal bowel sounds Rectal Exam - Female: deferred Skin General skin exam: no rashes or lesions noted, turgor normal, skin not dry, no jaundice, No spider nevi and no striae Rashes: no rashes Nails: normal Neuro General: oriented to person, oriented to place and oriented to time Cranial nerves: Yes Equal, round and reactive pupils present and Yes Normal hearing present Speech: No Abnormal speech present Extrem General: Yes normal to inspection, No clubbing, No cyanosis and No edema Psych Appearance: grossly normal and well kempt Mental Status: mental status grossly normal Speech and movement: Normal speech and movement present Affect: normal affect Attitude: cooperative Thought process: Normal thought process present and not confabulating Thought content: Normal thought content present Insight: Good insight present (Psych) Judgement: Good judgement present (Psych) Assessment & Plan Assessment & Plan (1) GERD (gastroesophageal reflux disease): Code(s): K21.9 - Gastro-esophageal reflux disease without esophagitis Category: Medical (2) Diarrhea: Comment: Controlled with CBD gummies Code(s): R19.7 - Diarrhea, unspecified Category: Medical Plan She is no longer taking the cholestyramine, because she found a round about solution to her IBS via her pain mgmt providers. They wanted her to stop her Tramadol, and she went on CBD gummies for her pain, and this also solved her IBS. She is now having formed BM's once a day, at times mild CIC but nothing concerning. She continues on her pantoparzole. She continues with the hoarseness, however she stopped her BP medications for a time to try to see what is causing the hoarseness, and withing 5 days it improved and she could sing. She had to restart the medications because her blood pressure was then uncontrolled. Unfortunately, because she stopped all 3 once we are not sure which is the culprit. I did elder counselor her to do a brief trial of stopping them wanted to time to see if we can narrow down which medicine is the offending agent. Once we do there are still other blood pressure modalities that can be considered to put into her regimen to control her pressure without her having to deal with this side effect that really has limited her life. She is agreeable to this. Return office visit in 6 months Coding Level of Care Code Est Pt Level 3 (46413) Diagnoses GERD (gastroesophageal reflux disease) K21.9 Diarrhea R19.7
--- OUTSIDE RECORDS SUMMARY | 2025-01-13 15:52 | XMS_ITS ---
Author Organization [facility] Address [address] [place], [place] [address] Care Team Providers Care Hypo Splasher Name Role Phone CHAR STEWART Primary Care Provider SURYA NORMAN Unavailable [phone] REASON FOR VISIT AWE appt Encounters Encounter Location Date Provider Diagnosis [facility] [address] [place], [place] [id number] 09/24/2023 CHAR STEWART Plan Of Treatment No Information Progress Notes * DEVEN MAYENDOB: (84 yo F)Acc No.[id number]:09/24/2023 Patient:?DEVEN MAYEN :1940???Age:82 Y???Sex:Female Address:[address] [place], [address] * * Date:?
--- OUTSIDE RECORDS SUMMARY | 2025-01-13 15:52 | XMS_ITS ---
[facility] Address [address] [place] [address] Care Team Providers Care Instrumentation Designer Name Role Phone Jesus Brand Primary Care Provider Dominique Gallo Unavailable [phone] Allergies Allergen (clinical drug ingredient) Drug/Non Drug [...] 024 Encounters Encounter Location Date Provider Diagnosis [facility] [place] [address] [place] [address] 02/17/2024 Dominique Dalton Plantar fasciitis, bilateral M72.2 [...] Notes * Fallon GABRIELDOB: (83 yo F)Acc No.[id number]:02/17/2024 Progress Note Patient:?Fallon Gabriel Provider:?Dominique Dalton DPM :1940???Age:83 Y???Sex:Female D ate:02/17/2024 Address:[address] [place] [address] [facility] [place] Pcp:Jesus Brand Subjective: * Chief Complaints: * [...] laminectomy 10/10/2015pre cancerous lesion removed ( R bahai) 11/2016rest of lesion removed 11/2017L thigh excision [...] * Vitals:?Ht: 5 ft, Wt: 197, B OR: 38.47, Shoe size: 8-8.5, BP: 155/60 mm [...] - M77.51? Plan: * Treatment: * Procedure Codes:?48528 X-RAY EXAM OF RIGHT FOOT 3V, Modifiers: [...] Dalton DPM Date:? Generated for Amadeo bernard/Haim/Lana on:?01/13/2025 03:51 PM EDT History and Physical Notes * [...]
--- OUTSIDE RECORDS SUMMARY | 2025-01-13 15:52 | XMS_ITS | Patient Health Record ---
Author Organization [facility] Address [address] [place], [place] [address] Care Team Providers Care Credit Union Teller Name Role Phone PATCHAR Primary Care Provider SURYA NORMAN Unavailable [phone] Allergies Allergen (clinical drug ingredient) Drug/Non Drug [...] Problem Status W/U Status Risk Notes Problem 15816196 Other chronic pa in (G89.29) Active confirmed Problem 447315473 Chronic pain syndrome (G89.4) Active confirmed Problem Essential hypertension (19309172) Essential (primary) hypertension (I10) Active confirmed Problem 785199676 Spondylosis without myelopathy or radiculopathy, lumbar region (M47.816) Active confirmed Problem 09200963 Postlaminectomy syndrome, not elsewhere classified (M96.1) Active confirmed Problem 43155084 Urge incontinenc e (N39.41) Active confirmed Problem 50591182 Paresthesia of skin (R20.2) Active confirmed Problem 82700644 Hyperlipidemia, unspecified hyperlipidemia type (E78.5) Active confirmed Problem 806103458 Gastroesophageal reflux disease without esophagitis (K21.9) Active confirmed Problem 89685959 Recurrent major depressive disorder, in partial remission (F33.41) Active confirmed Problem 42203163 Hypertension, unspecified type (I10) Active confirmed Problem 811882015 BMI 36.0-36.9,adult (Z68.36) Active confirmed Problem 930633767 BMI 35.0-35.9,adult (Z68.35) Active confirmed Problem 028937379 Psoriatic arthritis (L40.50) Active confirmed Problem Lumbosacral spondylosis without myelopathy (92863707) Spondylosis of lumbar region without myelopathy or radiculopathy (M47.816) Active confirmed Problem Lumbosacral spondylosis without myelopathy (33679593) Spondylosis of lumbosacral region without myelopathy or radiculopathy (M47.817) Active confirmed Problem 774085564 Depression with anxiety (F41.8) Active confirmed Problem 39448003421705105 Bilateral sacroiliitis (M46.1) Active confirmed Problem 69544637 RLS (restless le gs syndrome) (G25.81) Active confirmed Problem 393125126 History of cataract (Z86.69) Active confirmed Problem 206316619005252 History of diverticulitis (Z87.19) Active confirmed Problem Arthropathy of lumbar facet joint (509337262) Lumbar facet arthropathy (M47.816) Active confirmed Problem 94568451 Sedative, 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, 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) Active confirmed Problem 884803626 Severe scoliosis (M41.9) Active confirmed Problem Herpes zoster without complication (559429943) Zoster without complications (B02.9) 018 Problem resolved confirmed Reza-71 7505- Problem Eruption of skin (440051141) Rash and other nonspecific skin eruption (R21) 018 Problem resolved confirmed Reza-71 7505- Problem Essential hypertension (31415614) Essential hypertension, unspecified (401.9) 018 Problem resolved confirmed Reza-71 7505- Problem Generalized osteoarthritis (989587571) Osteoarthritis, site unspecified (715.00) 018 Problem resolved confirmed Reza-71 7505- Problem Gastroesophageal reflux disease (852586766) GERD (530.81) 018 Problem resolved confirmed Reza-71 7505- Problem URI (8468098520) URI (465.8) 015 Problem resolved confirmed Reza-71 7505- Problem Hyperlipidemia (12846667) Hyperlipidemia (272.4) 018 Problem resolved confirmed Reza-71 [...] End Date MEDICARE PART B [address] [address] [place] [address] [id number] DEVEN MAYEN Self - patient is the insured 4 [facility] Supplement al [address] [place], [place] [id number] PLAN C DEVEN MAYEN Self - patient [...]
--- OUTSIDE RECORDS SUMMARY | 2025-01-13 15:52 | XMS_ITS ---
Author Organization [facility] Address [address] [place], [place] [address] Care Team Providers Care Water Tender Name Role Phone CHAR STEWART Primary Care Provider SURYA NORMAN Unavailable [phone] REASON FOR VISIT Left practice Encounters Encounter Location Date Provider Diagnosis [facility] [address] [place], [place] [id number] 08/18/2023 CHAR STEWART Plan Of Treatment No Information Progress Notes * DEVEN MAYENDOB: (84 yo F)Acc No.[id number]:08/18/2023 Patient:?DEVEN MAYEN :1940???Age:82 Y???Sex:Female Address:[address] [place], [address] * * Date:?
--- OUTSIDE RECORDS SUMMARY | 2025-01-13 15:52 | XMS_ITS ---
Author Organization [facility] Address [address] [place] [address] Care Team Providers Care Certified Pedorthotist Name Role Phone Jesus Brand Primary Care Provider Dominique Gallo Unavailable [phone] Allergies Allergen (clinical drug ingredient) Drug/Non Drug [...] Problem Status W/U Status Risk Notes Problem 500729041 Peripheral vascular disease (I73.9) Active confirmed Vital Signs Height 5 ft in 12/09/2023 Weight 190 lbs 12/09/2023 BMI 37.1 kg/m2 12/09/2023 Blood pressure systolic 136 mm Hg 12/09/19 24 Blood pressure diastolic 66 mm Hg 024 Encounters Encounter Location Date Provider Diagnosis [facility] [place] [address] [place] [address] 12/09/2023 Dominique Dalton Pain in right foot [...] Notes * Fallon GABRIEL: (83 yo F)Acc No.[id number]:12/09/2023 Progress Notes Patient:?Fallon Gabriel Number:[id number] Provider:?Dominique Dalton DPM :1940???Age:83 Y???Sex:Female D ate:12/09/2023 Address:[id number] Pcp:Jesus Brand Subjective: * Chief Complaints: * [...] laminectomy 10/10/2015pre cancerous lesion removed ( R yarsanism) 11/2016rest of lesion removed 11/2017L thigh excision [...] * Vitals:?Ht: 5 ft, Wt: 190, B VA: 37.1, Shoe size: 8-8.5, BP: 136/66 mm [...] ray : Foot, left 3V * Procedure Codes:?35266 X-RAY EXAM OF RIGHT FOOT 3V, Modifiers: 26 , [id number] X- RAY EXAM OF LEFT FOOT 3V, [...] Interfil injection therapy, as well as surgical [place]/Endoscopic Fasciitomy surgical procedures if needed. Recommendations were [...] painful condition.?Physical Therapy:?Discussed the potential short and mcfp benefits of physical therapy including pain relief, [...]
--- OUTSIDE RECORDS SUMMARY | 2025-01-13 15:52 | XMS_ITS | Patient Health Record ---
Author Organization [facility] Address [address] [place] [address] Care Team Providers Care Maintenance Planning Clerk Name Role Phone Jesus Brand Primary Care Provider Dominique Gallo Unavailable [phone] Allergies Allergen (clinical drug ingredient) Drug/Non Drug [...] Problem Status W/U Status Risk Notes Problem 838097103 Peripheral vascular disease (I73.9) Active confirmed Vital Signs Blood pressure diastolic 60 mm Hg 02/17/2024 Height 5 ft in 02/17/2024 Blood pressure systolic 155 mm Hg 02/17/2024 Weight 197 lbs 02/17/2024 BMI 38.47 kg/m2 02/17/2024 Encounters Encounter Location Date Provider Diagnosis [facility] [place] [address] [place] [address] 02/17/2024 Dominique Dalton Plantar fasciitis, bilateral M72.2 [...] Medicare [employer] [address] [place] [address] [id number] Fallon Gabriel Self - patient is the insured [employer] Secondary to Medicare [address] [place] [id number] Fallon Gabriel Self - patient is the [...] 01/2009 laser surgery injections - sclerotheraph y [id number] cataract surgery 2014 2 Pre cancerous lesion removal (L-arm, R - calf) 09/2013 pre cancerous lesion removed (wrist) 2014 spinal surgery - laminectomy 10/10/2015 pre cancerous lesion removed ( R jewish) 11/2016 rest of lesion removed 11/2017 L thigh excision precancerous lesion 03/2019 L thigh excision precancerous lesion rem aniceto 02/09/2019 Hospitalization History Reason Date(Month/Year) 10 Day Hospitalization (Adhesions - Smal l Intestine) 06/2013 [facility]- nausea 05/14
--- OUTSIDE RECORDS SUMMARY | 2025-01-13 15:52 | XMS_ITS ---
Author Organization [facility] Address [address] [place] [address] Care Team Providers Care Application Software Developer Name Role Phone Jesus Brand Primary Care Provider Dominique Gallo [phone] REASON FOR VISIT ebony Kang #39 Encounters Encounter Location Date Provider Diagnosis [facility] [address] [place] [address] 12/09/2023 Dominique Dalton Plan Of Treatment No Information Progress Notes * Fallon GABRIELDOB: (83 yo F)Acc No.[id number]:12/09/2023 Patient:?Fallon Gabriel :1940???Age:83 Y???Sex:Female Address:[facility] [place] [facility] [place] [address] * Addendum: * ? true * Date:? Generated for Printi ng/Fajonathong/eTransmitting on:?01/13/2025 03:51 PM EDT
--- OUTSIDE RECORDS SUMMARY | 2025-01-13 15:52 | XMS_ITS ---
Author Organization [facility] Address [address] [place] [id number] Care Team Providers Care Milk Drier Name Role Phone CHAR STEWART Primary Care Provider [phone] SURYA NORMAN Unavailable [phone] REASON FOR VISIT PER RRM PORTAL AWE APPT GIVEN Encounters Encounter Location Date Provider Diagnosis [facility] [address] [place] [id number] 07/21/2023 CHAR STEWART Plan Of Treatment No Information Progress Notes * DEVEN MAYENDOB: (84 yo F)Acc No.[id number]:07/21/2023 Progress Notes Patient:?MAUDEDEVEN BHAKTA Provider:?CHAR STEWART MD :1940???Age:82 Y???Sex:Female D ate:07/21/2023 Address:[facility] Subjective: * Chief Complaints: * ???1. PER RRM PORTAL AWE NAS T GIVEN. * Medical History:? Objective: * Vitals:? Assessment: Plan: * Treatment: * Billing Information: * Visit Code:? * Procedure Codes:? * Electronic signature of KIM STEWART MD on 01/13/2025 at 03:51 PM EDT Sign off status: Pending * Provider:?CHAR STEWART MD Date:? 023 Generated for Ezei marco antonio/Haim/eTransmitting on:?01/13/2025 03:51 PM EDT
== END 2025-01-13 14:26 | disposition home or self-care (01) ==
LOC: HO.HGI 13:30
PROVIDERS: PCP Internal Medicine; Visit Provider Nurse Practitioner
DX: K21.9 Gastro-esophageal reflux disease without esophagitis (principal); R19.7 Diarrhea, unspecified
CPT/HCPCS: 99213

== ENCOUNTER → 2025-01-13 13:29 | Outpatient (BNVA) | payer MEDICARE, SELFPAY | PROVIDERS: PCP Internal Medicine; Visit Provider Nurse Practitioner | DX: K21.9 Gastro-esophageal reflux disease without esophagitis (principal); R19.7 Diarrhea, unspecified | CPT/HCPCS: 99212 ==

== ENCOUNTER 2025-01-31 07:46 | Outpatient (REF) | payer MEDICARE, SELFPAY ==
--- OUTSIDE RECORDS SUMMARY | 2025-01-31 07:48 | XMS_ITS | Patient Health Record ---
Author Organization [facility] Address [address] [place], [place] [id number] Care Team Providers Care Business Proposal Rep Name Role Phone PATCHAR Primary Care Provider [phone] SURYA NORMAN Unavailable [phone] Allergies Allergen (clinical drug ingredient) Drug/Non Drug [...] Problem Status W/U Status Risk Notes Problem 11734182 Other chronic pa in (G89.29) Active confirmed Problem 464732736 Chronic pain syndrome (G89.4) Active confirmed Problem Essential hypertension (95581678) Essential (primary) hypertension (I10) Active confirmed Problem 843445299 Spondylosis without myelopathy or radiculopathy, lumbar region (M47.816) Active confirmed Problem 40865945 Postlaminectomy syndrome, not elsewhere classified (M96.1) Active confirmed Problem 78516680 Urge incontinenc e (N39.41) Active confirmed Problem 03300737 Paresthesia of skin (R20.2) Active confirmed Problem 49084409 Hyperlipidemia, unspecified hyperlipidemia type (E78.5) Active confirmed Problem 455103830 Gastroesophageal reflux disease without esophagitis (K21.9) Active confirmed Problem 68441769 Recurrent major depressive disorder, in partial remission (F33.41) Active confirmed Problem 53269398 Hypertension, unspecified type (I10) Active confirmed Problem 537869026 BMI 36.0-36.9,adult (Z68.36) Active confirmed Problem 772576517 BMI 35.0-35.9,adult (Z68.35) Active confirmed Problem 639939013 Psoriatic arthritis (L40.50) Active confirmed Problem Lumbosacral spondylosis without myelopathy (72504664) Spondylosis of lumbar region without myelopathy or radiculopathy (M47.816) Active confirmed Problem Lumbosacral spondylosis without myelopathy (22106361) Spondylosis of lumbosacral region without myelopathy or radiculopathy (M47.817) Active confirmed Problem 413371356 Depression with anxiety (F41.8) Active confirmed Problem 84703648127671678 Bilateral sacroiliitis (M46.1) Active confirmed Problem 25392888 RLS (restless le gs syndrome) (G25.81) Active confirmed Problem 096511981 History of cataract (Z86.69) Active confirmed Problem 416263222622793 History of diverticulitis (Z87.19) Active confirmed Problem Arthropathy of lumbar facet joint (066507367) Lumbar facet arthropathy (M47.816) Active confirmed Problem 94157383 Sedative, 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, 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) Active confirmed Problem 395979487 Severe scoliosis (M41.9) Active confirmed Problem Herpes zoster without complication (380160707) Zoster without complications (B02.9) 018 Problem resolved confirmed Reza-71 7505- Problem Eruption of skin (908010858) Rash and other nonspecific skin eruption (R21) 018 Problem resolved confirmed Reza-71 7505- Problem Essential hypertension (13240759) Essential hypertension, unspecified (401.9) 018 Problem resolved confirmed Reza-71 7505- Problem Generalized osteoarthritis (317722452) Osteoarthritis, site unspecified (715.00) 018 Problem resolved confirmed Reza-71 7505- Problem Gastroesophageal reflux disease (537162210) GERD (530.81) 018 Problem resolved confirmed Reza-71 7505- Problem URI (0561413882) URI (465.8) 015 Problem resolved confirmed Reza-71 7505- Problem Hyperlipidemia (22089741) Hyperlipidemia (272.4) 018 Problem resolved confirmed Reza-71 [...] End Date MEDICARE PART B [address] [address] [place] [address] [id number] DEVEN MAYEN Self - patient is the insured 4 [facility] Supplement al [address] [place], [place] [id number] PLAN C DEVEN MAYEN Self - patient [...]
--- OUTSIDE RECORDS SUMMARY | 2025-01-31 07:48 | XMS_ITS ---
Author Organization [facility] Address [address] [place], [place] [address] Care Team Providers Care Sprinkler Tender Name Role Phone CHAR STEWART Primary Care Provider SURYA NORMAN Unavailable [phone] REASON FOR VISIT Left practice Encounters Encounter Location Date Provider Diagnosis [facility] [address] [place], [place] [id number] 08/18/2023 CHAR STEWART Plan Of Treatment No Information Progress Notes * DEVEN MAYENDOB: (84 yo F)Acc No.[id number]:08/18/2023 Patient:?DEVEN MAYEN :1940???Age:82 Y???Sex:Female Address:[address] [place], [address] * * Date:?
--- OUTSIDE RECORDS SUMMARY | 2025-01-31 07:49 | XMS_ITS ---
Author Organization [facility] Address [address] [place] [address] Care Team Providers Care Faculty Research Assistant Name Role Phone Jesus Brand Primary Care Provider Dominique Gallo Unavailable [phone] Allergies Allergen (clinical drug ingredient) Drug/Non Drug [...] Problem Status W/U Status Risk Notes Problem 687679256 Peripheral vascular disease (I73.9) Active confirmed Vital Signs Height 5 ft in 12/09/2023 Weight 190 lbs 12/09/2023 BMI 37.1 kg/m2 12/09/2023 Blood pressure systolic 136 mm Hg 12/09/19 24 Blood pressure diastolic 66 mm Hg 024 Encounters Encounter Location Date Provider Diagnosis [facility] [address] [place] [address] 12/09/2023 Dominique Dalton Pain in right foot [...] Notes * Fallon GABRIELDOB: (83 yo F)Acc No.[id number]:12/09/2023 Progress Notes Patient:?Fallon Gabriel Provider:?Dominique Dalton DPM :1940???Age:83 Y???Sex:Female D ate:12/09/2023 Address:[place] Pcp:Jesus Brand Subjective: * Chief Complaints: * [...] laminectomy 10/10/2015pre cancerous lesion removed ( R zoroastrianism) 11/2016rest of lesion removed 11/2017L thigh excision [...] * Vitals:?Ht: 5 ft, Wt: 190, B TX: 37.1, Shoe size: 8-8.5, BP: 136/66 mm [...] ray : Foot, left 3V * Procedure Codes:?25699 X-RAY EXAM OF RIGHT FOOT 3V, Modifiers: 26 , [id number] X- RAY EXAM OF LEFT FOOT 3V, [...] Interfil injection therapy, as well as surgical [place]/Endoscopic Fasciitomy surgical procedures if needed. Recommendations were [...] painful condition.?Physical Therapy:?Discussed the potential short and salvage determiner benefits of physical therapy including pain relief, [...] Dalton DPM Date:? Generated for Amadeo bernard/Haim/Chapisitting on:?01/31/2025 07:48 AM EDT History and Physical Notes * [...]
--- OUTSIDE RECORDS SUMMARY | 2025-01-31 07:49 | XMS_ITS ---
Author Organization [facility] Address [address] [place], [place] [id number] Care Team Providers Care Rn Maternal Child Name Role Phone CHAR STEWART Primary Care Provider [phone] SURYA NORMAN Unavailable [phone] REASON FOR VISIT AWE appt Encounters Encounter Location Date Provider Diagnosis [facility] [address] [place], [place] [id number] 09/24/2023 CHAR STEWART Plan Of Treatment No Information Progress Notes * DEVEN MAYENDOB: (84 yo F)Acc No.[id number]:09/24/2023 Patient:?DEVEN MAYEN :1940???Age:82 Y???Sex:Female Address:[address] [place], [address] * * Date:?
--- OUTSIDE RECORDS SUMMARY | 2025-01-31 07:49 | XMS_ITS ---
Author Organization [facility] Address [address] [place] [address] Care Team Providers Care Yarn Examiner Skeins Name Role Phone Jesus Brand Primary Care Provider Dominique Gallo [phone] REASON FOR VISIT ebony Kang #39 Encounters Encounter Location Date Provider Diagnosis [facility] [address] [place] [address] 12/09/2023 Dominique Dalton Plan Of Treatment No Information Progress Notes * Fallon GABRIELDOB: (83 yo F)Acc No.[id number]:12/09/2023 Patient:?Fallon Gabriel :1940???Age:83 Y???Sex:Female Address:[facility] [place] [facility] [place] [address] * Addendum: * ? true * Date:? Generated for Printi ng/Fajonathong/eTransmitting on:?01/31/2025 07:48 AM EDT
--- OUTSIDE RECORDS SUMMARY | 2025-01-31 07:49 | XMS_ITS | Patient Health Record ---
[facility] Address [address] [place] [address] Care Team Providers Care Ict Developer Name Role Phone Jesus Brand Primary Care Provider Dominique Gallo Unavailable [phone] Allergies Allergen (clinical drug ingredient) Drug/Non Drug [...] Problem Status W/U Status Risk Notes Problem 507990817 Peripheral vascular disease (I73.9) Active confirmed Vital Signs Blood pressure diastolic 60 mm Hg 02/17/2024 Height 5 ft in 02/17/2024 Blood pressure systolic 155 mm Hg 02/17/2024 Weight 197 lbs 02/17/2024 BMI 38.47 kg/m2 02/17/2024 Encounters Encounter Location Date 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
--- OUTSIDE RECORDS SUMMARY | 2025-01-31 07:49 | XMS_ITS ---
Author Organization [facility] Address [address] [place] [address] Care Team Providers Care Airport Driver Name Role Phone Jesus Brand Primary Care Provider Dominique Gallo Unavailable [phone] Allergies Allergen (clinical drug ingredient) Drug/Non Drug [...] 024 Encounters Encounter Location Date Provider Diagnosis [facility] [address] [address] 02/17/2024 Dominique Dalton Plantar fasciitis, bilateral M72.2 [...] Notes * Fallon GABRIELDOB: (83 yo F)Acc No.[id number]:02/17/2024 Progress Note Patient:?Fallon Gabriel Provider:?Dominique Dalton DPM :1940???Age:83 Y???Sex:Female D ate:02/17/2024 Address:[facility] [place], [place] Pcp:Jesus Brand Subjective: * Chief Complaints: * [...] laminectomy 10/10/2015pre cancerous lesion removed ( R religious) 11/2016rest of lesion removed 11/2017L thigh excision [...] * Vitals:?Ht: 5 ft, Wt: 197, B WI: 38.47, Shoe size: 8-8.5, BP: 155/60 mm [...] - M77.51? Plan: * Treatment: * Procedure Codes:?42356 X-RAY EXAM OF RIGHT FOOT 3V, Modifiers: [...] Dalton DPM Date:? Generated for Amadeo bernard/Haim/Lana on:?01/31/2025 07:48 AM EDT History and Physical [...]
[2025-01-31 08:44] VITALS: BP 151/88; PULSE 66; RESP 18; TEMP 36.5; O2SAT 98; BMI 38.1
== END 2025-01-31 07:47 | disposition home or self-care (01) ==
LOC: HO.MS 07:46
PROVIDERS: PCP Internal Medicine; Visit Provider Ophthalmology
PROC: (CPT 66821; principal; 2025-01-31 10:30)
DX: H26.492 Other secondary cataract, left eye (principal)
CPT/HCPCS: 66821

== ENCOUNTER → 2025-02-24 13:29 | Outpatient (BNVA) | payer MEDICARE, SELFPAY | PROVIDERS: PCP Internal Medicine ==

== ENCOUNTER 2025-02-25 12:08 | Outpatient (REF) | payer MEDICARE, SELFPAY ==
--- OUTSIDE RECORDS SUMMARY | 2025-02-25 12:32 | XMS_ITS | Patient Health Record ---
Author Organization [facility] Address [address] [place], [place] [id number] Care Team Providers Care Social Work Associate Name Role Phone PATCHAR Primary Care Provider [phone] SURYA NORMAN Unavailable [phone] Allergies Allergen (clinical drug ingredient) Drug/Non Drug [...] Problem Status W/U Status Risk Notes Problem 893612631 History of cataract (Z86.69) Active confirmed Problem 699716014854715 History of diverticulitis (Z87.19) Active confirmed Problem Arthropathy of lumbar facet joint (398033744) Lumbar facet arthropathy (M47.816) Active confirmed Problem 97509009 Sedative, 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, 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) Active confirmed Problem 485937271 Severe scoliosis (M41.9) Active confirmed Problem Herpes zoster without complication (516051065) Zoster without complications (B02.9) 018 Problem resolved confirmed Reza-71 7505- Problem Eruption of skin (943728544) Rash and other nonspecific skin eruption (R21) 018 Problem resolved confirmed Reza-71 7505- Problem Essential hypertension (82569492) Essential hypertension, unspecified (401.9) 018 Problem resolved confirmed Reza-71 7505- Problem Generalized osteoarthritis (169964811) Osteoarthritis, site unspecified (715.00) 018 Problem resolved confirmed Reza-71 7505- Problem Gastroesophageal reflux disease (867343260) GERD (530.81) 018 Problem resolved confirmed Reza-71 7505- Problem URI (9187409622) URI (465.8) 015 Problem resolved confirmed Reza-71 7505- Problem Hyperlipidemia (10405275) Hyperlipidemia (272.4) 018 Problem resolved confirmed Reza-71 7505- Problem 88931515 RLS (restless le gs syndrome) (G25.81) Active confirmed Problem 39880295090943787 Bilateral sacroiliitis (M46.1) Active confirmed Problem 073268561 Depression with anxiety (F41.8) Active confirmed Problem Lumbosacral spondylosis without myelopathy (04482360) Spondylosis of lumbosacral region without myelopathy or radiculopathy (M47.817) Active confirmed Problem Lumbosacral spondylosis without myelopathy (20302828) Spondylosis of lumbar region without myelopathy or radiculopathy (M47.816) Active confirmed Problem 115035700 Psoriatic arthritis (L40.50) Active confirmed Problem 786495356 BMI 35.0-35.9,adult (Z68.35) Active confirmed Problem 168440446 BMI 36.0-36.9,adult (Z68.36) Active confirmed Problem 52766664 Hypertension, unspecified type (I10) Active confirmed Problem 44964267 Recurrent major depressive disorder, in partial remission (F33.41) Active confirmed Problem 909734362 Gastroesophageal reflux disease without esophagitis (K21.9) Active confirmed Problem 57647824 Hyperlipidemia, unspecified hyperlipidemia type (E78.5) Active confirmed Problem 50648699 Paresthesia of skin (R20.2) Active confirmed Problem 80285435 Urge incontinenc e (N39.41) Active confirmed Problem 43219868 Postlaminectomy syndrome, not elsewhere classified (M96.1) Active confirmed Problem 840547156 Spondylosis without myelopathy or radiculopathy, lumbar region (M47.816) Active confirmed Problem Essential hypertension (62807511) Essential (primary) hypertension (I10) Active confirmed Problem 278200405 Chronic pain syndrome (G89.4) Active confirmed Problem 53207382 Other chronic pa in (G89.29) Active confirmed Plan Of Treatment Pending Test [...] End Date MEDICARE PART B [address] [address] [place] [address] [id number] DEVEN MAYEN Self - patient is the insured 4 [facility] Supplement al [address] [place], [place] [id number] PLAN C DEVEN MAYEN Self - patient [...]
== END 2025-02-25 12:09 | disposition home or self-care (01) ==
LOC: HO.MAMMO 12:08
PROVIDERS: PCP Internal Medicine; Visit Provider Internal Medicine
DX: Z12.31 Encounter for screening mammogram for malignant neoplasm of breast (principal)
CPT/HCPCS: 77063; 77067

== ENCOUNTER → 2025-02-25 12:30 | Outpatient (BNV) | payer MEDICARE, SELFPAY | PROVIDERS: PCP Internal Medicine; Visit Provider Internal Medicine | DX: Z12.31 Encounter for screening mammogram for malignant neoplasm of breast (principal) | CPT/HCPCS: 77063; 77067 ==

== ENCOUNTER 2025-03-09 11:25 | Outpatient (AMB) | payer MEDICARE, SELFPAY ==
[2025-03-09 11:29] VITALS: BP 174/88; PULSE 74; TEMP 36.6; O2SAT 96; BMI 38.9
--- NOTE | 2025-03-09 11:29 | A.OFFPC_ITS ---
Vital Signs 03/09/25 11:29 Height 5 ft Weight 199 lb 6 oz BMI 38.9 BP 174/88 H Pulse 74 Pulse Source Pulse Oximeter Temp 97.9 F Temp Source Oral Pulse Oximetry (%) 96 Oxygen Delivery Method Room Air Intake Visit Reasons: blood pressure/med managememt Allergies lidocaine (From Aspercreme (lidocaine HCl)) Allergy (Intermediate, Verified 03/09/25 11:34) Rash celecoxib (From Celebrex) Allergy (Mild, Verified 03/09/25 11:34) PALPITATIONS levofloxacin (From Levaquin) Allergy (Mild, Verified 03/09/25 11:34) VOMITNG/JITTERY zolpidem (From Ambien) Allergy (Mild, Verified 03/09/25 11:34) HIVES/RASH/ITCH acetaminophen (From Vicodin) Allergy (Verified 03/09/25 11:34) Abdominal Pain adhesive tape Allergy (Verified 03/09/25 11:34) Rash cholestyramine (From Questran) Allergy (Verified 03/09/25 11:34) Unknown gemfibrozil (From Lopid) Allergy (Verified 03/09/25 11:34) Nausea hydrocodone (From Vicodin) Allergy (Verified 03/09/25 11:34) Abdominal Pain indomethacin Allergy (Verified 03/09/25 11:34) Nausea ketoprofen Allergy (Verified 03/09/25 11:34) Chest Pain lisinopril Allergy (Verified 03/09/25 11:34) Nausea naproxen Allergy (Verified 03/09/25 11:34) Abdominal Pain NSAIDS (Non-Steroidal Anti-Inflamma Allergy (Verified 03/09/25 11:34) Abdominal Pain sucrose (From Questran) Allergy (Verified 03/09/25 11:34) Unknown diazepam (From Valium) Adverse Reaction (Mild, Verified 03/09/25 11:34) HYPERACTIVE pravastatin (Pravastatin) Adverse Reaction (Mild, Verified 03/09/25 11:34) MUSCLE AND LEG PAIN gabapentin Adverse Reaction (Verified 03/09/25 11:34) Headache zinc Adverse Reaction (Verified 03/09/25 11:34) Vomiting Medication List - Last Reconciled 03/09/25 by Adam Timmons MD amlodipine 10 mg PO DAILY ascorbic acid (vitamin C) 500 mg PO DAILY B-complex with vitamin C 1 cap PO DAILY Belsomra (suvorexant) 5 mg PO BEDTIME PRN NS calcium carbonate-vitamin D3 600 mg-20 mcg (800 unit) (Caltrate plus D) 1 tab PO DAILY clobetasol 0.05% 1 appl topical BID diclofenac sodium 1% 2 grams topical QID doxepin 6 mg PO BEDTIME PRN famotidine 20 mg PO DAILY fluoride (sodium) 1.1% 1 appl PO DAILY vodktgvf-yli-qrciz-pwf125-luxe 500-500-66.7 mg (Uayvdjsfnfh-Pbjqaorphfp-AFZ (with antiox)) tabs PO hydrochlorothiazide 25 mg PO QAM miconazole nitrate 2% 1 appl topical DAILY pitjvgox-rno-zupk-FA-vit K-lut 8 mg iron-400 mcg-50 mcg (Centrum Silver Women) 1 tab PO DAILY ondansetron 4 mg PO Q6-8H PRN pantoprazole 40 mg PO DAILY propylene glycol 0.6% (Systane Balance) 1 drp ophthalmic (eye) DAILY psyllium husk (Metamucil) 0.4 grams PO QDAY rosuvastatin 5 mg PO Q2D 3 months valsartan 320 mg PO DAILY Tobacco use date assessed: 01/04/25 Fall risk assessment: No Falls in past year Dental Screening Dental Screen Date: 01/04/25 Did you have a dental visit in the last 12 months?: No Did you have a dental problem in the last 6 months where you did not have access to dental care?: No HPI blood pressure/med managememt HPI Details History - The patient is an 84-year-old female p resenting with elevated blood pressure. Her blood pressure readings have been persistently high despite taking prescribed medications. She reports that blood pressure remains high primarily when experiencing pain. - The patient also reports persistent ho arseness, suspected to be associated with the use of amlodipine. The hoarseness did resolve after discontinuing amlodipine temporarily for one week. - The patient experiences generalized pa in including back, neck, and foot pain which she attributes to arthritis. Tramadol had previously been effective in managing her pain, but it was discontinued. She is currently using CBD gummies, which provide minimal relief but avoids higher doses due to concerns. - She reports leg pain associated with r osuvastatin use. The simvastatin that she was previously on did not cause similar issues, although it interacted with her blood pressure medications, prompting a switch to rosuvastatin. Medical History: - Hypertension - Arthritis - Hyperlipidemia - History of medication intolerance (Aml odipine and Gabapentin) Medications: - Valsartan, maximum dose - Hydrochlorothiazide, - Amlodipine (currently taking but plann ing to discontinue) - CBD gummies for pain management - Rosuvastatin for hyperlipidemia Social History: - Reports high sensitivity to medication s. - No current effective treatment for chr onic pain due to restrictive medication usage. - No CBD gummies dosage increase despite minimal pain relief. Diagnostic Results: - Labs: LDL was 105 in September, previous ly 157. Problem List - Essential Hypertension - Hoarseness secondary to medication - Arthritis - Medication-induced leg pain (rosuvasta tin) Patient Instructions - Stop taking amlodipine in a couple of days and start atenolol. - Monitor blood pressure, especially whe n experiencing pain. - Discuss pain management options with Renate Amado in the upcoming appointment. - Consider discontinuing rosuvastatin an d discuss with the banquet server. Review of Systems - General: No fever no chills - Neurological: No headaches no dizziness - Ear nose throat: No sore throat no hearing difficulty no ear pain - Cardiovascular: No syncope, no chest pain, no palpitations - Gastrointestinal: No nausea vomiting or diarrhea Physical Exam General: No acute distress HEENT: Hoarseness noted Neck: Supple, neck pain reported Respiratory system: Able to talk in full sentences, no audible wheeze, lungs are clear Cardiovascular: S1-S2 regular in rate and rhythm, heart sounds fine Gastrointestinal: No pain Extremities: Leg pain reported, no new findings KNOT BORER: Alert awake oriented x3 motor sensory intact Skin: Normal turgor PFSH Medical History Gait instability Dyslipidemia Chronic low back pain Hip pain, chronic Physical exam Chronic back pain Chronic neck pain Difficulty swallowing Upper respiratory infection Polyarthralgia Osteoarthritis Chronic pain TMJ (dislocation of temporomandibular joint) Elevated uric acid in blood 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 Spinal stenosis of cervical region with radiculopathy Bilateral hand pain Psoriatic arthritis Hiatal hernia Psoriasis Hyperlipidemia Surgical History Hx of cataract removal with insertion of prosthetic lens History of laminectomy History of colon surgery History of hysterectomy History of cholecystectomy Hx of cataract surgery History of knee replacement Family History Father Dementia Raynauds disease Substance use disorder Mother Rheumatoid arthritis Maternal Grandfather Type 2 diabetes mellitus Sister Mary Carmen's disease Breast cancer Brother Pancreatic cancer Myocardial infarction Sister Lung cancer Paternal Uncle Substance use disorder Paternal Uncle Substance use disorder Paternal Uncle Substance use disorder Son Mental health disorder Social History Household Members: Spouse Housing: House Alcohol intake: former Patient Tobacco Use Status: Never used Tobacco e-Cigarette/Vaping Use: Never Used service: No Current occupational status: retired Cognitive needs: No Hearing needs: No Vision needs: Yes Questionnaire PHQ-9 Over the last 2 weeks, how often have you been bothered by any of the following problems? 1. Little interest or pleasure in doing things: not at all 2. Feeling down, depressed, or hopeless: not at all 3. Trouble falling or staying asleep, or sleeping too much: more than half the days 4. Feeling tired or having little energy: more than half the days 5. Poor appetite or overeating: not at all 6. Feeling bad about yourself - or that you are a failure or have let yourself or your family down: not at all 7. Trouble concentrating on things, such as reading the newspaper or watching television: not at all 8. Moving or speaking so slowly that other people could have noticed. Or the opposite - being so fidgety or restless that you have been moving around a lot more than usual: not at all 9. Thoughts that you would be better off or of hurting yourself in some way: not at all Total score: 4 Depression Screening Interpretation: Negative Depression Screening Done: Yes 86946 - PHQ-9 Billing: Yes Source: Developed by Drs. Tc Ferrer, Ryann Sanchez, Berto Barron and colleagues, with an educational rosemarie from [employer]. Thrive Questionnaire Date Thrive assessed: 09/28/24 I am a: Patient What is your living situation today?: I have a steady place to live Within the past 12 months, did the food you bought not last and you didn't have the money to get more?: Never true Within the past 12 months, did you worry whether your food would run out before you got money to buy more?: Never true Do you have trouble paying for medicines?: No Do you have trouble getting transportation to medical appointments?: No Do you have trouble paying your heating and electricity bill?: No Do you have trouble taking care of your child, family member or friend?: No Do you have trouble with day-to-day activities such as bathing, preparing meals, shopping, managing finances, etc.?: No Are you currently unemployed and looking for a job?: No Are you interested in more education?: No Please select the resources that you would like help with: None Currently or been in a relationship where the following occur: No concerns reported THRIVE Score: 0 CASI-7 AMB Questionnaire CASI-7 Date CASI - 7 assessed: 10/05/24 Source: Developed by Drs. Tc Ferrer, Ryann Sanchez, Berto Barron and colleagues, with an educational rosemarie from [employer]. Physical exam (Primary Care) Vital Signs: Last Vital Signs Temp 97.9 F 03/09/25 11:29 Pulse 74 03/09/25 11:29 BP 174/88 H 03/09/25 11:29 Pulse Ox 96 03/09/25 11:29 Oxygen Delivery Method Room Air 03/09/25 11:29 BMI result Body Mass Index 38.9 Tobacco/Smoking Status: Tobacco use Status Tobacco use date assessed 01/04/25 03/09/25 11:38 Patient Tobacco Use Status Never used Tobacco 03/09/25 11:38 e-Cigarette/Vaping Use Never Used 03/09/25 11:38 PHQ-9: PHQ-9 Score PHQ-9: Total score 4 03/09/25 11:47 Depression Screening Interpretation: Negative Thrive Assessment: Date of Thrive Assessment Date Thrive assessed 09/28/24 03/09/25 11:38 Currently or been in a relationship where the following occur: No concerns reported Coding Level of Care Code Est Pt Level 4 (09315) Complex EM visit Add On G2211 Diagnoses Uncontrolled hypertension I10 Chronic pain syndrome G89.4 Osteoarthritis involving multiple joints on both sides of body M15.9 Lipid disorder E78.9 Difficulty sleeping G47.9 Sensitivity to medication, sequela T78.40XS Encounter type: sequela Additional Codes PHQ-9 - 68418 - PHQ-9 Billing: Yes ([id number]) Assessment & Plan Assessment & Plan (1) Uncontrolled hypertension: Code(s): I10 - Essential (primary) hypertension Category: Medical (2) Chronic pain syndrome: Code(s): G89.4 - Chronic pain syndrome Category: Medical (3) Osteoarthritis involving multiple joints on both sides of body: Code(s): M15.9 - Polyosteoarthritis, unspecified Category: Medical (4) Lipid disorder: Code(s): E78.9 - Disorder of lipoprotein metabolism, unspecified Category: Medical (5) Difficulty sleeping: Code(s): G47.9 - Sleep disorder, unspecified Category: Medical (6) Sensitivity to medication: Code(s): T78.40XA - Allergy, unspecified, initial encounter Category: Medical Qualifiers: Encounter type: sequela Qualified Code(s): T78.40XS - Allergy, unspecified, sequela Plan History - The patient is an 84-year-old female presenting with elevated blood pressure. Her blood pressure readings have been persistently high despite taking prescribed medications. She reports that blood pressure remains high primarily when experiencing pain. - The patient also reports persistent hoarseness, suspected to be associated with the use of amlodipine. The hoarseness did resolve after discontinuing amlodipine temporarily for one week. - The patient experiences generalized pain including back, neck, and foot pain which she attributes to arthritis. Tramadol had previously been effective in managing her pain, but it was discontinued. She is currently using CBD gummies, which provide minimal relief but avoids higher doses due to concerns. - She reports leg pain associated with rosuvastatin use. The simvastatin that she was previously on did not cause similar issues, although it interacted with her blood pressure medications, prompting a switch to rosuvastatin. Medical History: - Hypertension - Arthritis - Hyperlipidemia - History of medication intolerance (Amlodipine and Gabapentin) Medications: - Valsartan, maximum dose - Hydrochlorothiazide, - Amlodipine (currently taking but planning to discontinue) - CBD gummies for pain management - Rosuvastatin for hyperlipidemia Social History: - Reports high sensitivity to medications. - No current effective treatment for chronic pain due to restrictive medication usage. - No CBD gummies dosage increase despite minimal pain relief. Diagnostic Results: - Labs: LDL was 105 in September, previously 157. Problem List - Essential Hypertension - Hoarseness secondary to medication - Arthritis - Medication-induced leg pain (rosuvastatin) Patient Instructions - Stop taking amlodipine in a couple of days and start atenolol. - Monitor blood pressure, especially when experiencing pain. - Discuss pain management options with Dr. Amado in the upcoming appointment. - Consider discontinuing rosuvastatin and discuss with the banquet server. Medications: New atenolol 25 mg PO DAILY 30 tabs 0RF
--- OUTSIDE RECORDS SUMMARY | 2025-03-09 13:21 | XMS_ITS | Patient Health Record ---
Author Organization [facility] Address [address], [place] [id number] Care Team Providers Care Credit Assistant Name Role Phone PATCHAR Primary Care Provider [phone] SURYA NORMAN Unavailable [phone] Allergies Allergen (clinical drug ingredient) Drug/Non Drug [...] Problem Status W/U Status Risk Notes Problem Herpes zoster without complication (092156055) Zoster without complications (B02.9) 018 Problem resolved confirmed Reza-71 7505- Problem 25848576 Other chronic pa in (G89.29) Active confirmed Problem 723498995 Chronic pain syndrome (G89.4) Active confirmed Problem Essential hypertension (03643657) Essential (primary) hypertension (I10) Active confirmed Problem 140976647 Spondylosis without myelopathy or radiculopathy, lumbar region (M47.816) Active confirmed Problem 87232454 Postlaminectomy syndrome, not elsewhere classified (M96.1) Active confirmed Problem 08531604 Urge incontinenc e (N39.41) Active confirmed Problem 17089644 Paresthesia of skin (R20.2) Active confirmed Problem Eruption of skin (578045638) Rash and other nonspecific skin eruption (R21) 018 Problem resolved confirmed Reza-71 7505- Problem Essential hypertension (32725034) Essential hypertension, unspecified (401.9) 018 Problem resolved confirmed Reza-71 7505- Problem Generalized osteoarthritis (988505228) Osteoarthritis, site unspecified (715.00) 018 Problem resolved confirmed Reza-71 7505- Problem Gastroesophageal reflux disease (036916544) GERD (530.81) 018 Problem resolved confirmed Reza-71 7505- Problem URI (4607466126) URI (465.8) 015 Problem resolved confirmed Reza-71 7505- Problem Hyperlipidemia (41707393) Hyperlipidemia (272.4) 018 Problem resolved confirmed Reza-71 7505- Problem 63045625 Hyperlipidemia, unspecified hyperlipidemia type (E78.5) Active confirmed Problem 870070237 Gastroesophageal reflux disease without esophagitis (K21.9) Active confirmed Problem 89921042 Recurrent major depressive disorder, in partial remission (F33.41) Active confirmed Problem 28983098 Hypertension, unspecified type (I10) Active confirmed Problem 904705350 BMI 36.0-36.9,adult (Z68.36) Active confirmed Problem 205340511 BMI 35.0-35.9,adult (Z68.35) Active confirmed Problem 370426305 Psoriatic arthritis (L40.50) Active confirmed Problem Lumbosacral spondylosis without myelopathy (04435879) Spondylosis of lumbar region without myelopathy or radiculopathy (M47.816) Active confirmed Problem Lumbosacral spondylosis without myelopathy (88674228) Spondylosis of lumbosacral region without myelopathy or radiculopathy (M47.817) Active confirmed Problem 523018377 Depression with anxiety (F41.8) Active confirmed Problem 39642967545111445 Bilateral sacroiliitis (M46.1) Active confirmed Problem 14781245 RLS (restless le gs syndrome) (G25.81) Active confirmed Problem 458677665 History of cataract (Z86.69) Active confirmed Problem 770344083334208 History of diverticulitis (Z87.19) Active confirmed Problem Arthropathy of lumbar facet joint (358876147) Lumbar facet arthropathy (M47.816) Active confirmed Problem 81175915 Sedative, 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
== END 2025-03-09 11:56 | disposition home or self-care (01) ==
LOC: HO.HMCC 11:26
PROVIDERS: PCP Internal Medicine; Visit Provider Internal Medicine
DX: I10 Essential (primary) hypertension (principal); G89.4 Chronic pain syndrome; M15.9 Polyosteoarthritis, unspecified; E78.9 Disorder of lipoprotein metabolism, unspecified; G47.9 Sleep disorder, unspecified; T78.40XS Allergy, unspecified, sequela

== ENCOUNTER → 2025-03-09 11:25 | Outpatient (BNVA) | payer MEDICARE, SELFPAY | PROVIDERS: PCP Internal Medicine; Visit Provider Internal Medicine | DX: I10 Essential (primary) hypertension (principal); G89.4 Chronic pain syndrome; M15.9 Polyosteoarthritis, unspecified; G47.9 Sleep disorder, unspecified; E78.9 Disorder of lipoprotein metabolism, unspecified; T78.40XS Allergy, unspecified, sequela | CPT/HCPCS: 96127; 99212 ==

== ENCOUNTER 2025-03-24 13:00 | Outpatient (RCR) | payer MEDICARE, SELFPAY ==
--- NOTE | 2025-02-08 14:54 | MHC.PT.EP ---
[facility] [place] [facility] [place] [facility] [place] Office [address] Joey Welch [address] [phone] F: [phone] F: [phone] F: [phone] F: [phone] Physical Therapy Plan of Care Date of Evaluation: 02/08/25 Date of Surgery: Diagnosis: This is an 84 yo female presenting to skilled PT with a script for chronic low back pain. Assessment: This is an 84 yo female presenting to skilled PT with a script for chronic low back pain. Pain has been having ongoing back pain for many years. She was on Tramadol which was very helpful however the MD took her off of this and she reports that her pain got worse. Back pain is located straight across the low back. Pain is described as all types. Pain is usually constant except when sitting. Pain increases with standing >10 mins, standing and walking (back feels like she's bending forward and she loses balance), housework like lifting a gallon of milk, ironing and vacuuming, sleeping/rolling over. Pain improves with medication, rest. She uses a cane outside of the house and rollator in the house. She denies any new falls. She has had PT in the past (last year) for LE strengthening and balance. Of note, she had a lumbar surgery (L4/5 fusion) about 10 years ago. She does continue to do some past PT exercises a few times a week (hip extensions, hip abductions, squats). Assessment reveals pain that ranges from up to a 6/10 at the worst. Patient demos decreased lumbar and B LE ROM, strength of B LE, core and back, TTP at lumbar incision and impaired gait and balance. Based on functional limitations, impaired QOL and pain tolerance patient is a good candidate for skilled PT 2x/wk for 4 wks. Frequency and Duration: The patient will be seen 2x/wk for 4wks Short Term Goals: Pt will demonstrate improved postural awareness and understanding of core engagement with supine and standing tasks without cues throughout session to improve overall back safety in 2 weeks. Pt will demonstrate centralization of sx in 2 weeks. Pt will continue to reinforce precautions, sitting, standing and ADL modifications with proper body mechanics in 2 wks. Assisted Goals: Pt will demonstrate improved outcome measure by 5 points in 4 weeks for improved functional mobility. Pt will demonstrate ability to bend and lift WNL min to no pain for household tasks in 4 wks. Pt will be I in HEP and compliant in 4wks Treatment Plan: Modalities to reduce pain, spasms and effusion. Manual therapy to restore motion and function. Therapeutic exercise to improve strength and flexibility. Neuromuscular re-education for posture and balance. Therapeutic activities to return to functional activities of daily living. Electronically signed by: Charissa Carter, PT Please sign and return to therapist. Thank you for your referral.
--- NOTE | 2025-04-20 07:38 | MHC.PT.DC ---
[facility] [place] Office [place] Office [place] Office [address] Joey Welch [address] [phone] F: [phone] F: [phone] F: [phone] F: [phone] Physical Therapy Discharge Report Diagnosis: This is an 84 yo female presenting to skilled PT with a script for chronic low back pain. Date of Surgery: Date of Evaluation: 02/08/25 Date of Discharge: 04/20/25 Treatments to Date: 12 Cancellations to Date: 0 No Shows to Date: 0 Discharge Status: Independent with HEP Patient Elected to Stop Recommend MD Follow-up Discharge Summary: Patient came to 12 sessions of PT. She demonstrated good I in her program but continued with pain and limited in functional tasks like standing. At this time she opted to continue her HEP on her own and follow up with her MD for further evaluation and pain management. Electronically signed by: Charissa Carter PT Please sign and return to therapist. Thank you for your referral.
== END 2025-04-20 07:38 | disposition home or self-care (01) ==
LOC: HO.PTCHIC 13:00
PROVIDERS: PCP Internal Medicine; Visit Provider Internal Medicine
DX: M54.50 Low back pain, unspecified (principal); G89.29 Other chronic pain; R26.81 Unsteadiness on feet
CPT/HCPCS: 97110; 97112; 97140; 97162

== ENCOUNTER 2025-04-01 10:29 | Outpatient (REF) | payer MEDICARE, SELFPAY ==
--- OUTSIDE RECORDS SUMMARY | 2025-04-01 11:00 | XMS_ITS | Patient Health Record ---
[facility] Address [address] [place] [address] Care Team Providers Care Telephony Engineer Name Role Phone Jesus Brand Primary Care Provider Dominique Gallo Unavailable [phone] Allergies Allergen (clinical drug ingredient) Drug/Non Drug [...] day Active Physical Therapy . . . 2-3x/week; Duration: 3-4 weeks 12/09/2023 Not-Taking amLODIPine Besylate 10 MG 1 tablet Orall y Once a day Active Voltaren 1 % as directed Externally Active Amoxicillin 500 MG 1 tablet Orally Thre e times a day Not-Taking Metamucil Active Atorvastatin Calcium Not-Taking Centrum Silver - as directed Orally Active Simvastatin 40 MG TAKE 1 TABLET BY ANTONIETA TH DAILY Oral; Duration: 60 Days Active Vitamin C Active Systane [...] Problem Status W/U Status Risk Notes Problem Peripheral vascular disease (I73.9) Active confirmed Plan Of Treatment Pending Test Test Name Order Date X ray : Foot, left 3V 12/09/2023 X ray : Foot, right 3V 12/09/2023 X ray : Foot, right 3V 02/17/2024 Insurance Providers Payer Name Payer Address Payer Phone Subscriber Number Group Number Insured Name Patient Relationship to Insured Coverage Start Date Coverage End Date Medicare National Govt [employer] [address] [place] [phone] [id number] MonroeFallon peng Self - patient is the insured A[employer] Secondary to Medicare [address] [place] [id number] Fallon Gabriel Self - patient is the [...] 01/2009 laser surgery injections - sclerotheraph y [id number] cataract surgery 2014 2 Pre cancerous lesion removal (L-arm, 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
--- OUTSIDE RECORDS SUMMARY | 2025-04-01 11:00 | XMS_ITS | Patient Health Record ---
Author Organization [facility] Address [address], [place] [id number] Care Team Providers Care Cull Grader Name Role Phone PATCHAR Primary Care Provider SURYA NORMAN Unavailable [phone] Allergies Allergen (clinical drug ingredient) Drug/Non Drug [...] BRUSH THOROUGHLY FOR 2 MINUTES, EXPECTORATE AFTER USE; Duration: 30 Active LORazepam 1 MG 1 tab qd prn Oral On ce a day; Duration: 90 days 06/26/2023 Active traMADol HCl 50 MG 1 tablet as needed f or chronic back pain Orally Once a day; Duration: 90 days 05/14/2023 Active Famotidine 20 MG TAKE 2 TABLETS BY MOUTH ONCE DAILY; Duration: 90 Active hydroCHLOROthiazide 25 MG TAKE 1 TABLET BY MOUTH ONCE DAILY; Duration: 90 days Active Valsartan 320 MG 1 tablet Orally Once a day; Duration: 90 days Active Super B-50 B Complex - as directed Orally Active Systane 0.4-0.3 % 1-2 drops in affecte d eye Ophthalmic Once a day Active Vitamin C 1000 MG 1 tablet Orally Once a day; Duration: 30 day(s) Active Simvastatin 40 MG 1 tab po qd Oral Onc e a day; Duration: 90 days Active Voltaren Gel * Apply QD PRN PAIN; Duration: 09/28/2014 Active Tazorac 0.1 % 1-2 daily as needed for psoriasis External; Duration: 09/28/2014 Active Nizatidine 150 mg 1-2 daily Oral; Duration: 09/28/2014 Active Clobetasol Propionate 0.05 % 1 [...] Problem Status W/U Status Risk Notes Problem Chronic pain (52800665) Other chronic pain (G89.29) Active confirmed Problem Chronic pain syndrome (446905956) Chronic pain syndrome (G89.4) Active confirmed Problem Essential hypertension (43379258) Essential (primary) hypertension (I10) Active confirmed Problem Lumbosacral spondylosis without myelopathy (11255875) Spondylosis without myelopathy or radiculopathy, lumbar region (M47.816) Active confirmed Problem Post-laminectomy syndrome (98677630) Postlaminectomy syndrome, not elsewhere classified (M96.1) Active confirmed Problem Urge incontinence of urine (12498021) Urge incontinence (N39.41) Active confirmed Problem Paresthesia (finding) (99575927) Paresthesia of skin (R20.2) Active confirmed Problem Hyperlipidaemia (22810444) Hyperlipidemia, unspecified hyperlipidemia type (E78.5) Active confirmed Problem Gastroesophageal reflux disease without esophagitis (319822734) Gastroesophageal reflux disease without esophagitis (K21.9) Active confirmed Problem Recurrent major depression in remission (67589003) Recurrent major depressive disorder, in partial remission (F33.41) Active confirmed Problem Essential hypertension (02064837) Hypertension, unspecified type (I10) Active confirmed Problem Obese class II (631038345989262) BMI 36.0-36.9,adult (Z68.36) Active confirmed Problem Obese class II (388297966778258) BMI 35.0-35.9,adult (Z68.35) Active confirmed Problem Psoriatic arthritis (912057634) Psoriatic arthritis (L40.50) Active confirmed Problem Lumbosacral spondylosis without myelopathy (79793572) Spondylosis of lumbar region without myelopathy or radiculopathy (M47.816) Active confirmed Problem Lumbosacral spondylosis without myelopathy (34018603) Spondylosis of lumbosacral region without myelopathy or radiculopathy (M47.817) Active confirmed Problem Mixed anxiety and depressive disorder (935674665) Depression with anxiety (F41.8) Active confirmed Problem Bilateral sacroiliitis (1839716129) Bilateral sacroiliitis (M46.1) Active confirmed Problem Restless legs (13649058) RLS (restless legs syndrome) (G25.81) Active confirmed Problem History of cataract (603051587) History of cataract (Z86.69) Active confirmed Problem History of diverticulitis (279232518387035) History of diverticulitis (Z87.19) Active confirmed Problem Arthropathy of lumbar facet joint (738630952) Lumbar facet arthropathy (M47.816) Active confirmed Problem Sedative, 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, 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) Active confirmed Problem Scoliosis (345601231) Severe scoliosis (M41.9) Active confirmed Problem Herpes zoster without complication (984741607) Zoster without complications (B02.9) 018 Problem resolved confirmed [id number] Problem Eruption of skin (374530745) Rash and other nonspecific skin eruption (R21) 018 Problem resolved confirmed [id number]- Problem Essential hypertension (16284492) Essential hypertension, unspecified (401.9) 018 Problem resolved confirmed [id number]- Problem Generalized osteoarthritis (251378721) Osteoarthritis, site unspecified (715.00) 018 Problem resolved confirmed [id number]- Problem Gastroesophageal reflux disease (654580180) GERD (530.81) 018 Problem resolved confirmed [id number]- Problem URI (3149472622) URI (465.8) 015 Problem resolved confirmed [id number]- Problem Hyperlipidemia (01047465) Hyperlipidemia (272.4) 018 Problem resolved confirmed [id number] Plan Of Treatment Pending Test Test Name [...] End Date MEDICARE PART B [address] [address] [place] [address] [id number] DEVEN MAYEN Self - [facility] is the insured [facility] Supp[facility] al [address] [place], [place] [id number] PLAN C DEVEN MAYEN Self - patient [...]
[2025-04-01 14:22] LABS: Alanine Aminotransferase 13 U/L (0-31); Anion Gap 12 (12-20); Aspartate Amino Transferase 22 U/L (5-31); Blood Urea Nitrogen 16 mg/dL (9-16); Calcium 9.3 mg/dL (8.4-10.2); Carbon Dioxide 29 mmol/L (22-29); Chloride 93 mmol/L (96-108); Cholesterol 252 mg/dL (<200); Estimated Glomerular Filt Rate 54; HDL Cholesterol 75 mg/dL (>40); Potassium 3.9 mmol/L (3.3-5.1); Sodium 130 mmol/L (135-145); Triglycerides 161 mg/dL (<150)
== END 2025-04-01 10:30 | disposition home or self-care (01) ==
LOC: HO.HMGCLDS 10:29
PROVIDERS: PCP Internal Medicine; Visit Provider Internal Medicine
DX: I10 Essential (primary) hypertension (principal); E78.5 Hyperlipidemia, unspecified
CPT/HCPCS: 36415; 80048; 80061; 84450; 84460

== ENCOUNTER 2025-04-05 10:31 | Outpatient (AMB) | payer MEDICARE, SELFPAY ==
[2025-04-05 10:44] VITALS: BP 138/64; PULSE 61; RESP 16; TEMP 36.9; O2SAT 97; BMI 38.9
--- NOTE | 2025-04-05 10:44 | AM.OFFVISMDC ---
Intake Vital Signs 04/05/25 10:44 Height 5 ft Weight 199 lb BMI 38.9 BP 138/64 Blood Pressure Location Rt brachial Position Sitting Respiration 16 Pulse 61 Pulse Source Pulse Oximeter Temp 98.4 F Temp Source Oral Pulse Oximetry (%) 97 Oxygen Delivery Method Room Air Intake Visit Reasons: awv Intake Note: Pt is here today for her SWV Allergies lidocaine (From Aspercreme (lidocaine HCl)) Allergy (Intermediate, Verified 04/05/25 10:52) Rash celecoxib (From Celebrex) Allergy (Mild, Verified 04/05/25 10:52) PALPITATIONS levofloxacin (From Levaquin) Allergy (Mild, Verified 04/05/25 10:52) VOMITNG/JITTERY zolpidem (From Ambien) Allergy (Mild, Verified 04/05/25 10:52) HIVES/RASH/ITCH acetaminophen (From Vicodin) Allergy (Verified 04/05/25 10:52) Abdominal Pain adhesive tape Allergy (Verified 04/05/25 10:52) Rash cholestyramine (From Questran) Allergy (Verified 04/05/25 10:52) Unknown gemfibrozil (From Lopid) Allergy (Verified 04/05/25 10:52) Nausea hydrocodone (From Vicodin) Allergy (Verified 04/05/25 10:52) Abdominal Pain indomethacin Allergy (Verified 04/05/25 10:52) Nausea ketoprofen Allergy (Verified 04/05/25 10:52) Chest Pain lisinopril Allergy (Verified 04/05/25 10:52) Nausea naproxen Allergy (Verified 04/05/25 10:52) Abdominal Pain NSAIDS (Non-Steroidal Anti-Inflamma Allergy (Verified 04/05/25 10:52) Abdominal Pain sucrose (From Questran) Allergy (Verified 04/05/25 10:52) Unknown diazepam (From Valium) Adverse Reaction (Mild, Verified 04/05/25 10:52) HYPERACTIVE pravastatin (Pravastatin) Adverse Reaction (Mild, Verified 04/05/25 10:52) MUSCLE AND LEG PAIN gabapentin Adverse Reaction (Verified 04/05/25 10:52) Headache zinc Adverse Reaction (Verified 04/05/25 10:52) Vomiting Medication List - Last Reconciled 04/05/25 by Siena Amado MD amlodipine 10 mg PO DAILY ascorbic acid (vitamin C) 500 mg PO DAILY B-complex with vitamin C 1 cap PO DAILY calcium carbonate-vitamin D3 600 mg-20 mcg (800 unit) (Caltrate plus D) 1 tab PO DAILY clobetasol 0.05% 1 appl topical BID diclofenac sodium 1% 2 grams topical QID famotidine 20 mg PO DAILY fluoride (sodium) 1.1% 1 appl PO DAILY euqbpeub-mqh-qlwog-ghs766-cblt 500-500-66.7 mg (Kccmahwhepa-Dxynetelemy-YQC (with antiox)) tabs PO hydrochlorothiazide 25 mg PO QAM cevxsptt-ggn-hsja-FA-vit K-lut 8 mg iron-400 mcg-50 mcg (Centrum Silver Women) 1 tab PO DAILY ondansetron 4 mg PO Q6-8H PRN pantoprazole 40 mg PO DAILY propylene glycol 0.6% (Systane Balance) 1 drp ophthalmic (eye) DAILY psyllium husk (Metamucil) 0.4 grams PO QDAY simvastatin 20 mg PO BEDTIME valsartan 320 mg PO DAILY HPI awv HPI Details AWV ? 84 year old in his [place] of hypertension osteoarthritis, dyslipidemia, chronic pain due to post laminectomy syndrome, psoriatic arthritis and gastroesophageal reflux disease, presents for her ? Annual Wellness Visit, initial visit.? She is up-to-date with her screening mammogram, last done 02/25/2025 with normal findings. Last bone density scan was done 02/20/2024 which showed presence of osteopenia in her left femoral neck and left forearm normal in her spine, with no history of fractures. No longer gets cervical cancer screenings or colonoscopies Had a fasting lipid panel done 04/01/2025 which showed elevated LDL cholesterol and triglycerides as well as total cholesterol stopped taking her rosuvastatin due to muscle pain . Fasting blood sugar was also checked at that time which came back in the prediabetic range at 106 mg/dL Has had pneumonia vaccines in the past as well as up-to-date with her Tdap, gets yearly flu vaccine, but has not yet had her Shingrix vaccine or RSV . ? Medical / Social History Reviewed? Past Medical History ?Yes . ? [place] of Care / Care Team list updated ?Yes . ? Surgical/Hospitalization History ?Yes . ? Current Medications (including OTC and supplements) ?Yes . ? Family History ?Yes . ? Tobacco Control form ?Yes . ? AUDIT-C (Alcohol use) form ?Yes . ? Illicit drug use in Social History ?Yes . ? Current diagnosis of depression? ?No ? Appropriate PHQ2/PHQ9 completed ?Yes . ? Data entered by ?[employer] and reviewed by provider ? Fall Risk ? Fall History? Have you had any falls with injury in the past year? ?No . ? Have you had two or more falls in the past year? ?No . ? Fall Risk Assessment: ?No falls in the past year . ? HRA filled out by the patient, reviewed by Provider and scanned. ?AWV ? Balance? Romberg ?negative ? Tandem walk ?unable to . ? Walk and Turn ?Yes . ? Rise from sit to stand ?Yes . ?Vision? Corrective lens ?Yes ? Vision screen ? Up-to-date, sees Dr. Herrera ?Hearing? Whisper test ?pass . ?Written Plan?Completed. See Patient Documents.? Up-to-date with her MOLST and healthcare proxy form HPI Comments History of Present Illness Details 84-year-old lady with recent fasting labs done showing marked elevation in her lipid levels, after stopping rosuvastatin due to muscle pain. She has been trying to adhere to a low-cholesterol diet but unable to exercise much due to her chronic pain. 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 Spinal stenosis of cervical region with radiculopathy Psoriatic arthritis Hiatal hernia Psoriasis Hyperlipidemia Surgical History Hx of cataract removal with insertion of prosthetic lens History of laminectomy History of colon surgery History of hysterectomy History of cholecystectomy Hx of cataract surgery History of knee replacement Family History Father Dementia Raynauds disease Substance use disorder Mother Rheumatoid arthritis Maternal Grandfather Type 2 diabetes mellitus Sister Mary Carmen's disease Breast cancer Brother Pancreatic cancer Myocardial infarction Sister Lung cancer Paternal Uncle Substance use disorder Paternal Uncle Substance use disorder Paternal Uncle Substance use disorder Son Mental health disorder Social History Household Members: Spouse Housing: House Alcohol intake: former Patient Tobacco Use Status: Never used Tobacco e-Cigarette/Vaping Use: Never Used service: No Current occupational status: retired Cognitive needs: No Hearing needs: No Vision needs: Yes Questionnaire Medicare Wellness Checkup What is your age?: 80 or older What gender do you identify with?: female During the past 4 weeks, how much have you been bothered by emotional problems such as feeling anxious, depressed, irritable, sad or downhearted, and blue?: slightly During the past 4 weeks, has your physical & emotional health limited your social activities with family, friends, neighbors, or groups?: moderately During the past 4 weeks, how much bodily pain have you generally had?: moderate pain During the past 4 weeks, was someone available to help you if you needed & wanted help?: yes, some During the past 4 weeks, what was the hardest physical activity you could do for at least 2 minutes?: moderate Can you get to places out of walking distance without help? (For eg., can you travel alone on buses, taxis or drive your car?): Yes Can you go shopping for groceries or clothes without someone's help?: Yes Can you prepare your own meals?: Yes Can you do your housework without help?: Yes Because of any health problems, do you need the help of another person with your personal care needs such as eating, bathing, dressing or getting around the house?: No Can you handle your own money without help?: Yes During the past 4 weeks, how would you rate your health in general?: good During the past 4 weeks how have things been going for you?: good & bad parts about equal Are you having difficulties driving your car?: no Do you always fasten your seat belt when you are in a car?: yes, usually During past 4 weeks, have you been bothered by the following: never: Sexual problems?, Trouble eating well?, Teeth or denture problems? and Problems using the telephone?, seldom: Falling or dizzy when standing up and often: Tiredness or fatigue? Have you fallen 2 or more times in the past year?: No Are you afraid of falling?: No Are you a smoker?: no During the past 4 weeks, how many drinks of wine, beer, or other alcoholic beverages did you have?: no alcohol at all Do you exercise for about 20 minutes 3 or more times a week?: yes, most of the time Have you been given information to help with the following?: no: Hazards in your house that might hurt you? and no: Keeping track of your medications? How often do you have trouble taking medicines the way you have been told to take them?: I always take medicine as prescribed How confident are you that you can control & manage most of your health problems?: somewhat confident What is your race?: White Mini Mental State Exam (MMSE) Orientation What is the (year) (season) (date) (day) (month)?: year (2024), season (summer), date (04/05/25), day (friday) and month (march) Where are we (state) (county) (town or city) (hospital) (floor)?: state ([facility] county ([place]), town or city ([place] and hospital/clinic ([facility] Score Score: 9 Activity of Daily Living Bathing - sponge bath, tub bath or shower: receives no assistance (gets in/out by self, if usual bathing means Dressing - getting clothes from closets & drawers, including inner/outer garments & fasteners.: gets clothes & gets completely dressed without help Toileting - going to the 'toilet room' for urine/bowel elimination & cleaning self/arranging clothes: goes to toilet room, cleans self, arranges clothes without help Transfer: moves in & out of bed and chair without help (may use support object) Continence: has occasional 'accidents' Feeding: feeds self without help Total Score: 0 Information obtained from: patient Using telephone: independent Traveling: needs assistance Shopping: needs assistance Preparing meals: needs assistance Housework: needs assistance Taking medicine: independent Managing money: needs assistance PHQ-9 Over the last 2 weeks, how often have you been bothered by any of the following problems? 1. Little interest or pleasure in doing things: not at all 2. Feeling down, depressed, or hopeless: not at all 3. Trouble falling or staying asleep, or sleeping too much: more than half the days 4. Feeling tired or having little energy: several days 5. Poor appetite or overeating: several days 6. Feeling bad about yourself - or that you are a failure or have let yourself or your family down: not at all 7. Trouble concentrating on things, such as reading the newspaper or watching television: not at all 8. Moving or speaking so slowly that other people could have noticed. Or the opposite - being so fidgety or restless that you have been moving around a lot more than usual: not at all 9. Thoughts that you would be better off or of hurting yourself in some way: not at all Total score: 4 Depression Screening Interpretation: Negative Depression Screening Done: Yes 27425 - PHQ-9 Billing: Yes Source: Developed by Drs. Tc Ferrer, Ryann Sanchez, Berto Barron and colleagues, with an educational rosemarie from [employer]. Review of Systems Const Denies fatigue, Denies fever(s), Denies frequent falls, Denies headache(s), Denies night sweats, Denies poor appetite and Denies weight loss ENT Reports Normal hearing present, Denies dental pain, Denies dizziness, Denies headache(s), Denies mouth pain, Denies odynophagia and Denies disequilibrium Card Reports no additional complaints Resp Reports no additional complaints GI Details: Denies abdominal pain, Denies melena, Denies bloating, Denies hematochezia, Denies constipation, Denies GI cramping, Denies excessive flatus, Denies early satiety, Reports heartburn, Denies diarrhea, Reports loose stools, Denies nausea, Denies odynophagia, Denies vomiting and Denies hematemesis Musc Reports back pain and Reports myalgias Skin/Breast Denies pruritus, Denies lesions and Denies rash Neuro Reports Normal hearing present, Denies Abnormal speech present, Denies dizziness, Denies frequent falls, Denies headache(s), Denies seizure-like activity and Denies disequilibrium Endo Denies fatigue [place]/Lymph Reports no additional complaints Physical Exam Vital Signs: Last Vital Signs Temp 98.4 F 04/05/25 10:44 Pulse 61 04/05/25 10:44 Resp 16 04/05/25 10:44 BP 138/64 04/05/25 10:44 Pulse Ox 97 04/05/25 10:44 Oxygen Delivery Method Room Air 04/05/25 10:44 BMI result Body Mass Index 38.9 Const General: comfortable, alert and awake Nutritional Appearance: obese Orientation/consciousness: patient oriented x3 HEENT Head: Yes normocephalic and Yes atraumatic Neck Neck: Yes trachea midline, Yes supple and Yes no JVD Resp Effort & Inspection: normal respiratory effort Auscultation: clear to auscultation bilaterally Cardio Rate: regular rate Rhythm: regular rhythm Heart sounds: no murmurs GI Auscultation: normal bowel sounds Skin General skin exam: no rashes or lesions noted Neuro General: patient oriented x3 and no focal motor deficits Cranial nerves: Yes Normal hearing present Speech: No Abnormal speech present Extrem General: Yes no clubbing, cyanosis or edema Psych Appearance: grossly normal Results Reviewed Results Reviewed: Name: Fallon Gabriel Age/Sex: 84/F : 1940 Unit#: [id number] Attend Dr: Siena Amado MD Re04/01/25 Status: DEP REF Location: [facility] Disch: SPEC : [id number] BRITNEY: 04/01/25 STATUS: COMP REQ : [id number] RECD: 04/01/[address]: Siena Amado MD COMP: 04/01/25 ENTERED: 04/01/25-[address]: ORDERED: Met Prof Fast, AST, ALT, Lipid Panel Test Result Flag Reference Sodium 130 L 135-145 mmol/L Potassium 3.9 3.3-5.1 mmol/L CL 93 L 96-108 mmol/L CO2 29 22-29 mmol/L Gap 12 12-20 BUN 16 9-16 mg/dL Creat 0.97 0.5-1.4 mg/dL eGFR 54 Chronic Kidney Disease: Estimated GFR < 60 mL/min/1.73m2 Severe Kidney Disease: Estimated GFR < 15 mL/min/1.73m2 FBS 106 H 60-99 mg/dL A fasting glucose from 100-125 mg/dl is considered impaired (pre-diabetes). CA 9.3 8.4-10.2 mg/dL AST (GOT) 22 5-31 U/L ALT (GPT) 13 0-31 U/L Triglyceride 161 H <150 mg/dL Desirable Triglyceride: less than 150 mg/dL Borderline High Triglyceride 150-199 mg/dL High Triglyceride: 200-499 mg/dL Very High Triglyceride: greater than or equal to 5OO mg/dL Cholesterol 252 H <200 mg/dL Desirable Cholesterol: less than 200 mg/dL Borderline High Cholesterol: 200-239 mg/dL High Cholesterol: greater than 239 mg/dL LDL Calculated 145 H <100 mg/dL Desirable LDL: less than 100 mg/dL Near Optimal/Above Optimal LDL: 110-129 mg/dL Borderline High LDL: 130-159 mg/dL High LDL: 160-189 mg/dL Very High LDL: greater than or equal to 190 mg/dL HDL 75 >40 mg/dL Desirable HDL: greater than 40 mg/dL Note: This HDL assay may give artificially low results in patients with liver disease. Assessment & Plan Assessment & Plan (1) Encounter for annual wellness exam in Medicare patient: Code(s): Z00.00 - Encounter for general adult medical examination without abnormal findings Plan: Medical wellness checklist reviewed, discussed with patient and updated, reviewed recent fasting labs done, and vaccination record. Up-to-date with her advanced directives, recommended to get updated shingles vaccine which are 2 doses given in the pharmacy and RSV vaccination as well as yearly flu shot. (2) Dyslipidemia: Code(s): E78.5 - Hyperlipidemia, unspecified Plan: Fasting lipids levels were elevated on latest fasting labs done, stopped rosuvastatin due to muscle pain, will start on pravastatin 20 mg at bedtime, reinforced importance of following low-cholesterol. Will see her back for follow-up after repeat fasting lipid panel done in July 2025 (3) Hypertension: Code(s): I10 - Essential (primary) hypertension Qualifiers: Hypertension type: primary hypertension Qualified Code(s): I10 - Essential (primary) hypertension Plan: Blood pressure stable and controlled on amlodipine 10 mg at night and take valsartan 320 mg once a day in the morning. Reinforced importance of following a low-salt diet and getting regular exercise (4) GERD (gastroesophageal reflux disease): Code(s): K21.9 - Gastro-esophageal reflux disease without esophagitis Plan: Continue omeprazole 40 mg daily (5) Postlaminectomy syndrome, lumbar: Code(s): M96.1 - Postlaminectomy syndrome, not elsewhere classified Plan: Followed by pain (6) Osteoarthritis involving multiple joints on both sides of body: Code(s): M15.9 - Polyosteoarthritis, unspecified Plan: Takes CBD gummy once as needed, take Tylenol arthritis every 8 hours as needed for pain control (7) Psoriatic arthritis: Code(s): L40.50 - Arthropathic psoriasis, unspecified Plan: Currently using clobetasol 0.05% cream as needed to affected areas Orders: Orders Alanine Aminotransferase 07/23/25 E78.5 - Hyperlipidemia, unspecified, I10 - Essential (primary) hypertension, K21.9 - Gastro-esophageal reflux disease without esophagitis, M15.9 - Polyosteoarthritis, unspecified, M96.1 - Postlaminectomy syndrome, not elsewhere classified, Z00.00 - Encounter for general adult medical examination without abnormal findings Basic Metabolic Panel Fasting 07/23/25 E78.5 - Hyperlipidemia, unspecified, I10 - Essential (primary) hypertension, K21.9 - Gastro-esophageal reflux disease without esophagitis, M15.9 - Polyosteoarthritis, unspecified, M96.1 - Postlaminectomy syndrome, not elsewhere classified, Z00.00 - Encounter for general adult medical examination without abnormal findings Lipid Panel 07/23/25 E78.5 - Hyperlipidemia, unspecified, I10 - Essential (primary) hypertension, K21.9 - Gastro-esophageal reflux disease without esophagitis, M15.9 - Polyosteoarthritis, unspecified, M96.1 - Postlaminectomy syndrome, not elsewhere classified, Z00.00 - Encounter for general adult medical examination without abnormal findings Hemoglobin A1c 07/23/25 E78.5 - Hyperlipidemia, unspecified, I10 - Essential (primary) hypertension, K21.9 - Gastro-esophageal reflux disease without esophagitis, M15.9 - Polyosteoarthritis, unspecified, M96.1 - Postlaminectomy syndrome, not elsewhere classified, Z00.00 - Encounter for general adult medical examination without abnormal findings Aspartate Amino Transferase 07/23/25 E78.5 - Hyperlipidemia, unspecified, I10 - Essential (primary) hypertension, K21.9 - Gastro-esophageal reflux disease without esophagitis, M15.9 - Polyosteoarthritis, unspecified, M96.1 - Postlaminectomy syndrome, not elsewhere classified, Z00.00 - Encounter for general adult medical examination without abnormal findings Medications: New pravastatin 20 mg PO BEDTIME 90 tabs 2RF Quality Reporting (2019) Depression/Bipolar (159/160/161/177) PHQ-9: Total score: 4 Coding Level of Care Code Medicare First (G0438) Est Pt Level 4 (02187) Diagnoses Encounter for annual wellness exam in Medicare patient Z00.00 Dyslipidemia E78.5 Primary hypertension I10 Hypertension type: primary hypertension GERD (gastroesophageal reflux disease) K21.9 Postlaminectomy syndrome, lumbar M96.1 Osteoarthritis involving multiple joints on both sides of body M15.9 Psoriatic arthritis L40.50 CPT Codes Advance Care Planning - Advance Care Planning discussion: On file, no changes ([id number]) Advance Care Planning - Time spent: 1-15 minutes, on File ([id number]) Additional Codes PHQ-9 - 95530 - PHQ-9 Billing: Yes ([id number]) Advance Care Planning Advance Care Planning discussion: On file, no changes Date of discussion: 04/05/25 Who was present: patient Forms completed: Health Care Proxy and MOLST Time spent: 1-15 minutes, on File Actual minutes spent: 2
--- OUTSIDE RECORDS SUMMARY | 2025-04-05 11:46 | XMS_ITS | Patient Health Record ---
Author Organization [facility] Address [address] [place], [place] [id number] Care Team Providers Care Bank Credit Card Collection Clerk Name Role Phone PATCHAR Primary Care Provider [phone] SURYA NORMAN Unavailable [phone] Allergies Allergen (clinical drug ingredient) Drug/Non Drug [...] W/U Status Risk Notes Problem Chronic pain (48782578) Other chronic pain (G89.29) Active confirmed Problem Chronic pain syndrome (879197995) Chronic pain syndrome (G89.4) Active confirmed Problem Essential hypertension (09249613) Essential (primary) hypertension (I10) Active confirmed Problem Lumbosacral spondylosis without myelopathy (04194494) Spondylosis without myelopathy or radiculopathy, lumbar region (M47.816) Active confirmed Problem Post-laminectomy syndrome (29174328) Postlaminectomy syndrome, not elsewhere classified (M96.1) Active confirmed Problem Urge incontinence of urine (37524576) Urge incontinence (N39.41) Active confirmed Problem Paresthesia (finding) (58601602) Paresthesia of skin (R20.2) Active confirmed Problem Hyperlipidaemia (65397503) Hyperlipidemia, unspecified hyperlipidemia type (E78.5) Active confirmed Problem Gastroesophageal reflux disease without esophagitis (024190541) Gastroesophageal reflux disease without esophagitis (K21.9) Active confirmed Problem Recurrent major depression in remission (59237825) Recurrent major depressive disorder, in partial remission (F33.41) Active confirmed Problem Essential hypertension (23270842) Hypertension, unspecified type (I10) Active confirmed Problem Obese class II (108869963211406) BMI 36.0-36.9,adult (Z68.36) Active confirmed Problem Obese class II (791302291920419) BMI 35.0-35.9,adult (Z68.35) Active confirmed Problem Psoriatic arthritis (425483755) Psoriatic arthritis (L40.50) Active confirmed Problem Lumbosacral spondylosis without myelopathy (37956463) Spondylosis of lumbar region without myelopathy or radiculopathy (M47.816) Active confirmed Problem Lumbosacral spondylosis without myelopathy (57746582) Spondylosis of lumbosacral region without myelopathy or radiculopathy (M47.817) Active confirmed Problem Mixed anxiety and depressive disorder (092334456) Depression with anxiety (F41.8) Active confirmed Problem Bilateral sacroiliitis (8652862571) Bilateral sacroiliitis (M46.1) Active confirmed Problem Restless legs (69957259) RLS (restless legs syndrome) (G25.81) Active confirmed Problem History of cataract (135889648) History of cataract (Z86.69) Active confirmed Problem History of diverticulitis (724093519083139) History of diverticulitis (Z87.19) Active confirmed Problem Arthropathy of lumbar facet joint (529127637) Lumbar facet arthropathy (M47.816) Active confirmed Problem Sedative, 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, 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) Active confirmed Problem Scoliosis (553292696) Severe scoliosis (M41.9) Active confirmed Problem Herpes zoster without complication (712144777) Zoster without complications (B02.9) 018 Problem resolved confirmed [id number] 505- Problem Eruption of skin (098027932) Rash and other nonspecific skin eruption (R21) 018 Problem resolved confirmed [id number] 505- Problem Essential hypertension (59094795) Essential hypertension, unspecified (401.9) 018 Problem resolved confirmed [id number] 505- Problem Generalized osteoarthritis (459513885) Osteoarthritis, site unspecified (715.00) 018 Problem resolved confirmed [id number] 505- Problem Gastroesophageal reflux disease (523392088) GERD (530.81) 018 Problem resolved confirmed [id number] 505- Problem URI (0358684578) URI (465.8) 015 Problem resolved confirmed [id number] 505- Problem Hyperlipidemia (31934723) Hyperlipidemia (272.4) 018 Problem resolved confirmed [id number] [...] End Date MEDICARE PART B [address] [address] [place] [address] [id number] DEVEN MAYEN Self - patient is the insured 4 [facility] Supp[facility] [address] [place], [place] [id number] PLAN C DEVEN MAYEN Self - patient is the insured 5 Medications Administered Medication Instructions Date of Administration Dosage Notes KENALOG 11/26/2022 2 mL Lidocaine 200mg/20mL 07/30/2022 4 mL Lidocaine 200mg/20mL 08/27/2022 4 mL Lidocaine 200mg/20mL 10/08/2022 4 mL Lidocaine 200mg/20mL 11/26/2022 3 mL Bupivacaine 07/30/2022 4 mL Bupivacaine 08/27/2022 4 mL Bupivacaine 10/08/2022 4 mL Bupivacaine 11/26/2022 5 mL Omnipaque 11/26/2022 3 mL Medical (General) [...]
--- OUTSIDE RECORDS SUMMARY | 2025-04-05 11:47 | XMS_ITS | Patient Health Record ---
[facility] Address [address] [place] [address] Care Team Providers Care Oracle Drm Consultant Name Role Phone Jesus Brand Primary Care Provider Dominique Gallo Unavailable [phone] Allergies Allergen (clinical drug ingredient) Drug/Non Drug [...] Start Date Coverage End Date Medicare [facility] [address] [place] [phone] [id number] Fallon Gabriel Self - patient is the insured AARP Secondary to Medicare [address] [place] [address] [id number] Fallon Gabriel Self - patient is the [...] 01/2009 laser surgery injections - sclerotheraph y [id number] cataract surgery 2014 2 Pre cancerous lesion [...]
== END 2025-04-05 11:37 | disposition home or self-care (01) ==
LOC: HO.HMCC 10:32
PROVIDERS: PCP Internal Medicine; Visit Provider Internal Medicine
DX: Z00.00 Encounter for general adult medical examination without abnormal findings (principal); E78.5 Hyperlipidemia, unspecified; L40.50 Arthropathic psoriasis, unspecified; I10 Essential (primary) hypertension; K21.9 Gastro-esophageal reflux disease without esophagitis; M96.1 Postlaminectomy syndrome, not elsewhere classified; M15.9 Polyosteoarthritis, unspecified

== ENCOUNTER → 2025-04-05 10:31 | Outpatient (BNVA) | payer MEDICARE, SELFPAY | PROVIDERS: PCP Internal Medicine; Visit Provider Internal Medicine | DX: Z00.00 Encounter for general adult medical examination without abnormal findings (principal); E78.5 Hyperlipidemia, unspecified; I10 Essential (primary) hypertension; K21.9 Gastro-esophageal reflux disease without esophagitis; M96.1 Postlaminectomy syndrome, not elsewhere classified; M15.9 Polyosteoarthritis, unspecified; L40.50 Arthropathic psoriasis, unspecified | CPT/HCPCS: 96127; 99212 ==

== ENCOUNTER 2025-08-08 09:04 | Outpatient (REF) | payer MEDICARE, SELFPAY ==
[2025-08-08 14:13] LABS: Alanine Aminotransferase 10 U/L (0-31); Anion Gap 11 (12-20); Aspartate Amino Transferase 23 U/L (5-31); Blood Urea Nitrogen 16 mg/dL (9-16); Calcium 9.4 mg/dL (8.4-10.2); Carbon Dioxide 30 mmol/L (22-29); Chloride 98 mmol/L (96-108); Cholesterol 204 mg/dL (<200); Estimated Glomerular Filt Rate 59; HDL Cholesterol 87 mg/dL (>40); Potassium 4.4 mmol/L (3.3-5.1); Sodium 135 mmol/L (135-145); Triglycerides 100 mg/dL (<150)
== END 2025-08-08 09:05 | disposition home or self-care (01) ==
LOC: HO.HMGCLDS 09:04
PROVIDERS: PCP Internal Medicine; Visit Provider Internal Medicine
DX: Z00.00 Encounter for general adult medical examination without abnormal findings (principal); I10 Essential (primary) hypertension; E78.5 Hyperlipidemia, unspecified; K21.9 Gastro-esophageal reflux disease without esophagitis; M15.9 Polyosteoarthritis, unspecified; M96.1 Postlaminectomy syndrome, not elsewhere classified; Z13.1 Encounter for screening for diabetes mellitus
CPT/HCPCS: 36415; 80048; 80061; 83036; 84450; 84460

== ENCOUNTER 2025-08-09 14:04 | Outpatient (AMB) | payer MEDICARE, SELFPAY ==
--- NOTE | 2025-08-09 14:07 | MHC.OFFVIS ---
Vital Signs 08/09/25 14:08 Height 5 ft Weight 195 lb 12.328 oz BMI 38.2 BP 175/72 H Blood Pressure Location Lt brachial Position Sitting Pulse 84 Intake Visit Reasons: IBS, GERD Allergies lidocaine (From Aspercreme (lidocaine HCl)) Allergy (Intermediate, Verified 08/09/25 14:14) Rash celecoxib (From Celebrex) Allergy (Mild, Verified 08/09/25 14:14) PALPITATIONS levofloxacin (From Levaquin) Allergy (Mild, Verified 08/09/25 14:14) VOMITNG/JITTERY zolpidem (From Ambien) Allergy (Mild, Verified 08/09/25 14:14) HIVES/RASH/ITCH acetaminophen (From Vicodin) Allergy (Verified 08/09/25 14:14) Abdominal Pain adhesive tape Allergy (Verified 08/09/25 14:14) Rash cholestyramine (From Questran) Allergy (Verified 08/09/25 14:14) Unknown gemfibrozil (From Lopid) Allergy (Verified 08/09/25 14:14) Nausea hydrocodone (From Vicodin) Allergy (Verified 08/09/25 14:14) Abdominal Pain indomethacin Allergy (Verified 08/09/25 14:14) Nausea ketoprofen Allergy (Verified 08/09/25 14:14) Chest Pain lisinopril Allergy (Verified 08/09/25 14:14) Nausea naproxen Allergy (Verified 08/09/25 14:14) Abdominal Pain NSAIDS (Non-Steroidal Anti-Inflamma Allergy (Verified 08/09/25 14:14) Abdominal Pain sucrose (From Questran) Allergy (Verified 08/09/25 14:14) Unknown diazepam (From Valium) Adverse Reaction (Mild, Verified 08/09/25 14:14) HYPERACTIVE pravastatin (Pravastatin) Adverse Reaction (Mild, Verified 08/09/25 14:14) MUSCLE AND LEG PAIN gabapentin Adverse Reaction (Verified 08/09/25 14:14) Headache zinc Adverse Reaction (Verified 08/09/25 14:14) Vomiting HPI HPI IBS, GERD: Details: Assessment & Plan (1) GERD (gastroesophageal reflux disease): Code(s): K21.9 - Gastro-esophageal reflux disease without esophagitis Category: Medical (2) Diarrhea: Comment: Controlled with CBD gummies Code(s): R19.7 - Diarrhea, unspecified Category: Medical Plan She is no longer taking the cholestyramine, because she found a round about solution to her IBS via her pain mgmt providers. They wanted her to stop her Tramadol, and she went on CBD gummies for her pain, and this also solved her IBS. She is now having formed BM's once a day, at times mild CIC but nothing concerning. She continues on her pantoparzole. She continues with the hoarseness, however she stopped her BP medications for a time to try to see what is causing the hoarseness, and withing 5 days it improved and she could sing. She had to restart the medications because her blood pressure was then uncontrolled. Unfortunately, because she stopped all 3 once we are not sure which is the culprit. I did disability counselor her to do a brief trial of stopping them wanted to time to see if we can narrow down which medicine is the offending agent. Once we do there are still other blood pressure modalities that can be considered to put into her regimen to control her pressure without her having to deal with this side effect that really has limited her life. She is agreeable to this. Return office visit in 6 months TODAY'S VISIT [facility] Medical History Gait instability Dyslipidemia Polyarthralgia Osteoarthritis Chronic pain TMJ (dislocation of temporomandibular joint) Elevated uric acid in blood 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 Spinal stenosis of cervical region with radiculopathy Psoriatic arthritis Hiatal hernia Psoriasis Hyperlipidemia Surgical History Hx of cataract removal with insertion of prosthetic lens History of laminectomy History of colon surgery History of hysterectomy History of cholecystectomy Hx of cataract surgery History of knee replacement Family History Father Dementia Raynauds disease Substance use disorder Mother Rheumatoid arthritis Maternal Grandfather Type 2 diabetes mellitus Sister Mary Carmen's disease Breast cancer Brother Pancreatic cancer Myocardial infarction Sister Lung cancer Paternal Uncle Substance use disorder Paternal Uncle Substance use disorder Paternal Uncle Substance use disorder Son Mental health disorder Social History Household Members: Spouse Housing: House Alcohol intake: former Patient Tobacco Use Status: Never used Tobacco e-Cigarette/Vaping Use: Never Used service: No Current occupational status: retired Cognitive needs: No Hearing needs: No Vision needs: Yes Review of Systems Const Denies fatigue, Denies fever(s), Denies night sweats, Denies poor appetite and Denies weight loss Eyes Details: Glasses Reports requires corrective lenses ENT Reports Normal hearing present, Denies dental pain, Denies dysphagia, Denies hearing loss, Denies mouth pain, Denies odynophagia, Denies throat swelling, Denies tongue swelling and Reports other (Dentition adequate) Card Reports no additional complaints Resp Reports no additional complaints GI Details: Denies abdominal pain, Denies melena, Denies bloating, Denies hematochezia, Denies constipation, Reports GI cramping, Denies dysphagia, Denies excessive flatus, Denies early satiety, Reports heartburn, Denies diarrhea, Reports loose stools, Denies nausea, Denies odynophagia, Denies vomiting and Denies hematemesis Musc Reports myalgias, Reports arthralgias, Reports limited range of motion and Reports stiffness Skin/Breast Denies pruritus, Denies lesions, Denies rash and Denies jaundice Neuro Reports Normal hearing present and Denies Abnormal speech present Endo Denies fatigue Aller/Immun Denies throat swelling and Denies tongue swelling Physical Exam Vital Signs: Last Vital Signs Pulse 84 08/09/25 14:08 BP 175/72 H 08/09/25 14:08 BMI result Body Mass Index 38.2 Const General: cooperative, no acute distress, well developed and well groomed Nutritional Appearance: well nourished and obese Orientation/consciousness: oriented to person, oriented to place and oriented to time Limitations: No language barrier HEENT Head: Yes normocephalic and Yes atraumatic Eyes General: appearance normal, both eyes and all related structures Pupils: Equal, round and reactive pupils present Neck Neck: Yes normal visual inspection and Yes no lymphadenopathy Thyroid: Thyroid normal Resp Effort & Inspection: normal respiratory effort and able to speak in complete sentences Auscultation: clear to auscultation bilaterally Cardio Rate: regular rate Rhythm: regular rhythm Heart sounds: Normal, physiologic split S2 sound present Peripheral pulses: radial pulses present and posterior tibial pulses present GI Inspection: No distended, Yes Abdominal panniculus present and Yes obesity Palpation (GI): Soft to palpation, nontender, no guarding, not rigid and No hepatosplenomegaly present Percussion: Yes normal to percussion Auscultation: normal bowel sounds Rectal Exam - Female: deferred Skin General skin exam: no rashes or lesions noted, turgor normal, skin not dry, no jaundice, No spider nevi and no striae Rashes: no rashes Nails: normal Neuro General: oriented to person, oriented to place and oriented to time Cranial nerves: Yes Equal, round and reactive pupils present and Yes Normal hearing present Speech: No Abnormal speech present Extrem General: Yes normal to inspection, No clubbing, No cyanosis and No edema Psych Appearance: grossly normal and well kempt Mental Status: mental status grossly normal Speech and movement: Normal speech and movement present Affect: normal affect Attitude: cooperative Thought process: Normal thought process present and not confabulating Thought content: Normal thought content present Insight: Fair insight present (Psych) Judgement: Fair judgement present (Psych) Assessment & Plan Assessment & Plan (1) GERD (gastroesophageal reflux disease): Code(s): K21.9 - Gastro-esophageal reflux disease without esophagitis Category: Medical (2) Diarrhea: Comment: Controlled with CBD gummies Code(s): R19.7 - Diarrhea, unspecified Category: Medical (3) 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 Subjective Follow-up for GERD/Aburto?s and bowel habits. She reports continued good control of reflux symptoms taking pantoprazole in the mornings and famotidine at night. Bowel habits have been practically back to normal with daily CBD gummies and continued fiber; no diarrhea. She notes intermittent nausea prior to bowel movements that serves as an indicator she will need to defecate. Persistent hoarseness continues (improved compared to prior), and she wonders if amlodipine may be contributing; she is also on hydrochlorothiazide and valsartan for hypertension. Activity is limited by chronic orthopedic pain and difficulty walking. History notable for prior colectomy. 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 Symptoms controlled on current acid suppression. We reviewed that Aburto?s represents a metaplastic, precancerous change from chronic acid exposure and the rationale for interval surveillance to monitor for progression. - Continue pantoprazole each morning - Continue famotidine nightly - Schedule surveillance EGD in summer 2025 per patient preference for warmer weather logistics - Patient education provided regarding Aburto?s surveillance and to report any alarm symptoms (progressive dysphagia, odynophagia, GI bleeding, weight loss) Bowel habit management status post colectomy: Bowel function stable with daily formed movements using CBD gummies and fiber. Occasional pre-defecation nausea discussed as likely related to transient retrograde colonic activity; no red flags reported. - Continue current fiber regimen - Continue CBD gummies as currently used - Reassurance provided; monitor and report any new or worsening symptoms (persistent nausea/vomiting, abdominal distension, obstipation, bleeding) Hoarseness: Persistent but improved. Patient suspects possible contribution from amlodipine; discussed that amlodipine can be drying and may contribute indirectly, though not classic. No immediate medication changes made today. - Monitor symptoms; will review medication side effect resources and consider coordination with PCP regarding antihypertensive regimen if hoarseness persists or worsens Follow-up in 6 months, or sooner as needed. 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
[2025-08-09 14:08] VITALS: BP 175/72; PULSE 84; BMI 38.2
--- NOTE | 2025-08-09 14:08 | MHC.OFFVIS ---
Vital Signs 08/09/25 14:08 Height 5 ft Weight 195 lb 12.328 oz BMI 38.2 BP 175/72 H Blood Pressure Location Lt brachial Position Sitting Pulse 84 Intake Visit Reasons: IBS, GERD Intake Note: Patient in office today in follow up of IBS and GERD. CC: Patient reports doing well and denies having any new GI symptoms today. Farm Owner Operator Required: No Accompanied by: Self / Same As Patient Allergies lidocaine (From Aspercreme (lidocaine HCl)) Allergy (Intermediate, Verified 08/09/25 14:14) Rash celecoxib (From Celebrex) Allergy (Mild, Verified 08/09/25 14:14) PALPITATIONS levofloxacin (From Levaquin) Allergy (Mild, Verified 08/09/25 14:14) VOMITNG/JITTERY zolpidem (From Ambien) Allergy (Mild, Verified 08/09/25 14:14) HIVES/RASH/ITCH acetaminophen (From Vicodin) Allergy (Verified 08/09/25 14:14) Abdominal Pain adhesive tape Allergy (Verified 08/09/25 14:14) Rash cholestyramine (From Questran) Allergy (Verified 08/09/25 14:14) Unknown gemfibrozil (From Lopid) Allergy (Verified 08/09/25 14:14) Nausea hydrocodone (From Vicodin) Allergy (Verified 08/09/25 14:14) Abdominal Pain indomethacin Allergy (Verified 08/09/25 14:14) Nausea ketoprofen Allergy (Verified 08/09/25 14:14) Chest Pain lisinopril Allergy (Verified 08/09/25 14:14) Nausea naproxen Allergy (Verified 08/09/25 14:14) Abdominal Pain NSAIDS (Non-Steroidal Anti-Inflamma Allergy (Verified 08/09/25 14:14) Abdominal Pain sucrose (From Questran) Allergy (Verified 08/09/25 14:14) Unknown diazepam (From Valium) Adverse Reaction (Mild, Verified 08/09/25 14:14) HYPERACTIVE pravastatin (Pravastatin) Adverse Reaction (Mild, Verified 08/09/25 14:14) MUSCLE AND LEG PAIN gabapentin Adverse Reaction (Verified 08/09/25 14:14) Headache zinc Adverse Reaction (Verified 08/09/25 14:14) Vomiting [facility] Medical History Gait instability Dyslipidemia Polyarthralgia Osteoarthritis Chronic pain TMJ (dislocation of temporomandibular joint) Elevated uric acid in blood 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 Spinal stenosis of cervical region with radiculopathy Psoriatic arthritis Hiatal hernia Psoriasis Hyperlipidemia Surgical History Hx of cataract removal with insertion of prosthetic lens History of laminectomy History of colon surgery History of hysterectomy History of cholecystectomy Hx of cataract surgery History of knee replacement Family History Father Dementia Raynauds disease Substance use disorder Mother Rheumatoid arthritis Maternal Grandfather Type 2 diabetes mellitus Sister Mary Carmen's disease Breast cancer Brother Pancreatic cancer Myocardial infarction Sister Lung cancer Paternal Uncle Substance use disorder Paternal Uncle Substance use disorder Paternal Uncle Substance use disorder Son Mental health disorder Social History Household Members: Spouse Housing: House Alcohol intake: former Patient Tobacco Use Status: Never used Tobacco e-Cigarette/Vaping Use: Never Used service: No Current occupational status: retired Cognitive needs: No Hearing needs: No Vision needs: Yes Coding
--- OUTSIDE RECORDS SUMMARY | 2025-08-10 08:55 | XMS_ITS | Patient Health Record ---
[facility] Address [address] [place] [address] Care Team Providers Care Customs Compliance Manager Name Role Phone Jesus Brand Primary Care Provider Dominique Gallo Unavailable [phone] Allergies Allergen (clinical drug ingredient) Drug/Non Drug [...] Status Risk Notes Problem Peripheral vascular disease (571733446) Peripheral vascular disease (I73.9) Active confirmed Plan Of Treatment Pending Test Test Name Order Date X ray : Foot, left 3V 12/09/2023 X ray : Foot, right 3V 12/09/2023 X ray : Foot, right 3V 02/17/2024 Insurance Providers Payer Name Payer Address Payer Phone Subscriber Number Group Number Insured Name Patient Relationship to Insured Coverage Start Date Coverage End Date Medicare National [facility] [address] [place] [id number] EllentonFallon peng Self - patient is the insured AARP Secondary to Medicare [address] [place] [address] [id number] Nima Gabrieline Self - patient is the insured Medical [...] 01/2009 laser surgery injections - sclerotheraph y [id number] cataract surgery 2014 2 Pre cancerous lesion removal (L-arm, R - calf) 09/2013 pre cancerous lesion removed (wrist) 2014 spinal surgery - laminectomy 10/10/2015 pre cancerous lesion removed ( R yazidism) 11/2016 rest of lesion removed 11/2017 L thigh excision precancerous lesion 03/2019 L thigh excision precancerous lesion rem aniceto 02/09/2019 Hospitalization History Reason Date(Month/Year) 10 Day Hospitalization (Adhesions - Smal l Intestine) 06/2013 [facility]- nausea 05/14
--- OUTSIDE RECORDS SUMMARY | 2025-08-10 08:55 | XMS_ITS | Patient Health Record ---
Author Organization [facility] Address [address] [place], [place] [address] Care Team Providers Care Family Living Educator Name Role Phone PATCHAR Primary Care Provider [phone] SURYA NORMAN Unavailable [phone] Allergies Allergen (clinical drug ingredient) Drug/Non Drug [...] W/U Status Risk Notes Problem Chronic pain (68947057) Other chronic pain (G89.29) Active confirmed Problem Chronic pain syndrome (615590267) Chronic pain syndrome (G89.4) Active confirmed Problem Essential hypertension (46369848) Essential (primary) hypertension (I10) Active confirmed Problem Lumbosacral spondylosis without myelopathy (11344744) Spondylosis without myelopathy or radiculopathy, lumbar region (M47.816) Active confirmed Problem Post-laminectomy syndrome (84836250) Postlaminectomy syndrome, not elsewhere classified (M96.1) Active confirmed Problem Urge incontinence of urine (13860975) Urge incontinence (N39.41) Active confirmed Problem Paresthesia (finding) (19638401) Paresthesia of skin (R20.2) Active confirmed Problem Hyperlipidaemia (64721398) Hyperlipidemia, unspecified hyperlipidemia type (E78.5) Active confirmed Problem Gastroesophageal reflux disease without esophagitis (086118011) Gastroesophageal reflux disease without esophagitis (K21.9) Active confirmed Problem Recurrent major depression in remission (01385550) Recurrent major depressive disorder, in partial remission (F33.41) Active confirmed Problem Essential hypertension (36224480) Hypertension, unspecified type (I10) Active confirmed Problem Obese class II (146465823570499) BMI 36.0-36.9,adult (Z68.36) Active confirmed Problem Obese class II (749591183728151) BMI 35.0-35.9,adult (Z68.35) Active confirmed Problem Psoriatic arthritis (291843648) Psoriatic arthritis (L40.50) Active confirmed Problem Lumbosacral spondylosis without myelopathy (62172878) Spondylosis of lumbar region without myelopathy or radiculopathy (M47.816) Active confirmed Problem Lumbosacral spondylosis without myelopathy (58436526) Spondylosis of lumbosacral region without myelopathy or radiculopathy (M47.817) Active confirmed Problem Mixed anxiety and depressive disorder (067376131) Depression with anxiety (F41.8) Active confirmed Problem Bilateral sacroiliitis (6609506679) Bilateral sacroiliitis (M46.1) Active confirmed Problem Restless legs (47721412) RLS (restless legs syndrome) (G25.81) Active confirmed Problem History of cataract (247274868) History of cataract (Z86.69) Active confirmed Problem History of diverticulitis (300533903159186) History of diverticulitis (Z87.19) Active confirmed Problem Arthropathy of lumbar facet joint (009424030) Lumbar facet arthropathy (M47.816) Active confirmed Problem Sedative, 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, 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) Active confirmed Problem Scoliosis (038485329) Severe scoliosis (M41.9) Active confirmed Problem Herpes zoster without complication (371512812) Zoster without complications (B02.9) 018 Problem resolved confirmed [id number] 505- Problem Eruption of skin (788497390) Rash and other nonspecific skin eruption (R21) 018 Problem resolved confirmed [id number] 505- Problem Essential hypertension (83927716) Essential hypertension, unspecified (401.9) 018 Problem resolved confirmed [id number]- Problem Generalized osteoarthritis (067216909) Osteoarthritis, site unspecified (715.00) 018 Problem resolved confirmed [id number]- Problem Gastroesophageal reflux disease (614811617) GERD (530.81) 018 Problem resolved confirmed [id number]- Problem URI (5243404287) URI (465.8) 015 Problem resolved confirmed [id number] 505- Problem Hyperlipidemia (14819235) Hyperlipidemia (272.4) 018 Problem resolved confirmed [id number] [...] End Date MEDICARE PART B [address] [address] [place] [address] [id number] DEVEN MAYEN Self - patient is the insured 4 [facility] Supplement al [address] [place], [place] [id number] PLAN C DEVEN MAYEN Self - patient [...]
== END 2025-08-09 14:50 | disposition home or self-care (01) ==
LOC: HO.HGI 14:05
PROVIDERS: PCP Internal Medicine; Visit Provider Nurse Practitioner
DX: K21.9 Gastro-esophageal reflux disease without esophagitis (principal); R19.7 Diarrhea, unspecified; K22.70 Barrett's esophagus without dysplasia
CPT/HCPCS: 99213

== ENCOUNTER → 2025-08-09 14:04 | Outpatient (BNVA) | payer MEDICARE, SELFPAY | PROVIDERS: PCP Internal Medicine; Visit Provider Nurse Practitioner | DX: K21.9 Gastro-esophageal reflux disease without esophagitis (principal); K22.70 Barrett's esophagus without dysplasia; R19.7 Diarrhea, unspecified; I10 Essential (primary) hypertension | CPT/HCPCS: 99212 ==

== ENCOUNTER 2025-08-11 13:26 | Outpatient (AMB) | payer MEDICARE, SELFPAY ==
[2025-08-11 13:41] VITALS: BP 130/64; PULSE 92; RESP 16; TEMP 36.5; O2SAT 98; BMI 38.5
--- NOTE | 2025-08-11 13:41 | MHC.PC.OV ---
Vital Signs 08/11/25 13:41 Height 5 ft Weight 197 lb BMI 38.5 BP 130/64 Blood Pressure Location Lt brachial Position Sitting Respiration 16 Pulse 92 Pulse Source Pulse Oximeter Temp 97.7 F Temp Source Oral Pulse Oximetry (%) 98 Oxygen Delivery Method Room Air Intake Visit Reasons: 4 months f/up Intake Note: Pt is here today for her 4mo. f/u Airport Operations Specialist Required: No Allergies lidocaine (From Aspercreme (lidocaine HCl)) Allergy (Intermediate, Verified 08/11/25 14:13) Rash celecoxib (From Celebrex) Allergy (Mild, Verified 08/11/25 14:13) PALPITATIONS levofloxacin (From Levaquin) Allergy (Mild, Verified 08/11/25 14:13) VOMITNG/JITTERY zolpidem (From Ambien) Allergy (Mild, Verified 08/11/25 14:13) HIVES/RASH/ITCH acetaminophen (From Vicodin) Allergy (Verified 08/11/25 14:13) Abdominal Pain adhesive tape Allergy (Verified 08/11/25 14:13) Rash cholestyramine (From Questran) Allergy (Verified 08/11/25 14:13) Unknown gemfibrozil (From Lopid) Allergy (Verified 08/11/25 14:13) Nausea hydrocodone (From Vicodin) Allergy (Verified 08/11/25 14:13) Abdominal Pain indomethacin Allergy (Verified 08/11/25 14:13) Nausea ketoprofen Allergy (Verified 08/11/25 14:13) Chest Pain lisinopril Allergy (Verified 08/11/25 14:13) Nausea naproxen Allergy (Verified 08/11/25 14:13) Abdominal Pain NSAIDS (Non-Steroidal Anti-Inflamma Allergy (Verified 08/11/25 14:13) Abdominal Pain sucrose (From Questran) Allergy (Verified 08/11/25 14:13) Unknown diazepam (From Valium) Adverse Reaction (Mild, Verified 08/11/25 14:13) HYPERACTIVE pravastatin (Pravastatin) Adverse Reaction (Mild, Verified 08/11/25 14:13) MUSCLE AND LEG PAIN gabapentin Adverse Reaction (Verified 08/11/25 14:13) Headache zinc Adverse Reaction (Verified 08/11/25 14:13) Vomiting Medication List - Last Reconciled 08/11/25 by Siena Amado MD amlodipine 10 mg PO DAILY ascorbic acid (vitamin C) 500 mg PO DAILY B-complex with vitamin C 1 cap PO DAILY calcium carbonate-vitamin D3 600 mg-20 mcg (800 unit) (Caltrate plus D) 1 tab PO DAILY coenzyme Q10 (Co Q-10) 100 mg PO DAILY diclofenac sodium 1% 2 grams topical QID famotidine 20 mg PO DAILY fluoride (sodium) 1.1% 1 appl PO DAILY eaibcxat-lrz-shqyk-rtx825-mfxe 500-500-66.7 mg (Btvgvmvcowo-Eyborgulrid-RSW (with antiox)) tabs PO hydrochlorothiazide 25 mg PO QAM magnesium glycinate 240mg qd melatonin 10 mg PO BEDTIME PRN ckoxulxc-xan-vpsf-FA-vit K-lut 8 mg iron-400 mcg-50 mcg (Centrum Silver Women) 1 tab PO DAILY ondansetron 4 mg PO Q6-8H PRN pantoprazole 40 mg PO DAILY pravastatin 20 mg PO BEDTIME propylene glycol 0.6% (Systane Balance) 1 drp ophthalmic (eye) DAILY psyllium husk (Metamucil) 0.4 grams PO QDAY valsartan 320 mg PO DAILY Tobacco use date assessed: 08/11/25 Fall risk assessment: No Falls in past year Last assessed Fall Risk: 08/11/25 Dental Screening Dental Screen Date: 08/11/25 Did you have a dental visit in the last 12 months?: Yes Did you have a dental problem in the last 6 months where you did not have access to dental care?: No Was dental information given to patient?: Patient has dentist HPI 4 months f/up HPI Details The patient is an 84 year old individual presenting for management of multiple chronic conditions. About four weeks ago, the patient experienced a sudden, severe pain in the right arm upon pulling open a door. Following the injury, the patient was unable to move the arm, could not hold a cup of coffee, and could not wear a bra for several weeks. She reports a remote history of a torn biceps on the same arm, which was not surgically repaired. The patient managed the recent injury with cold packs for the first three days, followed by heat application. The arm is reportedly getting better, and the patient is performing eepbz-mk-kmoquy exercises to prevent stiffness. Regarding cardiovascular health, the patient's blood pressure has been fluctuating, with recent readings as high as 171/70 mmHg and 164 mmHg, and often in the 150s. The patient does not experience headaches with these elevated readings and notes that the home blood pressure machine frequently indicates an irregular heartbeat. For restless leg syndrome, a trial of magnesium was ineffective, leading the patient to resume using tonic water containing quinine. This has been giving her disturbed sleep, often waking at 2-3 AM and staying awake for a couple of hours before being able to return to sleep for a short period. [facility] Medical History Gait instability Dyslipidemia Polyarthralgia Osteoarthritis Chronic pain TMJ (dislocation of temporomandibular joint) Elevated uric acid in blood 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 Spinal stenosis of cervical region with radiculopathy Psoriatic arthritis Hiatal hernia Psoriasis Hyperlipidemia Surgical History Hx of cataract removal with insertion of prosthetic lens History of laminectomy History of colon surgery History of hysterectomy History of cholecystectomy Hx of cataract surgery History of knee replacement Family History Father Dementia Raynauds disease Substance use disorder Mother Rheumatoid arthritis Maternal Grandfather Type 2 diabetes mellitus Sister Mary Carmen's disease Breast cancer Brother Pancreatic cancer Myocardial infarction Sister Lung cancer Paternal Uncle Substance use disorder Paternal Uncle Substance use disorder Paternal Uncle Substance use disorder Son Mental health disorder Social History Household Members: Spouse Housing: House Alcohol intake: former Patient Tobacco Use Status: Never used Tobacco e-Cigarette/Vaping Use: Never Used service: No Current occupational status: retired Cognitive needs: No Hearing needs: No Vision needs: Yes Questionnaire Thrive Questionnaire Date Thrive assessed: 09/28/24 I am a: Patient What is your living situation today?: I have a steady place to live Within the past 12 months, did the food you bought not last and you didn't have the money to get more?: Never true Within the past 12 months, did you worry whether your food would run out before you got money to buy more?: Never true Do you have trouble paying for medicines?: No Do you have trouble getting transportation to medical appointments?: No Do you have trouble paying your heating and electricity bill?: No Do you have trouble taking care of your child, family member or friend?: No Do you have trouble with day-to-day activities such as bathing, preparing meals, shopping, managing finances, etc.?: No Are you currently unemployed and looking for a job?: No Are you interested in more education?: No Please select the resources that you would like help with: None Currently or been in a relationship where the following occur: No concerns reported THRIVE Score: 0 CASI-7 AMB Questionnaire CASI-7 Date CASI - 7 assessed: 10/05/24 Source: Developed by Drs. Tc Ferrer, Ryann Sanchez, Berto Barron and colleagues, with an educational rosemarie from [employer]. Review of Systems Const Reports as per HPI, Denies fever(s), Denies night sweats and Denies poor appetite Eyes Details: Glasses Reports requires corrective lenses ENT Reports no additional complaints Card Denies chest pain and Denies lightheadedness Resp Reports no additional complaints GI Details: Denies abdominal pain, Denies melena, Denies bloating, Denies hematochezia, Denies change in bowel habits, Denies excessive flatus, Denies early satiety, Reports heartburn and Denies nausea Reports no additional complaints Musc Reports arthralgias, Reports limited range of motion and Reports stiffness Skin/Breast Denies pruritus, Denies lesions, Denies rash and Denies jaundice Neuro Denies Abnormal speech present Psych Reports no additional complaints Endo Reports no additional complaints Linden/Lymph Reports no additional complaints Aller/Immun Reports no additional complaints Physical exam (Primary Care) Vital Signs: Last Vital Signs Temp 97.7 F 08/11/25 13:41 Pulse 92 08/11/25 13:41 Resp 16 08/11/25 13:41 BP 130/64 08/11/25 13:41 Pulse Ox 98 08/11/25 13:41 Oxygen Delivery Method Room Air 08/11/25 13:41 BMI result Body Mass Index 38.5 Tobacco/Smoking Status: Tobacco use Status Tobacco use date assessed 08/11/25 08/11/25 13:44 Patient Tobacco Use Status Never used Tobacco 08/11/25 13:44 e-Cigarette/Vaping Use Never Used 08/11/25 13:44 Thrive Assessment: Date of Thrive Assessment Date Thrive assessed 09/28/24 08/11/25 13:44 Currently or been in a relationship where the following occur: No concerns reported Neuro Speech: No Abnormal speech present Results Reviewed Results Reviewed: EKG showed sinus rhythm with first-degree AV block Coding Level of Care Code Est Pt Level 4 (18580) Diagnoses Strain of right upper arm S46.911A Primary hypertension I10 Hypertension type: primary hypertension Assessment & Plan Assessment & Plan (1) Strain of right upper arm: Code(s): S46.911A - Strain of unspecified muscle, fascia and tendon at shoulder and upper arm level, right arm, initial encounter (2) Hypertension: Code(s): I10 - Essential (primary) hypertension Category: Medical Qualifiers: Hypertension type: primary hypertension Qualified Code(s): I10 - Essential (primary) hypertension Plan 1. Right arm strain The patient sustained a right arm injury four weeks ago, with exam findings suggestive of a muscle pull rather than an acute tendon tear, as biceps function is intact. The plan is for the patient to continue applying heat, performing range of motion exercises, and avoiding heavy lifting to allow the injury to heal. 2. Hypertension and Palpitations The patient's blood pressure is labile, with reports of elevated readings and an irregular heartbeat on a home monitor. The use of tonic water (quinine) for restless legs is a potential contributor to cardiac arrhythmia and will be discontinued. EKG done showed normal sinus rhythm with first-degree AV block Recent labs, including thyroid function, are normal. 4. Restless Leg Syndrome and Insomnia The patient's restless legs have not improved with magnesium. The patient will be counseled to stop taking tonic water due to cardiac risks, and an alternative medication will be prescribed. Prescription sent for ropinirole 0.25 mg to be taken at bedtime. The patient will proceed with scheduled preventative care, including a GI appointment in January, a mammogram in February, and a follow-up visit here in March . Patient was informed and verbally consented to the use of an ambient scribe for clinic note documentation during this visit. Orders: Orders AMB EKG-In Office 08/11/25 I10 - Essential (primary) hypertension Medications: New ropinirole administer 1-3 hours before bedtime 0.25 mg PO BEDTIME 30 tabs 0RF [Heavy duty Rollator with wheels] weight- 197 lbs height -5 ft 1 ea 0RF Unsteady gait
--- OUTSIDE RECORDS SUMMARY | 2025-08-11 18:53 | XMS_ITS | Patient Health Record ---
Author Organization [facility] Address [address] [place], [place] [address] Care Team Providers Care Digital Media Manager Name Role Phone PATCHAR Primary Care Provider SURYA NORMAN Unavailable [phone] Allergies Allergen (clinical drug ingredient) Drug/Non Drug [...] W/U Status Risk Notes Problem Chronic pain (81750298) Other chronic pain (G89.29) Active confirmed Problem Chronic pain syndrome (868743552) Chronic pain syndrome (G89.4) Active confirmed Problem Essential hypertension (55629618) Essential (primary) hypertension (I10) Active confirmed Problem Lumbosacral spondylosis without myelopathy (49956730) Spondylosis without myelopathy or radiculopathy, lumbar region (M47.816) Active confirmed Problem Post-laminectomy syndrome (99049252) Postlaminectomy syndrome, not elsewhere classified (M96.1) Active confirmed Problem Urge incontinence of urine (28855469) Urge incontinence (N39.41) Active confirmed Problem Paresthesia (finding) (44181603) Paresthesia of skin (R20.2) Active confirmed Problem Hyperlipidaemia (36903151) Hyperlipidemia, unspecified hyperlipidemia type (E78.5) Active confirmed Problem Gastroesophageal reflux disease without esophagitis (184451332) Gastroesophageal reflux disease without esophagitis (K21.9) Active confirmed Problem Recurrent major depression in remission (84885137) Recurrent major depressive disorder, in partial remission (F33.41) Active confirmed Problem Essential hypertension (21273283) Hypertension, unspecified type (I10) Active confirmed Problem Obese class II (268890379413479) BMI 36.0-36.9,adult (Z68.36) Active confirmed Problem Obese class II (663147304437175) BMI 35.0-35.9,adult (Z68.35) Active confirmed Problem Psoriatic arthritis (985513506) Psoriatic arthritis (L40.50) Active confirmed Problem Lumbosacral spondylosis without myelopathy (94188418) Spondylosis of lumbar region without myelopathy or radiculopathy (M47.816) Active confirmed Problem Lumbosacral spondylosis without myelopathy (93283642) Spondylosis of lumbosacral region without myelopathy or radiculopathy (M47.817) Active confirmed Problem Mixed anxiety and depressive disorder (682526012) Depression with anxiety (F41.8) Active confirmed Problem Bilateral sacroiliitis (9060268058) Bilateral sacroiliitis (M46.1) Active confirmed Problem Restless legs (10205333) RLS (restless legs syndrome) (G25.81) Active confirmed Problem History of cataract (774135960) History of cataract (Z86.69) Active confirmed Problem History of diverticulitis (080671128229647) History of diverticulitis (Z87.19) Active confirmed Problem Arthropathy of lumbar facet joint (395382755) Lumbar facet arthropathy (M47.816) Active confirmed Problem Sedative, 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, 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) Active confirmed Problem Scoliosis (381679437) Severe scoliosis (M41.9) Active confirmed Problem Herpes zoster without complication (817763783) Zoster without complications (B02.9) 018 Problem resolved confirmed [id number] 505- Problem Eruption of skin (760248659) Rash and other nonspecific skin eruption (R21) 018 Problem resolved confirmed [id number] 505- Problem Essential hypertension (24858313) Essential hypertension, unspecified (401.9) 018 Problem resolved confirmed [id number] 505- Problem Generalized osteoarthritis (245880895) Osteoarthritis, site unspecified (715.00) 018 Problem resolved confirmed [id number] 505- Problem Gastroesophageal reflux disease (129813820) GERD (530.81) 018 Problem resolved confirmed [id number] 505- Problem URI (5487373961) URI (465.8) 015 Problem resolved confirmed [id number] 505- Problem Hyperlipidemia (28754274) Hyperlipidemia (272.4) 018 Problem resolved confirmed Reza-717 [...] End Date MEDICARE PART B [address] [address] [place] [address] [id number] DEVEN MAYEN Self - patient is the insured 4 [facility] Supp[facility] al [address] [place], [place] [id number] PLAN C DEVEN MAYEN Self - patient [...]
--- OUTSIDE RECORDS SUMMARY | 2025-08-11 18:53 | XMS_ITS | Patient Health Record ---
[facility] Address [address] [place] [address] Care Team Providers Care Director Electrical Engineering Name Role Phone Jesus Brand Primary Care Provider Dominique Gallo Unavailable [phone] Allergies Allergen (clinical drug ingredient) Drug/Non Drug [...] Status Risk Notes Problem Peripheral vascular disease (832065009) Peripheral vascular disease (I73.9) Active confirmed Plan Of Treatment Pending Test Test Name Order Date X ray : Foot, left 3V 12/09/2023 X ray : Foot, right 3V 12/09/2023 X ray : Foot, right 3V 02/17/2024 Insurance Providers Payer Name Payer Address Payer Phone Subscriber Number Group Number Insured Name Patient Relationship to Insured Coverage Start Date Coverage End Date Medicare [facility] [employer] [address] [place] [phone] [id number] Eau GalleFallon peng Self - patient is the insured [employer] Secondary to Medicare [address] [place] [id number] Nima Gabrieline Self - patient is the [...] 01/2009 laser surgery injections - sclerotheraph y [id number] cataract surgery 2014 2 Pre cancerous lesion removal (L-arm, 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
== END 2025-08-11 14:57 | disposition home or self-care (01) ==
LOC: HO.HMCC 13:26
PROVIDERS: PCP Internal Medicine; Visit Provider Internal Medicine
DX: S46.911A Strain of unspecified muscle, fascia and tendon at shoulder and upper arm level, right arm, initial encounter (principal); I10 Essential (primary) hypertension

== ENCOUNTER → 2025-08-11 13:26 | Outpatient (BNVA) | payer MEDICARE, SELFPAY | PROVIDERS: PCP Internal Medicine; Visit Provider Internal Medicine | DX: S46.911D Strain of unspecified muscle, fascia and tendon at shoulder and upper arm level, right arm, subsequent encounter (principal); I10 Essential (primary) hypertension | CPT/HCPCS: 99212 ==